=== PATIENT | male | born 1950 | race Caucasian/White ===

== ENCOUNTER 2016-10-24 09:03 | Observation (INO) | payer BC, OTHER ==
[2016-10-21 15:04] VITALS: BMI 24.0
[~2016-10-24] VITALS: Ht 172.7 cm; Wt 70.3 kg
[2016-10-24] VITALS (12 sets, daily range): BP systolic 128–177; BP diastolic 70–93; PULSE 63–108; TEMP 36.5–36.8; O2SAT 86–100; Ht 172.7 cm; Wt 70.3 kg
[~2016-10-24 09:03] MED LIST: ARFO15NE INH; BUDE1SUS INH; CETICHW4 PO; CRS/10 PO; FENTANYL CITRATE INJ 50 MCG/1 ML 2 ML VIAL ONE; FLUT0.15 INTNAS; IBUP1CAP9 PO; LACTATED RINGER'S 1000ML 1,000 ML IV SCH; MIDAZOLAM HCL 1 MG/ML 2ML VIAL ONE; TAMS0.4C38 PO; VITAMIN B12 PO
[2016-10-24] MEDS ORDERED: SUCCINYLCHOLINE CHLORIDE 20 MG/ML 10 ML VIAL IV ONE (10:46)
[2016-10-24] MEDS ORDERED: DEXAMETHASONE SOD INJ 4 MG/ML VIAL ONE (10:46)
[2016-10-24] MEDS ORDERED: PROPOFOL IV EMULSION 10 MG/ML 20 ML VIAL IV ONE (10:46)
[2016-10-24] MEDS ORDERED: MIDAZOLAM HCL 1 MG/ML 2ML VIAL ONE (10:46)
[2016-10-24] MEDS ORDERED: GLYCOPYRROLATE INJ 0.2 MG/ML VIAL ONE (10:46)
[2016-10-24] MEDS ORDERED: LIDOCAINE HCL 2% 2 ML VIAL (20MG/ML) ONE (10:46)
[2016-10-24] MEDS ORDERED: FENTANYL CITRATE INJ 50 MCG/1 ML 2 ML VIAL ONE (10:46)
[2016-10-24] MEDS ORDERED: ONDANSETRON INJ 2 MG/ML 2 ML VIAL ONE (10:46)
[2016-10-24] MEDS ORDERED: ROCURONIUM BROMIDE 10 MG/ML 5 ML VIAL ONE (10:46)
[2016-10-24] MEDS ORDERED: EpHEDrine SULFATE INJ 50 MG/ML AMP ONE (10:46)
[2016-10-24] MEDS ORDERED: PHENYLEPHRINE HCL INJ 10 MG/ML VIAL ONE (10:46)
[2016-10-24] MEDS ORDERED: NEOSTIGMINE METHYLSULFATE 5 MG/5 ML SYR ONE (10:46)
--- NOTE | 2016-10-24 10:58 | History & Physical Bridge Note ---
H&P Re-Evaluation Bridge Note: I have examined the patient, reviewed the History & Physical and in the interval since the performance of the History & Physical I have noted the following changes of clinical significance: No changes noted
[2016-10-24] MEDS ORDERED: ALBUTEROL 0.083% NEBU SOLN 3 ML VIAL INH STA ×2 (11:08→13:22)
--- NOTE | 2016-10-24 11:51 | Discharge Instructions ---
Discharge Instructions Date of Service Oct 24, 2016. Visit Reason for Visit: History Of Lung Cancer, Cough Discharge Discharge Diagnosis / Problem: History Of Lung Cancer, Cough Discharge Goals Goal(s): Learn about illness Activity Recommendations Activity Limitations: resume your previous activity (in 24 hours) Anesthesia . Post Anesthesia Instructions: If you have had General Anesthesia or IV Sedation: * Do not drive today. * Resume driving when surgeon permits. * Do not make important decisions or sign legal documents today. * Call surgeon for: 1. Temperature elevations greater than 101 degrees F. 2. Uncontrollable pain. 3. Excessive bleeding. 4. Persistent nausea and vomiting. 5. Medication intolerance (nausea, vomiting or rash). * For nausea and vomiting use only clear liquids such as: tea, soda, bouillon until nausea subsides, then gradually increase diet as tolerated. * If you have any concerns or questions, call your surgeon's office. If physician is unavailable and it is an emergency, call 911 or go to the nearest emergency room. . Instructions / Follow-Up Instructions / Follow-Up 1. You may cough up blood. Call physician if excessive amount noted. 2. Keep your scheduled appointment with Dr. Castillo on November 03 @ 11:00. Diet Recommendations Recommended Home Diet: resume previous diet Pending Studies Studies pending at discharge: no Medical Emergencies . Who to Call and When: Medical Emergencies: If at any time you feel your situation is an emergency, please call 911 immediately. . Non-Emergent Contact Non-Emergency issues call your: Surgeon Call Non-Emergent contact if: you have a fever, your pain is not controlled . . "Provider Documentation" section prepared by Flaco Abrams. .
[2016-10-24] MEDS ORDERED: EpHEDrine SULFATE INJ 50 MG/ML AMP IV PRN (12:45)
[2016-10-24] MEDS ORDERED: ATROPINE SULFATE 0.1 MG/ML 5ML SYR IV PRN (12:45)
[2016-10-24] MEDS ORDERED: ALBUTEROL HFA INHALER 8.5 GM INH ONE (13:23)
--- NOTE | 2016-10-24 14:05 | Anesthesiology Progress Note ---
Anesthesia Progress Note Date of Service Oct 24, 2016. Progress Notes Pt c/o SOB.Pt has sub Q emphysema/air of neck and cheeks.Dr Castillo being notified.
--- NOTE | 2016-10-24 14:27 | DIAGNOSTIC IMAGING REPORT ---
CHEST ONE VIEW PORTABLE CLINICAL HISTORY: s/p EBUS COMPARISON STUDY: Chest CT May 09, 2016. FINDINGS: Moderate pneumomediastinum and soft tissue gas within the lower neck is noted. Left hemithorax volume loss is unchanged and is postsurgical. There is no evidence of pulmonary edema. No pneumothorax or pleural effusion is identified. Cardiac size is normal. IMPRESSION: Moderate subcutaneous gas within the lower neck and pneumomediastinum. No pneumothorax identified. Short-term radiographic follow-up might be considered. Electronically signed by: Girma Gonzáles M.D. 10/24/2016 2:25 PM Dictated Date/Time: 10/24/2016 2:21 PM
[2016-10-24] MEDS ORDERED: ONDANSETRON INJ 2 MG/ML 2 ML VIAL IV PRN (14:30)
[2016-10-24] MEDS ORDERED: ACETAMINOPHEN 325 MG TAB PO PRN (14:30)
--- NOTE | 2016-10-24 14:55 | Anesthesiology Progress Note ---
Anesthesia Post Op Note Date & Time Oct 24, 2016 at 14:56 Vital Signs Pain Intensity: 0 Vital Signs Past 12 Hours Date Time Temp Pulse Resp B/P (MAP) Pulse Ox O2 Delivery O2 Flow Rate FiO2 10/24/16 14:30 77 20 134/76 97 Nasal Cannula 2 10/24/16 14:15 79 20 118/72 97 Nasal Cannula 2 10/24/16 14:05 36.2 95 20 133/78 95 Room Air 10/24/16 13:50 36.2 94 20 127/88 94 Room Air 10/24/16 13:40 91 20 121/77 95 Room Air 10/24/16 13:37 108 26 100 Diffusion Mask 13.0 10/24/16 13:30 105 20 148/80 100 Mask 10 10/24/16 13:20 101 20 139/61 99 Mask 10 10/24/16 13:11 36.4 104 20 129/79 99 Mask 10 10/24/16 09:34 36.6 83 22 177/92 (120) 95 Room Air Notes Mental Status: alert / awake / arousable, participated in evaluation Pt Amnestic to Procedure: Yes Nausea / Vomiting: adequately controlled Pain: adequately controlled Airway Patency, RR, SpO2: stable & adequate BP & HR: stable & adequate Hydration State: stable & adequate Anesthetic Complications: no major complications apparent
--- NOTE | 2016-10-24 15:09 | SURGERY PROGRESS NOTE ---
DATE: 10/24/2016 DATE: 10/24/2016. 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 The patient coughed very hard first 30 minutes or so after surgery and then he settles down; however he developed subcutaneous emphysema mostly in his face and in his neck down to his clavicle. Chest x-ray showed no evidence of pneumothorax or mediastinal emphysema. At this point, he is at 100% saturations on room air. I would not do anything different but he is complaining of throat pain. We are going to ask otolaryngology to evaluate him. We will admit him and see how he looks in the morning. We will cover him with antibiotics. MARY ANNE
[2016-10-24] MEDS ORDERED: PIPERACILL/TAZOBAC CONSULT ACTIVE PRN (15:45)
[2016-10-24] MEDS ORDERED: IV FLUIDS COMPLETED PRN (15:45)
[2016-10-24] MEDS ORDERED: NURSING VERBAL MED ORDER ONE ×2 (16:30→18:15)
[2016-10-24] MEDS ORDERED: MoRPHine SULFATE 2 MG/ML CARP ONE (16:38)
[2016-10-24] MEDS: MoRPHine SULFATE 2 MG/ML CARP IV PRN (16:43)
[2016-10-24] MEDS ORDERED: PIPERACILL/TAZOBAC IV 3.375 GM in DEXTROSE 5% 100ML 100 ML IV ONE (17:00)
[2016-10-24] MEDS: BUDESONIDE 0.5 MG/2 ML VIAL (PULMICORT) INH SCH (19:33)
--- NOTE | 2016-10-24 20:31 | OPERATIVE REPORT ---
DATE OF OPERATION: 10/24/2016 PREOPERATIVE DIAGNOSIS: Hypermetabolic left hilar mass. POSTOPERATIVE DIAGNOSIS: Recurrent large cell neuroendocrine tumor. PROCEDURES: 1. Endobronchial ultrasound with biopsy. 2. Destruction of tumor left main stem bronchus with a cryoprobe. SURGEON: Shan Castillo MD MECHANICAL DETAILER: CLARA Liu. ANESTHESIA: General anesthesia endotracheal intubation. INDICATION FOR PROCEDURE AND FINDINGS: This is a very nice 66-year-old male who underwent a right upper lobectomy at [facility] for a large cell neuroendocrine tumor. It has been interesting and that it was discovered when he coughed up some tissue which was evaluated. He received chemotherapy under the direction of Dr. Cota and apparently was sent to see me when a CT scan showed that he had stenosis in his staple line in the distal left mainstem bronchus. I had a long discussion about this and his wheezing and coughing was extremely irritating to him. I put a stent in and this did not really help. I removed this after a few months. His airway looked okay, but his cough persisted. Anyway, he came back to see me with a PET scan from [facility]. 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 This lit up his area in the distal mainstem bronchus hilar area. I felt that an endobronchial ultrasound biopsy would help us with this. Upon placing the scope in today on 10/24/2016, it could be seen that the patient's obvious recurrence is right at the mid to distal left main stem bronchus. In fact, it was almost occluding the airway. I did endobronchial ultrasound and I was disappointed to see that the right level 4 node was positive for carcinoma. I ended up debulking the tumor with a cryoprobe, so I opened it up. He tolerated it well. DESCRIPTION OF PROCEDURE: The patient was brought to the operating room and laid in supine position. General anesthesia induced and endotracheal intubation was performed. Appropriate timeout had been taken and antibiotics were given. The endobronchial ultrasound scope was placed. Upon going down into the airway, I assessed the right airway and saw no abnormalities. However, the left had almost bronchial tree evaluation showed almost a complete occlusion of the distal left mainstem bronchus. This was an obvious recurrent carcinoma. I did not do anything at this point, but pullback and using the endobronchial ultrasound, I biopsied some level 7 nodes and had some lymphocytes, but no tumor. I then biopsied the right level 4 lymph node. This came back as positive for metastatic carcinoma and in an N3 node. At this point, I thought we did not need any further biopsies with the endobronchial ultrasound. I switched this out for fiberoptic bronchoscope. There was obvious this mass is going to be soon be occluding the left mainstem bronchus. For this reason, I used a cryoprobe and debulked it to open up the airway. This also gave us a large amount of tissue was sent to the lab. There was minor bleeding with this but was well controlled with the cryoprobe. I also used cold saline and some epinephrine. His airways were cleared of all blood and secretions as I slowly removed the bronchoscope. He tolerated it well. I attest to the content of the Intraoperative Record and any orders documented therein. Any exception s are noted below.
[2016-10-24] MEDS ORDERED: ARFORMOTEROL TART 15MCG/2ML VIAL INH SCH (21:00)
[2016-10-24] MEDS ORDERED: CETIRIZINE HCL 10 MG TAB PO SCH (21:00)
[2016-10-24] MEDS: FLUTICASONE PROPIONATE NA SPR 16 GM BTL NAE SCH (21:38)
[2016-10-24] MEDS: OXYCODONE/ACETAMINOPHEN 5-325 TAB PO PRN (22:01)
[2016-10-24] MEDS: PIPERACILL/TAZOBAC IV 3.375 GM in DEXTROSE 5% 100ML 100 ML IV SCH (22:02)
[2016-10-25] MEDS: MoRPHine SULFATE 2 MG/ML CARP IV PRN (00:52)
[2016-10-25 03:24] VITALS: BP 144/74; PULSE 73; TEMP 36.6; O2SAT 95
--- NOTE | 2016-10-25 04:24 | ENT CONSULTATION ---
DATE OF CONSULTATION: 10/24/2016 ROOM NUMBER: [id number]. DATE OF REQUEST FOR CONSULTATION: 10/24/2016 PERSON REQUESTING CONSULTATION: Dr. Shan Castillo. INDICATION FOR THE CONSULTATION: Subcutaneous emphysema involving the face, neck and chest following endobronchial ultrasound with fiberoptic bronchoscopy and debulking of left mainstem bronchus tumor. HISTORY OF PRESENT ILLNESS: I spoke to the patient directly as well as obtained information from Leta, his nurse, and also spoke with Dr. Shan Castillo. 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 Two years ago, 2014, he underwent left upper lobe of the lung excision for a neuroendocrine tumor. He has had a cough most of the time since that surgery, and he underwent stenting by Dr. Castillo in the summer of 2015, and this was removed in April of 2016. Given the patient's persistent cough, Dr. Castillo took the patient to the operating room today to perform endobronchial ultrasound along with fiberoptic bronchoscopy and debulking of a tumor in his left mainstem bronchus. The procedure went well, but shortly after surgery, the patient had another bout of coughing and developed subcutaneous emphysema, primarily involving the face and neck. By the time I saw him in room 215 at about 5:45 p.m., this also involved the chest. The specific reason for the consultation was to provide upper airway endoscopy to assess any damage to the upper airway including the larynx. As far as past medical history, review of systems, please see the patient's history and physical. PHYSICAL EXAMINATION: VITAL SIGNS: The latest vitals on the chart were a pulse of 77, respiratory rate of 20, blood pressure was 130/76, he was saturating at 100% on 2 L of oxygen via nasal cannula. GENERAL: The patient was alert and cooperative. He had a strong voice. FACE: Exam of the face did show emphysema involving the cheeks and neck, and this also went down to the skin over the chest. There was palpable crepitus. I performed flexible fiberoptic laryngoscopy via the nostrils. There were no abnormalities of The nose, nasopharynx, oropharynx, hypopharynx or larynx. He had normal true vocal cord mobility. There was no submucosal emphysema in the upper airway. ASSESSMENT AND PLAN: The patient has obvious subcutaneous emphysema. The etiology is not exactly clear, but I suspect it is probably related to his biopsy. The patient is doing well, and these usually resolve on their own within a few days. I have already talked with Dr. Shan Castillo, and he is aware of my findings. MARY ANNE
[2016-10-25] MEDS: PIPERACILL/TAZOBAC IV 3.375 GM in DEXTROSE 5% 100ML 100 ML IV SCH (06:28)
[2016-10-25 07:08] VITALS: PULSE 64; O2SAT 98
[2016-10-25] MEDS: BUDESONIDE 0.5 MG/2 ML VIAL (PULMICORT) INH SCH (07:08)
[2016-10-25 07:30] LABS: BASO % 0.1 %; BASO ABS # 0.01 K/uL (0-0.2); COMPLETE YES; EOS % 0.8 %; HEMATOCRIT 36.9 % (42-52); IG% 0.2 %; LYMPH % 11.1 %; LYMPH ABS # 1.29 K/uL (1.2-3.4); MEAN CELL VOLUME 87.9 fL (80-100); MEAN CORPUSCULAR HGB CONC 33.1 g/dl (32-36); MEAN PLATELET VOLUME 9.9 fL (7.4-10.4); MONO % 7.5 %; NEUT % 80.3 %; PLATELET COUNT 196 K/uL (130-400); WHITE BLOOD COUNT 11.66 K/uL (4.8-10.8)
[2016-10-25 07:39] LABS: PROTHROMBIN TIME (PATIENT) 10.7 SECONDS (9.0-12.0)
--- NOTE | 2016-10-25 07:44 | DIAGNOSTIC IMAGING REPORT ---
CHEST ONE VIEW PORTABLE HISTORY: s/p FOB COMPARISON: Chest 10/24/2016. FINDINGS: Improvement in the pneumomediastinum. Subcutaneous emphysema the neck base persist. No pneumothorax. The heart is normal in size. No change in the borderline loss within the left hemithorax. IMPRESSION: Improvement in the pneumomediastinum. Subcutaneous emphysema at the neck base persists. Electronically signed by: Isaac Chandler M.D. 10/25/2016 7:43 AM Dictated Date/Time: 10/25/2016 7:41 AM
[2016-10-25] MEDS: OXYCODONE/ACETAMINOPHEN 5-325 TAB PO PRN ×2 (07:49→11:30)
[2016-10-25] MEDS: FLUTICASONE PROPIONATE NA SPR 16 GM BTL NAE SCH (07:50)
[2016-10-25 08:00] VITALS: BP 138/78; PULSE 86; TEMP 36.6; O2SAT 97
[2016-10-25] MEDS ORDERED: TAMSULOSIN HCL 0.4 MG CAP PO SCH (09:00)
[2016-10-25] MEDS ORDERED: ENOXAPARIN 40 MG/0.4 ML SYR SC SCH (09:00)
[2016-10-25] MEDS ORDERED: ROSUVASTATIN CALCIUM 10 MG TAB PO SCH (09:00)
--- NOTE | 2016-10-25 09:10 | Discharge Instructions ---
Discharge Instructions Date of Service Oct 25, 2016. Visit Reason for Visit: History Of Lung Cancer, Cough Discharge Discharge Diagnosis / Problem: Recurrent lung cancer Discharge Goals Goal(s): Decrease discomfort Activity Recommendations Activity Limitations: resume your previous activity Anesthesia . Post Anesthesia Instructions: If you have had General Anesthesia or IV Sedation: * Do not drive today. * Resume driving when surgeon permits. * Do not make important decisions or sign legal documents today. * Call surgeon for: 1. Temperature elevations greater than 101 degrees F. 2. Uncontrollable pain. 3. Excessive bleeding. 4. Persistent nausea and vomiting. 5. Medication intolerance (nausea, vomiting or rash). * For nausea and vomiting use only clear liquids such as: tea, soda, bouillon until nausea subsides, then gradually increase diet as tolerated. * If you have any concerns or questions, call your surgeon's office. If physician is unavailable and it is an emergency, call 911 or go to the nearest emergency room. . Instructions / Follow-Up Instructions / Follow-Up No flying until cleared by Dr Castillo. Diet Recommendations Recommended Home Diet: no limitations Procedures Procedures Performed: Endobronchial Ultrasound with Biopsies and Flexible Bronchoscopy Destruction of tumor on left mainstem bronchus. Pending Studies Studies pending at discharge: yes List of pending studies: Pathology Medical Emergencies . Who to Call and When: Medical Emergencies: If at any time you feel your situation is an emergency, please call 911 immediately. . Non-Emergent Contact Non-Emergency issues call your: Surgeon Contact Number: given Call Non-Emergent contact if: temperature is above 101.5, your pain is not controlled . . "Provider Documentation" section prepared by Shan Castillo. . [place] Drug Monitoring Program Search Results: no issues identified
[2016-10-25] MEDS ORDERED: AMOX875T PO (09:14)
[2016-10-25] MEDS ORDERED: OXYC-57 PO (09:14)
--- NOTE | 2016-10-25 09:28 | DISCHARGE SUMMARY ---
DATE OF DISCHARGE: 10/25/2016. Mr. Schroeder was seen this morning on 10/25/2016. I performed an endobronchial ultrasound and was dismayed to see that he had a tumor recurrence in his left mainstem bronchus, which was almost obstructing the airway. I biopsied this and debrided it using a cryoprobe and remove much of this. The patient had marked coughing yesterday for about half an hour after he was extubated and this actually settled down. However, he then developed subcutaneous emphysema in his face and neck. I had Dr. Walker Little from otolaryngology evaluate him and Dr. Bowman did not see any oropharyngeal evidence of trauma. This is probably due to where I was using the cryoprobe on his left mainstem bronchus in which case, I am not very concerned about this. The patient looks better today. His x-ray looks fine with no evidence of pneumothorax. He has no pleural effusions. I think his left lung sounds better. He complains of occasional wheezing, but he has no wheezing this morning. I had a long talk with the patient, his and his son who is a Ph.D. candidate at [employer] today. I got a call last night from Dr. Edwin Hamilton from pathology who reviewed his FNA from the endobronchial ultrasound of the right level 4 node. Intraoperatively, it was felt on the rapid on site evaluation that this represented metastatic disease. This would have been an N3 node. Dr. Hamilton has reviewed this and had interdepartmental consultations and it is felt that this does not represent metastatic disease. This is a very important point because if he does not have disease in his right paratracheal nodes then he is a candidate for completion pneumonectomy on the left. I do have some issues. First of all, the PET scan is almost 3 months old from [place]. We are going to repeat another PET scan. I am going to obtain pulmonary function studies. We are going to present him at our weekly cancer conference and discuss options. We do not have an actual diagnosis at this point, but I gave the pathologist a large amount of tissue based on the gross findings, this is definitely a recurrence. I expect this to be a large cell neuroendocrine tumor. I discussed this with Dr. Cota last night. The patient looks better with less subcutaneous emphysema. His pain in his throat is better. I am still going to give him some pain medicine as it did keep him up last night. All in all, I am pretty happy with him. He is an interesting case and I will have to get our final pathology back. We discussed some options today including a completion pneumonectomy, sterotactic body radiation and chemotherapy. We will have to get our final pathology back and stage him more fully. MARY ANNE
[2016-10-25 10:26] VITALS: BP 138/78; PULSE 86; TEMP 36.6; O2SAT 97
[2016-11-21] MEDS ORDERED: CLR10 PO (09:51)
[2016-11-21] MEDS ORDERED: AMOX1TAB42 PO (09:51)
[2016-11-21] MEDS ORDERED: ALBU18002 INH (09:51)
[2016-11-21] MEDS ORDERED: TRAM-10 PO (09:51)
[2016-12-08] MEDS ORDERED: ONDA8TAB6 PO (16:22)
[2016-12-08] MEDS ORDERED: PRED20TA PO (16:24)
[2016-12-08] MEDS ORDERED: DIAZ-165 PO (16:25)
[2016-12-12] MEDS ORDERED: BACL10TA PO (07:25)
[2016-12-12] MEDS ORDERED: BUDESONIDE INH (07:25)
[2016-12-15] MEDS ORDERED: OXYC-57 PO (11:03)
[2016-12-15] MEDS ORDERED: AMOX500T PO (11:17)
[2016-12-26] MEDS ORDERED: RXC5 PO (12:36)
[2016-12-29] MEDS ORDERED: BUDE1SUS6 INH (08:51)
[2016-12-29] MEDS ORDERED: MULT-506 PO (08:51)
[2016-12-29] MEDS ORDERED: PROC1TAB5 PO (08:51)
[2016-12-29] MEDS ORDERED: BACL10TA PO (08:51)
[2017-01-13] MEDS ORDERED: SUCR5SUS PO (08:48)
[2017-01-13] MEDS ORDERED: PRED20TA2 PO (15:39)
[2017-03-10] MEDS ORDERED: iron PO (14:05)
[2017-03-10] MEDS ORDERED: ESOM20CA PO (14:05)
[2017-03-10] MEDS ORDERED: MISCCAP80 PO (14:05)
[2017-03-10] MEDS ORDERED: CHOL2000 PO (14:05)
== END 2016-10-25 12:11 | disposition home or self-care (01) ==
LOC: C.ACU 09:03 → C.2T 14:20 → ENRESERV 14:32
PROVIDERS: ADMIT Surgery; ATTEND Surgery
DX: C7A.090 Malignant carcinoid tumor of the bronchus and lung (principal); J44.9 Chronic obstructive pulmonary disease, unspecified

== ENCOUNTER → 2016-11-10 | Outpatient (CLI) | payer BC ==
[~2016-11-10] MED LIST changes: +ALBU18002 INH; +AMOX1TAB42 PO; +AMOX500T PO; +AMOX875T PO; +BACL10TA PO; +BENZ100C7 PO; +BENZ1CAP90 PO; +BUDE1SUS6 INH; +BUDESONIDE INH; +CEFD300C2 PO; -CETICHW4 PO; +CHOL2000 PO; +CLR10 PO; +CPC PO; +DIAZ-165 PO; +ESOM20CA PO; -FENTANYL CITRATE INJ 50 MCG/1 ML 2 ML VIAL ONE; +FERROUS SULFATE PO; -IBUP1CAP9 PO; -LACTATED RINGER'S 1000ML 1,000 ML IV SCH; +LORA-741 PO; +LVQ750 PO; +MAGIC1 MT; +MELA3TAB7 PO; +MGCCMP100 PO; -MIDAZOLAM HCL 1 MG/ML 2ML VIAL ONE; +MIRT15TA2 PO; +MISCCAP80 PO; +MONT1TAB3 PO; +MULT-506 PO; +ONDA8TAB6 PO; +OXYC-57 PO; +PRD20 PO; +PRED20TA PO; +PRED20TA2 PO; +PROC1TAB5 PO; +RMR15 PO; +RXC5 PO; +SUCR5SUS PO; +TRAM-10 PO; +iron PO
--- NOTE | 2016-11-10 12:53 | DIAGNOSTIC IMAGING REPORT ---
PET/CT HISTORY: NON SMALL CELL LUNG CA TECHNIQUE: PET/CT was performed from the base of the skull through the pelvis following the intravenous administration of 14.6 mCi of F18-FDG. Non-contrast CT imaging was performed over the same range without breath-hold for attenuation correction of PET images and anatomic correlation, but not for primary interpretation as it is not of standard diagnostic quality. CT DOSE: COMPARISON: Chest CT 05/12/2016. PET CT 08/02/2014. FINDINGS: Motion artifact throughout the examination resulting in suboptimal evaluation. HEAD AND NECK: FDG uptake within the tongue is likely physiologic. Significant motion artifact. No definite enlarged or FDG avid cervical lymph nodes. Symmetric perfusion within the brain. CHEST: Progressive soft tissue thickening at the left hilum which measures 1.8 cm. This demonstrates intense FDG uptake with an SUV max of 7.5. There is also an 8 mm soft tissue nodule along the anterior aspect of the left mainstem bronchus on image 87 which demonstrates moderate FDG uptake with an SUV max of 4.9. These are highly suspicious for recurrent/metastatic disease. Postoperative changes consistent with prior left upper lobectomy. Nodular densities within the left lung base have resolved. A 7 mm groundglass nodule within the right upper lobe described on the prior studies is not well visualized due to the motion artifact. No pleural effusions. ABDOMEN/PELVIS: Below the diaphragm, tracer is distributed physiologically in the gastrointestinal and genitourinary tracts. There is no significant lymphadenopathy and no FDG-avid disease. MUSCULOSKELETAL: Mild FDG uptake within the left lateral third rib. There is an associated healing fracture. IMPRESSION: 1. Interval development of a 1.8 cm area of soft tissue thickening within the left hilum with intense FDG uptake. There is also a new 8 mm FDG avid soft tissue nodule along the anterior aspect of the left mainstem bronchus. These are consistent with recurrent/metastatic disease. Bronchoscopy can be used for further evaluation. 2. Mild FDG uptake associate with the left lateral third rib healing fracture. Electronically signed by: Isaac Chandler M.D. 11/10/2016 12:51 PM Dictated Date/Time: 11/10/2016 12:31 PM
== END | disposition home or self-care (01) ==
LOC: C.PET 08:59
PROVIDERS: ATTEND Surgery
DX: C7A.8 Other malignant neuroendocrine tumors (principal); C34.02 Malignant neoplasm of left main bronchus

== ENCOUNTER → 2016-11-12 | Day surgery (SDC) | payer BC ==
[2016-11-05 15:21] VITALS: Ht 172.7 cm; Wt 71.4 kg
[~2016-11-12] VITALS: Ht 172.7 cm; Wt 71.4 kg
[~2016-11-12] MED LIST changes: +CLINDAMYCIN PHOS 150 MG/ML 2 ML VIAL ONE; +DEXAMETHASONE SOD INJ 4 MG/ML VIAL ONE; +EpHEDrine SULFATE 50MG/5ML SYR ONE; +FENTANYL CITRATE INJ 50 MCG/1 ML 2 ML VIAL IV PRN; +FENTANYL CITRATE INJ 50 MCG/1 ML 2 ML VIAL ONE; +LACTATED RINGER'S 1000ML 1,000 ML IV PRN; +LACTATED RINGER'S 1000ML 1,000 ML IV SCH; +LIDOCAINE HCL 2% 2 ML VIAL (20MG/ML) ONE; +MIDAZOLAM HCL 1 MG/ML 2ML VIAL ONE; +ONDANSETRON INJ 2 MG/ML 2 ML VIAL IV PRN; +ONDANSETRON INJ 2 MG/ML 2 ML VIAL ONE; +PHENYLEPHRINE 100MCG/ML 5ML SYR ONE; +PHENYLEPHRINE HCL INJ 10 MG/ML VIAL ONE; +PROPOFOL IV EMULSION 10 MG/ML 20 ML VIAL IV ONE; +VASOPRESSIN 20 UNIT/ML VIAL ONE
[2016-11-12 05:51] VITALS: BP 156/88; PULSE 56; TEMP 36.7; O2SAT 98
--- NOTE | 2016-11-12 10:07 | OPERATIVE REPORT ---
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 POSTOPERATIVE DIAGNOSIS: Same. PROCEDURE: Staging endobronchial ultrasound with biopsy. SURGEON: Dr. Castillo. ANESTHESIA: General anesthesia with laryngeal mask airway. 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 He received postoperative chemotherapy because of the cell type being a large cell neuroendocrine tumor. His lymph nodes were negative and the tumor was not large. He presented back as a persistent cough since the surgery. I inserted a small bronchial stent last summer which he had in for a few months and then I removed it. His last bronchoscopy was in April. He had no evidence of carcinoma and PET scans had not show any evidence for recurrence nor did a CT. He presented back to my office a few weeks ago after returning from [facility] where he had a CT scan in July. This showed hypermetabolic activity in the left hilum. A couple of weeks, I scheduled him for endobronchial ultrasound and was dismayed to see that he had a nearly obstructing tumor in his left mainstem bronchus about 2 cm from the slim. I did an endobronchial biopsy. We were going to stage this; however, when I did the right level 4 the rapid on-site evaluation felt that this represented carcinoma. For this reason, I stopped as he had N3 disease but I did debulk this tumor with a cryoprobe which opened it up nicely. He really has no systemic symptoms other than a cough from this. I was then told that he actually did not have carcinoma of this right level 4 node which changed things because he now no longer had N3 disease by cytology and we had not completely staged him. I explained this to him in the office and I elected to proceed with a staging endobronchial ultrasound. On 11/12/2016 I brought the patient to the operating room and did a staging endobronchial ultrasound. The nodes were rather small. I did biopsy a level 2 node on the right, as well as the level 4 and level 10. They were difficult to get lymphocytes from these. I then biopsied level 7 and this was definitely positive. I biopsied a level 7 node multiple times from the right and the left side and these are positive for carcinoma. It should be noted that this is rather close to the tumor itself from the left side, but this was definitely a node. I did not biopsy the level 11 node as I was having difficulty getting down there due to the tumor and also the fact that we already had N2 disease. We still have multiple cell washes to go through, but the patient tolerated it well. I attest to the content of the Intraoperative Record and any orders documented therein. Any exception s are noted below.
--- NOTE | 2016-11-12 10:11 | DIAGNOSTIC IMAGING REPORT ---
CHEST ONE VIEW PORTABLE CLINICAL HISTORY: S/P embus postoperative evaluation COMPARISON STUDY: 10/25/2016 FINDINGS: Resolution of subcutaneous air. No current evidence for pneumomediastinum. Chronic pleural reactive changes left base unaltered. No new or interval findings. IMPRESSION: Improved exam. Subcutaneous emphysema as well as pneumomediastinum have resolved entirely. Chronic changes left lung base. Electronically signed by: Ariel Torrez M.D. 11/12/2016 10:09 AM Dictated Date/Time: 11/12/2016 10:08 AM
--- NOTE | 2016-11-12 10:38 | OPERATIVE REPORT ---
DATE OF OPERATION: 11/12/2016 PREOPERATIVE DIAGNOSIS: Recurrent nonsmall cell lung carcinoma, left mainstem bronchus. POSTOPERATIVE DIAGNOSIS: Same. PROCEDURE: Staging endobronchial ultrasound with biopsy. SURGEON: Dr. Castillo. ANESTHESIA: General anesthesia with I-gel laryngeal mask airway. 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 He had an early stage cancer but was treated with chemotherapy given the cell type. I saw him about a year ago when he presented with a persistent cough since surgery and appeared to have a kink in the left brochus just beyond the bronchial staple line. I elected to put a stent in this as he had tried all other options. This did not really help him. I removed this stent in April when he returned from [facility]. It should be noted that in both bronchoscopies there were no abnormalities noted in the bronchus. He presented back to my office a few weeks ago after returning from [facility] and had a PET scan in July in [facility] which showed hypermetabolic activity in his left hilum. I took him to the operating room and did an endobronchial ultrasound a couple weeks ago when I was surprised to see he had a recurrent large mass in his left mainstem bronchus almost obstructing it. I then proceeded to do a staging endobronchial ultrasound and my first biopsy was a right level 4 and the rapid onsite evaluation felt that this represented a carcinoma. I stopped there. I was biopsying the level 7 nodes but stopped, feeling that we had N3 disease. I then debulked the left mainstem bronchial tumor with a cryoprobe. We sent off plenty of tissue. 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 We saw very little in the way of neuroendocrine tumor markers. I presented this patient at the cancer conference yesterday and it was felt he probably is going to simply require definitive chemotherapy and radiation. I repeated his PET scan as it had been three months since his last and now he has not only a lesion lighting up in the left mainstem bronchus but also a left hilar lymph node out at about the left level 11 area. Unfortunately, the pathologist called me after the endobronchial ultrasound in the evening and stated that the level 4 node I had biopsied did not have cancer in it. For this reason, we did not completely stage him. I discussed this in detail with the patient and his in the office last week and felt that we needed to proceed with staging endobronchial ultrasound as well as pulmonary function studies and a quantitative lung scan. I have discussed this in detail at the cancer conference. The patient is going to seek a second opinion at [facility] and perhaps even [facility]. On the morning of 11/12/2016 I brought the patient to the operating room and we placed an I-gel laryngeal mask airway and I proceeded with the endobronchial ultrasound. I started off at the right level 2 area which was a very small lymph node. I biopsied this several times until we got adequate specimens. I then went down in the right level 4. This was very difficult. I biopsied this multiple times and we really got very little in the way of lymphoid tissue. I also biopsied the right level 10 and right level 11 nodes. They were small and it was difficult to get adequate lymph node tissue. I biopsied a level 7 node from the left side and the right side. I did this from both sides of the slim and performed multiple biopsies. These came back definitively positive for carcinoma. On the left side, there was definitely a lymph node in the subcarinal area that was positive. At this point I stopped, I did not feel we needed to biopsy the ipsilateral or hilar nodes at this point as we had several passes which were positive for carcinoma from the level 7. I evaluated the tumor and grossly it is about 2 cm from the bifurcation. This is very important because it is going to determine whether or not we could offer him a completion pneumonectomy or should he proceed with straight chemotherapy and radiation. Now the fact that he has N2 disease makes him at least a 3A carcinoma and I will be curious to see what the consultants say at [facility] and [facility]. PROCEDURE: The patient was brought to the operating room and laid in the supine position. General anesthesia was induced and a laryngeal mask airway was placed. Upon placing the endobronchial ultrasound scope I then injected lidocaine spray over his vocal cord down into his trachea. I then placed the scope down and attention was first turned towards inspecting the airways. The right but clear. The trachea was clear. The tumor was still obvious in the left mainstem bronchus, but much improved. I then started off in the right level 2 node. These nodes were small, but I biopsied them several times. I also went down and biopsied the level 4 nodes, multiple times. I went down to the right level 10 and right level 11. The nodes were small and it was difficult to get good lymphatic tissue, although I did multiple passes at each of these 4 stations. I then went to level 7 and biopsied this first on the right side and then from the left. This is definitely a carcinoma. Multiple passes were positive, especially from the left side. In addition, it is also import to note this was definitely a lymph node. It was not large, and it was close to the tumor, but it was definitely a level 7 node. I decided to stop here as we had evidence of N2 disease. Several pathologists reviewed this in the pathology lab. I irrigated out both airways with no significant bleeding. The patient awakened without difficulty and was returned to the postanesthesia care unit coughing, but in stable condition. I attest to the content of the Intraoperative Record and any orders documented therein. Any exceptions are noted below. MTDD
[2016-11-12 10:40] VITALS: BP 97/54; PULSE 87; O2SAT 95
--- NOTE | 2016-11-12 11:02 | Anesthesiology Progress Note ---
Anesthesia Post Op Note Date & Time Nov 12, 2016 at 10:59 Vital Signs Pain Intensity: 0 Vital Signs Past 12 Hours Date Time Temp Pulse Resp B/P (MAP) Pulse Ox O2 Delivery O2 Flow Rate FiO2 11/12/16 10:33 87 22 102/57 96 Nasal Cannula 2 11/12/16 10:29 36.3 11/12/16 10:27 91 20 93 11/12/16 10:27 91 20 11/12/16 10:25 91/49 11/12/16 10:24 96/54 11/12/16 10:22 100 22 72/49 91 11/12/16 10:22 100 11/12/16 10:21 87/55 11/12/16 10:20 87/54 11/12/16 10:17 108 11/12/16 10:17 107 22 91 11/12/16 10:16 95/51 11/12/16 10:12 111 22 11/12/16 10:12 112 22 90 11/12/16 10:11 98/43 11/12/16 10:10 Room Air 11/12/16 10:08 121/82 11/12/16 10:07 112 20 96 11/12/16 10:07 115 20 11/12/16 10:06 85/51 11/12/16 10:04 89/51 11/12/16 10:02 111 19 100 11/12/16 10:02 110 19 11/12/16 10:01 88/47 11/12/16 09:57 110 26 11/12/16 09:57 109 26 97 11/12/16 09:56 108 23 11/12/16 09:56 109 23 107/62 99 11/12/16 09:52 112/61 11/12/16 09:51 107 20 89/48 97 11/12/16 09:51 109 20 11/12/16 09:47 114/58 11/12/16 09:46 105 24 11/12/16 09:46 105 24 97 11/12/16 09:41 89 24 11/12/16 09:41 88 24 95 11/12/16 09:40 138/69 11/12/16 09:36 93 22 11/12/16 09:36 93 22 114/57 95 11/12/16 09:32 130/68 11/12/16 09:31 91 24 96 11/12/16 09:31 91 24 11/12/16 09:30 146/133 11/12/16 09:26 36. 89 14 130/68 95 Mask 10 11/12/16 05:51 36.7 56 20 156/88 (110) 98 Room Air Notes Mental Status: alert / awake / arousable, participated in evaluation Pt Amnestic to Procedure: Yes Nausea / Vomiting: adequately controlled Pain: adequately controlled Airway Patency, RR, SpO2: stable & adequate BP & HR: stable & adequate Hydration State: stable & adequate Anesthetic Complications: no major complications apparent Pt requiring 2L O2 to keep sats in 90s. Likely related to extensive irrigation used during case. Pt feels ok, still coughing. If pt cannot be weaned to room air, he will have to be admitted.
[2016-11-12 11:09] VITALS: BP 99/57; PULSE 99; TEMP 36.3; O2SAT 97
--- NOTE | 2016-11-12 11:31 | Discharge Instructions ---
Discharge Instructions Date of Service Nov 12, 2016. Visit Reason for Visit: Lung Cancer C34.02 Discharge Discharge Diagnosis / Problem: Lung cancer Discharge Goals Goal(s): Learn about illness (In process of staging the cancer - will discuss fully in office.) Activity Recommendations Activity Limitations: as noted below Exercise/Sports Limitations: rest today May Resume Sexual Activity: when tolerated Shower/Bathe: no limitations Anesthesia . Post Anesthesia Instructions: If you have had General Anesthesia or IV Sedation: * Do not drive today. * Resume driving when surgeon permits. * Do not make important decisions or sign legal documents today. * Call surgeon for: 1. Temperature elevations greater than 101 degrees F. 2. Uncontrollable pain. 3. Excessive bleeding. 4. Persistent nausea and vomiting. 5. Medication intolerance (nausea, vomiting or rash). * For nausea and vomiting use only clear liquids such as: tea, soda, bouillon until nausea subsides, then gradually increase diet as tolerated. * If you have any concerns or questions, call your surgeon's office. If physician is unavailable and it is an emergency, call 911 or go to the nearest emergency room. . Instructions / Follow-Up Instructions / Follow-Up Come by office [place] at noon to picker packer pathology report. Make sure you make copies of latest PET scan and take with you to your appointments with outside consultants.My office will call you to make appointment to see me in one week. Diet Recommendations Recommended Home Diet: no limitations Procedures Procedures Performed: Endobronchial ultrasound with biopsies Pending Studies Studies pending at discharge: yes List of pending studies: Pathology and cytology Medical Emergencies . Who to Call and When: Medical Emergencies: If at any time you feel your situation is an emergency, please call 911 immediately. . Non-Emergent Contact Non-Emergency issues call your: Primary Care Provider . . "Provider Documentation" section prepared by Shan Castillo. .
== END | disposition home or self-care (01) ==
LOC: C.ACU 05:30
PROVIDERS: ATTEND Surgery
DX: C34.02 Malignant neoplasm of left main bronchus (principal); C77.1 Secondary and unspecified malignant neoplasm of intrathoracic lymph nodes; C7A.8 Other malignant neuroendocrine tumors; J44.9 Chronic obstructive pulmonary disease, unspecified; J98.09 Other diseases of bronchus, not elsewhere classified; K21.9 Gastro-esophageal reflux disease without esophagitis; N40.1 Benign prostatic hyperplasia with lower urinary tract symptoms; N13.8 Other obstructive and reflux uropathy; Z87.891 Personal history of nicotine dependence; Z79.899 Other long term (current) drug therapy

== ENCOUNTER → 2016-11-21 | Outpatient (CLI) | payer BC ==
[~2016-11-21] MED LIST changes: -BUDE1SUS INH; -CHOL2000 PO; -CLINDAMYCIN PHOS 150 MG/ML 2 ML VIAL ONE; -DEXAMETHASONE SOD INJ 4 MG/ML VIAL ONE; -ESOM20CA PO; -EpHEDrine SULFATE 50MG/5ML SYR ONE; -FENTANYL CITRATE INJ 50 MCG/1 ML 2 ML VIAL IV PRN; -FENTANYL CITRATE INJ 50 MCG/1 ML 2 ML VIAL ONE; -FERROUS SULFATE PO; -FLUT0.15 INTNAS; +GADAVIST IV PRN; -LACTATED RINGER'S 1000ML 1,000 ML IV PRN; -LACTATED RINGER'S 1000ML 1,000 ML IV SCH; -LIDOCAINE HCL 2% 2 ML VIAL (20MG/ML) ONE; -LORA-741 PO; -LVQ750 PO; -MAGIC1 MT; -MELA3TAB7 PO; -MIDAZOLAM HCL 1 MG/ML 2ML VIAL ONE; -MIRT15TA2 PO; -MISCCAP80 PO; -MONT1TAB3 PO; -ONDANSETRON INJ 2 MG/ML 2 ML VIAL IV PRN; -ONDANSETRON INJ 2 MG/ML 2 ML VIAL ONE; -PHENYLEPHRINE 100MCG/ML 5ML SYR ONE; -PHENYLEPHRINE HCL INJ 10 MG/ML VIAL ONE; -PROPOFOL IV EMULSION 10 MG/ML 20 ML VIAL IV ONE; -VASOPRESSIN 20 UNIT/ML VIAL ONE; -iron PO
--- NOTE | 2016-11-21 08:10 | DIAGNOSTIC IMAGING REPORT ---
Brain MRI WITH AND WITHOUT CONTRAST HISTORY: Lung cancer. Assess for metastatic disease. TECHNIQUE: Multiplanar multisequence MRI of the brain was performed both before and after the intravenous administration of contrast. COMPARISON STUDY: None. FINDINGS: There are no areas of restricted diffusion to suggest acute infarction. The midline structures are intact. Mucosal thickening within the ethmoid air cells.. The mastoid air cells are clear. The ventricles and sulci are within normal limits for age. There is no mass, hematoma, midline shift. The major vascular flow-voids at the skull base are well maintained. Postcontrast sequences show no areas of abnormal enhancement. IMPRESSION: No acute intracranial abnormality. No evidence for metastatic disease within the brain. Electronically signed by: Isaac Chandler M.D. 11/21/2016 8:08 AM Dictated Date/Time: 11/21/2016 8:01 AM
== END | disposition home or self-care (01) ==
LOC: C.MRIBC 06:53
PROVIDERS: ATTEND Internal Medicine Hematology & Oncology
DX: C34.90 Malignant neoplasm of unspecified part of unspecified bronchus or lung (principal)

== ENCOUNTER → 2016-12-12 | Day surgery (SDC) | payer BC ==
[2016-12-11 10:07] VITALS: Ht 172.7 cm; Wt 71.4 kg
--- NOTE | 2016-12-11 14:36 | History and Physical ---
History & Physical Date Dec 11, 2016. Chief Complaint Bronchial Stenosis History of Present Illness The patient is a 66 year old male known to our service. He has a hx. of large cell neuroendocrine tumor diagnosed in 2014. At that time he was noted to have cough and sputum cytology was (+) for malignancy. He underwent a NAWAF at [facility] in July, and was noted to have stage [id number] but due to cell type he underwent chemotherapy directed by Dr. Cota. He was referred to Dr. Castillo in November of 2015 due to cough. He underwent bronchoscopy and was noted to have bronchial stenosis and underwent stent placement in November of 2015. This stent was subsequently removed in April of 2016. He was doing well until several months ago he noted continued/worsening cough. He underwent a PET scan while in [place] which revealed hypermetabolic activity in the mediastinum. He subsequently underwent EBUS in October 2016 (on the and ) with biopsy result noted to be (+) for malignancy. The pt. had second opinion at [facility] and the decision was made for him to undergo XRT, which he has begun locally under the guidance of Dr. Avalos. Due to concern for worsening bronchial stenosis, Dr. Castillo is asked to perform bronchoscopy with possible stent placement. Past Medical/Surgical History Medical Problems: (1) Bronchial stenosis, left (2) GERD (gastroesophageal reflux disease) (3) Local recurrence of left lung cancer Surgeries. 1. NAWAF--July [address] at [facility] 2. Brochoscopy with stent (12/07) 3. Bronchoscopy with stent removal (05/09) 4. EBUS (10/24/16, 11/12/16) Additional History Hepatic Disease: No Kidney Disease: No Hypertension: No Heart Disease: No Bleeding Tendencies: No Infectious Diseases: No Allergies Coded Allergies: Pork (Verified Allergy, Severe, ANAPHYLAXIS, 12/11/16) NO KNOWN DRUG ALLERGIES (Verified Allergy, Unknown, ., 12/11/16) Home Medications Scheduled Diazepam (Valium), 5 MG PO TID Prednisone (Prednisone), 60 MG PO DIRECTED Rosuvastatin Calcium (Crestor), 10 MG PO QAM Tamsulosin Hcl (Flomax), 0.4 MG PO QAM Scheduled PRN Albuterol Sulfate (Proair Respiclick), 1 INHA INH Q4H PRN for Shortness of Breath Ondansetron Hcl (Zofran), 8 MG PO DIRECTED PRN for Nausea Physical Examination Skin: warm/dry, no rash Eyes: normal inspection ENT: normal ENT inspection Head: normocephalic, atraumatic Neck: supple Respiratory/Chest: lungs clear, normal breath sounds, no respiratory distress Cardiovascular: regular rate, rhythm Abdomen / GI: normal bowel sounds Extremities: normal inspection Neurologic/Psych: oriented x 3 Diagnosis Large Cell Neuroendocrine Lung CA Bronchial Stenosis Plan of Treatment 66 year old male with Large Cell Neuroendocrine Lung CA -due to bronchial stenosis he will undergoing flexible and rigid bronchoscopy with possible bronchial stent placement -additional recommendations and plan of treatment will be based on findings at time of bronchoscopy and clinical response to this modality
[~2016-12-12] VITALS: Ht 172.7 cm; Wt 71.4 kg
[~2016-12-12] MED LIST changes: -AMOX1TAB42 PO; -ARFO15NE INH; +ATROPINE SULFATE 0.1 MG/ML 5ML SYR IV PRN; -CLR10 PO; +DEXAMETHASONE SOD INJ 4 MG/ML VIAL ONE; +ESMOLOL HCL 10 MG/ML 10 ML VIAL ONE; +ETOMIDATE 2 MG/ML 20 ML VIAL IV ONE; +FENTANYL CITRATE INJ 50 MCG/1 ML 2 ML VIAL IV PRN; +FENTANYL CITRATE INJ 50 MCG/1 ML 2 ML VIAL ONE; -GADAVIST IV PRN; +LACTATED RINGER'S 1000ML 1,000 ML IV SCH; +LIDOCAINE HCL 2% 2 ML VIAL (20MG/ML) ONE; +MIDAZOLAM HCL 1 MG/ML 2ML VIAL ONE; +ONDANSETRON INJ 2 MG/ML 2 ML VIAL IV PRN; +ONDANSETRON INJ 2 MG/ML 2 ML VIAL ONE; +PROPOFOL IV EMULSION 10 MG/ML 20 ML VIAL IV ONE; +SUCCINYLCHOLINE CHLORIDE 20 MG/ML 10 ML VIAL IV ONE; -TRAM-10 PO; -VITAMIN B12 PO
[2016-12-12 07:28] VITALS: BP 123/74; PULSE 72; TEMP 36.9; O2SAT 93
[2016-12-12 07:32] LABS: HEMATOCRIT 35.6 % (42-52); MEAN CELL VOLUME 88.1 fL (80-100); MEAN CORPUSCULAR HEMOGLOBIN 29.5 pg (25-34); MEAN PLATELET VOLUME 9.9 fL (7.4-10.4); PLATELET COUNT 141 K/uL (130-400); RED BLOOD COUNT 4.04 M/uL (4.7-6.1); WHITE BLOOD COUNT 19.13 K/uL (4.8-10.8)
[2016-12-12 07:50] LABS: MEAN CORPUSCULAR HGB CONC 33.4 g/dl (32-36)
--- NOTE | 2016-12-12 10:11 | Discharge Instructions ---
Discharge Instructions Date of Service Dec 12, 2016. Visit Reason for Visit: Lung Cancer, Bronchial Stenosis Discharge Discharge Diagnosis / Problem: jasbir Cancer, Bronchial Stenosis Discharge Goals Goal(s): Decrease discomfort, Improve function Activity Recommendations Activity Limitations: resume your previous activity (in 24 hours) Anesthesia . Post Anesthesia Instructions: If you have had General Anesthesia or IV Sedation: * Do not drive today. * Resume driving when surgeon permits. * Do not make important decisions or sign legal documents today. * Call surgeon for: 1. Temperature elevations greater than 101 degrees F. 2. Uncontrollable pain. 3. Excessive bleeding. 4. Persistent nausea and vomiting. 5. Medication intolerance (nausea, vomiting or rash). * For nausea and vomiting use only clear liquids such as: tea, soda, bouillon until nausea subsides, then gradually increase diet as tolerated. * If you have any concerns or questions, call your surgeon's office. If physician is unavailable and it is an emergency, call 911 or go to the nearest emergency room. . Instructions / Follow-Up Instructions / Follow-Up 1. You may cough up some blood. Call physician if excessive amount noted. 2. Appointment with Dr. Castillo in 1 week. Office will call you with date and time of appointment. Go to hospital 1 hour prior to appointment for a chest x-ray. Diet Recommendations Recommended Home Diet: resume previous diet Pending Studies Studies pending at discharge: no Medical Emergencies . Who to Call and When: Medical Emergencies: If at any time you feel your situation is an emergency, please call 911 immediately. . Non-Emergent Contact Non-Emergency issues call your: Surgeon Call Non-Emergent contact if: you have a fever, your pain is not controlled . . "Provider Documentation" section prepared by Flaco Abrams. .
--- NOTE | 2016-12-12 11:56 | DIAGNOSTIC IMAGING REPORT ---
CHEST 1 VIEW FRONTAL CLINICAL HISTORY: BRONCHOSCOPY WITH STENT PLACEMENT TECHNIQUE: Image intensifier COMPARISON STUDY: None FINDINGS: Image intensifier was used for stent placement IMPRESSION: Image intensifier utilization for stent placement The above report was generated using voice recognition software. It may contain grammatical, syntax or spelling errors. Electronically signed by: Ariel Torrez M.D. 12/12/2016 11:55 AM Dictated Date/Time: 12/12/2016 11:54 AM
--- NOTE | 2016-12-12 12:35 | DIAGNOSTIC IMAGING REPORT ---
CHEST ONE VIEW PORTABLE CLINICAL HISTORY: bronchial stent COMPARISON STUDY: 11/12/2016 FINDINGS: Placement of a left mainstem bronchial stent. Minimal atelectasis left base. Chronic pleural reactive changes left base. Right lung is clear. No evidence pneumothorax. IMPRESSION: No evidence pneumothorax status post left mainstem bronchial stent placement. The above report was generated using voice recognition software. It may contain grammatical, syntax or spelling errors. Electronically signed by: Ariel Torrez M.D. 12/12/2016 12:33 PM Dictated Date/Time: 12/12/2016 12:32 PM
--- NOTE | 2016-12-12 12:45 | Anesthesiology Progress Note ---
Anesthesia Post Op Note Date & Time Dec 12, 2016 at 12:45 Vital Signs Pain Intensity: 0 Vital Signs Past 12 Hours Date Time Temp Pulse Resp B/P (MAP) Pulse Ox O2 Delivery O2 Flow Rate FiO2 12/12/16 12:35 88 22 122/65 96 Oxymask 5 12/12/16 12:25 81 22 91/57 96 Oxymask 10 12/12/16 12:15 87 20 82/60 97 Oxymask 10 12/12/16 12:07 36.1 90 22 97/62 98 Oxymask 10 12/12/16 07:28 36.9 72 18 123/74 (90) 93 Room Air Notes Mental Status: alert / awake / arousable, participated in evaluation Pt Amnestic to Procedure: Yes Nausea / Vomiting: adequately controlled Pain: adequately controlled Airway Patency, RR, SpO2: stable & adequate BP & HR: stable & adequate Hydration State: stable & adequate Anesthetic Complications: no major complications apparent
[2016-12-12 13:11] VITALS: BP 117/62; PULSE 92; TEMP 36.7; O2SAT 95
[2016-12-12 13:41] VITALS: BP 146/71; PULSE 73; O2SAT 93
[2016-12-12 14:07] VITALS: BP 147/72; PULSE 72; O2SAT 95
[2016-12-12 14:40] VITALS: BP 131/65; PULSE 70; TEMP 36.3; O2SAT 93
--- NOTE | 2016-12-13 07:52 | OPERATIVE REPORT ---
DATE OF OPERATION: 12/12/2016 PREOPERATIVE DIAGNOSES: 1. Tumor obstruction left mainstem bronchus resulting in collapse of the remaining left lower lobe. 2. 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 POSTOPERATIVE DIAGNOSES: Same. PROCEDURE: 1. Flexible bronchoscopy with destruction of tumor left mainstem bronchus. 2. Insertion of a 14 x 30 mm stent under fluoroscopic guidance. SURGEON: Dr. Castillo. DIGITAL PRODUCTION ARTIST: CLARA Liu. ANESTHESIA: General anesthesia with endotracheal intubation using a #9 endotracheal tube. 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 Despite the fact that he had no lymph node involvement and early stage disease, Dr. Coat was aggressive and treated him with 3 cycles of chemotherapy. The patient had cough after surgery and this was really the reason I saw him for the first time I had seen him back well over a year ago. Itappeared he had some stenosis of the takeoff of the left lower lobe and I took him to the operating room and did a bronchoscopy and inserted a small AEROmini stent into this one area that looked as if there was mechanical kink. The stent really did not help and his cough persisted. This is a patient who played competitive tennis. At any rate, we removed this stent and I saw no evidence of any recurrence at his staple line in the left upper lobe back in April. The patient went to [facility] and came back in July with a PET scan that showed a hypermetabolic area in the left hilar area when I took him to the OR and did a an endobronchial ultrasound back on 10/24/2016. I was surprised to see that he had a large tumor in his left mainstem bronchus. I debulked this with a cryoprobe and he was better, but I also sent off a large amount of tissue and it turns out he had what appeared to be a basaloid squamous cell recurrence. The patient was presented at our multidisciplinary conference. Unfortunately, he did not get full staging of his mediastinum and I brought him back on 11/12/2016 and did an endobronchial ultrasound which showed that his subcarinal node was positive for carcinoma. As he now had N2 disease with at least a 3A recurrence, he was seen both at [place] and at [facility] and it was determined that he was not an operative candidate but that he would need definitive chemotherapy and radiation. The patient was seen in the office of [facility], they felt that this represented a small cell lung carcinoma. At any rate, given this recurrence, he was set up for radiation and chemotherapy. However, Dr. Dari Avalos called me a few days ago and stated that he was having trouble setting up the simulation jerry for radiation as there was such volume loss on the left side. It turned out the patient was markedly short of breath and had what appeared to be a clinical obstruction of his left mainstem bronchus and remaining left lower lobe. I thought the patient warranted another bronchoscopy even though we had done 1 just 6 weeks ago. At any rate, upon bringing him back to the operating room, I was surprised to see he had total obstruction of the left mainstem bronchus. Today on 12/12/2016 I debulked him using a cryoprobe. I then placed the stent. PROCEDURE: The patient was brought to the operating room and laid in supine position. General anesthesia was induced and endotracheal intubation was performed. I attempted a rigid bronchoscopy; however, we had difficulty getting the rigid scope in, and rather than struggle with this, we elected to proceed with just intubation. A #9 endotracheal tube was placed and I put the adapter on, and then after going through with the flexible bronchoscope, I could see that we had complete occlusion of the left mainstem bronchus. I then used a cryoprobe and debulked this and removed some large amounts of tissue and sent it off to the lab. We ended up opening this up quite nicely. We then did send some of this off to the lab. He had some bleeding which was controlled with iced saline and with epinephrine injections as well as the cryoprobe itself. I finally got to where I could see the bifurcation of the lower lobe airways. I had selected a 14 mm x 6 cm stent. I was able to get to this bifurcation and marked this fluoroscopically. I then marked the proximal extent fluoroscopically. I then placed a guidewire down to the lower lobe and then placed a 14 x 60 mm stent and deployed it. I thought it looked OK proximally as it was right at the slim; however, this was down just a bit too far, and upon pulling this out, it completely filled the trachea distally. I felt that this stent was too long even though I had measured this at more than [address] scan. For this reason, I removed this stent as I was afraid it would cause a problem with the right mainstem bronchus. I then selected a 14 x 30 mm stent and again went down and placed this without difficulty; however, it did not deploy properly. Upon pulling the string to deploy this, it pulled the stent back despite my best efforts. I had my language assistant hold the guide in place while I pulled the string and it still pulled the stent back as the end doubled back on itself. I could not move it forward, so I had to remove it. I then selected another 14 x 30 mm stent and again went over the guidewire and this time had no difficulty at all. This sat very nicely. Both radiographically and via bronchoscopy, it went down to the bifurcation of these airways as well as proximally was well into the left mainstem bronchus. We had no further bleeding. I suctioned out both airways quite nicely. It looked quite good radiographically and bronchoscopically. I then fully removed the bronchoscope. The patient was extubated without difficulty and transported back to the post-anesthesia care unit in stable condition. I attest to the content of the Intraoperative Record and any orders documented therein. Any exceptions are noted below. MARY ANNE
== END | disposition home or self-care (01) ==
LOC: C.ACU 06:46
PROVIDERS: ATTEND Surgery
DX: C34.90 Malignant neoplasm of unspecified part of unspecified bronchus or lung (principal); J98.09 Other diseases of bronchus, not elsewhere classified; Z85.118 Personal history of other malignant neoplasm of bronchus and lung; Z92.21 Personal history of antineoplastic chemotherapy; K21.9 Gastro-esophageal reflux disease without esophagitis; J45.909 Unspecified asthma, uncomplicated; K44.9 Diaphragmatic hernia without obstruction or gangrene

== ENCOUNTER → 2016-12-15 | Outpatient (CLI) | payer BC ==
[~2016-12-15] MED LIST changes: -ATROPINE SULFATE 0.1 MG/ML 5ML SYR IV PRN; -DEXAMETHASONE SOD INJ 4 MG/ML VIAL ONE; -ESMOLOL HCL 10 MG/ML 10 ML VIAL ONE; -ETOMIDATE 2 MG/ML 20 ML VIAL IV ONE; -FENTANYL CITRATE INJ 50 MCG/1 ML 2 ML VIAL IV PRN; -FENTANYL CITRATE INJ 50 MCG/1 ML 2 ML VIAL ONE; -LACTATED RINGER'S 1000ML 1,000 ML IV SCH; -LIDOCAINE HCL 2% 2 ML VIAL (20MG/ML) ONE; -MIDAZOLAM HCL 1 MG/ML 2ML VIAL ONE; -ONDANSETRON INJ 2 MG/ML 2 ML VIAL IV PRN; -ONDANSETRON INJ 2 MG/ML 2 ML VIAL ONE; -PROPOFOL IV EMULSION 10 MG/ML 20 ML VIAL IV ONE; -SUCCINYLCHOLINE CHLORIDE 20 MG/ML 10 ML VIAL IV ONE
--- NOTE | 2016-12-15 13:09 | DIAGNOSTIC IMAGING REPORT ---
CHEST 2 VIEWS ROUTINE CLINICAL HISTORY: 66 years-old Male presenting with HISTORY OF LUNG CANCER. TECHNIQUE: PA and lateral views of the chest were obtained. COMPARISON: 12/12/2016. FINDINGS: Left mainstem bronchus stent remains in place. Cardiomediastinal silhouette normal. Persistent elevation of the left hemidiaphragm. Lungs clear. Small left pleural effusion or pleural thickening. No pneumothorax. Osseous structures and upper abdomen normal. IMPRESSION: 1. Small left pleural effusion/pleural thickening. No pneumothorax. Electronically signed by: Genaro Montez M.D. 12/15/2016 1:08 PM Dictated Date/Time: 12/15/2016 1:06 PM
--- NOTE | 2016-12-15 13:32 | DIAGNOSTIC IMAGING REPORT ---
BILATERAL LOWER EXTREMITY VENOUS DOPPLER HISTORY: BILAT LEG PAIN, HX LUNG CA COMPARISON STUDY: None. FINDINGS: There is normal compressibility, flow, and augmentation within the bilateral lower extremity deep venous systems. IMPRESSION: No evidence of deep venous thrombosis within the right or left lower extremity. Electronically signed by: Damir Solis M.D. 12/15/2016 1:30 PM Dictated Date/Time: 12/15/2016 1:29 PM
== END | disposition home or self-care (01) ==
LOC: C.ULTR 12:40
PROVIDERS: ATTEND Radiology Radiation Oncology
DX: M79.604 Pain in right leg (principal); M79.605 Pain in left leg; Z85.118 Personal history of other malignant neoplasm of bronchus and lung

== ENCOUNTER 2016-12-16 15:28 | Inpatient (IN) | payer BC, OTHER ==
[~2016-12-16] VITALS: Ht 172.7 cm; Wt 71.1 kg
[2016-12-16] VITALS (9 sets, daily range): BP systolic 108–144; BP diastolic 72–88; PULSE 96–112; TEMP 37.8–39.4; O2SAT 94–97; BMI 23.3
[~2016-12-16 15:28] MED LIST changes: -AMOX875T PO; -BENZ100C7 PO; -BENZ1CAP90 PO; -BUDE1SUS6 INH; -CEFD300C2 PO; -CPC PO; +FENTANYL CITRATE 100 MCG 2 ML CARP IV ONE; +LIDOCAINE HCL 2% LOCAL 50ML VIAL INFIL ONE; -MGCCMP100 PO; +MIDAZOLAM HCL 5 MG/ML 1 ML VIAL IV ONE; -MULT-506 PO; -PRD20 PO; -PRED20TA2 PO; -PROC1TAB5 PO; -RMR15 PO; -RXC5 PO; -SUCR5SUS PO
[2016-12-16] MEDS ORDERED: ONDANSETRON INJ 2 MG/ML 2 ML VIAL IV PRN (17:00)
[2016-12-16] MEDS ORDERED: MAGNESIUM HYDROXIDE SUSP 30 ML UDC PO PRN (17:00)
[2016-12-16] MEDS ORDERED: POLYETHYLENE (MIRALAX) 17 GM PACK PO PRN (17:15)
--- NOTE | 2016-12-16 17:43 | History and Physical ---
History & Physical Date & Time of Service: Dec 16, 2016 at 16:10 Chief Complaint: Lung Cancer/Ams Primary Care Physician: Sagar Mccray M.D. 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 Castillo's office due to confusion. He was diagnosed w/ large cell neuroendocrine tumor in 2014. He underwent chemotherapy by Dr. Cota. In November 2015, patient underwent stent placement for bronchial stenosis by Dr. Castillo; stent was removed in Apr 2016. Recently, he underwent a PET scan which noted hypermetabolic activity in the mediastinum; biopsy was noted to be malignant. He started XRT/chemo treatment with Dr. Avalos and Dr. Cota last week. He received radiation therapy today. Patient was most recently admitted to [facility] on 12/11 by vascular surgery for bronchoscopy with stent placement on 12/[address] Castillo for worsening bronchial stenosis. According to the son, patient has become progressively delirious over the last 5 days. At times, the patient is found talking to his parents who are . Patient is currently alert/oriented. He admits to a chronic cough, but has been worsening over the last ~3 days. He was placed on Augmentin TID by Dr. Castillo 2 days ago per son, but unsure why. Patient admits to bilateral lower extremity pain that started last week. Patient had bilateral venous US on 12/15 with no evidence of DVT. The patient is on Valium 5 mg TID but patient/son is unsure why/when started- son thought medication could be contributing to symptoms. Patient did not take any Valium today. +feverish. +productive cough. +wheezing. Patient denies any chills, sweats, lightheadedness, dizziness, vision changes, CP, palpitations, edema, SOB , abdominal pain, nausea, vomiting, diarrhea, urinary symptoms, melena, numbness /tingling, weakness, anxiety/depression, active bleeding, or new skin discoloration/changes. Past Medical/Surgical History Medical Problems: Large cell neuroendocrine tumor to left upper lobe s/p lobectomy Recurrent cancer w/ basaloid squamous cell BPH w/ urinary obstruction chronic obstructive asthma dyslipidemia GERD PUD Surgical history: Lung lobectomy Family History Mother- malignant neoplasm of esophagus Father- prostate cancer Social History Smoking Status: Former Smoker Alcohol Use: none Marital Status: Occupational Status: employed Immunizations History of Influenza Vaccine: Unknown History of Tetanus Vaccine?: UTD History of Pneumococcal: No History of Hepatitis B Vaccine: No Multi-Drug Resistant Organisms History of MDRO: No Allergies Coded Allergies: Pork (Verified Allergy, Severe, ANAPHYLAXIS, 12/11/16) NO KNOWN DRUG ALLERGIES (Verified Allergy, Unknown, ., 12/11/16) Uncoded Allergies: VENISON (Allergy, Unknown, RASH, 12/12/16) Home Medications Scheduled Amoxicillin & Pot Clavulanate (Augmentin 500MG), 1 TAB PO TID Baclofen (Lioresal), 10 MG PO BID Diazepam (Valium), 5 MG PO TID Prednisone (Prednisone), 60 MG PO DIRECTED Rosuvastatin Calcium (Crestor), 10 MG PO QAM Tamsulosin Hcl (Flomax), 0.4 MG PO QAM [Budesonide], 1 MG INH DAILY Scheduled PRN Albuterol Sulfate (Proair Respiclick), 1 INHA INH Q4H PRN for Shortness of Breath Ondansetron Hcl (Zofran), 8 MG PO DIRECTED PRN for Nausea Oxycodone/Acetaminophen 5MG/325MG (Percocet 5MG/325MG), 1 TABLETS PO Q4H PRN for Pain Physical Exam Vital Signs Date Time Temp Pulse Resp B/P (MAP) Pulse Ox O2 Delivery O2 Flow Rate FiO2 12/16/16 16:06 37.8 112 20 140/83 (102) 97 Room Air General Appearance: no apparent distress, + pertinent finding (hard to converse w/ patient due to coughing fits ) Head: normocephalic, atraumatic Eyes: PERRL ENT: hearing grossly normal Neck: supple Respiratory/Chest: no respiratory distress, no accessory muscle use, + rhonchi , + wheezing (throughout all lung jerry ) Cardiovascular: + tachycardia (rhythm regular ) Abdomen/GI: normal bowel sounds, non tender, soft Back: normal inspection Extremities/Musculoskelatal: no calf tenderness, no pedal edema Neurologic/Psych: alert, normal mood/affect, oriented x 3 Skin: normal color, warm/dry, no rash Impression Assessment and Plan Patient is a pleasant 66 y/o male, with PMHx of 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 Castillo's office due to confusion. Delirium, fever, and tachycardia: - Admit to med/surg - O2 protocol - DuoNebs PRN - Obtain CXR - Check UA - Decrease Valium from 5 mg TID to 2.5 mg BID - ?Patient placed on Augmentin 2 days ago; will hold at this time and start IV Rocephin - Start probiotic to prevent c.diff - Check CBC and PRP Left upper lobe s/p lobectomy, recurrent cancer w/ basaloid squamous cell currently receiving XRT and chemo- follows w/ Dr. Castillo, Dr. Cota and Dr. Avalos Bilateral lower extremity pain: - Venous Doppler on 12/15- no evidence of DVT - PT/OT - Continue Baclofen 10 mg BID and Percocet PRN- limit use unless severe pain due to delirium Dyslipidemia: Continue Crestor 10 mg daily BPH: Continue Flomax 0.4 mg QAM GI prophylaxis: Protonix 40 mg daily DVT Prophylaxis: TEDs/SCDs; chemical therapy can be started tomorrow pending labs Code Status: LEVEL I, FULL Dispo: From home- social scientist consulted - PT/OT evaluations Addendum: - Patient was found to be neutropenic- placed on neutropenic precautions - LFTs, lactic acid ordered, BCx ordered, IVF, check PT/INR/PTT - Will broaden antibiotics from Rocephin to IV Zosyn and Vancomycin MRSA swab ordered I personally interviewed and examined the patient I discussed the above plan with Miss Aracely Aldana I agree with her Hx and PE 66 y/o/m w lung large cell neuroendocrine tumor, S/P lobectomy/chemo/radiation. unfortunately had recurrence, S/P recent bronchial stent placed by Dr. Castillo' s. sent from Dr. Castillo's office due to fever and change in mental status. found to have neutropenia. . ROS/PMHx: as HPI FHx/SHx/labs/meds reviewed as needed PE: average built, not in acute distress LUNGs: normal exam, no wheezing/R Heart: s1/s2 normal, no G/R/M ABD: soft, ND, N tender Ext: B/L LE no edema or swelling Neuro: pleasant,AAOX3, EOMI, moves all ext, CN 2-12 intact appears to be non toxic, confusion improved, started on Augmentin as an out patient Assessment: Neutropenic fever metabolic encephalopathy recurrent lung cancer Plan: admit to telemetry zosyn/vanco consult ID CXR reviewed, no infiltrate but consider CT scan after hydration consult Onc blood and urine cx Level of Care Med/Surg Resuscitation Status FULL RESUSCITATION VTE Prophylaxis Risk Level: Moderate Given or contraindicated: T.E.D. Stockings, SCD's
[2016-12-16] MEDS: ACETAMINOPHEN 325 MG TAB PO PRN ×2 (17:52→21:51)
[2016-12-16] MEDS ORDERED: CEFTRIAXONE SOD INJ 1 GM in DEXTROSE 5% ADD-VANTAGE 50ML 50 ML IV SCH (18:00)
[2016-12-16 18:49] LABS: BUN/CREATININE RATIO 20.2 (10-20); CALCIUM 8.4 mg/dl (8.5-10.1); CREATININE 1.2 mg/dl (0.60-1.40); POTASSIUM 4.5 mmol/L (3.5-5.1)
[2016-12-16 18:53] LABS: URINE APPEARANCE CLEAR (CLEAR); URINE BILIRUBIN NEG (NEG); URINE COLOR DK YELLOW; URINE EPITHELIAL CELL AUTO 20-30 /lpf (0-5); URINE NITRITE NEG (NEG); URINE PH 6.5 (4.5-7.5); URINE SPECIFIC GRAVITY 1.028 (1.000-1.030); UROBILINOGEN NEG (NEG); ZZUR CULT IF INDIC CLEAN CATCH NO
[2016-12-16 18:54] LABS: MANUAL MICROSCOPIC REQUIRED? NO; REVIEW REQ? NO
[2016-12-16 19:28] LABS: DOHLE BODIES 1+; LARGE PLATELETS 1+; OVALOCYTES 1+; PLT ESTIMATE DECREASED; TOXIC GRANULATION 1+
[2016-12-16 19:31] LABS: BASO ABS # 0.02 K/uL (0-0.2); BASOPHIL % 3.5 % (0-2); COMPLETE YES; EOSINOPHIL % 5.6 %; HEMATOCRIT 31.2 % (42-52); LYMPH ABS # 0.25 K/uL (1.2-3.4); LYMPHOCYTE % 37.7 %; MEAN CELL VOLUME 88.6 fL (80-100); MEAN CORPUSCULAR HEMOGLOBIN 30.4 pg (25-34); MEAN CORPUSCULAR HGB CONC 34.3 g/dl (32-36); MEAN PLATELET VOLUME 10.6 fL (7.4-10.4); NEUTROPHILS % 25.9 %; PLATELET COUNT 65 K/uL (130-400); RED BLOOD COUNT 3.52 M/uL (4.7-6.1); VARIANT LYM ABS # 0.08 K/uL; VARIANT LYMPHOCYTE % 11.9 %; WHITE BLOOD COUNT 0.66 K/uL (4.8-10.8)
[2016-12-16] MEDS: ALBUT/IPRATROP 3MG/0.5MG NEB 3 ML VIAL INH SCH ×2 (19:33→23:01)
[2016-12-16] MEDS ORDERED: SODIUM CHLORIDE 0.9% 1000ML 1,000 ML IV STA (19:45)
[2016-12-16] MEDS: BACLOFEN 10 MG TAB PO SCH (19:55)
[2016-12-16] MEDS ORDERED: AMOXICILLIN/CLAVULANATE TAB 500 MG TAB PO SCH (20:00)
[2016-12-16] MEDS ORDERED: DIAZEPAM 5MG TAB PO SCH (20:00)
[2016-12-16] MEDS: DIAZEPAM 5MG TAB PO SCH (20:29)
[2016-12-16] MEDS ORDERED: PIPERACILL/TAZOBAC CONSULT ACTIVE PRN (20:30)
[2016-12-16] MEDS ORDERED: VANCOMYCIN CONSULT ACTIVE PRN (20:30)
--- NOTE | 2016-12-16 20:37 | DIAGNOSTIC IMAGING REPORT ---
CHEST ONE VIEW PORTABLE CLINICAL HISTORY: 66 years-old Male presenting with neutropenic sepsis. TECHNIQUE: Portable upright AP view of the chest was obtained. COMPARISON: 12/15/2016. FINDINGS: Left mainstem bronchus stent in place. Cardiomediastinal silhouette normal. Persistent elevation of the left hemidiaphragm likely from lobectomy with associated blunting of the left costophrenic angle. No focal infiltrate. No pneumothorax. Osseous structures and upper abdomen otherwise normal. IMPRESSION: 1. Postsurgical changes with persistent left hemidiaphragm elevation and left pleural thickening. No significant change. Electronically signed by: Genaro Montez M.D. 12/16/2016 8:36 PM Dictated Date/Time: 12/16/2016 8:33 PM
[2016-12-16 20:41] LABS: INR 1.1 (0.9-1.1); PARTIAL THROMBOPLASTIN RATIO 1.2; PROTHROMBIN TIME (PATIENT) 11.4 SECONDS (9.0-12.0)
[2016-12-16] MEDS ORDERED: PIPERACILL/TAZOBAC IV 3.375 GM in DEXTROSE 5% 100ML 100 ML IV SCH (21:00)
[2016-12-16] MEDS ORDERED: VANCOMYCIN INJ 1,700 MG in SODIUM CHLORIDE 0.9% 500ML 500 ML IV SCH (21:00)
--- NOTE | 2016-12-16 21:06 | Pharmacy Progress Note ---
Pharmacy Abx Initial Consult Date of Service Dec 16, 2016. Pharmacy Dosing Scope Date of Consult: 12/16/16 Consultation requested by: Aracely Aldana Pharmacy is consulted to initiate vancomycin and Zosyn IV dosing therapy, order appropriate labs and adjust drug dose/frequency. Subjective The patient is a 66 year old male admitted on Dec 16, 2016 at 15:28. Objective Height (Feet): 5 Height (Inches): 8.00 Weight (Kilograms): 69.540 Vital Signs (Past 12Hrs) Vital Signs Past 12 Hours Date Time Temp Pulse Resp B/P (MAP) Pulse Ox O2 Delivery O2 Flow Rate FiO2 12/16/16 20:16 37.8 96 19 108/72 (84) 94 Room Air 12/16/16 19:57 38.6 12/16/16 19:33 110 16 95 Room Air 12/16/16 17:17 39.4 12/16/16 16:22 37.8 112 20 140/83 Room Air 12/16/16 16:06 37.8 112 20 140/83 (102) 97 Room Air Lab Results (24Hrs) Laboratory Tests (24 Hours) Test 12/16/16 18:10 12/16/16 20:39 White Blood Count 0.66 K/uL (4.8-10.8) *L Red Blood Count 3.52 M/uL (4.7-6.1) L Hemoglobin 10.7 g/dL (14.0-18.0) L Hematocrit 31.2 % (42-52) L Mean Corpuscular Volume 88.6 fL (80-100) Mean Corpuscular Hemoglobin 30.4 pg (25-34) Mean Corpuscular Hemoglobin Concent 34.3 g/dl (32-36) Platelet Count 65 K/uL (130-400) L Mean Platelet Volume 10.6 fL (7.4-10.4) H Micro Results Date/Time Source Procedure Growth Status 12/16/16 20:13 Blood Blood Culture Pending Received 12/16/16 20:07 Blood Blood Culture Pending Received 12/16/16 20:09 Nasal MRSA DNA Surveillance Screen Pending Ordered Risk Factors for Resistance * Hospitalization for 48 hours or more within the past 90 days * Immunocompromised ( chemotherapy, radiation) * Antimicrobial use within the last 90 days Augmentin tid x 2 days. 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 Castillo's office due to confusion. Vancomycin and Zosyn are ordered empirically for elevated temp, cough, confusion. Plan Vancomycin and Zosyn are ordered empirically for elevated temp, cough, confusion. Vancomycin IV * Loading dose: 1700 mg (25 mg/kg) * Maintenance dose: 1000 mg IV (14,4 mg/kg) every 14 hours * Goal trough level : 15 to 20 mcg/mL * Trough level is not ordered yet as therapy is empiric. We will schedule if vanc is continued. Piperacillin/tazobactam * 3.375 g bolus administered over 30 minutes, then 3.375 g IV extended infusion every 8 hours for CrCl greater than 20 mL/min. Pharmacy will continue to follow and will adjust dose/frequency as necessary. Thank you.
[2016-12-16] MEDS ORDERED: NURSING DECISION MEDICATION ORDER SCH (21:45)
[2016-12-16] MEDS ORDERED: COUGH DROP (SUGAR FREE) LOZ 24 LOZ/1 BOX PO PRN (22:00)
[2016-12-17] VITALS (11 sets, daily range): BP systolic 125–184; BP diastolic 75–89; PULSE 76–112; TEMP 36.8–39.1; O2SAT 94–100; Ht 172.7 cm; Wt 71.1 kg
[2016-12-17] MEDS: OXYCODONE/ACETAMINOPHEN 5-325 TAB PO PRN ×2 (00:32→10:56)
[2016-12-17] MEDS: PIPERACILL/TAZOBAC IV 3.375 GM in DEXTROSE 5% 100ML 100 ML IV SCH ×3 (02:36→17:31)
[2016-12-17] MEDS: ALBUT/IPRATROP 3MG/0.5MG NEB 3 ML VIAL INH SCH ×6 (03:04→23:36)
[2016-12-17] MEDS: ACETAMINOPHEN 325 MG TAB PO PRN ×2 (04:40→17:29)
[2016-12-17 07:02] LABS: HEMATOCRIT 27.5 % (42-52); MEAN CELL VOLUME 87.9 fL (80-100); MEAN CORPUSCULAR HEMOGLOBIN 30.4 pg (25-34); MEAN CORPUSCULAR HGB CONC 34.5 g/dl (32-36); MEAN PLATELET VOLUME 9.8 fL (7.4-10.4); PLATELET COUNT 48 K/uL (130-400); RED BLOOD COUNT 3.13 M/uL (4.7-6.1); WHITE BLOOD COUNT 0.47 K/uL (4.8-10.8)
[2016-12-17 07:30] LABS: BASO % 2.1 %; BASO ABS # 0.01 K/uL (0-0.2); COMPLETE YES; DOHLE BODIES 2+; EOS % 2.1 %; GIANT PLATELETS 2+; IG% 8.5 %; LYMPH % 42.6 %; MONO % 29.8 %; NEUT % 14.9 %; OVALOCYTES 1+; TOXIC GRANULATION 3+
[2016-12-17 07:33] LABS: ALB/GLOB RATIO 0.8 (0.9-2); BUN/CREATININE RATIO 16.1 (10-20); CALCIUM 7.9 mg/dl (8.5-10.1); MAGNESIUM 1.9 mg/dl (1.8-2.4); POTASSIUM 3.8 mmol/L (3.5-5.1)
[2016-12-17] MEDS ORDERED: BUDESONIDE 1 MG INH SCH (08:00)
[2016-12-17] MEDS: PANTOprazole SOD 40 MG TAB PO SCH (08:13)
[2016-12-17] MEDS: BACLOFEN 10 MG TAB PO SCH ×2 (08:13→21:03)
[2016-12-17] MEDS: TAMSULOSIN HCL 0.4 MG CAP PO SCH (08:13)
[2016-12-17] MEDS: ROSUVASTATIN CALCIUM 10 MG TAB PO SCH (08:14)
[2016-12-17] MEDS: LACTOBACILLUS ACIDOPHILUS (FLORANEX) TAB PO SCH ×3 (08:15→16:08)
[2016-12-17] MEDS: DIAZEPAM 5MG TAB PO SCH (08:15)
[2016-12-17] MEDS: VANCOMYCIN INJ 1,000 MG in SODIUM CHLORIDE 0.9% 250ML 250 ML IV SCH (10:23)
[2016-12-17] MEDS: ALUMINUM/MAGNESIUM/SIMETH (MAALOX MAX) 30 ML UDC PO PRN ×2 (12:44→21:03)
--- NOTE | 2016-12-17 12:50 | ENT CONSULTATION ---
DATE OF CONSULTATION: 12/17/2016 OTOLARYNGOLOGY HEAD AND NECK SURGERY INPATIENT CONSULTATION REASON FOR CONSULTATION: I have been asked by Dr. Shan Castillo to evaluate this patient with sore throat and neutropenia. HISTORY OF PRESENT ILLNESS: The patient is a pleasant 66-year-old male who I have seen in my office on 10/22/2016 upon the request of Dr. Castillo for evaluation of cough. Please refer to that consultation for further history. The patient has subsequently been diagnosed with basaloid squamous cell carcinoma of the lung and is undergoing chemotherapy and radiation therapy with Dr. Avalos and Dr. Cota. He had bronchoscopy with stent placement on 12/12/2016 for worsening bronchial stenosis. This involved the left main stem bronchus. The patient is complaining of throat pain ever since that procedure and points to his upper chest region as the area of pain. The patient was admitted for confusion yesterday and was noted to have neutropenia. Because of the neutropenia and the sore throat, Dr. Castillo asked me to evaluate the patient to make sure that he did not have any oropharyngeal or hypopharyngeal infection. The patient states that his pain is located in the upper chest region. It is worse by coughing. There are no other exacerbating or alleviating factors. ALLERGIES: No known drug allergies. CURRENT MEDICATIONS: Zosyn, vancomycin, Tylenol p.r.n., DuoNebs, albuterol, Maalox, baclofen, Tessalon Perles, lactobacillus, magnesium hydroxide, menthol lozenges, Zofran p.r.n., Percocet p.r.n., Protonix, MiraLax p.r.n., Crestor, and Flomax. PAST MEDICAL HISTORY: 1. History of large cell neuroendocrine carcinoma of the lung and now new basaloid carcinoma of the lung, currently undergoing chemotherapy and radiation. 2. Allergic rhinitis. 3. Chronic cough. 4. BPH. 5. History of hiccups. 6. Laryngopharyngeal reflux. 7. Pneumonia. PAST SURGICAL HISTORY: 1. Status post lung surgery for carcinoma as well as recent bronchoscopic destruction of an obstructive recurrent cancer in his left main stem bronchus with stent insertion on 12/12/2016. 2. Status post multiple bronchoscopies. FAMILY HISTORY: Noncontributory. 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 He has a [id number] smoking history but does not smoke currently. There is no significant alcohol or illicit drug use history. REVIEW OF SYSTEMS: The patient has a sore throat that is worsens by cough. He admits to having some confusion which he attributes to his chemotherapy. He denies any referred otalgia, dysphagia, dizziness, or chest pain. PHYSICAL EXAMINATION: GENERAL: This is an elderly [place] male in no acute distress with a normal voice. He did not cough during the encounter. Nasal examination reveals a midline septum with no mucosal lesions or masses. Oral cavity and oropharyngeal examination reveals no mucosal lesions or masses. There is no evidence of thrush. After administration of topical lidocaine and Afrin to the left nasal cavity, flexible laryngoscopy was performed revealing no mucosal lesions or masses involving the nasopharynx, oropharynx, hypopharynx, or larynx. He had normal bilateral true vocal fold mobility to the midline. There is no evidence of thrush. IMPRESSION AND RECOMMENDATIONS: A 66-year-old male with basaloid carcinoma of the lung with recent left mainstem bronchus stenting. The patient has sore throat which is really described as pain with coughing in the upper chest region which is most likely due to his recent surgery and stenting. I do not see any abnormalities within his hypopharynx, oropharynx, or larynx. I shared my findings with the patient as well as Dr. Castillo. Since there is no otolaryngology issue, I will sign off on this consultation, but if you need any further assistance regarding this patient's care, please do not hesitate to contact me.
[2016-12-17] MEDS: BENZONATATE 100MG CAP PO SCH ×2 (14:20→21:04)
--- NOTE | 2016-12-17 14:42 | Family Medicine Progress Note ---
Progress Note Date of Service Dec 17, 2016. Subjective Pt evaluation today including: conversation w/ patient, physical exam, chart review, lab review, review of inpatient medication list Pain: Patient complains of a severe sore throat PO Intake: Unable to tolerate regular diet - having liquids and Boost Voiding: no voiding problems Mr. Schroeder is a 66 year old man who states that he feels terrible today. He says his throat is very sore, and that every time he coughs, it aggravates the pain. When asked to point out where the pain is, he points to the area where his neck meets his chest. He reports that he is constantly coughing, and that he feels very unwell. When asked today's date or location, he is unable to answer. According to his , he has been confused and disoriented recently, which is never present at his baseline. She reports that his disorientation has been improving, but that there is still some element of delirium remaining. His leg pain has improved since yesterday, and they are no longer painful. He denies any chest pain or SOB. Constitutional: + chills, + weakness, No fever, No sweats, No weight loss Respiratory: + cough, + wheezing, No sputum, No shortness of breath, No hemoptysis Cardiovascular: No chest pain, No orthopnea, No PND, No edema All Other Systems: Reviewed and Negative Medications Current Inpatient Medications Medications (Trade) Dose Ordered Sig/Aron Route Start Time Stop Time Status Last Admin Dose Admin Acetaminophen (Tylenol Tab) 650 mg Q4H PRN PO 12/16/16 17:00 01/15/17 16:59 12/17/16 04:40 650 MG Al Hydrox/Mg Hydrox/Simethicone (Maalox Max Susp) 15 ml Q4H PRN PO 12/16/16 17:00 01/15/17 16:59 12/17/16 12:44 15 ML Magnesium Hydroxide (Milk Of Magnesia Susp) 30 ml Q6H PRN PO 12/16/16 17:00 01/15/17 16:59 Polyethylene (Miralax Powder Packet) 17 gm DAILY PRN PO 12/16/16 17:15 01/15/17 17:14 Ondansetron HCl (Zofran Inj) 4 mg Q6H PRN IV 12/16/16 17:00 01/15/17 16:59 Baclofen (Lioresal Tab) 10 mg BID PO 12/16/16 20:00 01/15/17 19:59 12/17/16 08:13 10 MG Oxycodone/ Acetaminophen (Percocet 5-325mg Tab) 1 tab Q4H PRN PO 12/16/16 17:00 12/30/16 16:59 12/17/16 10:56 1 TAB Rosuvastatin Calcium (Crestor Tab) 10 mg QAM PO 12/17/16 08:00 01/16/17 07:59 12/17/16 08:14 10 MG Tamsulosin HCl (Flomax Cap) 0.4 mg QAM PO 12/17/16 08:00 01/16/17 07:59 12/17/16 08:13 0.4 MG Albuterol (Ventolin Hfa Inhaler) 1 puffs Q4H PRN INH 12/16/16 17:00 01/15/17 16:59 Albuterol/ Ipratropium (Duoneb) 3 ml Q4R INH 12/16/16 20:00 01/15/17 19:59 12/17/16 07:10 3 ML Pantoprazole Sodium (Protonix Tab) 40 mg QAM PO 12/17/16 08:00 01/16/17 07:59 12/17/16 08:13 40 MG Lactobacillus Acidophilus (Floranex Tab) 4 tab TIDM PO 12/17/16 07:30 01/16/17 07:59 12/17/16 08:15 4 TAB Piperacillin Sod/ Tazobactam Sod 3.375 gm/Dextrose 115 ml @ 28.75 mls/ hr Q8H IV 12/17/16 02:00 12/18/16 20:59 12/17/16 10:22 28.75 MLS/HR Vancomycin HCl 1000 mg/Sodium Chloride 270 ml @ 125 mls/hr Q14H IV 12/17/16 10:00 12/18/16 20:59 12/17/16 10:23 125 MLS/HR Vancomycin HCl (Consult) 1 ea UD PRN N/A 12/16/16 20:30 01/15/17 20:29 Piperacillin Sod/ Tazobactam Sod (Consult) 1 ea UD PRN N/A 12/16/16 20:30 01/15/17 20:29 Menthol (Nice Alix) 1 alix PRN PRN PO 12/16/16 22:00 01/15/17 21:59 Benzonatate (Tessalon Perles Cap) 100 mg TID PO 12/17/16 14:00 01/16/17 13:59 Enteral Nutritional Formula (Boost) 1 can TIDM PO 12/17/16 16:45 01/16/17 16:44 Objective Vital Signs Date Time Temp Pulse Resp B/P (MAP) Pulse Ox O2 Delivery O2 Flow Rate FiO2 12/17/16 12:00 Room Air 12/17/16 12:00 36.8 98 18 184/86 (118) 98 Room Air 12/17/16 11:24 37.8 112 20 140/83 97 Room Air 12/17/16 08:03 37.3 85 22 154/80 (104) 97 Room Air 12/17/16 08:00 Room Air 12/17/16 07:14 82 16 97 Room Air 12/17/16 04:00 Room Air 12/17/16 04:00 38.0 95 21 183/89 (120) 95 Room Air 12/17/16 00:25 38.7 98 20 153/78 (103) 94 Room Air 12/17/16 00:00 Room Air 12/16/16 23:01 100 18 95 Room Air 12/16/16 22:54 39.2 101 32 144/88 (106) 94 Room Air 12/16/16 21:45 39.0 12/16/16 20:16 37.8 96 19 108/72 (84) 94 Room Air 12/16/16 19:57 38.6 12/16/16 19:33 110 16 95 Room Air 12/16/16 17:17 39.4 12/16/16 16:22 37.8 112 20 140/83 Room Air 12/16/16 16:06 37.8 112 20 140/83 (102) 97 Room Air Physical Exam General Appearance: WD/WN, + mild distress ENT: + pharyngeal erythema Neck: supple, no adenopathy Respiratory/Chest: chest non-tender, no respiratory distress, no accessory muscle use, + wheezing Cardiovascular: regular rate, rhythm, no edema, no gallop, no JVD, no murmur Abdomen: normal bowel sounds, non tender, soft, no organomegaly, no pulsatile mass Neurologic/Psychiatric: alert, + disoriented Laboratory Results 12/17/16 06:00 Red Blood Count 3.13, Mean Corpuscular Volume 87.9, Mean Corpuscular Hemoglobin 30.4, Mean Corpuscular Hemoglobin Concent 34.5, Mean Platelet Volume 9.8, Neutrophils (%) (Auto) 14.9, Lymphocytes (%) (Auto) 42.6, Monocytes (%) (Auto) 29.8, Eosinophils (%) (Auto) 2.1, Basophils (%) (Auto) 2.1, Neutrophils # (Auto ) 0.07, Lymphocytes # (Auto) 0.20, Monocytes # (Auto) 0.14, Eosinophils # (Auto ) 0.01, Basophils # (Auto) 0.01 12/17/16 06:00 Test 12/16/16 18:10 12/16/16 20:13 12/16/16 21:13 12/17/16 06:00 Neutrophils % (Manual) 25.9 % Lymphocytes % (Manual) 37.7 % Variant Lymphocytes % (manual) 11.9 % Monocytes % (Manual) 15.4 % Eosinophils % (Manual) 5.6 % Basophils % (Manual) 3.5 % (0-2) Neutrophils # (Manual) 0.17 K/uL (1.4-6.5) Total Absolute Neutrophils 0.17 K/uL (1.4-6.5) Lymphocytes # (Manual) 0.25 K/uL (1.2-3.4) Absolute Variant Lymphocytes 0.08 K/uL Total Absolute Lymphocytes 0.33 K/uL (1.2-3.4) Monocytes # (Manual) 0.10 K/uL (0.11-0.59) Eosinophils # (Manual) 0.04 K/uL (0-0.5) Basophils # (Manual) 0.02 K/uL (0-0.2) Platelet Estimate DECREASED Large Platelets 1+ Prothrombin Time 11.4 SECONDS (9.0-12.0) Prothromb Time International Ratio 1.1 (0.9-1.1) Activated Partial Thromboplast Time 31.7 SECONDS (21.0-31.0) Partial Thromboplastin Ratio 1.2 Direct Bilirubin 0.3 mg/dl (0-0.2) Lactic Acid Level 1.1 mmol/L (0.4-2.0) White Blood Count 0.47 K/uL (4.8-10.8) Red Blood Count 3.13 M/uL (4.7-6.1) Hemoglobin 9.5 g/dL (14.0-18.0) Hematocrit 27.5 % (42-52) Mean Corpuscular Volume 87.9 fL (80-100) Mean Corpuscular Hemoglobin 30.4 pg (25-34) Mean Corpuscular Hemoglobin Concent 34.5 g/dl (32-36) Platelet Count 48 K/uL (130-400) Mean Platelet Volume 9.8 fL (7.4-10.4) Neutrophils (%) (Auto) 14.9 % Lymphocytes (%) (Auto) 42.6 % Monocytes (%) (Auto) 29.8 % Eosinophils (%) (Auto) 2.1 % Basophils (%) (Auto) 2.1 % Neutrophils # (Auto) 0.07 K/uL (1.4-6.5) Lymphocytes # (Auto) 0.20 K/uL (1.2-3.4) Monocytes # (Auto) 0.14 K/uL (0.11-0.59) Eosinophils # (Auto) 0.01 K/uL (0-0.5) Basophils # (Auto) 0.01 K/uL (0-0.2) RDW Standard Deviation 40.6 fL (36.4-46.3) RDW Coefficient of Variation 12.6 % (11.5-14.5) Immature Granulocyte % (Auto) 8.5 % Immature Granulocyte # (Auto) 0.04 K/uL (0.00-0.02) Toxic Granulation 3+ Dohle Bodies 2+ Giant Platelets 2+ Ovalocytes 1+ Anion Gap 7.0 mmol/L (3-11) Est Creatinine Clear Calc Drug Dose 70.3 ml/min Estimated GFR () 90.5 Estimated GFR (Non- 78.1 BUN/Creatinine Ratio 16.1 (10-20) Calcium Level 7.9 mg/dl (8.5-10.1) Phosphorus Level 2.0 mg/dl (2.5-4.9) Magnesium Level 1.9 mg/dl (1.8-2.4) Total Bilirubin 1.4 mg/dl (0.2-1) Aspartate Amino Transf (AST/SGOT) 25 U/L (15-37) Alanine Aminotransferase (ALT/SGPT) 86 U/L (12-78) Alkaline Phosphatase 118 U/L (45-117) Total Protein 5.9 gm/dl (6.4-8.2) Albumin 2.7 gm/dl (3.4-5.0) Globulin 3.2 gm/dl (2.5-4.0) Albumin/Globulin Ratio 0.8 (0.9-2) Hepatitis C Antibody Screen NEG (NEG) Test 12/17/16 09:31 Procalcitonin 2.52 ng/ml (0-0.5) Assessment and Plan 66 year old man with a hx of neuroendocrine tumor s/p lobectomy, recurrent basaloid squamous cell ca, BPH with urinary obstruction, dyslipidemia, asthma, PUD, GERD presented as a direct admission from Dr. Castillo due to confusion Neutropenic Sepsis: - continue Zosyn and Vanc - WCC 0.47, decreased from 0.66 - Pt has a dry cough - could be sepsis due to a pneumonia, given hx of lung ca. May consider further imaging - Tessalon prescribed to aid with cough - Blood cultures pending, MRSA negative - d/c Valium as could be contributing to delirium Pancytopenia - Hgb 9.5 and platelets 48 - likely pancytopenia due to recent chemotherapy - will trend Elevated LFTs - AST 36, ALT 102, Alk Phos 126 - likely due to recent chemotherapy - will trend - Hep C test negative Sore throat - appears erythematous, no pus/plaques/abscesses noted - ENT consulted - thank you for input. They did not see any pathological findings - due to his recent surgery and stenting. - pt unable to tolerate regular diet due to sore throat - given mechanical soft diet & Boost to drink Bilateral lower extremity pain - Venous Doppler on 12/15- no evidence of DVT - resolved today Dyslipidemia - Continue Crestor 10 mg daily BPH - Continue Flomax 0.4 mg QAM GI prophylaxis - Protonix 40 mg daily DVT Prophylaxis: TEDs/SCDs Code Status: LEVEL I, FULL Disposition: Remains in ICU Resident Physician Supervision Note: I interviewed and examined the patient. Discussed with Dr. Estrada and agree with findings and plan as documented in the note. Any exceptions or clarifications are listed here: None Documented By: Edson Mendesenour sore throat and coughing, but doesn't really feel SOB. extensively disccussed w and sister in law and answered all questions to the best of my ability. vitals noted fatigued and appears uncomfortable w coughing fits. lungs diminished R moreso than L but difficult exam and quiet b/l. mild pharyngeal erythema but no exudate otherwise as above neutropenic fever - w pulmonary source vs viral source being most likely - continue broad abx and supportive care, follow serial exams and follow cultures otherwise as above Resident Tracking Resident Involvement: Resident Care Provided Care Provided: Adult Hospital Medicine
[2016-12-17] MEDS: BOOST VANILLA PO SCH ×2 (16:09)
--- NOTE | 2016-12-17 16:14 | Medical Consult ---
Consultation Date of Consultation: Dec 17, 2016. Attending Physician: Edson Oconnell D.O. Reason for Consultation: Neutropenic fever History of Present Illness 66-year-old male with known neuroendocrine lung cancer, 1st diagnosed 2016 status post lobectomy, but with recent recurrence found patient now undergoing chemotherapy and radiation therapy. he last received chemotherapy approximately 1 week ago, and is currently undergoing radiation therapy. He is now admitted with 1-2 day history of fever associated with severe pain located at the base of his neck, with difficulty swallowing and eating, and some cough. he has also has associated mental status changes with delirium.Chest x-ray shows progressive changes, not clear whether this represents pneumonia or progressive cancer. He has been started on broad-spectrum IV antibiotics with imipenem, levofloxacin, and vancomycin. Cultures thus far pending. Patient profoundly neutropenic. Past Medical/Surgical History Medical Problems: (1) Bronchial stenosis, left (2) Delirium (3) GERD (gastroesophageal reflux disease) (4) Local recurrence of left lung cancer Family History Cancer Hypertension Social History Smoking Status: Former Smoker Alcohol Use: none Marital Status: Housing Status: lives with family Occupation Status: employed Allergies Coded Allergies: Pork (Verified Allergy, Severe, ANAPHYLAXIS, 12/11/16) NO KNOWN DRUG ALLERGIES (Verified Allergy, Unknown, ., 12/11/16) Uncoded Allergies: VENISON (Allergy, Unknown, RASH, 12/12/16) Current Inpatient Medications Current Inpatient Medications Medications (Trade) Dose Ordered Sig/Aron Route Start Time Stop Time Status Last Admin Dose Admin Acetaminophen (Tylenol Tab) 650 mg Q4H PRN PO 12/16/16 17:00 01/15/17 16:59 12/17/16 04:40 650 MG Al Hydrox/Mg Hydrox/Simethicone (Maalox Max Susp) 15 ml Q4H PRN PO 12/16/16 17:00 01/15/17 16:59 12/17/16 12:44 15 ML Magnesium Hydroxide (Milk Of Magnesia Susp) 30 ml Q6H PRN PO 12/16/16 17:00 01/15/17 16:59 Polyethylene (Miralax Powder Packet) 17 gm DAILY PRN PO 12/16/16 17:15 01/15/17 17:14 Ondansetron HCl (Zofran Inj) 4 mg Q6H PRN IV 12/16/16 17:00 01/15/17 16:59 Baclofen (Lioresal Tab) 10 mg BID PO 12/16/16 20:00 01/15/17 19:59 12/17/16 08:13 10 MG Oxycodone/ Acetaminophen (Percocet 5-325mg Tab) 1 tab Q4H PRN PO 12/16/16 17:00 12/30/16 16:59 12/17/16 10:56 1 TAB Rosuvastatin Calcium (Crestor Tab) 10 mg QAM PO 12/17/16 08:00 01/16/17 07:59 12/17/16 08:14 10 MG Tamsulosin HCl (Flomax Cap) 0.4 mg QAM PO 12/17/16 08:00 01/16/17 07:59 12/17/16 08:13 0.4 MG Albuterol (Ventolin Hfa Inhaler) 1 puffs Q4H PRN INH 12/16/16 17:00 01/15/17 16:59 Albuterol/ Ipratropium (Duoneb) 3 ml Q4R INH 12/16/16 20:00 01/15/17 19:59 12/17/16 07:10 3 ML Pantoprazole Sodium (Protonix Tab) 40 mg QAM PO 12/17/16 08:00 01/16/17 07:59 12/17/16 08:13 40 MG Lactobacillus Acidophilus (Floranex Tab) 4 tab TIDM PO 12/17/16 07:30 01/16/17 07:59 12/17/16 08:15 4 TAB Piperacillin Sod/ Tazobactam Sod 3.375 gm/Dextrose 115 ml @ 28.75 mls/ hr Q8H IV 12/17/16 02:00 12/18/16 20:59 12/17/16 10:22 28.75 MLS/HR Vancomycin HCl 1000 mg/Sodium Chloride 270 ml @ 125 mls/hr Q14H IV 12/17/16 10:00 12/18/16 20:59 12/17/16 10:23 125 MLS/HR Vancomycin HCl (Consult) 1 ea UD PRN N/A 12/16/16 20:30 01/15/17 20:29 Piperacillin Sod/ Tazobactam Sod (Consult) 1 ea UD PRN N/A 12/16/16 20:30 01/15/17 20:29 Menthol (Nice Alix) 1 alix PRN PRN PO 12/16/16 22:00 01/15/17 21:59 Benzonatate (Tessalon Perles Cap) 100 mg TID PO 12/17/16 14:00 01/16/17 13:59 12/17/16 14:20 100 MG Enteral Nutritional Formula (Boost) 1 can TIDM PO 12/17/16 16:45 01/16/17 16:44 Review of Systems all systems were reviewed and are negative except as per HPI Physical Exam Date Time Temp Pulse Resp B/P (MAP) Pulse Ox O2 Delivery O2 Flow Rate FiO2 12/17/16 12:00 Room Air 12/17/16 12:00 36.8 98 18 184/86 (118) 98 Room Air 12/17/16 11:24 37.8 112 20 140/83 97 Room Air 12/17/16 08:03 37.3 85 22 154/80 (104) 97 Room Air 12/17/16 08:00 Room Air 12/17/16 07:14 82 16 97 Room Air 12/17/16 04:00 Room Air 12/17/16 04:00 38.0 95 21 183/89 (120) 95 Room Air 12/17/16 00:25 38.7 98 20 153/78 (103) 94 Room Air 12/17/16 00:00 Room Air 12/16/16 23:01 100 18 95 Room Air 12/16/16 22:54 39.2 101 32 144/88 (106) 94 Room Air 12/16/16 21:45 39.0 12/16/16 20:16 37.8 96 19 108/72 (84) 94 Room Air 12/16/16 19:57 38.6 12/16/16 19:33 110 16 95 Room Air 12/16/16 17:17 39.4 12/16/16 16:22 37.8 112 20 140/83 Room Air General Appearance: WD/WN, no apparent distress Head: normocephalic, atraumatic Eyes: normal inspection, EOMI, sclerae normal ENT: normal ENT inspection, hearing grossly normal, pharynx normal Neck: supple, no adenopathy, thyroid normal, trachea midline Respiratory/Chest: chest non-tender, no respiratory distress, + rales, + wheezing Cardiovascular: regular rate, rhythm, no gallop, no murmur Abdomen/GI: normal bowel sounds, non tender, soft, no organomegaly Back: normal inspection, no CVA tenderness Neurologic/Psych: alert, oriented x 3 Skin: normal color, warm/dry, no rash Lymphatic: no adenopathy Laboratory Results Date/Time Source Procedure Growth Status 12/16/16 20:13 Blood Blood Culture Pending Received 12/16/16 20:07 Blood Blood Culture Pending Received Last 24 Hours Test 12/16/16 18:10 12/16/16 20:13 12/16/16 21:13 12/17/16 06:00 White Blood Count 0.66 K/uL 0.47 K/uL Red Blood Count 3.52 M/uL 3.13 M/uL Hemoglobin 10.7 g/dL 9.5 g/dL Hematocrit 31.2 % 27.5 % Mean Corpuscular Volume 88.6 fL 87.9 fL Mean Corpuscular Hemoglobin 30.4 pg 30.4 pg Mean Corpuscular Hemoglobin Concent 34.3 g/dl 34.5 g/dl Platelet Count 65 K/uL 48 K/uL Mean Platelet Volume 10.6 fL 9.8 fL RDW Standard Deviation 41.1 fL 40.6 fL RDW Coefficient of Variation 12.8 % 12.6 % Neutrophils % (Manual) 25.9 % Lymphocytes % (Manual) 37.7 % Variant Lymphocytes % (manual) 11.9 % Monocytes % (Manual) 15.4 % Eosinophils % (Manual) 5.6 % Basophils % (Manual) 3.5 % Neutrophils # (Manual) 0.17 K/uL Total Absolute Neutrophils 0.17 K/uL Lymphocytes # (Manual) 0.25 K/uL Absolute Variant Lymphocytes 0.08 K/uL Total Absolute Lymphocytes 0.33 K/uL Monocytes # (Manual) 0.10 K/uL Eosinophils # (Manual) 0.04 K/uL Basophils # (Manual) 0.02 K/uL Toxic Granulation 1+ 3+ Dohle Bodies 1+ 2+ Platelet Estimate DECREASED Large Platelets 1+ Ovalocytes 1+ 1+ Sodium Level 138 mmol/L 137 mmol/L Potassium Level 4.5 mmol/L 3.8 mmol/L Chloride Level 105 mmol/L 105 mmol/L Carbon Dioxide Level 25 mmol/L 25 mmol/L Anion Gap 8.0 mmol/L 7.0 mmol/L Blood Urea Nitrogen 24 mg/dl 16 mg/dl Creatinine 1.20 mg/dl 1.00 mg/dl Est Creatinine Clear Calc Drug Dose 58.6 ml/min 70.3 ml/min Estimated GFR () 72.6 90.5 Estimated GFR (Non- 62.6 78.1 BUN/Creatinine Ratio 20.2 16.1 Random Glucose 140 mg/dl 119 mg/dl Calcium Level 8.4 mg/dl 7.9 mg/dl Prothrombin Time 11.4 SECONDS Prothromb Time International Ratio 1.1 Activated Partial Thromboplast Time 31.7 SECONDS Partial Thromboplastin Ratio 1.2 Total Bilirubin 0.6 mg/dl 1.4 mg/dl Direct Bilirubin 0.3 mg/dl Aspartate Amino Transf (AST/SGOT) 36 U/L 25 U/L Alanine Aminotransferase (ALT/SGPT) 102 U/L 86 U/L Alkaline Phosphatase 126 U/L 118 U/L Total Protein 6.0 gm/dl 5.9 gm/dl Albumin 2.9 gm/dl 2.7 gm/dl Lactic Acid Level 1.1 mmol/L Neutrophils (%) (Auto) 14.9 % Lymphocytes (%) (Auto) 42.6 % Monocytes (%) (Auto) 29.8 % Eosinophils (%) (Auto) 2.1 % Basophils (%) (Auto) 2.1 % Neutrophils # (Auto) 0.07 K/uL Lymphocytes # (Auto) 0.20 K/uL Monocytes # (Auto) 0.14 K/uL Eosinophils # (Auto) 0.01 K/uL Basophils # (Auto) 0.01 K/uL Immature Granulocyte % (Auto) 8.5 % Immature Granulocyte # (Auto) 0.04 K/uL Giant Platelets 2+ Phosphorus Level 2.0 mg/dl Magnesium Level 1.9 mg/dl Globulin 3.2 gm/dl Albumin/Globulin Ratio 0.8 Hepatitis C Antibody Screen NEG Test 12/17/16 09:31 Procalcitonin 2.52 ng/ml Patient Name: NOLBERTO TARANGO Unit Number: [id number] Dictated: 12/16/162032 Transcribed: 12/16/162032 PBS Printed Date/Time: [~ rep prt dt]/[~ rep prt tm] [~ rep ct labl] - [~ rep ct ivnm] [facility] Radiology Department [place], [place] [id number] Dictated: 12/16/162032 Transcribed: 12/16/162032 PBS Printed Date/Time: [~ rep prt dt]/[~ rep prt tm] [~ rep ct labl] - [~ rep ct ivnm] CHEST ONE VIEW PORTABLE CLINICAL HISTORY: 66 years-old Male presenting with neutropenic sepsis. TECHNIQUE: Portable upright AP view of the chest was obtained. COMPARISON: 12/15/2016. FINDINGS: Left mainstem bronchus stent in place. Cardiomediastinal silhouette normal. Persistent elevation of the left hemidiaphragm likely from lobectomy with associated blunting of the left costophrenic angle. No focal infiltrate. No pneumothorax. Osseous structures and upper abdomen otherwise normal. IMPRESSION: 1. Postsurgical changes with persistent left hemidiaphragm elevation and left pleural thickening. No significant change. Electronically signed by: Genaro Montez M.D. 12/16/2016 8:36 PM Dictated Date/Time: 12/16/2016 8:33 PM The status of this report is Signed. Draft = Not yet reviewed or approved by Radiologist. Signed = Reviewed and approved by Radiologist. <AttendingPhy>Tatum Stark MD</AttendingPhy> <FamilyPhy>Sagar Mccray M.D.</FamilyPhy> <PrimaryPhy>Sagar Mccray M.D.</PrimaryPhy> < UnitNumber>[id number]</UnitNumber> <VisitNumber>[id number]</VisitNumber> < PatientName>NOLBERTO TARANGO</PatientName> <DateOfBirth>1950</DateOfBirth> < Location>[facility]</Location> <ServiceDate></ServiceDate> <MNE>ESINDI</MNE> < OrderingPhy>Miguel Curry MD</OrderingPhy> <OrderingPhyMNE>f rep ord dr wheat</ OrderingPhyMNE> <DictatingPhyMNE>f rep dict dr wheat</DictatingPhyMNE> <CCListMNE> f rep ct mne</CCListMNE> <AdmittingPhyMNE>f pt admit dr wheat</AdmittingPhyMNE> < AttendingPhyMNE>f pt attend dr wheat</AttendingPhyMNE> <ConsultingPhyMNE>f pt consult dr wheat</ConsultingPhyMNE> <FamilyPhyMNE>f pt fam dr wheat</FamilyPhyMNE> <OtherPhyMNE>f pt other dr wheat</OtherPhyMNE> < PrimaryPhyMNE>f pt prim care dr wheat</PrimaryPhyMNE> <ReferringPhyMNE>f pt referring dr wheat</ReferringPhyMNE> Assessment & Plan 66-year-old male with recurrent neuroendocrine tumor of the lung on chemotherapy and radiation therapy, now presents with fever with neutropenia and encephalopathy. Certainly lungs are potential source of infection, but otherwise shows no obvious source. Agree with use of broad-spectrum antibiotics pending further culture results and recovery of white cell. Unclear why patient complaining of so much throat pain, will discuss further with all involved further management. Will follow.
[2016-12-18] VITALS (12 sets, daily range): BP systolic 105–146; BP diastolic 55–81; PULSE 81–95; TEMP 36.8–37.3; O2SAT 92–97
[2016-12-18] MEDS: VANCOMYCIN INJ 1,000 MG in SODIUM CHLORIDE 0.9% 250ML 250 ML IV SCH ×3 (00:10→23:12)
[2016-12-18] MEDS: OXYCODONE/ACETAMINOPHEN 5-325 TAB PO PRN ×5 (01:12→21:42)
[2016-12-18] MEDS: PIPERACILL/TAZOBAC IV 3.375 GM in DEXTROSE 5% 100ML 100 ML IV SCH ×3 (01:58→18:04)
[2016-12-18] MEDS: ALBUT/IPRATROP 3MG/0.5MG NEB 3 ML VIAL INH SCH ×5 (03:45→19:20)
[2016-12-18] MEDS: ALUMINUM/MAGNESIUM/SIMETH (MAALOX MAX) 30 ML UDC PO PRN (06:01)
[2016-12-18 07:16] LABS: HEMATOCRIT 26.1 % (42-52); MEAN CORPUSCULAR HGB CONC 35.6 g/dl (32-36); WHITE BLOOD COUNT 1.18 K/uL (4.8-10.8)
[2016-12-18 07:32] LABS: MEAN PLATELET VOLUME 9.6 fL (7.4-10.4); PLATELET COUNT 38 K/uL (130-400)
[2016-12-18] MEDS: PANTOprazole SOD 40 MG TAB PO SCH (07:33)
[2016-12-18] MEDS: LACTOBACILLUS ACIDOPHILUS (FLORANEX) TAB PO SCH ×3 (07:33→18:06)
[2016-12-18] MEDS: TAMSULOSIN HCL 0.4 MG CAP PO SCH (07:33)
[2016-12-18] MEDS: ROSUVASTATIN CALCIUM 10 MG TAB PO SCH (07:34)
[2016-12-18] MEDS: BENZONATATE 100MG CAP PO SCH ×3 (07:34→21:39)
[2016-12-18] MEDS: BACLOFEN 10 MG TAB PO SCH ×2 (07:34→19:41)
[2016-12-18 07:47] LABS: BUN/CREATININE RATIO 13.9 (10-20); CALCIUM 8.3 mg/dl (8.5-10.1); POTASSIUM 3.5 mmol/L (3.5-5.1)
[2016-12-18] MEDS: BOOST VANILLA PO SCH ×6 (09:41→16:20)
--- NOTE | 2016-12-18 10:04 | SURGERY PROGRESS NOTE ---
DATE: 12/18/2016 Dr. Schroeder was seen this morning. He is still complaining of pain in his upper chest and lower neck; however, Dr. Sagar Litlte saw him and did a laryngoscopy yesterday and saw no evidence of any cord trauma or evidence of any infection. The patient continues to have cough, continues to complain of pain. He is really not bringing much up. The stent has now been in for 6 days. His mental status changes are a bit better, but he still is a bit confused. I discussed this with Dr. Armando Casas from infectious disease. We have not grown anything out yet. His white count is up to 1180. Hemoglobin down to 9.3. Platelet count is down to 38,000. His BUN and creatinine are 14 and 1.0 respectively. His procalcitonin level was up to 2.52. My suspicion is that we are dealing with an infectious etiology brought on by his neutropenic state. We will keep a close eye on him. MARY ANNE
[2016-12-18] MEDS ORDERED: NURSING VERBAL MED ORDER ONE ×2 (12:30→23:45)
[2016-12-18] MEDS ORDERED: VANCOMYCIN TROUGH SCH (13:30)
[2016-12-18] MEDS: NYSTATIN SUSP 500,000 U/5 ML UDC PO SCH ×3 (14:34→23:12)
--- NOTE | 2016-12-18 14:46 | Oncology Consultation ---
Oncology/Heme Consultation Date of Consultation: Dec 18, 2016. Attending Physician: Edson Oconnell D.O. Reason for Consultation: Lung cancer Bronchial obstruction, s/p endobronchial stent Febrile neutropenia History of Present Illness Mr. Schroeder is a 66 year old man with a lung cancer (his pathology is somewhat ambiguous and controversial, but he is being treated presumptively as a small cell lung cancer). He received his first cycle of carboplatin/etoposide ~7-8 days ago. He presented earlier this week with confusion and was found to be febrile (Tmax 39.2) and neutropenic. He was put on broad spectrum antibiotics, though all cultures have thus far been negative. He has a chronic cough, related to his cancer, which is unchanged. He also is hoarse and mildly short of breath. However, he is improved from before his bronchial stent. He was febrile again yesterday evening (39.2 at 2009) but has not yet spiked today. He feels a bit stronger today overall. Past Medical/Surgical History Lung cancer, presumptive SCLC Bronchial obstruction, s/p stent Febrile neutropenia Thrombocytopenia Family History Cancer Hypertension Social History Smoking Status: Former Smoker Alcohol Use: none Marital Status: Housing Status: lives with family Occupation Status: employed Allergies Coded Allergies: Pork (Verified Allergy, Severe, ANAPHYLAXIS, 12/11/16) NO KNOWN DRUG ALLERGIES (Verified Allergy, Unknown, ., 12/11/16) Uncoded Allergies: VENISON (Allergy, Unknown, RASH, 12/12/16) Home Medications Scheduled Amoxicillin & Pot Clavulanate (Augmentin 500MG), 1 TAB PO TID Baclofen (Lioresal), 10 MG PO BID Diazepam (Valium), 5 MG PO TID Prednisone (Prednisone), 60 MG PO DIRECTED Rosuvastatin Calcium (Crestor), 10 MG PO QAM Tamsulosin Hcl (Flomax), 0.4 MG PO QAM [Budesonide], 1 MG INH DAILY Scheduled PRN Albuterol Sulfate (Proair Respiclick), 1 INHA INH Q4H PRN for Shortness of Breath Ondansetron Hcl (Zofran), 8 MG PO DIRECTED PRN for Nausea Oxycodone/Acetaminophen 5MG/325MG (Percocet 5MG/325MG), 1 TABLETS PO Q4H PRN for Pain Current Inpatient Medications Current Inpatient Medications Medications (Trade) Dose Ordered Sig/Aron Route Start Time Stop Time Status Last Admin Dose Admin Acetaminophen (Tylenol Tab) 650 mg Q4H PRN PO 12/16/16 17:00 01/15/17 16:59 12/17/16 17:29 650 MG Al Hydrox/Mg Hydrox/Simethicone (Maalox Max Susp) 15 ml Q4H PRN PO 12/16/16 17:00 01/15/17 16:59 12/18/16 06:01 15 ML Magnesium Hydroxide (Milk Of Magnesia Susp) 30 ml Q6H PRN PO 12/16/16 17:00 01/15/17 16:59 Polyethylene (Miralax Powder Packet) 17 gm DAILY PRN PO 12/16/16 17:15 01/15/17 17:14 Ondansetron HCl (Zofran Inj) 4 mg Q6H PRN IV 12/16/16 17:00 01/15/17 16:59 Baclofen (Lioresal Tab) 10 mg BID PO 12/16/16 20:00 01/15/17 19:59 12/18/16 07:34 10 MG Oxycodone/ Acetaminophen (Percocet 5-325mg Tab) 1 tab Q4H PRN PO 12/16/16 17:00 12/30/16 16:59 12/18/16 06:02 1 TAB Rosuvastatin Calcium (Crestor Tab) 10 mg QAM PO 12/17/16 08:00 01/16/17 07:59 12/18/16 07:34 10 MG Tamsulosin HCl (Flomax Cap) 0.4 mg QAM PO 12/17/16 08:00 01/16/17 07:59 12/18/16 07:33 0.4 MG Albuterol (Ventolin Hfa Inhaler) 1 puffs Q4H PRN INH 12/16/16 17:00 01/15/17 16:59 Albuterol/ Ipratropium (Duoneb) 3 ml Q4R INH 12/16/16 20:00 01/15/17 19:59 12/18/16 07:12 3 ML Pantoprazole Sodium (Protonix Tab) 40 mg QAM PO 12/17/16 08:00 01/16/17 07:59 12/18/16 07:33 40 MG Lactobacillus Acidophilus (Floranex Tab) 4 tab TIDM PO 12/17/16 07:30 01/16/17 07:59 12/18/16 07:33 4 TAB Piperacillin Sod/ Tazobactam Sod 3.375 gm/Dextrose 115 ml @ 28.75 mls/ hr Q8H IV 12/17/16 02:00 12/28/16 01:59 12/18/16 09:51 28.75 MLS/HR Vancomycin HCl 1000 mg/Sodium Chloride 270 ml @ 125 mls/hr Q14H IV 12/17/16 10:00 12/28/16 09:59 12/18/16 00:10 125 MLS/HR Vancomycin HCl (Consult) 1 ea UD PRN N/A 12/16/16 20:30 01/15/17 20:29 Piperacillin Sod/ Tazobactam Sod (Consult) 1 ea UD PRN N/A 12/16/16 20:30 01/15/17 20:29 Menthol (Nice Alix) 1 alix PRN PRN PO 12/16/16 22:00 01/15/17 21:59 Benzonatate (Tessalon Perles Cap) 100 mg TID PO 12/17/16 14:00 01/16/17 13:59 12/18/16 07:34 100 MG Enteral Nutritional Formula (Boost) 1 can TIDM PO 12/17/16 16:45 01/16/17 16:44 12/18/16 09:41 1 CAN Review of Systems Constitutional: + fever, + fatigue, No chills ENT: No unusual epistaxis Respiratory: + cough, + shortness of breath (improving), No hemoptysis Cardiovascular: No chest pain Abdomen: No pain, No nausea, No vomiting Genitourinary - Male: No dysuria Hematologic / Lymphatic: No abnormal bleeding/bruising Integumentary: No rash Physical Exam Date Time Temp Pulse Resp B/P (MAP) Pulse Ox O2 Delivery O2 Flow Rate FiO2 12/18/16 08:18 37.2 82 18 126/67 (86) 94 Room Air 12/18/16 07:12 81 16 95 Room Air 12/18/16 04:00 36.8 82 20 146/81 (102) 96 Room Air 12/18/16 04:00 Room Air 12/18/16 03:45 81 16 96 Room Air 12/18/16 00:00 Room Air 12/18/16 00:00 36.8 83 18 105/56 (72) 96 Room Air 12/17/16 23:36 76 16 96 Room Air 12/17/16 20:10 39.1 101 22 125/75 (92) 95 Room Air 12/17/16 20:00 Room Air 12/17/16 19:06 95 20 95 Room Air 12/17/16 17:19 38.2 86 24 140/77 (98) 100 Room Air 12/17/16 16:00 Room Air 12/17/16 15:50 86 16 95 Room Air 12/17/16 12:00 Room Air 12/17/16 12:00 36.8 98 18 184/86 (118) 98 Room Air 12/17/16 11:24 37.8 112 20 140/83 97 Room Air General Appearance: no apparent distress, + pertinent finding (ill-appearing) Eyes: EOMI ENT: + muffled/hoarse voice Respiratory/Chest: + respiratory distress (increased respiratory effort, mild) Cardiovascular: regular rate, rhythm Abdomen/GI: non tender, soft Extremities/Musculoskelatal: no pedal edema Neurologic/Psych: alert, oriented x 3 Laboratory Results Last 24 Hours Test 12/18/16 06:53 12/18/16 09:40 White Blood Count 1.18 K/uL Red Blood Count 3.00 M/uL Hemoglobin 9.3 g/dL Hematocrit 26.1 % Mean Corpuscular Volume 87.0 fL Mean Corpuscular Hemoglobin 31.0 pg Mean Corpuscular Hemoglobin Concent 35.6 g/dl RDW Standard Deviation 40.7 fL RDW Coefficient of Variation 12.6 % Platelet Count 38 K/uL Mean Platelet Volume 9.6 fL Sodium Level 137 mmol/L Potassium Level 3.5 mmol/L Chloride Level 105 mmol/L Carbon Dioxide Level 27 mmol/L Anion Gap 5.0 mmol/L Blood Urea Nitrogen 14 mg/dl Creatinine 1.00 mg/dl Est Creatinine Clear Calc Drug Dose 70.3 ml/min Estimated GFR () 90.5 Estimated GFR (Non- 78.1 BUN/Creatinine Ratio 13.9 Random Glucose 104 mg/dl Calcium Level 8.3 mg/dl Assessment & Plan Mr. Schroeder is recovering from his cytopenias. His total WBC count is up, though we don't have a differential so it's not clear if he is no longer neutropenic. I suspect his ANC likely still is below 1000, but it should hopefully be recovered tomorrow. His platelets fell this morning, but should start rising soon as well (they generally lag the WBC recovery by a day or two). Dr. Castillo is concerned about hemorrhage at the site of his stent. We generally do not transfuse patients unless they are bleeding or their platelet count falls below 20K, as spontaneous bleeding is uncommon with platelet counts above 20K. However, given his recent procedure and the potentially catastrophic complications of a bronchial hemorrhage, a platelet transfusion would be justifiable. Otherwise, I would continue broad spectrum antibiotics until he is no longer neutropenic and is afebrile >24 hrs. If an infectious source is identified, he should continue an appropriate antibiotic course for that pathogen.
--- NOTE | 2016-12-18 15:20 | Pharmacy Progress Note ---
Pharmacy Abx Dose Progress Nt Date of Service Dec 18, 2016. Pharmacy Dosing Scope The patient is currently receiving the following antimicrobial agents per Pharmacy consult: vancomycin 1000 mg IV/PO every 14 hours Zosyn 3.375 GM IV [id number] Objective Height (Feet): 5 Height (Inches): 8.00 Weight (Kilograms): 69.100 Vital Signs (Past 12Hrs) Vital Signs Past 12 Hours Date Time Temp Pulse Resp B/P (MAP) Pulse Ox O2 Delivery O2 Flow Rate FiO2 12/18/16 11:48 36.8 84 18 111/55 (73) 95 Room Air 12/18/16 11:32 88 16 94 Room Air 12/18/16 08:18 37.2 82 18 126/67 (86) 94 Room Air 12/18/16 08:00 Room Air 12/18/16 07:12 81 16 95 Room Air 12/18/16 04:00 36.8 82 20 146/81 (102) 96 Room Air 12/18/16 04:00 Room Air 12/18/16 03:45 81 16 96 Room Air Lab Results (24Hrs) Laboratory Tests (24 Hours) Test 12/18/16 06:53 White Blood Count 1.18 K/uL (4.8-10.8) L Micro Results Date/Time Source Procedure Growth Status 12/16/16 20:13 Blood Blood Culture - Preliminary NO GROWTH TO DATE. Resulted 12/16/16 20:07 Blood Blood Culture - Preliminary NO GROWTH TO DATE. Resulted 12/16/16 00:00 Nasal MRSA DNA Surveillance Screen - Final Specimen Negative for MRSA by DNA Probe Complete Risk Factors for Resistance * Recent hospital stay * Immunocompromised (chemotherapy) * Antimicrobial use within the last 90 days Augmentin for 2 days prior Assessment & Plan Assessment 66 year old male receiving vancomycin and Zosyn for empiric treatment of confusion and febrile. He was admitted yesterday with fever and confusion. He has PMH of neuroendocrine tumor s/p lobectomy in 2016; recent recurrence treated with chemotherapy (last dose last week). He was a direct admission. Day # 3/10 of antimicrobial therapy Plan Vancomycin IV * Trough level of 8 mcg/mL is subtherapeutic. * Change to 1000 mg IV every 10 hours (represents at least 40% increase in dose) * Goal trough level for unknown indication : 15 to 20 mcg/mL * Trough ordered for: 12/20/16 Piperacillin/tazobactam * Continue 3.375 g IV extended infusion every 8 hours for CrCl greater than 20 mL/min . Pharmacy will continue to follow and will adjust dose/frequency as necessary. Thank you.
--- NOTE | 2016-12-18 17:07 | Infectious Disease Progress Nt ---
Progress Note Date of Service Dec 18, 2016. 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 w/ [facility] consultant, review of inpatient medication list Patient feeling better today. Remains afebrile. All cultures remain negative. Has slight cough, no hemoptysis. All Other Systems: Reviewed and Negative Medications Current Inpatient Medications Medications (Trade) Dose Ordered Sig/Aron Route Start Time Stop Time Status Last Admin Dose Admin Acetaminophen (Tylenol Tab) 650 mg Q4H PRN PO 12/16/16 17:00 01/15/17 16:59 12/17/16 17:29 650 MG Al Hydrox/Mg Hydrox/Simethicone (Maalox Max Susp) 15 ml Q4H PRN PO 12/16/16 17:00 01/15/17 16:59 12/18/16 06:01 15 ML Magnesium Hydroxide (Milk Of Magnesia Susp) 30 ml Q6H PRN PO 12/16/16 17:00 01/15/17 16:59 Polyethylene (Miralax Powder Packet) 17 gm DAILY PRN PO 12/16/16 17:15 01/15/17 17:14 Ondansetron HCl (Zofran Inj) 4 mg Q6H PRN IV 12/16/16 17:00 01/15/17 16:59 Baclofen (Lioresal Tab) 10 mg BID PO 12/16/16 20:00 01/15/17 19:59 12/18/16 07:34 10 MG Oxycodone/ Acetaminophen (Percocet 5-325mg Tab) 1 tab Q4H PRN PO 12/16/16 17:00 12/30/16 16:59 12/18/16 16:20 1 TAB Rosuvastatin Calcium (Crestor Tab) 10 mg QAM PO 12/17/16 08:00 01/16/17 07:59 12/18/16 07:34 10 MG Tamsulosin HCl (Flomax Cap) 0.4 mg QAM PO 12/17/16 08:00 01/16/17 07:59 12/18/16 07:33 0.4 MG Albuterol (Ventolin Hfa Inhaler) 1 puffs Q4H PRN INH 12/16/16 17:00 01/15/17 16:59 Albuterol/ Ipratropium (Duoneb) 3 ml Q4R INH 12/16/16 20:00 01/15/17 19:59 12/18/16 15:42 3 ML Pantoprazole Sodium (Protonix Tab) 40 mg QAM PO 12/17/16 08:00 01/16/17 07:59 12/18/16 07:33 40 MG Lactobacillus Acidophilus (Floranex Tab) 4 tab TIDM PO 12/17/16 07:30 01/16/17 07:59 12/18/16 11:52 4 TAB Piperacillin Sod/ Tazobactam Sod 3.375 gm/Dextrose 115 ml @ 28.75 mls/ hr Q8H IV 12/17/16 02:00 12/28/16 01:59 12/18/16 09:51 28.75 MLS/HR Vancomycin HCl (Consult) 1 ea UD PRN N/A 12/16/16 20:30 01/15/17 20:29 Piperacillin Sod/ Tazobactam Sod (Consult) 1 ea UD PRN N/A 12/16/16 20:30 01/15/17 20:29 Menthol (Nice Alix) 1 alix PRN PRN PO 12/16/16 22:00 01/15/17 21:59 Benzonatate (Tessalon Perles Cap) 100 mg TID PO 12/17/16 14:00 01/16/17 13:59 12/18/16 14:35 100 MG Enteral Nutritional Formula (Boost) 1 can TIDM PO 12/17/16 16:45 01/16/17 16:44 12/18/16 16:20 1 CAN Nystatin (Mycostatin Susp) 5 ml QID PO 12/18/16 13:45 12/28/16 13:44 12/18/16 14:34 5 ML Vancomycin HCl 1000 mg/Sodium Chloride 270 ml @ 125 mls/hr Q10H IV 12/18/16 22:00 12/28/16 21:59 Miscellaneous Information (Nursing Verbal Med Order) 1 ea ONE ONCE N/A 12/18/16 17:00 12/18/16 17:01 UNV Objective Vital Signs Date Time Temp Pulse Resp B/P (MAP) Pulse Ox O2 Delivery O2 Flow Rate FiO2 12/18/16 16:34 37.3 95 20 125/68 (87) 92 Room Air 12/18/16 15:43 84 16 94 Room Air 12/18/16 12:00 Room Air 12/18/16 11:48 36.8 84 18 111/55 (73) 95 Room Air 12/18/16 11:32 88 16 94 Room Air 12/18/16 08:18 37.2 82 18 126/67 (86) 94 Room Air 12/18/16 08:00 Room Air 12/18/16 07:12 81 16 95 Room Air 12/18/16 04:00 36.8 82 20 146/81 (102) 96 Room Air 12/18/16 04:00 Room Air 12/18/16 03:45 81 16 96 Room Air 12/18/16 00:00 Room Air 12/18/16 00:00 36.8 83 18 105/56 (72) 96 Room Air 12/17/16 23:36 76 16 96 Room Air 12/17/16 20:10 39.1 101 22 125/75 (92) 95 Room Air 12/17/16 20:00 Room Air 12/17/16 19:06 95 20 95 Room Air 12/17/16 17:19 38.2 86 24 140/77 (98) 100 Room Air Physical Exam General Appearance: WD/WN, no apparent distress Eyes: normal inspection, EOMI, sclerae normal ENT: normal ENT inspection, pharynx normal Neck: supple, no adenopathy, trachea midline Respiratory/Chest: chest non-tender, no respiratory distress, no accessory muscle use, + rales Cardiovascular: regular rate, rhythm, no gallop, no murmur Abdomen: normal bowel sounds, non tender, soft, no organomegaly Extremities: non-tender, normal capillary refill Neurologic/Psychiatric: alert, oriented x 3 Skin: normal color, warm/dry, no rash Lymphatic: no adenopathy Laboratory Results RUN DATE: 12/18/16 [facility] LAB PAGE 1 RUN TIME: 709 Specimen Inquiry PATIENT: NOLBERTO TARANGO LOC: [facility] U # : [id number] AGE/SX: 66/M ROOM: 08 REG : 12/16/[address]: Edson Oconnell D.O. : 1950 BED: 1 DIS : STATUS: ADM IN TLOC: SPEC #: [id number] KENNETH: 12/16/16 STATUS: RES REQ #: [id number] RECD: 12/16/[address]: Miguel Curry MD SOURCE: BLOOD ENTR: 12/16/16 [facility] DR: Sagar Mccray M.D. SPDC: Tatum Stark MD ORDERED: BLOOD CULTURE Procedure Result Verified Site BLD CULT Preliminary 12/18/16-709 NO GROWTH TO DATE. Last 24 Hours Test 12/18/16 06:53 12/18/16 09:40 12/18/16 14:00 White Blood Count 1.18 K/uL Red Blood Count 3.00 M/uL Hemoglobin 9.3 g/dL Hematocrit 26.1 % Mean Corpuscular Volume 87.0 fL Mean Corpuscular Hemoglobin 31.0 pg Mean Corpuscular Hemoglobin Concent 35.6 g/dl RDW Standard Deviation 40.7 fL RDW Coefficient of Variation 12.6 % Platelet Count 38 K/uL Mean Platelet Volume 9.6 fL Sodium Level 137 mmol/L Potassium Level 3.5 mmol/L Chloride Level 105 mmol/L Carbon Dioxide Level 27 mmol/L Anion Gap 5.0 mmol/L Blood Urea Nitrogen 14 mg/dl Creatinine 1.00 mg/dl Est Creatinine Clear Calc Drug Dose 70.3 ml/min Estimated GFR () 90.5 Estimated GFR (Non- 78.1 BUN/Creatinine Ratio 13.9 Random Glucose 104 mg/dl Calcium Level 8.3 mg/dl Total Bilirubin 0.6 mg/dl Direct Bilirubin 0.2 mg/dl Aspartate Amino Transf (AST/SGOT) 16 U/L Alanine Aminotransferase (ALT/SGPT) 67 U/L Alkaline Phosphatase 121 U/L Total Protein 6.0 gm/dl Albumin 2.7 gm/dl Vancomycin Level Trough 8.1 mcg/ml Assessment and Plan 66-year-old male with recurrent neuroendocrine tumor of the lung on chemotherapy and radiation therapy, now presents with fever with neutropenia and encephalopathy. Patient appears to be improving on current regimen, would continue current antibiotics and as long as cultures remain negative, and hopefully discontinue antibiotics in the near future. Will discuss with all involved.
[2016-12-18 18:07] LABS: BASO % 0.8 %; BASO ABS # 0.01 K/uL (0-0.2); COMPLETE YES; DOHLE BODIES 2+; EOS % 1.7 %; IG% 0.8 %; LYMPH % 33.1 %; LYMPH ABS # 0.39 K/uL (1.2-3.4); NEUT % 41.6 %; OVALOCYTES 1+; TOXIC GRANULATION 3+
[2016-12-18] MEDS: LIDOCAINE HCL 2% VISC SOLN 20 ML UDC PO PRN ×2 (18:07→21:43)
--- NOTE | 2016-12-18 21:17 | Family Medicine Progress Note ---
Progress Note Date of Service Dec 18, 2016. Subjective Pt evaluation today including: conversation w/ patient, conversation w/ family , physical exam, chart review, lab review, review of inpatient medication list Pain: Throat pain reported PO Intake: Tolerating PO intake Voiding: no voiding problems Mr. Schroeder reports that he still feels unwell, is still coughing and suffering from a sore throat that is worse when he coughs. He has been drinking Boosts three times a day, but does not have much of an appetite otherwise. He reports that his legs are no longer sore, and have not bothered him in two days. Constitutional: No fever, No chills, No sweats, No weight loss ENT: + sore throat (base of throat sore) Respiratory: No cough, No sputum, No wheezing, No shortness of breath Cardiovascular: No chest pain, No orthopnea, No PND, No edema, No claudication Abdomen: No pain, No nausea, No vomiting, No diarrhea, No constipation All Other Systems: Reviewed and Negative Medications Current Inpatient Medications Medications (Trade) Dose Ordered Sig/Aron Route Start Time Stop Time Status Last Admin Dose Admin Acetaminophen (Tylenol Tab) 650 mg Q4H PRN PO 12/16/16 17:00 01/15/17 16:59 12/17/16 17:29 650 MG Al Hydrox/Mg Hydrox/Simethicone (Maalox Max Susp) 15 ml Q4H PRN PO 12/16/16 17:00 01/15/17 16:59 12/18/16 06:01 15 ML Magnesium Hydroxide (Milk Of Magnesia Susp) 30 ml Q6H PRN PO 12/16/16 17:00 01/15/17 16:59 Polyethylene (Miralax Powder Packet) 17 gm DAILY PRN PO 12/16/16 17:15 01/15/17 17:14 Ondansetron HCl (Zofran Inj) 4 mg Q6H PRN IV 12/16/16 17:00 01/15/17 16:59 Baclofen (Lioresal Tab) 10 mg BID PO 12/16/16 20:00 01/15/17 19:59 12/18/16 19:41 10 MG Oxycodone/ Acetaminophen (Percocet 5-325mg Tab) 1 tab Q4H PRN PO 12/16/16 17:00 12/30/16 16:59 12/18/16 16:20 1 TAB Rosuvastatin Calcium (Crestor Tab) 10 mg QAM PO 12/17/16 08:00 01/16/17 07:59 12/18/16 07:34 10 MG Tamsulosin HCl (Flomax Cap) 0.4 mg QAM PO 12/17/16 08:00 01/16/17 07:59 12/18/16 07:33 0.4 MG Albuterol (Ventolin Hfa Inhaler) 1 puffs Q4H PRN INH 12/16/16 17:00 01/15/17 16:59 Albuterol/ Ipratropium (Duoneb) 3 ml Q4R INH 12/16/16 20:00 01/15/17 19:59 12/18/16 19:20 3 ML Pantoprazole Sodium (Protonix Tab) 40 mg QAM PO 12/17/16 08:00 01/16/17 07:59 12/18/16 07:33 40 MG Lactobacillus Acidophilus (Floranex Tab) 4 tab TIDM PO 12/17/16 07:30 01/16/17 07:59 12/18/16 18:06 4 TAB Piperacillin Sod/ Tazobactam Sod 3.375 gm/Dextrose 115 ml @ 28.75 mls/ hr Q8H IV 12/17/16 02:00 12/28/16 01:59 12/18/16 18:04 28.75 MLS/HR Vancomycin HCl (Consult) 1 ea UD PRN N/A 12/16/16 20:30 01/15/17 20:29 Piperacillin Sod/ Tazobactam Sod (Consult) 1 ea UD PRN N/A 12/16/16 20:30 01/15/17 20:29 Menthol (Nice Alix) 1 alix PRN PRN PO 12/16/16 22:00 01/15/17 21:59 Benzonatate (Tessalon Perles Cap) 100 mg TID PO 12/17/16 14:00 01/16/17 13:59 12/18/16 14:35 100 MG Nystatin (Mycostatin Susp) 5 ml QID PO 12/18/16 13:45 12/28/16 13:44 12/18/16 14:34 5 ML Vancomycin HCl 1000 mg/Sodium Chloride 270 ml @ 125 mls/hr Q10H IV 12/18/16 22:00 12/28/16 21:59 Lidocaine HCl (Viscous Lidocaine 2% Soln) 1 ml QID PRN PO 12/18/16 18:00 01/17/17 17:59 12/18/16 18:07 20 ML Enteral Nutritional Formula (Boost Plus Vanilla) 1 can QID PO 12/18/16 21:00 01/17/17 20:59 Objective Vital Signs Date Time Temp Pulse Resp B/P (MAP) Pulse Ox O2 Delivery O2 Flow Rate FiO2 12/18/16 20:00 36.8 93 22 137/80 (99) 97 Room Air 12/18/16 19:20 86 16 96 Room Air 12/18/16 16:34 37.3 95 20 125/68 (87) 92 Room Air 12/18/16 16:00 Room Air 12/18/16 15:43 84 16 94 Room Air 12/18/16 12:00 Room Air 12/18/16 11:48 36.8 84 18 111/55 (73) 95 Room Air 12/18/16 11:32 88 16 94 Room Air 12/18/16 08:18 37.2 82 18 126/67 (86) 94 Room Air 12/18/16 08:00 Room Air 12/18/16 07:12 81 16 95 Room Air 12/18/16 04:00 36.8 82 20 146/81 (102) 96 Room Air 12/18/16 04:00 Room Air 12/18/16 03:45 81 16 96 Room Air 12/18/16 00:00 Room Air 12/18/16 00:00 36.8 83 18 105/56 (72) 96 Room Air 12/17/16 23:36 76 16 96 Room Air Physical Exam General Appearance: WD/WN, no apparent distress Respiratory/Chest: chest non-tender, no respiratory distress, no accessory muscle use, + decreased breath sounds (decreased breath sounds over L lung), + rales Cardiovascular: regular rate, rhythm, no edema, no gallop, no JVD, no murmur Abdomen: normal bowel sounds, non tender, soft, no organomegaly, no pulsatile mass Laboratory Results 12/18/16 06:53 Red Blood Count 3.00, Mean Corpuscular Volume 87.0, Mean Corpuscular Hemoglobin 31.0, Mean Corpuscular Hemoglobin Concent 35.6, Mean Platelet Volume 9.6, Neutrophils (%) (Auto) 41.6, Lymphocytes (%) (Auto) 33.1, Monocytes (%) (Auto) 22.0, Eosinophils (%) (Auto) 1.7, Basophils (%) (Auto) 0.8, Neutrophils # (Auto ) 0.49, Lymphocytes # (Auto) 0.39, Monocytes # (Auto) 0.26, Eosinophils # (Auto ) 0.02, Basophils # (Auto) 0.01 12/18/16 06:53 Test 12/18/16 06:53 12/18/16 09:40 12/18/16 14:00 White Blood Count 1.18 K/uL (4.8-10.8) Red Blood Count 3.00 M/uL (4.7-6.1) Hemoglobin 9.3 g/dL (14.0-18.0) Hematocrit 26.1 % (42-52) Mean Corpuscular Volume 87.0 fL (80-100) Mean Corpuscular Hemoglobin 31.0 pg (25-34) Mean Corpuscular Hemoglobin Concent 35.6 g/dl (32-36) Platelet Count 38 K/uL (130-400) Mean Platelet Volume 9.6 fL (7.4-10.4) Neutrophils (%) (Auto) 41.6 % Lymphocytes (%) (Auto) 33.1 % Monocytes (%) (Auto) 22.0 % Eosinophils (%) (Auto) 1.7 % Basophils (%) (Auto) 0.8 % Neutrophils # (Auto) 0.49 K/uL (1.4-6.5) Lymphocytes # (Auto) 0.39 K/uL (1.2-3.4) Monocytes # (Auto) 0.26 K/uL (0.11-0.59) Eosinophils # (Auto) 0.02 K/uL (0-0.5) Basophils # (Auto) 0.01 K/uL (0-0.2) RDW Standard Deviation 40.7 fL (36.4-46.3) RDW Coefficient of Variation 12.6 % (11.5-14.5) Immature Granulocyte % (Auto) 0.8 % Immature Granulocyte # (Auto) 0.01 K/uL (0.00-0.02) Toxic Granulation 3+ Dohle Bodies 2+ Ovalocytes 1+ Anion Gap 5.0 mmol/L (3-11) Est Creatinine Clear Calc Drug Dose 70.3 ml/min Estimated GFR () 90.5 Estimated GFR (Non- 78.1 BUN/Creatinine Ratio 13.9 (10-20) Calcium Level 8.3 mg/dl (8.5-10.1) Total Bilirubin 0.6 mg/dl (0.2-1) Direct Bilirubin 0.2 mg/dl (0-0.2) Aspartate Amino Transf (AST/SGOT) 16 U/L (15-37) Alanine Aminotransferase (ALT/SGPT) 67 U/L (12-78) Alkaline Phosphatase 121 U/L (45-117) Total Protein 6.0 gm/dl (6.4-8.2) Albumin 2.7 gm/dl (3.4-5.0) Vancomycin Level Trough 8.1 mcg/ml (SEE COMMENT) Assessment and Plan 66 year old man with a hx of neuroendocrine tumor s/p lobectomy, recurrent basaloid squamous cell ca, BPH with urinary obstruction, dyslipidemia, asthma, PUD, GERD presented as a direct admission from Dr. Castillo due to confusion Neutropenic Sepsis: - continue Zosyn and Vanc - WCC increased to 1.18 from 0.47 - Pt reports cough is becoming more productive, with streaks of blood - could be due to a pneumonia, given hx of lung ca. May consider further imaging - Blood cultures negative Pancytopenia - Hgb 9.3 and platelets 38 - likely pancytopenia due to recent chemotherapy - expect an increase over the next few days - Heme consulted - thank you for the input - Dr. Lazo states that a platelet transfusion is not needed unless the counts drop below 20 or the patient is actively bleeding - will continue to monitor for now Elevated LFTs - improving - AST down to 16 from 36, ALT down to 67 from 102, Alk Phos down to 121 from 126 - likely due to recent chemotherapy - will trend - Hep C test negative Sore throat - patient given viscous lidocaine at family's request - might help with pain - likely due to recent surgery & coughing Dyslipidemia - Continue Crestor 10 mg daily BPH - Continue Flomax 0.4 mg QAM GI prophylaxis - Protonix 40 mg daily DVT Prophylaxis: TEDs/SCDs Code Status: LEVEL I, FULL Disposition: Remains in ICU Resident Physician Supervision Note: I interviewed and examined the patient. Discussed with Dr. Estrada and agree with findings and plan as documented in the note. Any exceptions or clarifications are listed here: None Documented By: Edson Oconnell pt seen, examined, discussed extensively w pt and son. sister in law asked for return visit. returned and discussed case. concerned about cough and laryngeal pain. discussed this is expected given his overall situation and discussed limitations in being able to manage laryngeal pain. she asked for pulmonary consult. d/w dr sherman. pt notes the cough and laryngeal pain but otherwise no new complaints. still poor appetite. not eating much despite encouragement. vitals noted nad breathing unlabored faint base L rales no pallor or icterus neutropenic fever appearing to be pneumonia -cough and laryngeal pain from this, recent scope, stent -managing as above -pulmonary input as well Resident Tracking Resident Involvement: Resident Care Provided Care Provided: Adult Hospital Medicine
[2016-12-18] MEDS: BOOST PLUS VANILLA PO SCH ×2 (22:00)
--- NOTE | 2016-12-18 22:02 | DIAGNOSTIC IMAGING REPORT ---
CHEST ONE VIEW PORTABLE HISTORY: 66 years-old Male increased shortness of breath and coarse crackles COMPARISON: 12/16/2016 TECHNIQUE: Portable upright AP view of the chest FINDINGS: Cardiac silhouette is again mildly enlarged. Left mainstem bronchus stent is redemonstrated. There is chronic volume loss of the left lung with persistent left hemidiaphragm elevation and blunting of the left costophrenic angle. There is also likely pleural thickening along left lateral hemithorax. There is minimally progressive hazy left perihilar opacity noted. Right lung is clear. Bones are intact. IMPRESSION: 1. Development of hazy left perihilar opacity suggesting atelectasis or pneumonia. 2. The remainder of the study appears unchanged with postsurgical changes and persistent left diaphragmatic elevation. The above report was generated using voice recognition software. It may contain grammatical, syntax or spelling errors. Electronically signed by: Damir Solis M.D. 12/18/2016 10:01 PM Dictated Date/Time: 12/18/2016 9:59 PM
[2016-12-18] MEDS ORDERED: POTASSIUM CHLORIDE 20 MEQ TABCR PO ONE (23:30)
[2016-12-18] MEDS ORDERED: SODIUM CHLORIDE 0.9% 500ML 500 ML IV ONE (23:45)
[2016-12-19] VITALS (13 sets, daily range): BP systolic 100–144; BP diastolic 62–84; PULSE 73–105; TEMP 36.6–37.8; O2SAT 93–98
[2016-12-19] MEDS: ALBUT/IPRATROP 3MG/0.5MG NEB 3 ML VIAL INH SCH ×7 (00:12→23:14)
[2016-12-19] MEDS: PIPERACILL/TAZOBAC IV 3.375 GM in DEXTROSE 5% 100ML 100 ML IV SCH ×3 (02:33→19:16)
[2016-12-19 05:17] LABS: HEMATOCRIT 24.8 % (42-52); MEAN CELL VOLUME 87.6 fL (80-100); MEAN CORPUSCULAR HEMOGLOBIN 30.7 pg (25-34); MEAN CORPUSCULAR HGB CONC 35.1 g/dl (32-36); RED BLOOD COUNT 2.83 M/uL (4.7-6.1); WHITE BLOOD COUNT 3.25 K/uL (4.8-10.8)
[2016-12-19 05:32] LABS: MEAN PLATELET VOLUME 10.9 fL (7.4-10.4); PLATELET COUNT 46 K/uL (130-400)
[2016-12-19 05:58] LABS: CALCIUM 7.9 mg/dl (8.5-10.1); POTASSIUM 3.6 mmol/L (3.5-5.1)
[2016-12-19 05:59] LABS: C-REACTIVE PROTEIN 15.4 mg/dl (0-0.29)
[2016-12-19] MEDS: ACETAMINOPHEN 325 MG TAB PO PRN ×2 (06:26→16:46)
[2016-12-19] MEDS: BOOST PLUS VANILLA PO SCH ×8 (07:55→21:38)
[2016-12-19] MEDS: ROSUVASTATIN CALCIUM 10 MG TAB PO SCH (07:55)
[2016-12-19] MEDS: BENZONATATE 100MG CAP PO SCH ×3 (07:55→21:38)
[2016-12-19] MEDS: TAMSULOSIN HCL 0.4 MG CAP PO SCH (07:55)
[2016-12-19] MEDS: LACTOBACILLUS ACIDOPHILUS (FLORANEX) TAB PO SCH ×3 (07:55→16:47)
[2016-12-19] MEDS: NYSTATIN SUSP 500,000 U/5 ML UDC PO SCH ×4 (07:55→21:38)
[2016-12-19] MEDS: PANTOprazole SOD 40 MG TAB PO SCH (07:56)
[2016-12-19] MEDS: BACLOFEN 10 MG TAB PO SCH ×2 (07:58→22:06)
[2016-12-19] MEDS: VANCOMYCIN INJ 1,000 MG in SODIUM CHLORIDE 0.9% 250ML 250 ML IV SCH ×2 (08:15→16:45)
--- NOTE | 2016-12-19 09:01 | Surgery Progress Note ---
Subjective Date of Service: Dec 19, 2016. Pt. denies further fevers, shakes, chills. He continues to cough--it is non- productive and he specifically denies hemoptysis. Discussed with RN--no issues at this time. Objective Vitals Date Time Temp Pulse Resp B/P (MAP) Pulse Ox O2 Delivery O2 Flow Rate FiO2 12/19/16 08:10 36.6 97 22 102/62 (75) 94 Room Air 12/19/16 07:04 105 20 96 Room Air 12/19/16 04:00 Room Air 12/19/16 04:00 37.2 96 19 132/74 (93) 95 Room Air 12/19/16 00:01 Room Air 12/19/16 00:01 37.5 104 24 143/73 (96) 94 Room Air 12/18/16 22:30 94 16 95 Room Air 12/18/16 20:00 36.8 93 22 137/80 (99) 97 Room Air 12/18/16 20:00 Room Air 12/18/16 19:20 86 16 96 Room Air 12/18/16 16:34 37.3 95 20 125/68 (87) 92 Room Air 12/18/16 16:00 Room Air 12/18/16 15:43 84 16 94 Room Air 12/18/16 12:00 Room Air 12/18/16 11:48 36.8 84 18 111/55 (73) 95 Room Air 12/18/16 11:32 88 16 94 Room Air Physical Exam General: No distress CV: + RRR Pulmonary: No accessory muscle use, No respiratory distress Neurologic: + alert & oriented x 3 Assessment & Plan 66 year old male with lung ca -he is s/p bronchial stent and admitted with AMS -he was noted to be pancytopenic: -broad spectrum abx. initiated -thus far all culture are (-) -counts are recovering/stable -no evidence of bleeding
--- NOTE | 2016-12-19 09:29 | Hematology/Oncology Prog Note ---
Hematology/Onc Progress Note Date of Service Dec 19, 2016. Diagnoses Small cell lung cancer Bronchial obstruction Febrile neutropenia with possible PNA Medications Medications Administered Medications (Trade) Dose Ordered Sig/Aron Route Start Time Stop Time Status Last Admin Dose Admin Acetaminophen (Tylenol Tab) 650 mg Q4H PRN PO 12/16/16 17:00 01/15/17 16:59 12/19/16 06:26 650 MG Al Hydrox/Mg Hydrox/Simethicone (Maalox Max Susp) 15 ml Q4H PRN PO 12/16/16 17:00 01/15/17 16:59 12/18/16 06:01 15 ML Baclofen (Lioresal Tab) 10 mg BID PO 12/16/16 20:00 01/15/17 19:59 12/19/16 07:58 10 MG Oxycodone/ Acetaminophen (Percocet 5-325mg Tab) 1 tab Q4H PRN PO 12/16/16 17:00 12/30/16 16:59 12/18/16 21:42 1 TAB Rosuvastatin Calcium (Crestor Tab) 10 mg QAM PO 12/17/16 08:00 01/16/17 07:59 12/19/16 07:55 10 MG Tamsulosin HCl (Flomax Cap) 0.4 mg QAM PO 12/17/16 08:00 01/16/17 07:59 12/19/16 07:55 0.4 MG Albuterol/ Ipratropium (Duoneb) 3 ml Q4R INH 12/16/16 20:00 01/15/17 19:59 12/19/16 07:04 3 ML Pantoprazole Sodium (Protonix Tab) 40 mg QAM PO 12/17/16 08:00 01/16/17 07:59 12/19/16 07:56 40 MG Diazepam (Valium Tab) 2.5 mg BID PO 12/16/16 20:00 12/17/16 12:08 DC 12/17/16 08:15 2.5 MG Lactobacillus Acidophilus (Floranex Tab) 4 tab TIDM PO 12/17/16 07:30 01/16/17 07:59 12/19/16 07:55 4 TAB Ceftriaxone Sodium 1 gm/ Dextrose 50 ml @ 100 mls/hr Q24H IV 12/16/16 18:00 12/16/16 20:12 DC 12/16/16 18:54 100 MLS/HR Sodium Chloride 1,000 ml @ 999 mls/hr Q1H1M STAT IV 12/16/16 19:45 12/16/16 20:45 DC 12/16/16 19:52 999 MLS/HR Piperacillin Sod/ Tazobactam Sod 3.375 gm/Dextrose 115 ml @ 28.75 mls/ hr Q8H IV 12/17/16 02:00 12/28/16 01:59 12/19/16 02:33 28.75 MLS/HR Vancomycin HCl 1000 mg/Sodium Chloride 270 ml @ 125 mls/hr Q14H IV 12/17/16 10:00 12/18/16 15:13 DC 12/18/16 14:34 125 MLS/HR Vancomycin HCl 1700 mg/Sodium Chloride 534 ml @ 200 mls/hr TODAY@2100 IV 12/16/16 21:00 12/16/16 23:41 DC 12/16/16 21:05 200 MLS/HR Piperacillin Sod/ Tazobactam Sod 3.375 gm/Dextrose 115 ml @ 230 mls/hr TODAY@2100 IV 12/16/16 21:00 12/16/16 21:29 DC 12/16/16 21:10 230 MLS/HR Benzonatate (Tessalon Perles Cap) 100 mg TID PO 12/17/16 14:00 01/16/17 13:59 12/19/16 07:55 100 MG Enteral Nutritional Formula (Boost) 1 can TIDM PO 12/17/16 16:45 12/18/16 18:55 DC 12/18/16 16:20 1 CAN Nystatin (Mycostatin Susp) 5 ml QID PO 12/18/16 13:45 12/28/16 13:44 12/19/16 07:55 5 ML Vancomycin HCl 1000 mg/Sodium Chloride 270 ml @ 125 mls/hr Q10H IV 12/18/16 22:00 12/28/16 21:59 12/19/16 08:15 125 MLS/HR Lidocaine HCl (Viscous Lidocaine 2% Soln) 1 ml QID PRN PO 12/18/16 18:00 01/17/17 17:59 12/18/16 21:43 1 ML Enteral Nutritional Formula (Boost Plus Vanilla) 1 can QID PO 12/18/16 21:00 01/17/17 20:59 12/19/16 07:55 1 CAN Potassium Chloride (Klor-Con Tab) 20 meq ONE ONCE PO 12/18/16 23:30 12/18/16 23:53 DC 12/19/16 00:22 20 MEQ Sodium Chloride 500 ml @ 999 mls/hr NOW ONCE IV 12/18/16 23:45 12/19/16 00:15 DC 12/19/16 00:22 999 MLS/HR Subjective Mr. Schroeder looks a bit better today. His counts are up and he has been afebrile for >24 hours as well. His CXR yesterday suggests an evolving infiltrate possibly consistent with a pneumonia. Review of Systems: Constitutional: No fever, No chills ENT: + problem reported (hoarseness) Respiratory: No cough, No shortness of breath Cardiovascular: No chest pain Abdomen: No pain, No nausea Male : No dysuria Heme: No abnormal bleeding/bruising, No night sweats Skin: No rash Vital Signs Vital Signs Past 12 Hours Date Time Temp Pulse Resp B/P (MAP) Pulse Ox O2 Delivery O2 Flow Rate FiO2 12/19/16 08:10 36.6 97 22 102/62 (75) 94 Room Air 12/19/16 07:04 105 20 96 Room Air 12/19/16 04:00 Room Air 12/19/16 04:00 37.2 96 19 132/74 (93) 95 Room Air 12/19/16 00:01 Room Air 12/19/16 00:01 37.5 104 24 143/73 (96) 94 Room Air 12/18/16 22:30 94 16 95 Room Air Physical Exam Constitutional: Level of Distress: NAD, chronically ill Psychiatric: Mental Status: active & alert Orientation: oriented except where noted Neck: supple Lungs: Respiratory Effort: no dyspnea Cardiovascular: Heart Auscultation: RRR Abdomen: Inspection & Palpation: soft, no tenderness, guarding & rebound Laboratory Last 24 Hours Test 12/18/16 09:40 12/18/16 14:00 12/19/16 05:06 Total Bilirubin 0.6 mg/dl Direct Bilirubin 0.2 mg/dl Aspartate Amino Transf (AST/SGOT) 16 U/L Alanine Aminotransferase (ALT/SGPT) 67 U/L Alkaline Phosphatase 121 U/L Total Protein 6.0 gm/dl Albumin 2.7 gm/dl Vancomycin Level Trough 8.1 mcg/ml White Blood Count 3.25 K/uL Red Blood Count 2.83 M/uL Hemoglobin 8.7 g/dL Hematocrit 24.8 % Mean Corpuscular Volume 87.6 fL Mean Corpuscular Hemoglobin 30.7 pg Mean Corpuscular Hemoglobin Concent 35.1 g/dl RDW Standard Deviation 41.5 fL RDW Coefficient of Variation 12.7 % Platelet Count 46 K/uL Mean Platelet Volume 10.9 fL Sodium Level 136 mmol/L Potassium Level 3.6 mmol/L Chloride Level 106 mmol/L Carbon Dioxide Level 26 mmol/L Anion Gap 4.0 mmol/L Blood Urea Nitrogen 13 mg/dl Creatinine 1.00 mg/dl Est Creatinine Clear Calc Drug Dose 70.3 ml/min Estimated GFR () 90.5 Estimated GFR (Non- 78.1 BUN/Creatinine Ratio 13.0 Random Glucose 104 mg/dl Calcium Level 7.9 mg/dl C-Reactive Protein 15.40 mg/dl Assessment & Plan Mr. Schroeder's counts are up today. They should continue to rise. Given his XR changes, I think it's reasonable to treat him for a pneumonia. He is due to resume treatment on 12/29. I will make arrangements for him to be seen prior to treatment, as he will need his chemo dose adjusted down. We will sign off for now but will be happy to return at any time if additional questions or issues arise. My office will be in touch with the patient to inform him of his appointment date and time.
[2016-12-19 09:52] LABS: COMPLETE YES
--- NOTE | 2016-12-19 11:10 | Family Medicine Progress Note ---
Progress Note Date of Service Dec 19, 2016. Subjective Pt evaluation today including: conversation w/ patient, physical exam, chart review, lab review, review of inpatient medication list Pain: Continues to report throat pain on coughing PO Intake: Tolerating PO intake Voiding: no voiding problems Mr. Schroeder reports that his cough is still present, but denies coughing up any mucous or blood. He still complains of pain at the base of his throat on coughing. He feels fatigued and does not have much of an appetite, but is still forcing himself to eat. He reports that his hiccups are improving. Constitutional: + weakness, + fatigue, No fever, No chills ENT: + sore throat (bottom of throat) Respiratory: + cough, No sputum, No wheezing, No shortness of breath, No hemoptysis Cardiovascular: No chest pain, No orthopnea, No PND All Other Systems: Reviewed and Negative Medications Current Inpatient Medications Medications (Trade) Dose Ordered Sig/Aron Route Start Time Stop Time Status Last Admin Dose Admin Acetaminophen (Tylenol Tab) 650 mg Q4H PRN PO 12/16/16 17:00 01/15/17 16:59 12/19/16 06:26 650 MG Al Hydrox/Mg Hydrox/Simethicone (Maalox Max Susp) 15 ml Q4H PRN PO 12/16/16 17:00 01/15/17 16:59 12/18/16 06:01 15 ML Magnesium Hydroxide (Milk Of Magnesia Susp) 30 ml Q6H PRN PO 12/16/16 17:00 01/15/17 16:59 Polyethylene (Miralax Powder Packet) 17 gm DAILY PRN PO 12/16/16 17:15 01/15/17 17:14 Ondansetron HCl (Zofran Inj) 4 mg Q6H PRN IV 12/16/16 17:00 01/15/17 16:59 Baclofen (Lioresal Tab) 10 mg BID PO 12/16/16 20:00 01/15/17 19:59 12/19/16 07:58 10 MG Oxycodone/ Acetaminophen (Percocet 5-325mg Tab) 1 tab Q4H PRN PO 12/16/16 17:00 12/30/16 16:59 12/18/16 21:42 1 TAB Rosuvastatin Calcium (Crestor Tab) 10 mg QAM PO 12/17/16 08:00 01/16/17 07:59 12/19/16 07:55 10 MG Tamsulosin HCl (Flomax Cap) 0.4 mg QAM PO 12/17/16 08:00 01/16/17 07:59 12/19/16 07:55 0.4 MG Albuterol (Ventolin Hfa Inhaler) 1 puffs Q4H PRN INH 12/16/16 17:00 01/15/17 16:59 Albuterol/ Ipratropium (Duoneb) 3 ml Q4R INH 12/16/16 20:00 01/15/17 19:59 12/19/16 07:04 3 ML Pantoprazole Sodium (Protonix Tab) 40 mg QAM PO 12/17/16 08:00 01/16/17 07:59 12/19/16 07:56 40 MG Lactobacillus Acidophilus (Floranex Tab) 4 tab TIDM PO 12/17/16 07:30 01/16/17 07:59 12/19/16 07:55 4 TAB Piperacillin Sod/ Tazobactam Sod 3.375 gm/Dextrose 115 ml @ 28.75 mls/ hr Q8H IV 12/17/16 02:00 12/28/16 01:59 12/19/16 10:27 28.75 MLS/HR Vancomycin HCl (Consult) 1 ea UD PRN N/A 12/16/16 20:30 01/15/17 20:29 Piperacillin Sod/ Tazobactam Sod (Consult) 1 ea UD PRN N/A 12/16/16 20:30 01/15/17 20:29 Menthol (Nice Alix) 1 alix PRN PRN PO 12/16/16 22:00 01/15/17 21:59 Benzonatate (Tessalon Perles Cap) 100 mg TID PO 12/17/16 14:00 01/16/17 13:59 12/19/16 07:55 100 MG Nystatin (Mycostatin Susp) 5 ml QID PO 12/18/16 13:45 12/28/16 13:44 12/19/16 07:55 5 ML Vancomycin HCl 1000 mg/Sodium Chloride 270 ml @ 125 mls/hr Q10H IV 12/18/16 22:00 12/28/16 21:59 12/19/16 08:15 125 MLS/HR Lidocaine HCl (Viscous Lidocaine 2% Soln) 1 ml QID PRN PO 12/18/16 18:00 01/17/17 17:59 12/18/16 21:43 1 ML Enteral Nutritional Formula (Boost Plus Vanilla) 1 can QID PO 12/18/16 21:00 01/17/17 20:59 12/19/16 07:55 1 CAN Objective Vital Signs Date Time Temp Pulse Resp B/P (MAP) Pulse Ox O2 Delivery O2 Flow Rate FiO2 12/19/16 10:33 100/62 (75) 12/19/16 08:10 36.6 97 22 102/62 (75) 94 Room Air 12/19/16 07:04 105 20 96 Room Air 12/19/16 04:00 Room Air 12/19/16 04:00 37.2 96 19 132/74 (93) 95 Room Air 12/19/16 00:01 Room Air 12/19/16 00:01 37.5 104 24 143/73 (96) 94 Room Air 12/18/16 22:30 94 16 95 Room Air 12/18/16 20:00 36.8 93 22 137/80 (99) 97 Room Air 12/18/16 20:00 Room Air 12/18/16 19:20 86 16 96 Room Air 12/18/16 16:34 37.3 95 20 125/68 (87) 92 Room Air 12/18/16 16:00 Room Air 12/18/16 15:43 84 16 94 Room Air 12/18/16 12:00 Room Air 12/18/16 11:48 36.8 84 18 111/55 (73) 95 Room Air 12/18/16 11:32 88 16 94 Room Air Physical Exam General Appearance: WD/WN, no apparent distress Respiratory/Chest: chest non-tender, lungs clear, normal breath sounds, no respiratory distress, no accessory muscle use, + decreased breath sounds (over left lung) Cardiovascular: regular rate, rhythm, no edema, no gallop, no JVD, no murmur Abdomen: normal bowel sounds, non tender, soft, no organomegaly, no pulsatile mass Laboratory Results 12/19/16 05:06 12/19/16 05:06 Test 12/18/16 14:00 12/19/16 05:06 Vancomycin Level Trough 8.1 mcg/ml (SEE COMMENT) Red Blood Count 2.83 M/uL (4.7-6.1) Mean Corpuscular Volume 87.6 fL (80-100) Mean Corpuscular Hemoglobin 30.7 pg (25-34) Mean Corpuscular Hemoglobin Concent 35.1 g/dl (32-36) RDW Standard Deviation 41.5 fL (36.4-46.3) RDW Coefficient of Variation 12.7 % (11.5-14.5) Mean Platelet Volume 10.9 fL (7.4-10.4) Nucleated RBC Absolute Count (auto) 0.00 K/uL (0-0) Nucleated Red Blood Cells % 0.0 % Anion Gap 4.0 mmol/L (3-11) Est Creatinine Clear Calc Drug Dose 70.3 ml/min Estimated GFR () 90.5 Estimated GFR (Non- 78.1 BUN/Creatinine Ratio 13.0 (10-20) Calcium Level 7.9 mg/dl (8.5-10.1) C-Reactive Protein 15.40 mg/dl (0-0.29) Assessment and Plan 66 year old man with a hx of neuroendocrine tumor s/p lobectomy, recurrent basaloid squamous cell ca, BPH with urinary obstruction, dyslipidemia, asthma, PUD, GERD presented as a direct admission from Dr. Castillo due to confusion Neutropenic Sepsis: - continue Zosyn and Vanc - WCC increased to 3.25 from 1.18 - Pt reports cough is less productive than yesterday, and denies hemoptysis. Chest sounds more clear today, no more rales - repeat chest xray shows hazy left perihilar opacity suggestive of a pneumonia - will continue treating Pancytopenia - Hgb 8.7 and platelets increased to 46 from 38 - likely pancytopenia due to recent chemotherapy - expect it will continue to increase - Outpatient f/u with Dr. Lazo - will decrease next dose of chemotherapy Sore throat - likely due to recent surgery & coughing - given dextromethorphan prn as needed to reduce coughing Dyslipidemia - Continue Crestor 10 mg daily BPH - Continue Flomax 0.4 mg QAM GI prophylaxis - Protonix 40 mg daily DVT Prophylaxis: TEDs/SCDs Code Status: LEVEL I, FULL Disposition: transferred to med/surg Resident Physician Supervision Note: I interviewed and examined the patient. Discussed with Dr. Estrada and agree with findings and plan as documented in the note. Any exceptions or clarifications are listed here: None Documented By: Edson Oconnell pt seen, examined, discussed extensively w pt and son. sister in law asked for return visit. returned and discussed case. concerned about cough and laryngeal pain. discussed this is expected given his overall situation and discussed limitations in being able to manage laryngeal pain. she asked for pulmonary consult. d/w dr sherman. pt notes the cough and laryngeal pain but otherwise no new complaints. still poor appetite. not eating much despite encouragement. vitals noted nad breathing unlabored faint base L rales no pallor or icterus neutropenic fever appearing to be pneumonia -cough and laryngeal pain from this, recent scope, stent -managing as above -pulmonary input as well Resident Tracking Resident Involvement: Resident Care Provided Care Provided: Adult Hospital Medicine
[2016-12-19 12:18] LABS: BASO % 0.3 %; BASO ABS # 0.01 K/uL (0-0.2); EOS % 1.8 %; IG% 1.5 %; LYMPH % 17.3 %; LYMPH ABS # 0.59 K/uL (1.2-3.4); MONO % 15.5 %; NEUT % 63.6 %; TOXIC GRANULATION 1+; VACUOLIZATION 1+
[2016-12-19] MEDS: ALBUTEROL HFA 8 GM INHALER INH PRN ×2 (12:30→16:46)
[2016-12-19] MEDS: ALUMINUM/MAGNESIUM/SIMETH (MAALOX MAX) 30 ML UDC PO PRN (14:22)
[2016-12-19] MEDS: OXYCODONE/ACETAMINOPHEN 5-325 TAB PO PRN (16:52)
--- NOTE | 2016-12-19 17:30 | Infectious Disease Progress Nt ---
Progress Note Date of Service Dec 19, 2016. 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 w/ residential solar consultant, review of inpatient medication list Still slight cough, no other new complaints. Remains afebrile, all cultures remain negative. All Other Systems: Reviewed and Negative Medications Current Inpatient Medications Medications (Trade) Dose Ordered Sig/Aron Route Start Time Stop Time Status Last Admin Dose Admin Acetaminophen (Tylenol Tab) 650 mg Q4H PRN PO 12/16/16 17:00 01/15/17 16:59 12/19/16 16:46 650 MG Al Hydrox/Mg Hydrox/Simethicone (Maalox Max Susp) 15 ml Q4H PRN PO 12/16/16 17:00 01/15/17 16:59 12/19/16 14:22 15 ML Magnesium Hydroxide (Milk Of Magnesia Susp) 30 ml Q6H PRN PO 12/16/16 17:00 01/15/17 16:59 Polyethylene (Miralax Powder Packet) 17 gm DAILY PRN PO 12/16/16 17:15 01/15/17 17:14 Ondansetron HCl (Zofran Inj) 4 mg Q6H PRN IV 12/16/16 17:00 01/15/17 16:59 Baclofen (Lioresal Tab) 10 mg BID PO 12/16/16 20:00 01/15/17 19:59 12/19/16 07:58 10 MG Oxycodone/ Acetaminophen (Percocet 5-325mg Tab) 1 tab Q4H PRN PO 12/16/16 17:00 12/30/16 16:59 12/19/16 16:52 1 TAB Rosuvastatin Calcium (Crestor Tab) 10 mg QAM PO 12/17/16 08:00 01/16/17 07:59 12/19/16 07:55 10 MG Tamsulosin HCl (Flomax Cap) 0.4 mg QAM PO 12/17/16 08:00 01/16/17 07:59 12/19/16 07:55 0.4 MG Albuterol (Ventolin Hfa Inhaler) 1 puffs Q4H PRN INH 12/16/16 17:00 01/15/17 16:59 7/28/17 16:46 1 PUFFS Albuterol/ Ipratropium (Duoneb) 3 ml Q4R INH 12/16/16 20:00 01/15/17 19:59 12/19/16 15:09 3 ML Pantoprazole Sodium (Protonix Tab) 40 mg QAM PO 12/17/16 08:00 01/16/17 07:59 12/19/16 07:56 40 MG Lactobacillus Acidophilus (Floranex Tab) 4 tab TIDM PO 12/17/16 07:30 01/16/17 07:59 12/19/16 16:47 4 TAB Piperacillin Sod/ Tazobactam Sod 3.375 gm/Dextrose 115 ml @ 28.75 mls/ hr Q8H IV 12/17/16 02:00 12/28/16 01:59 12/19/16 10:27 28.75 MLS/HR Vancomycin HCl (Consult) 1 ea UD PRN N/A 12/16/16 20:30 01/15/17 20:29 Piperacillin Sod/ Tazobactam Sod (Consult) 1 ea UD PRN N/A 12/16/16 20:30 01/15/17 20:29 Menthol (Nice Alix) 1 alix PRN PRN PO 12/16/16 22:00 01/15/17 21:59 Benzonatate (Tessalon Perles Cap) 100 mg TID PO 12/17/16 14:00 01/16/17 13:59 12/19/16 14:17 100 MG Nystatin (Mycostatin Susp) 5 ml QID PO 12/18/16 13:45 12/28/16 13:44 12/19/16 16:47 5 ML Vancomycin HCl 1000 mg/Sodium Chloride 270 ml @ 125 mls/hr Q10H IV 12/18/16 22:00 12/28/16 21:59 12/19/16 16:45 125 MLS/HR Lidocaine HCl (Viscous Lidocaine 2% Soln) 1 ml QID PRN PO 12/18/16 18:00 01/17/17 17:59 12/18/16 21:43 1 ML Enteral Nutritional Formula (Boost Plus Vanilla) 1 can QID PO 12/18/16 21:00 01/17/17 20:59 12/19/16 16:46 1 CAN Objective Vital Signs Date Time Temp Pulse Resp B/P (MAP) Pulse Ox O2 Delivery O2 Flow Rate FiO2 12/19/16 16:20 37.8 100 20 144/81 (102) 95 Room Air 12/19/16 15:10 102 20 96 Room Air 12/19/16 12:36 36.8 89 22 122/65 (84) 98 Room Air 12/19/16 12:00 Room Air 12/19/16 11:32 73 20 97 Room Air 12/19/16 10:33 100/62 (75) 12/19/16 08:10 36.6 97 22 102/62 (75) 94 Room Air 12/19/16 08:00 Room Air 12/19/16 07:04 105 20 96 Room Air 12/19/16 04:00 Room Air 12/19/16 04:00 37.2 96 19 132/74 (93) 95 Room Air 12/19/16 00:01 Room Air 12/19/16 00:01 37.5 104 24 143/73 (96) 94 Room Air 12/18/16 22:30 94 16 95 Room Air 12/18/16 20:00 36.8 93 22 137/80 (99) 97 Room Air 12/18/16 20:00 Room Air 12/18/16 19:20 86 16 96 Room Air Physical Exam General Appearance: WD/WN, no apparent distress Eyes: normal inspection, EOMI, sclerae normal ENT: normal ENT inspection, pharynx normal Neck: supple, no adenopathy, trachea midline Respiratory/Chest: chest non-tender, no respiratory distress, no accessory muscle use, + rhonchi Cardiovascular: regular rate, rhythm, no gallop, no murmur Abdomen: normal bowel sounds, non tender, soft, no organomegaly Extremities: non-tender, no calf tenderness Neurologic/Psychiatric: alert, oriented x 3 Skin: normal color, warm/dry, no rash Lymphatic: no adenopathy Laboratory Results RUN DATE: 12/18/16 [facility] LAB PAGE 1 RUN TIME: 709 Specimen Inquiry PATIENT: NOLBERTO TARANGO LOC: [facility] U # : [id number] AGE/SX: 66/M ROOM: 08 REG : 12/16/[address]: Edson Oconnell D.O. : 1950 BED: 1 DIS : STATUS: ADM IN TLOC: SPEC #: [id number] KENNETH: 12/16/16 STATUS: RES REQ #: [id number] RECD: 12/16/[address]: Miguel Curry MD SOURCE: BLOOD ENTR: 12/16/16 [facility] DR: Sagar Mccray M.D. [facility]: Tatum Stark MD ORDERED: BLOOD CULTURE Procedure Result Verified Site BLD CULT Preliminary 12/18/16-709 NO GROWTH TO DATE. Last 24 Hours Test 12/19/16 05:06 12/19/16 13:08 White Blood Count 3.25 K/uL Red Blood Count 2.83 M/uL Hemoglobin 8.7 g/dL Hematocrit 24.8 % Mean Corpuscular Volume 87.6 fL Mean Corpuscular Hemoglobin 30.7 pg Mean Corpuscular Hemoglobin Concent 35.1 g/dl Platelet Count 46 K/uL Mean Platelet Volume 10.9 fL Neutrophils (%) (Auto) 63.6 % Lymphocytes (%) (Auto) 17.3 % Monocytes (%) (Auto) 15.5 % Eosinophils (%) (Auto) 1.8 % Basophils (%) (Auto) 0.3 % Neutrophils # (Auto) 2.17 K/uL Lymphocytes # (Auto) 0.59 K/uL Monocytes # (Auto) 0.53 K/uL Eosinophils # (Auto) 0.06 K/uL Basophils # (Auto) 0.01 K/uL RDW Standard Deviation 41.5 fL RDW Coefficient of Variation 12.7 % Immature Granulocyte % (Auto) 1.5 % Immature Granulocyte # (Auto) 0.05 K/uL Nucleated RBC Absolute Count (auto) 0.00 K/uL Nucleated Red Blood Cells % 0.0 % Toxic Granulation 1+ Toxic Vacuolation 1+ Sodium Level 136 mmol/L Potassium Level 3.6 mmol/L Chloride Level 106 mmol/L Carbon Dioxide Level 26 mmol/L Anion Gap 4.0 mmol/L Blood Urea Nitrogen 13 mg/dl Creatinine 1.00 mg/dl Est Creatinine Clear Calc Drug Dose 70.3 ml/min Estimated GFR () 90.5 Estimated GFR (Non- 78.1 BUN/Creatinine Ratio 13.0 Random Glucose 104 mg/dl Calcium Level 7.9 mg/dl C-Reactive Protein 15.40 mg/dl Procalcitonin 2.26 ng/ml HISTORY: 66 years-old Male increased shortness of breath and coarse crackles COMPARISON: 12/16/2016 TECHNIQUE: Portable upright AP view of the chest FINDINGS: Cardiac silhouette is again mildly enlarged. Left mainstem bronchus stent is redemonstrated. There is chronic volume loss of the left lung with persistent left hemidiaphragm elevation and blunting of the left costophrenic angle. There is also likely pleural thickening along left lateral hemithorax. There is minimally progressive hazy left perihilar opacity noted. Right lung is clear. Bones are intact. IMPRESSION: 1. Development of hazy left perihilar opacity suggesting atelectasis or pneumonia. 2. The remainder of the study appears unchanged with postsurgical changes and persistent left diaphragmatic elevation. The above report was generated using voice recognition software. It may contain grammatical, syntax or spelling errors Assessment and Plan 66-year-old male with recurrent neuroendocrine tumor of the lung on chemotherapy and radiation therapy, presented with fever with neutropenia and encephalopathy. Patient appears to be improving and WBC recovered. Consider transition to levofloxacin po to complete Rx for potential pneumonia. Will discuss.
[2016-12-19] MEDS: DEXTROMETHORPHAN POLYMR COMPLX 30 MG/5 ML UDP PO PRN (21:38)
[2016-12-20] VITALS (11 sets, daily range): BP systolic 111–143; BP diastolic 57–77; PULSE 74–105; TEMP 36.3–37.5; O2SAT 91–96
[2016-12-20] MEDS: ALBUT/IPRATROP 3MG/0.5MG NEB 3 ML VIAL INH SCH ×6 (01:35→23:46)
[2016-12-20] MEDS: PIPERACILL/TAZOBAC IV 3.375 GM in DEXTROSE 5% 100ML 100 ML IV SCH ×2 (02:29→10:10)
[2016-12-20] MEDS ORDERED: VANCOMYCIN TROUGH SCH (03:30)
[2016-12-20] MEDS: OXYCODONE/ACETAMINOPHEN 5-325 TAB PO PRN ×3 (03:36→15:09)
[2016-12-20] MEDS: VANCOMYCIN INJ 1,000 MG in SODIUM CHLORIDE 0.9% 250ML 250 ML IV SCH (03:36)
[2016-12-20 03:43] LABS: HEMATOCRIT 23.8 % (42-52); MEAN CELL VOLUME 86.5 fL (80-100); MEAN CORPUSCULAR HEMOGLOBIN 30.9 pg (25-34); MEAN CORPUSCULAR HGB CONC 35.7 g/dl (32-36); PLATELET COUNT 75 K/uL (130-400); RED BLOOD COUNT 2.75 M/uL (4.7-6.1)
[2016-12-20] MEDS: LACTOBACILLUS ACIDOPHILUS (FLORANEX) TAB PO SCH ×3 (07:54→16:49)
[2016-12-20] MEDS: LIDOCAINE HCL 2% VISC SOLN 20 ML UDC PO PRN ×2 (08:14→20:03)
[2016-12-20] MEDS: NYSTATIN SUSP 500,000 U/5 ML UDC PO SCH ×4 (08:15→20:07)
[2016-12-20] MEDS: PANTOprazole SOD 40 MG TAB PO SCH (08:16)
[2016-12-20] MEDS: BOOST PLUS VANILLA PO SCH ×8 (08:16→20:06)
[2016-12-20] MEDS: BENZONATATE 100MG CAP PO SCH ×3 (08:16→20:08)
[2016-12-20] MEDS: BACLOFEN 10 MG TAB PO SCH ×2 (08:17→20:08)
[2016-12-20] MEDS: TAMSULOSIN HCL 0.4 MG CAP PO SCH (08:17)
[2016-12-20] MEDS: ROSUVASTATIN CALCIUM 10 MG TAB PO SCH (08:18)
[2016-12-20] MEDS ORDERED: DICLOFENAC SOD 1% GEL 100 GM TUBE EXT ONE (10:15)
--- NOTE | 2016-12-20 10:32 | Pulmonary Consultation ---
History General Date of Service: Dec 20, 2016. Stated Complaint: Debilitating cough HPI The patient is a 66 year old male who presents to [facility] with complaints of Lung Cancer/Ams. The patient's primary care provider is Sagar Mccray M.D.. Chief complaint debilitating cough Patients cough started in April 2014 with associated dyspnea. His cough progressed and he started to experiences hemoptysis hemoptysis for which he was seen in the emergency room on 07/21/2014. He underwent a CT scan of the chest showed no evidence of pulmonary embolism, but did show an area of narrowing in the anterior segment of the left upper lobe. No significant adenopathy was noted. During that visit he coughed up a small amount of tissue from the lung which was sent for analysis and showed a poorly differentiated squamous cell carcinoma. The patient underwent flexible/EBUS bronchoscopy 07/28/2014 demonstrating a friable endo-bronchial mass on the anterior wall of the left upper lobe bronchus at the takeoff of the anterior segment with the biopsies consistent with tissue samples were read as consistent with squamous cell carcinoma. He was then referred to [facility] and underwent a left upper lobectomy on 08/21/2014. 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 The patient did well but had continued cough which required bronchoscopy and stent placement at the take- off to the left basil pyramids secondary to stenosis which ultimately required removal. In July of 2016 a repeat PET/CT demonstrated development of an soft tissue thickening in at the left hilum and a an 8mm nodule in the left mainstem both PET avid. 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 Do to recurrent disease the patient was started on carboplatin/etoposide. As the patient was being evaluated for XRT he experienced progression SOB and LLL collapse requiring Flex/Rigid bronchoscopy for left mainstem complete obstruction. During the procedure the patient underwent cryo-debulking and placement of a 20a50ml airway stent with left mainstem patency noted. He was admitted 12/16/16 for neutropenic fever and metabolic encephalopathy. ENT has evaluated the patient with flexible laryngoscopy (12/17/16) and noted no abnormalities in the upper airway: hypopharynx, oropharynx and larynx. The patient still notes debilitating cough often associated with laryngeal pharyngeal pain. He has noted some spasmodic coughing episodes after eating and sedated this morning he coughed up food particles. He denies odynophagia, pleurisy, classic cardiac chest pain, fever, rhinitis, headaches, hemoptysis, nausea or vomiting. He continues to have progressive shortness of breath with ambulation which is been notable for the last 2-3 months. Work-Up: EKG: WBC: 7.20K PLT: 75K Procalcitonin: 2.60H CXR (12/18/16) hilar opacification, left elevated murray-diaphragm, decreased costo-phrenic blunting left CXR (12/16/16) hilar opacification, left elevated murray-diaphragm, costo- phrenic blunting left DVT (12/05/16) no signs of DVT bilaterally CT Thorax (12/18/16) patent left mainstem with airway stent in place, Tree-n-Cyclone CT Thorax (11/27/16) obstruction of the left mainstem Medications: 1) Vancomycin 2) Delsyn Susp 3) Nystatin Susp 4) Viscous Lidocaine 5) Tessalon Pearls 6) Protonix 7) Zosyn 8) Duo-Nebs 9) Oxycodone PFT (11/06/16) Spirometry: sever OVD with FEV1: 43% Volumes: elevated RV/TLC suggest hyperinflation Diffusion: mildly reduced Historian: patient, family, EMS Review of Systems Constitutional: reports: malaise, weakness Eyes: reports: no symptoms ENT: reports: sore throat Cardiovascular: reports: no symptoms Respiratory: reports: as stated in HPI Gastrointestinal: reports: no symptoms Genitourinary - Male: reports: no symptoms Musculoskeletal: reports: myalgias Integumentary: reports: no symptoms Neurologic: reports: no symptoms Psychiatric: reports: no symptoms Endocrine: no symptoms Hematologic / Lymphatic: no symptoms Allergic / Immunologic: no symptoms Past Medical History Past Medical History: 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 Multiple Flexible and Rigid-Bronchoscopies with LLL Stent placement 2. NAWAF Lobectomy ([facility]) Family History Cancer Hypertension malignant neoplasm of esophagus prostate cancer Social History Currently working Former smoker (23 years and stopped smoking in 1991 No alcohol use Hx Tobacco Use In Past Year?: No (SMOKED 1 PPD X 20 YRS-QUIT 1991) Smoking Status: Former Smoker Marital status: Occupational Status: employed Immunizations History of Influenza Vaccine: Unknown History of Tetanus Vaccine?: UTD History of Pneumococcal: No History of Hepatitis B Vaccine: No History of MDRO History of MDRO: No Allergies Coded Allergies: Pork (Verified Allergy, Severe, ANAPHYLAXIS, 12/11/16) NO KNOWN DRUG ALLERGIES (Verified Allergy, Unknown, ., 12/11/16) Uncoded Allergies: VENISON (Allergy, Unknown, RASH, 12/12/16) Current Medications Reported Home Medications Medications Dose Route/Sig Max Daily Dose Days Date Category Dose Instructions Augmentin 500MG (Amoxicillin & Pot Clavulanate) 1 Tab Tab 1 Tab PO TID 7 12/15/16 Reported Percocet 5MG/325MG (Oxycodone/Acetaminophen) Tab 1 Tablets PO Q4H PRN 12/15/16 Reported PAIN Lioresal (Baclofen) 10 Mg Tab 10 Mg PO BID 12/12/16 Reported [Budesonide] 1 Mg INH DAILY 12/12/16 Reported Valium (Diazepam) 5 Mg Tab 5 Mg PO TID 12/08/16 Reported Prednisone 20 Mg Tab 60 Mg PO DIRECTED 12/08/16 Reported to takes as instructed for chemo Zofran (Ondansetron HCl) 8 Mg Tab 8 Mg PO DIRECTED PRN 12/08/16 Reported as instructed for chemo Proair Respiclick (Albuterol Sulfate) 108 Mcg/Act Aer 1 Inha INH Q4H PRN 11/21/16 Reported Crestor (Rosuvastatin Calcium) 10 Mg Tab 10 Mg PO QAM 10/21/16 Reported Flomax (Tamsulosin Hcl) 0.4 Mg Cap 0.4 Mg PO QAM 12/06/14 Reported Physical Physical Exam Vital Signs: Date Time Temp Pulse Resp B/P (MAP) Pulse Ox O2 Delivery O2 Flow Rate FiO2 12/20/16 08:04 36.5 105 20 125/69 (87) 95 Room Air 12/20/16 08:00 Room Air 12/20/16 07:04 86 20 96 Room Air 12/20/16 04:10 Room Air 12/20/16 03:28 37.5 95 16 143/77 (99) 94 Room Air 12/20/16 00:24 Room Air 12/19/16 23:31 36.8 95 20 138/84 (102) 98 Room Air 12/19/16 23:14 88 20 96 Room Air 12/19/16 20:55 Room Air 12/19/16 20:12 36.9 86 18 130/69 (89) 93 Room Air 12/19/16 19:06 84 20 96 Room Air 12/19/16 16:20 37.8 100 20 144/81 (102) 95 Room Air 12/19/16 16:00 Room Air 12/19/16 15:10 102 20 96 Room Air 12/19/16 12:36 36.8 89 22 122/65 (84) 98 Room Air 12/19/16 12:00 Room Air 12/19/16 11:32 73 20 97 Room Air 12/19/16 10:33 100/62 (75) General Appearance: moderate distress Head: NORMOCEPHALIC, ATRAUMATIC Eyes: PERRLA, NO DISCHARGE, EOMI, SCLERAE NORMAL ENT: NORMAL EAR EXAM, NORMAL NASAL EXAM, NORMAL MOUTH EXAM, NORMAL THROAT EXAM , NORMAL DENTAL EXAM Neck: NORMAL RANGE OF MOTION, NO TENDERNESS, TRACHEA MIDLINE, NO STRIDOR Respiratory: other (notable expiratory wheezes with associated rhonchi bilaterally) Cardiovasular: REGULAR RATE/RHYTHM, NORMAL S1S2, NO M/G/R, NO MURMUR, NO GALLOP Abdomen: NON TENDER, NORMAL BOWEL SOUNDS, NO REBOUND, NO MASSES, NO GUARDING, NO ORGANOMEGALY Genitourinary - Male: EXTERNAL GENITALIA NORMAL Back: NORMAL INSPECTION, NO MIDLINE TENDERNESS, NO CVA TENDERNESS, NO PARAVERTEBRAL TTP Upper Extremities: NO EDEMA, NO DEFORMITY, NORMAL ROM Lower Extremities: NO EDEMA, NO DEFORMITY, NORMAL ROM Pulses: carotid (R) (2+), carotid (L) (2+), popliteal (R) (2+), popliteal (L) ( 2+), posterior tibial (R) (2+), posterior tibial (L) (2+) Neuro: ALERT, ORIENTED x 3, NORMAL MOTOR EXAM, NORMAL SENSATION Reflexes: biceps (R) (2+), bicpes (L) (2+), achilles (R) (2+), achilles (L) (2+ ) Babinski Testing: right (downgoing), left Psychiatric: NORMAL AFFECT, NO SUICIDAL IDEATION Diagnostics Labs Results Past 24 Hours Test 12/19/16 13:08 12/20/16 03:14 Range/Units Procalcitonin 2.26 0-0.5 ng/ml White Blood Count 7.20 4.8-10.8 K/uL Red Blood Count 2.75 4.7-6.1 M/uL Hemoglobin 8.5 14.0-18.0 g/dL Hematocrit 23.8 42-52 % Mean Corpuscular Volume 86.5 80-100 fL Mean Corpuscular Hemoglobin 30.9 25-34 pg Mean Corpuscular Hemoglobin Concent 35.7 32-36 g/dl RDW Standard Deviation 40.5 36.4-46.3 fL RDW Coefficient of Variation 12.6 11.5-14.5 % Platelet Count 75 130-400 K/uL Mean Platelet Volume 11.0 7.4-10.4 fL Nucleated RBC Absolute Count (auto) 0.02 0-0 K/uL Nucleated Red Blood Cells % 0.2 % Vancomycin Level Trough 13.6 SEE COMMENT mcg/ml Diagnostic Radiology CXR (12/18/16) hilar opacification, left elevated murray-diaphragm, decreased costo-phrenic blunting left CXR (12/16/16) hilar opacification, left elevated murray-diaphragm, costo-phrenic blunting left DVT (12/05/16) no signs of DVT bilaterally CT Thorax (12/18/16) patent left mainstem with airway stent in place, Tree-n-Cyclone CT Thorax (11/27/16) obstruction of the left mainstem Impression Assessment and Plan 66-year-old gentleman admitted with neutropenic fever (status post chemoradiation), recurrent neuroendocrine tumor and now debilitating cough: #1 Cough: The patient's cough appears to have become much more progressive/ debilitating over the last week. Within this timeframe the patient is undergone rigid bronchoscopy with stent placement as well as radiation treatment, per the patient's family. At this time the most appropriate first dose will be to repeat CT of the chest to evaluate stent placement as well as possible tumor necrosis creating airway debris. I was able to speak to ENT physician Dr. Sagar Little who noted no subglottic migration of the stent but was unable to see any further into the airway. At this time I suggest we continue current medical regimen and does appear that the Viscous Lidocaine has helped with the patient's cough to a mild extent. #2 Neutropenic Fever: Patient's CAT scan from 12/18/2016 did show signs of tree and bud changes in the left lower lobe. I will add on atypical coverage with azithromycin at this time.
[2016-12-20] MEDS ORDERED: AZITHROMYCIN 250 MG TAB PO SCH (11:30)
--- NOTE | 2016-12-20 12:51 | DIAGNOSTIC IMAGING REPORT ---
CT OF THE CHEST WITHOUT IV CONTRAST CLINICAL HISTORY: Chronic cough. Possible bronchial stent migration. Lung cancer. COMPARISON STUDY: PET/CT November 10, 2016 and chest radiograph December 18, 2016. CT DOSE: 255.01 mGy.cm TECHNIQUE: Axial images of the chest were obtained without IV contrast. Images were reviewed in the axial, sagittal, and coronal planes. IV contrast was not administered for this examination. A dose lowering technique was utilized adhering to the principles of ALARA. FINDINGS: No pathologically enlarged thoracic lymph nodes are present. There are several prominent aortopulmonary window lymph nodes that measure up to 9 mm in short axis diameter. The size of the heart is normal. No pericardial effusion. A stent within the left mainstem bronchus is noted. The bronchial stent is patent. There is minimal material/debris within the posterior aspect of the stent. Note is made of a 9 mm soft tissue density along the anterior wall of the left mainstem bronchus just distal to the stent. The patient is status post left upper lobectomy. There is multifocal narrowing and irregularity of segmental bronchi to the left lung which is suboptimally assessed due to respiratory motion. Left perihilar opacity has developed since PET/CT of November 10, 2016. There are tree-in-bud nodules within the inferior aspect of the left hepatic lobe as well. Left hemithorax volume loss is expected. There is no pneumothorax. A healing bilateral rib fractures. A right renal cyst is partially imaged on this exam. Upper abdomen is otherwise unremarkable. There is a small hiatal hernia. IMPRESSION: 1. Patent, appropriately positioned within the left mainstem bronchus. Minimal material/debris within the posterior aspect of the stent. 9 mm soft tissue density along the anterior wall of the distal mainstem bronchus, just distal to the stent may reflect tumor with mild airway narrowing. 2. Multifocal narrowing/occlusion of segmental bronchi within the left lung which is difficult to assess due to respiratory motion. 3. Interval development of left perihilar opacity which may reflect postradiation pneumonitis or an infectious process. 4. Tree-in-bud nodules within the left lower lung which favor an infectious process such as bronchiolitis/bronchopneumonia. Electronically signed by: Girma Gonzáles M.D. 12/20/2016 12:50 PM Dictated Date/Time: 12/20/2016 12:32 PM
[2016-12-20] MEDS: DICLOFENAC SOD 1% GEL 100 GM TUBE EXT SCH ×3 (12:59→20:09)
[2016-12-20] MEDS: LEVOFLOXACIN 750 MG TAB PO SCH (15:09)
--- NOTE | 2016-12-20 16:15 | Family Medicine Progress Note ---
Progress Note Date of Service Dec 20, 2016. Subjective Pt evaluation today including: conversation w/ patient, conversation w/ family , physical exam, chart review, lab review, review of inpatient medication list Pain: Pain reported at base of throat PO Intake: Tolerating PO intake Voiding: no voiding problems Mr. Schroeder reports no relief of his constant coughing, and that this exacerbates the pain in this throat. He reports that the is still feeling weak, but denies fevers, chills, chest pain or SOB. Constitutional: + weakness, No fever, No chills, No sweats ENT: + sore throat Respiratory: + cough, + sputum, No shortness of breath Cardiovascular: No chest pain, No orthopnea, No PND, No edema, No claudication Abdomen: No pain, No nausea All Other Systems: Reviewed and Negative Medications Current Inpatient Medications Medications (Trade) Dose Ordered Sig/Aron Route Start Time Stop Time Status Last Admin Dose Admin Acetaminophen (Tylenol Tab) 650 mg Q4H PRN PO 12/16/16 17:00 01/15/17 16:59 12/19/16 16:46 650 MG Al Hydrox/Mg Hydrox/Simethicone (Maalox Max Susp) 15 ml Q4H PRN PO 12/16/16 17:00 01/15/17 16:59 12/19/16 14:22 15 ML Magnesium Hydroxide (Milk Of Magnesia Susp) 30 ml Q6H PRN PO 12/16/16 17:00 01/15/17 16:59 Polyethylene (Miralax Powder Packet) 17 gm DAILY PRN PO 12/16/16 17:15 01/15/17 17:14 Ondansetron HCl (Zofran Inj) 4 mg Q6H PRN IV 12/16/16 17:00 01/15/17 16:59 Baclofen (Lioresal Tab) 10 mg BID PO 12/16/16 20:00 01/15/17 19:59 12/20/16 08:17 10 MG Oxycodone/ Acetaminophen (Percocet 5-325mg Tab) 1 tab Q4H PRN PO 12/16/16 17:00 12/30/16 16:59 12/20/16 10:42 1 TAB Rosuvastatin Calcium (Crestor Tab) 10 mg QAM PO 12/17/16 08:00 01/16/17 07:59 12/19/16 07:55 10 MG Tamsulosin HCl (Flomax Cap) 0.4 mg QAM PO 12/17/16 08:00 01/16/17 07:59 12/20/16 08:17 0.4 MG Albuterol (Ventolin Hfa Inhaler) 1 puffs Q4H PRN INH 12/16/16 17:00 01/15/17 16:59 12/19/16 16:46 1 PUFFS Albuterol/ Ipratropium (Duoneb) 3 ml Q4R INH 12/16/16 20:00 01/15/17 19:59 12/20/16 10:50 3 ML Pantoprazole Sodium (Protonix Tab) 40 mg QAM PO 12/17/16 08:00 01/16/17 07:59 12/20/16 08:16 40 MG Lactobacillus Acidophilus (Floranex Tab) 4 tab TIDM PO 12/17/16 07:30 01/16/17 07:59 12/20/16 07:54 4 TAB Piperacillin Sod/ Tazobactam Sod 3.375 gm/Dextrose 115 ml @ 28.75 mls/ hr Q8H IV 12/17/16 02:00 12/28/16 01:59 12/20/16 10:10 28.75 MLS/HR Piperacillin Sod/ Tazobactam Sod (Consult) 1 ea UD PRN N/A 12/16/16 20:30 01/15/17 20:29 Menthol (Nice Alix) 1 alix PRN PRN PO 12/16/16 22:00 01/15/17 21:59 Benzonatate (Tessalon Perles Cap) 100 mg TID PO 12/17/16 14:00 01/16/17 13:59 12/20/16 08:16 100 MG Nystatin (Mycostatin Susp) 5 ml QID PO 12/18/16 13:45 12/28/16 13:44 12/20/16 08:15 5 ML Lidocaine HCl (Viscous Lidocaine 2% Soln) 1 ml QID PRN PO 12/18/16 18:00 01/17/17 17:59 12/20/16 08:14 1 ML Enteral Nutritional Formula (Boost Plus Vanilla) 1 can QID PO 12/18/16 21:00 01/17/17 20:59 12/20/16 08:16 1 CAN Dextromethorphan Polymer Complex (Delsym Susp) 30 mg Q8H PRN PO 12/19/16 18:00 01/18/17 17:59 12/19/16 21:38 30 MG Diclofenac Sodium (Voltaren 1% Top Gel) 1 appln QID EXT 12/20/16 13:00 01/19/17 12:59 Azithromycin (Zithromax Tab) 500 mg QAM PO 12/20/16 11:30 12/27/16 11:29 Objective Vital Signs Date Time Temp Pulse Resp B/P (MAP) Pulse Ox O2 Delivery O2 Flow Rate FiO2 12/20/16 12:00 Room Air 12/20/16 11:45 36.3 95 19 132/67 (88) 91 Room Air 12/20/16 10:50 94 20 92 Room Air 12/20/16 08:04 36.5 105 20 125/69 (87) 95 Room Air 12/20/16 08:00 Room Air 12/20/16 07:04 86 20 96 Room Air 12/20/16 04:10 Room Air 12/20/16 03:28 37.5 95 16 143/77 (99) 94 Room Air 12/20/16 00:24 Room Air 12/19/16 23:31 36.8 95 20 138/84 (102) 98 Room Air 12/19/16 23:14 88 20 96 Room Air 12/19/16 20:55 Room Air 12/19/16 20:12 36.9 86 18 130/69 (89) 93 Room Air 12/19/16 19:06 84 20 96 Room Air 12/19/16 16:20 37.8 100 20 144/81 (102) 95 Room Air 12/19/16 16:00 Room Air 12/19/16 15:10 102 20 96 Room Air 12/19/16 12:36 36.8 89 22 122/65 (84) 98 Room Air Physical Exam General Appearance: WD/WN, no apparent distress ENT: pharynx normal Respiratory/Chest: chest non-tender, no respiratory distress, no accessory muscle use, + decreased breath sounds (decreased over left lung) Cardiovascular: regular rate, rhythm, no edema, no gallop, no JVD, no murmur Abdomen: normal bowel sounds, non tender, soft, no organomegaly, no pulsatile mass Neurologic/Psychiatric: alert, normal mood/affect, oriented x 3 Laboratory Results 12/20/16 03:14 Test 12/19/16 13:08 12/20/16 03:14 Procalcitonin 2.26 ng/ml (0-0.5) Red Blood Count 2.75 M/uL (4.7-6.1) Mean Corpuscular Volume 86.5 fL (80-100) Mean Corpuscular Hemoglobin 30.9 pg (25-34) Mean Corpuscular Hemoglobin Concent 35.7 g/dl (32-36) RDW Standard Deviation 40.5 fL (36.4-46.3) RDW Coefficient of Variation 12.6 % (11.5-14.5) Mean Platelet Volume 11.0 fL (7.4-10.4) Nucleated RBC Absolute Count (auto) 0.02 K/uL (0-0) Nucleated Red Blood Cells % 0.2 % Vancomycin Level Trough 13.6 mcg/ml (SEE COMMENT) Assessment and Plan 66 year old man with a hx of neuroendocrine tumor s/p lobectomy, recurrent basaloid squamous cell ca, BPH with urinary obstruction, dyslipidemia, asthma, PUD, GERD presented as a direct admission from Dr. Castillo due to confusion Neutropenic Sepsis/Pneumonia: - WCC increased to 7.20 from 3.25 - Pt still coughing, but denies hemoptysis. Chest sounds more clear today, no more rales - Pulm consulted - thank you for input - now on PO levaquin & azithromycin to cover atypicals - d/c Zosyn Pancytopenia - Hgb 8.5 and platelets increased to 75 from 46 - Outpatient f/u with Dr. Lazo - will decrease next dose of chemotherapy Sore throat - likely due to recent surgery & coughing - given dextromethorphan prn as needed to reduce coughing - CT scan today to assess stent placement - has not migrated & no airway debris Dyslipidemia - Continue Crestor 10 mg daily BPH - Continue Flomax 0.4 mg QAM GI prophylaxis - Protonix 40 mg daily DVT Prophylaxis: TEDs/SCDs Code Status: LEVEL I, FULL Disposition: still in ICU, waiting on bed in med/surg Resident Physician Supervision Note: I interviewed and examined the patient. Discussed with Dr. Estrada and agree with findings and plan as documented in the note. Any exceptions or clarifications are listed here: None Documented By: Edson Oconnell feeling better except cough still ongoing and larynx still hurts. no other new issues. all other ROS otherwise negative except for as above vitals noted nad breathing unlabored coughing fits appear less severe neutropenic fever/pneumonia/cough/laryngitis - slowly irmpoving. change to PO levaquin as rec'd by ID (will cover atypicals as well) otherwise as above Resident Tracking Resident Involvement: Resident Care Provided Care Provided: Adult Hospital Medicine
[2016-12-20] MEDS: ACETAMINOPHEN 325 MG TAB PO PRN (18:19)
[2016-12-20] MEDS: OXYCODONE/ACETAMINOPHEN 7.5-325 TAB PO PRN (19:49)
[2016-12-20] MEDS: DEXTROMETHORPHAN POLYMR COMPLX 30 MG/5 ML UDP PO PRN (20:03)
[2016-12-20] MEDS: ALBUTEROL HFA 8 GM INHALER INH PRN (20:10)
[2016-12-21] VITALS (14 sets, daily range): BP systolic 75–126; BP diastolic 46–75; PULSE 74–112; TEMP 36.6–37.5; O2SAT 90–100
[2016-12-21] MEDS: OXYCODONE/ACETAMINOPHEN 7.5-325 TAB PO PRN ×4 (00:16→21:01)
[2016-12-21] MEDS: ALBUT/IPRATROP 3MG/0.5MG NEB 3 ML VIAL INH SCH ×6 (02:40→23:15)
[2016-12-21] MEDS: ACETAMINOPHEN/CODEINE 300/30MG TAB PO PRN ×2 (04:10→08:27)
[2016-12-21] MEDS: DEXTROMETHORPHAN POLYMR COMPLX 30 MG/5 ML UDP PO PRN ×2 (04:34→15:13)
[2016-12-21] MEDS: LIDOCAINE HCL 2% VISC SOLN 20 ML UDC PO PRN ×3 (04:34→15:13)
[2016-12-21 08:24] LABS: BUN/CREATININE RATIO 13.9 (10-20); CREATININE 0.95 mg/dl (0.60-1.40); POTASSIUM 3.5 mmol/L (3.5-5.1)
[2016-12-21 08:26] LABS: ALB/GLOB RATIO 0.7 (0.9-2)
[2016-12-21] MEDS: BACLOFEN 10 MG TAB PO SCH ×2 (08:26→20:54)
[2016-12-21] MEDS: BENZONATATE 100MG CAP PO SCH ×3 (08:27→20:56)
[2016-12-21] MEDS: ROSUVASTATIN CALCIUM 10 MG TAB PO SCH (08:28)
[2016-12-21] MEDS: NYSTATIN SUSP 500,000 U/5 ML UDC PO SCH ×4 (08:28→20:55)
[2016-12-21] MEDS: DICLOFENAC SOD 1% GEL 100 GM TUBE EXT SCH ×4 (08:28→20:54)
[2016-12-21] MEDS: TAMSULOSIN HCL 0.4 MG CAP PO SCH ×2 (08:28→20:55)
[2016-12-21] MEDS: PANTOprazole SOD 40 MG TAB PO SCH (08:30)
[2016-12-21] MEDS: LACTOBACILLUS ACIDOPHILUS (FLORANEX) TAB PO SCH ×3 (08:31→16:27)
[2016-12-21] MEDS: BOOST PLUS VANILLA PO SCH ×8 (08:31→20:54)
[2016-12-21 08:55] LABS: HEMATOCRIT 23.8 % (42-52); MEAN CELL VOLUME 88.5 fL (80-100); MEAN CORPUSCULAR HEMOGLOBIN 30.5 pg (25-34); MEAN CORPUSCULAR HGB CONC 34.5 g/dl (32-36); MEAN PLATELET VOLUME 10.7 fL (7.4-10.4); PLATELET COUNT 126 K/uL (130-400); RED BLOOD COUNT 2.69 M/uL (4.7-6.1)
[2016-12-21] MEDS: LEVOFLOXACIN 750 MG TAB PO SCH (11:36)
--- NOTE | 2016-12-21 13:48 | Family Medicine Progress Note ---
Progress Note Date of Service Dec 21, 2016. Subjective Pt evaluation today including: conversation w/ patient, conversation w/ family , physical exam, chart review, lab review, review of inpatient medication list Pain: 9/10 laryngeal pain reported PO Intake: Tolerating PO intake Voiding: no voiding problems Mr. Schroeder is a 66 year old gentleman who still reports 9/10 laryngeal pain that is worse on coughing. He states that he is coughing less frequently, and bringing up a small amount of sputum. He denies hemoptysis. He states that he does not have much of an appetite but has been forcing himself to eat. Today, he was comfortable transferring to the chair and denies weakness or dizziness on standing. Constitutional: No fever, No chills, No weakness ENT: + sore throat, No trouble swallowing Respiratory: + cough, + sputum, No wheezing, No shortness of breath, No dyspnea on exertion Cardiovascular: No chest pain, No orthopnea, No PND, No edema Abdomen: No pain, No nausea, No vomiting, No diarrhea All Other Systems: Reviewed and Negative Medications Current Inpatient Medications Medications (Trade) Dose Ordered Sig/Aron Route Start Time Stop Time Status Last Admin Dose Admin Acetaminophen (Tylenol Tab) 650 mg Q4H PRN PO 12/16/16 17:00 01/15/17 16:59 12/20/16 18:19 650 MG Al Hydrox/Mg Hydrox/Simethicone (Maalox Max Susp) 15 ml Q4H PRN PO 12/16/16 17:00 01/15/17 16:59 12/19/16 14:22 15 ML Magnesium Hydroxide (Milk Of Magnesia Susp) 30 ml Q6H PRN PO 12/16/16 17:00 01/15/17 16:59 Polyethylene (Miralax Powder Packet) 17 gm DAILY PRN PO 12/16/16 17:15 01/15/17 17:14 Ondansetron HCl (Zofran Inj) 4 mg Q6H PRN IV 12/16/16 17:00 01/15/17 16:59 Baclofen (Lioresal Tab) 10 mg BID PO 12/16/16 20:00 01/15/17 19:59 12/21/16 08:26 10 MG Rosuvastatin Calcium (Crestor Tab) 10 mg QAM PO 12/17/16 08:00 01/16/17 07:59 12/21/16 08:28 10 MG Tamsulosin HCl (Flomax Cap) 0.4 mg QAM PO 12/17/16 08:00 01/16/17 07:59 12/21/16 08:28 0.4 MG Albuterol (Ventolin Hfa Inhaler) 1 puffs Q4H PRN INH 12/16/16 17:00 01/15/17 16:59 12/20/16 20:10 1 PUFFS Albuterol/ Ipratropium (Duoneb) 3 ml Q4R INH 12/16/16 20:00 01/15/17 19:59 12/21/16 11:17 3 ML Pantoprazole Sodium (Protonix Tab) 40 mg QAM PO 12/17/16 08:00 01/16/17 07:59 12/21/16 08:30 40 MG Lactobacillus Acidophilus (Floranex Tab) 4 tab TIDM PO 12/17/16 07:30 01/16/17 07:59 12/21/16 11:36 4 TAB Menthol (Nice Alix) 1 alix PRN PRN PO 12/16/16 22:00 01/15/17 21:59 Benzonatate (Tessalon Perles Cap) 100 mg TID PO 12/17/16 14:00 01/16/17 13:59 12/21/16 08:27 100 MG Nystatin (Mycostatin Susp) 5 ml QID PO 12/18/16 13:45 12/28/16 13:44 12/21/16 11:36 5 ML Lidocaine HCl (Viscous Lidocaine 2% Soln) 1 ml QID PRN PO 12/18/16 18:00 01/17/17 17:59 12/21/16 08:28 20 ML Dextromethorphan Polymer Complex (Delsym Susp) 30 mg Q8H PRN PO 12/19/16 18:00 01/18/17 17:59 12/21/16 04:34 30 MG Diclofenac Sodium (Voltaren 1% Top Gel) 1 appln QID EXT 12/20/16 13:00 01/19/17 12:59 12/21/16 11:37 1 APPLN Levofloxacin (Levaquin Tab) 750 mg DAILY@1300 PO 12/20/16 13:00 12/27/16 12:59 12/21/16 11:36 750 MG Oxycodone/ Acetaminophen (Percocet 7.5-325MG Tab) 1 tab Q4H PRN PO 12/20/16 18:30 01/03/17 18:29 12/21/16 10:37 1 TAB Acetaminophen/ Codeine Phosphate (Tylenol w/ Codeine #3 Tab) 1 tab Q4H PRN PO 12/20/16 18:30 01/19/17 18:29 12/21/16 08:27 1 TAB Miscellaneous Information (Order Awaiting Action) 1 ea QS N/A 12/21/16 00:00 01/20/17 00:00 Enteral Nutritional Formula (Boost Plus Vanilla) 1 can QID PO 12/21/16 12:00 01/20/17 11:59 Objective Vital Signs Date Time Temp Pulse Resp B/P (MAP) Pulse Ox O2 Delivery O2 Flow Rate FiO2 12/21/16 12:14 37.1 82 18 87/48 (61) 90 Room Air 75/46 (56) 12/21/16 11:17 93 20 93 Room Air 12/21/16 10:30 Room Air 12/21/16 07:21 84 20 95 Room Air 12/21/16 07:19 36.8 74 17 121/75 (90) 100 Room Air 12/21/16 03:41 36.6 82 16 110/70 (83) 94 Room Air 12/21/16 00:05 Room Air 12/20/16 23:46 82 20 94 Room Air 12/20/16 23:46 36.8 80 16 111/57 (75) 93 Room Air 12/20/16 20:05 Room Air 12/20/16 18:24 98 20 95 Room Air 12/20/16 18:23 36.9 100 22 119/72 (88) 96 12/20/16 17:51 37.2 96 18 92 12/20/16 16:00 Room Air 12/20/16 15:45 37.2 96 18 130/73 (92) 92 Room Air 12/20/16 15:00 74 20 94 Room Air Physical Exam General Appearance: WD/WN, no apparent distress ENT: pharynx normal Respiratory/Chest: chest non-tender, lungs clear, normal breath sounds, no respiratory distress, no accessory muscle use Cardiovascular: regular rate, rhythm, no edema, no gallop, no JVD, no murmur Abdomen: normal bowel sounds, non tender, soft, no organomegaly, no pulsatile mass Neurologic/Psychiatric: alert, normal mood/affect, oriented x 3 Laboratory Results 12/21/16 05:47 12/21/16 05:47 Test 12/21/16 05:47 Red Blood Count 2.69 M/uL (4.7-6.1) Mean Corpuscular Volume 88.5 fL (80-100) Mean Corpuscular Hemoglobin 30.5 pg (25-34) Mean Corpuscular Hemoglobin Concent 34.5 g/dl (32-36) RDW Standard Deviation 42.4 fL (36.4-46.3) RDW Coefficient of Variation 13.1 % (11.5-14.5) Mean Platelet Volume 10.7 fL (7.4-10.4) Nucleated RBC Absolute Count (auto) 0.02 K/uL (0-0) Nucleated Red Blood Cells % 0.2 % Anion Gap 7.0 mmol/L (3-11) Est Creatinine Clear Calc Drug Dose 74.0 ml/min Estimated GFR () 96.3 Estimated GFR (Non- 83.1 BUN/Creatinine Ratio 13.9 (10-20) Calcium Level 8.0 mg/dl (8.5-10.1) Total Bilirubin 0.3 mg/dl (0.2-1) Aspartate Amino Transf (AST/SGOT) 32 U/L (15-37) Alanine Aminotransferase (ALT/SGPT) 78 U/L (12-78) Alkaline Phosphatase 246 U/L (45-117) Total Protein 5.8 gm/dl (6.4-8.2) Albumin 2.3 gm/dl (3.4-5.0) Globulin 3.5 gm/dl (2.5-4.0) Albumin/Globulin Ratio 0.7 (0.9-2) 25-Hydroxy Vitamin D Total 12.6 ng/ml (30-100) Assessment and Plan 66 year old man with a hx of neuroendocrine tumor s/p lobectomy, recurrent basaloid squamous cell ca, BPH with urinary obstruction, dyslipidemia, asthma, PUD, GERD presented as a direct admission from Dr. Castillo due to confusion Neutropenic Sepsis (resolved)/Pneumonia: - WCC increased to 8.60 from 7.20 - Cough improving - no hemoptysis - prn nebs, tessalon, dextromethorphan and Robitussin-AC - Continue levaquin Pancytopenia - Hgb 8.5 and platelets increased to 126 from 75 - Outpatient f/u with Dr. Lazo - will decrease next dose of chemotherapy Sore throat - likely due to recent bronchoscopy and perpetuated by coughing - prn percocet and oxycodone for pain relief - added Toradol as patient was reaching the upper limit of acetaminophen in 24hrs - family requesting palliative consult for better control of pain - defer to Thursday's team as no palliative on the s Hypotension - patient was hypotensive upon moving from bed to chair - likely due to a combination of decreased fluid intake & narcotic induced hypotension - given 1L of fluid bolus - EKG normal Dyslipidemia - Continue Crestor 10 mg daily BPH - Continue Flomax 0.4 mg QAM GI prophylaxis - Protonix 40 mg daily DVT Prophylaxis: TEDs/SCDs Code Status: LEVEL I, FULL Disposition: remains on med/surg Resident Physician Supervision Note: I interviewed and examined the patient. Discussed with Dr. Estrada and agree with findings and plan as documented in the note. Any exceptions or clarifications are listed here: None Documented By: Edson Oconnell cough spacing out more, still hurts terribly during coughing fits but notes that fits are happening a little less often. no sob no fevers/chills extensive d/w pt and . sister in law left prior to my arrival, had to go back to [place], but asked that pulmonary call her - passed along message and # to dr sherman vitals noted nad breathing unlabored no r/r/w. coughing fits still appearing very painful but not as bad as before. neutropenic fever from pneumonia - improving laryngeal pain - symptomatic care, family asks for palliative consult on this. sister in law was also lobbying for more narcotics, although at this point the round the clock narcotics he's on are fairly significant dosing and likely also contributing some to hypotension making this not the safest option. d/w pt and extensively that there's known reason for laryngeal pain (rigid bronch, coughing, pneumonia) and that this will improve over time, and that seeing him objectively it does appear things are improving, it's just hard to tell that when you're the patient seeing such slow improvement. continue supportive care hypotension - likley hypovolemia/distributive from poor intake, deconditioning, reduced SVR from pain meds. pain meds balance of risks and benefits - continue at current but don't escalate further; deconditioning - increase activity; hypovolemia 1L NSS bolus, increase PO intake. otherwise as above Resident Tracking Resident Involvement: Resident Care Provided Care Provided: [facility]
[2016-12-21] MEDS ORDERED: SODIUM CHLORIDE 0.9% 1000ML 1,000 ML IV ONE (14:00)
--- NOTE | 2016-12-21 14:25 | Pulmonology Progress Note ---
Pulmonary Progress Note Date of Service Dec 21, 2016. Attending Dr. Laguna Subjective The patient notes continued sore throat especially associated with coughing. He does note an increase in his vocal cord strength and voice. Objective 66-year-old male admitted with neutropenic fever currently being treated with chemoradiation for recurrent neuroendocrine tumor the pulmonary service being consult that for debilitating cough with sore throat: Vital signs: Stable on room air Respiratory: Mild expiratory wheezing appreciated today Cardiac: S1-S2 regular rate and rhythm distant heart sounds Abdomen: Positive bowel sounds off months tender Extremities: No tissue breakdown no edema noted Medications #1 Percocet 7.5/325 every 4 when necessary pain #2 Tylenol with codeine No. 3 every 4 when necessary pain #3 levofloxacin 750 mg daily #4 dextromethorphan 30 mg every 8 when necessary cough #5 Tessalon Perles 100 mg 3 times a day #6 baclofen 10 mg by mouth twice a day #7 DuoNeb every 4 hours Assessment & Plan 66-year-old gentleman admitted with neutropenic fever (status post chemoradiation), recurrent neuroendocrine tumor and now debilitating cough: #1 Cough: Doesn't appear to be an anatomical etiology for the patient's cough at this time. ENT noted no significant findings via laryngoscopy and CT of the thorax also showed no signs of abnormality, 14 x 30 left mainstem stent notably with improper position. I do suggest and will speak to Dr. Torrez with [facility] that bronchoscopy is performed prior to discharge as cryoprobe debridement is noted to cause a great deal of swelling as well as possible mucosal sloughing after intervention which could be associated with her patient's current cough. I will add on Robitussin-AC at this time is that cough seems to be quitting sore throat and decrease her patient's quality of life. Did talk to the patient as well as his about the added narcotic and will have to monitor the patient's overall mental status. #2 Neutropenic Fever: The patient's neutropenic fever has resolved and his blood counts have responded well. Sign off: At this time the pulmonary team will sign off please reconsult if patient's condition changes. Data Medications: Current Inpatient Medications Medications (Trade) Dose Ordered Sig/Aron Route Start Time Stop Time Status Last Admin Dose Admin Acetaminophen (Tylenol Tab) 650 mg Q4H PRN PO 12/16/16 17:00 8/24/17 16:59 12/20/16 18:19 650 MG Al Hydrox/Mg Hydrox/Simethicone (Maalox Max Susp) 15 ml Q4H PRN PO 12/16/16 17:00 01/15/17 16:59 12/19/16 14:22 15 ML Magnesium Hydroxide (Milk Of Magnesia Susp) 30 ml Q6H PRN PO 12/16/16 17:00 01/15/17 16:59 Polyethylene (Miralax Powder Packet) 17 gm DAILY PRN PO 12/16/16 17:15 01/15/17 17:14 Ondansetron HCl (Zofran Inj) 4 mg Q6H PRN IV 12/16/16 17:00 01/15/17 16:59 Baclofen (Lioresal Tab) 10 mg BID PO 12/16/16 20:00 01/15/17 19:59 12/21/16 08:26 10 MG Rosuvastatin Calcium (Crestor Tab) 10 mg QAM PO 12/17/16 08:00 01/16/17 07:59 12/21/16 08:28 10 MG Tamsulosin HCl (Flomax Cap) 0.4 mg QAM PO 12/17/16 08:00 01/16/17 07:59 12/21/16 08:28 0.4 MG Albuterol (Ventolin Hfa Inhaler) 1 puffs Q4H PRN INH 12/16/16 17:00 01/15/17 16:59 12/20/16 20:10 1 PUFFS Albuterol/ Ipratropium (Duoneb) 3 ml Q4R INH 12/16/16 20:00 01/15/17 19:59 12/21/16 11:17 3 ML Pantoprazole Sodium (Protonix Tab) 40 mg QAM PO 12/17/16 08:00 01/16/17 07:59 12/21/16 08:30 40 MG Lactobacillus Acidophilus (Floranex Tab) 4 tab TIDM PO 12/17/16 07:30 01/16/17 07:59 12/21/16 11:36 4 TAB Menthol (Nice Alix) 1 alix PRN PRN PO 12/16/16 22:00 01/15/17 21:59 Benzonatate (Tessalon Perles Cap) 100 mg TID PO 12/17/16 14:00 01/16/17 13:59 12/21/16 08:27 100 MG Nystatin (Mycostatin Susp) 5 ml QID PO 12/18/16 13:45 12/28/16 13:44 12/21/16 11:36 5 ML Lidocaine HCl (Viscous Lidocaine 2% Soln) 1 ml QID PRN PO 12/18/16 18:00 01/17/17 17:59 12/21/16 08:28 20 ML Dextromethorphan Polymer Complex (Delsym Susp) 30 mg Q8H PRN PO 12/19/16 18:00 01/18/17 17:59 12/21/16 04:34 30 MG Diclofenac Sodium (Voltaren 1% Top Gel) 1 appln QID EXT 12/20/16 13:00 01/19/17 12:59 12/21/16 11:37 1 APPLN Levofloxacin (Levaquin Tab) 750 mg DAILY@1300 PO 12/20/16 13:00 12/27/16 12:59 12/21/16 11:36 750 MG Oxycodone/ Acetaminophen (Percocet 7.5-325MG Tab) 1 tab Q4H PRN PO 12/20/16 18:30 01/03/17 18:29 12/21/16 10:37 1 TAB Acetaminophen/ Codeine Phosphate (Tylenol w/ Codeine #3 Tab) 1 tab Q4H PRN PO 12/20/16 18:30 01/19/17 18:29 12/21/16 08:27 1 TAB Miscellaneous Information (Order Awaiting Action) 1 ea QS N/A 12/21/16 00:00 01/20/17 00:00 Enteral Nutritional Formula (Boost Plus Vanilla) 1 can QID PO 12/21/16 12:00 01/20/17 11:59 Sodium Chloride 1,000 ml @ 999 mls/hr Q1H1M ONCE IV 12/21/16 14:00 12/21/16 15:00 Vital Signs: Date Time Temp Pulse Resp B/P (MAP) Pulse Ox O2 Delivery O2 Flow Rate FiO2 12/21/16 12:14 37.1 82 18 87/48 (61) 90 Room Air 75/46 (56) 12/21/16 11:17 93 20 93 Room Air 12/21/16 10:30 Room Air 12/21/16 07:21 84 20 95 Room Air 12/21/16 07:19 36.8 74 17 121/75 (90) 100 Room Air 12/21/16 03:41 36.6 82 16 110/70 (83) 94 Room Air 12/21/16 00:05 Room Air 12/20/16 23:46 82 20 94 Room Air 12/20/16 23:46 36.8 80 16 111/57 (75) 93 Room Air 12/20/16 20:05 Room Air 12/20/16 18:24 98 20 95 Room Air 12/20/16 18:23 36.9 100 22 119/72 (88) 96 12/20/16 17:51 37.2 96 18 92 12/20/16 16:00 Room Air 12/20/16 15:45 37.2 96 18 130/73 (92) 92 Room Air 12/20/16 15:00 74 20 94 Room Air Laboratory Results: Last 24 Hours Test 12/21/16 05:47 White Blood Count 8.60 K/uL Red Blood Count 2.69 M/uL Hemoglobin 8.2 g/dL Hematocrit 23.8 % Mean Corpuscular Volume 88.5 fL Mean Corpuscular Hemoglobin 30.5 pg Mean Corpuscular Hemoglobin Concent 34.5 g/dl RDW Standard Deviation 42.4 fL RDW Coefficient of Variation 13.1 % Platelet Count 126 K/uL Mean Platelet Volume 10.7 fL Nucleated RBC Absolute Count (auto) 0.02 K/uL Nucleated Red Blood Cells % 0.2 % Sodium Level 140 mmol/L Potassium Level 3.5 mmol/L Chloride Level 104 mmol/L Carbon Dioxide Level 29 mmol/L Anion Gap 7.0 mmol/L Blood Urea Nitrogen 13 mg/dl Creatinine 0.95 mg/dl Est Creatinine Clear Calc Drug Dose 74.0 ml/min Estimated GFR () 96.3 Estimated GFR (Non- 83.1 BUN/Creatinine Ratio 13.9 Random Glucose 102 mg/dl Calcium Level 8.0 mg/dl Total Bilirubin 0.3 mg/dl Aspartate Amino Transf (AST/SGOT) 32 U/L Alanine Aminotransferase (ALT/SGPT) 78 U/L Alkaline Phosphatase 246 U/L Total Protein 5.8 gm/dl Albumin 2.3 gm/dl Globulin 3.5 gm/dl Albumin/Globulin Ratio 0.7 25-Hydroxy Vitamin D Total 12.6 ng/ml
[2016-12-21] MEDS ORDERED: KETOROLAC TROMETHAMINE 15 MG/ML VIAL IV. STA (15:08)
[2016-12-21] MEDS: GUAIFENESIN/CODEINE 100MG/10MG 5ML UDC PO PRN (19:15)
[2016-12-21] MEDS ORDERED: ZOLPIDEM TARTRATE 5 MG TAB PO ONE (23:30)
[2016-12-22] VITALS (12 sets, daily range): BP systolic 116–164; BP diastolic 66–81; PULSE 58–114; TEMP 36.8–37.5; O2SAT 93–97
[2016-12-22] MEDS: GUAIFENESIN/CODEINE 100MG/10MG 5ML UDC PO PRN ×2 (02:19→07:42)
[2016-12-22] MEDS: ALBUT/IPRATROP 3MG/0.5MG NEB 3 ML VIAL INH SCH ×6 (03:51→23:35)
[2016-12-22] MEDS: OXYCODONE/ACETAMINOPHEN 7.5-325 TAB PO PRN (03:55)
[2016-12-22] MEDS: DEXTROMETHORPHAN POLYMR COMPLX 30 MG/5 ML UDP PO PRN ×3 (06:33→21:13)
[2016-12-22] MEDS: NYSTATIN SUSP 500,000 U/5 ML UDC PO SCH ×4 (07:41→21:14)
[2016-12-22] MEDS: ROSUVASTATIN CALCIUM 10 MG TAB PO SCH (07:41)
[2016-12-22] MEDS: BACLOFEN 10 MG TAB PO SCH ×2 (07:41→19:33)
[2016-12-22] MEDS: PANTOprazole SOD 40 MG TAB PO SCH (07:41)
[2016-12-22] MEDS: BENZONATATE 100MG CAP PO SCH ×3 (07:41→19:33)
[2016-12-22] MEDS: BOOST PLUS VANILLA PO SCH ×6 (07:42→21:14)
[2016-12-22] MEDS: DICLOFENAC SOD 1% GEL 100 GM TUBE EXT SCH ×4 (07:42→21:14)
[2016-12-22] MEDS: LACTOBACILLUS ACIDOPHILUS (FLORANEX) TAB PO SCH ×3 (07:42→18:06)
[2016-12-22] MEDS: LIDOCAINE HCL 2% VISC SOLN 20 ML UDC PO PRN ×3 (07:52→19:33)
[2016-12-22] MEDS ORDERED: NURSING VERBAL MED ORDER ONE ×3 (08:45→14:15)
[2016-12-22] MEDS ORDERED: HYDROCODONE/HOMATROPINE SYRUP 5MG/1.5MG 5ML UDP PO SCH (08:45)
[2016-12-22] MEDS ORDERED: OXYCODONE HCL IR 5 MG TAB (IMMEDIATE RELEASE) PO PRN (08:45)
[2016-12-22] MEDS ORDERED: ALBUT/IPRATROP 3MG/0.5MG NEB 3 ML VIAL INH PRN (09:00)
--- NOTE | 2016-12-22 10:52 | Family Medicine Progress Note ---
Progress Note Date of Service Dec 22, 2016. Subjective Pt evaluation today including: conversation w/ patient, physical exam, chart review, lab review Pain: Throat pain with coughing Voiding: no voiding problems, no incontinence Constitutional: No fever, No chills, No sweats Eyes: No worsening of vision, No redness, No discharge ENT: + sore throat, No hearing loss, No nasal symptoms Respiratory: + cough, No sputum, No wheezing, No shortness of breath Cardiovascular: No chest pain Abdomen: No pain, No nausea, No vomiting, No diarrhea Musculoskeletal: No joint pain, No muscle pain Male : No dysuria, No urinary frequency, No incontinence Neurologic: No memory loss, No paralysis, No weakness, No numbness/tingling Skin: No rash, No new/changing skin lesions, No color change All Other Systems: Reviewed and Negative Medications Current Inpatient Medications Medications (Trade) Dose Ordered Sig/Aron Route Start Time Stop Time Status Last Admin Dose Admin Acetaminophen (Tylenol Tab) 650 mg Q4H PRN PO 12/16/16 17:00 01/15/17 16:59 12/20/16 18:19 650 MG Al Hydrox/Mg Hydrox/Simethicone (Maalox Max Susp) 15 ml Q4H PRN PO 12/16/16 17:00 01/15/17 16:59 12/19/16 14:22 15 ML Magnesium Hydroxide (Milk Of Magnesia Susp) 30 ml Q6H PRN PO 12/16/16 17:00 01/15/17 16:59 12/21/16 23:37 30 ML Polyethylene (Miralax Powder Packet) 17 gm DAILY PRN PO 12/16/16 17:15 01/15/17 17:14 Ondansetron HCl (Zofran Inj) 4 mg Q6H PRN IV 12/16/16 17:00 01/15/17 16:59 Baclofen (Lioresal Tab) 10 mg BID PO 12/16/16 20:00 01/15/17 19:59 12/22/16 07:41 10 MG Rosuvastatin Calcium (Crestor Tab) 10 mg QAM PO 12/17/16 08:00 01/16/17 07:59 12/22/16 07:41 10 MG Tamsulosin HCl (Flomax Cap) 0.4 mg QAM PO 12/17/16 08:00 01/16/17 07:59 12/21/16 20:55 0.4 MG Albuterol (Ventolin Hfa Inhaler) 1 puffs Q4H PRN INH 12/16/16 17:00 01/15/17 16:59 12/20/16 20:10 1 PUFFS Albuterol/ Ipratropium (Duoneb) 3 ml Q4R INH 12/16/16 20:00 01/15/17 19:59 12/22/16 07:09 3 ML Pantoprazole Sodium (Protonix Tab) 40 mg QAM PO 12/17/16 08:00 01/16/17 07:59 12/22/16 07:41 40 MG Lactobacillus Acidophilus (Floranex Tab) 4 tab TIDM PO 12/17/16 07:30 01/16/17 07:59 12/22/16 07:42 4 TAB Menthol (Nice Alix) 1 alix PRN PRN PO 12/16/16 22:00 01/15/17 21:59 Benzonatate (Tessalon Perles Cap) 100 mg TID PO 12/17/16 14:00 01/16/17 13:59 12/22/16 07:41 100 MG Nystatin (Mycostatin Susp) 5 ml QID PO 12/18/16 13:45 12/28/16 13:44 12/22/16 07:41 5 ML Lidocaine HCl (Viscous Lidocaine 2% Soln) 1 ml QID PRN PO 12/18/16 18:00 01/17/17 17:59 12/22/16 07:52 20 ML Dextromethorphan Polymer Complex (Delsym Susp) 30 mg Q8H PRN PO 12/19/16 18:00 01/18/17 17:59 12/22/16 06:33 30 MG Diclofenac Sodium (Voltaren 1% Top Gel) 1 appln QID EXT 12/20/16 13:00 01/19/17 12:59 12/22/16 07:42 1 APPLN Levofloxacin (Levaquin Tab) 750 mg DAILY@1300 PO 12/20/16 13:00 12/27/16 12:59 12/21/16 11:36 750 MG Miscellaneous Information (Order Awaiting Action) 1 ea QS N/A 12/21/16 00:00 01/20/17 00:00 Enteral Nutritional Formula (Boost Plus Vanilla) 1 can QID PO 12/21/16 12:00 01/20/17 11:59 12/22/16 07:42 1 CAN Codeine Phosphate/ Guaifenesin (Robitussin-AC Sugar Free Syrup) 5 ml Q6H PRN PO 12/21/16 14:30 01/20/17 14:29 12/22/16 07:42 5 ML Ketorolac Tromethamine (Toradol Inj) 15 mg Q6H PRN IV. 12/21/16 15:15 12/26/16 15:14 Oxycodone HCl (Roxicodone Immediate Rel Tab) 7.5 mg Q4H PRN PO 12/22/16 08:45 01/05/17 08:44 Albuterol/ Ipratropium (Duoneb) 3 ml Q2H PRN INH 12/22/16 09:00 01/21/17 08:59 Objective Vital Signs Date Time Temp Pulse Resp B/P (MAP) Pulse Ox O2 Delivery O2 Flow Rate FiO2 12/22/16 07:47 Room Air 12/22/16 07:10 81 16 96 Room Air 12/22/16 07:06 36.8 82 18 164/81 (108) 97 Room Air 12/22/16 04:04 36.9 91 20 157/66 (96) 93 Room Air 12/22/16 00:00 96 Room Air 12/21/16 23:26 36.8 96 18 126/69 (88) 96 Room Air 12/21/16 23:15 95 20 95 Room Air 12/21/16 20:00 96 Room Air 12/21/16 19:32 36.6 112 20 107/55 (72) 96 Room Air 12/21/16 18:57 107 20 95 Room Air 12/21/16 16:30 36.7 91 95/60 (72) 12/21/16 16:17 Room Air 12/21/16 15:55 82 20 93 Room Air 12/21/16 15:33 37.5 93 20 96/64 (75) 96 Room Air 12/21/16 14:00 80 112/70 (84) 12/21/16 12:14 37.1 82 18 87/48 (61) 90 Room Air 75/46 (56) 12/21/16 11:17 93 20 93 Room Air Physical Exam General Appearance: WD/WN, no apparent distress Eyes: normal inspection, EOMI ENT: hearing grossly normal, pharynx normal Neck: supple, no adenopathy, no JVD Respiratory/Chest: chest non-tender, no respiratory distress, + pertinent finding (reduced breath sounds at left base) Cardiovascular: regular rate, rhythm, no gallop, no murmur Abdomen: normal bowel sounds, non tender, soft Extremities: non-tender, no pedal edema Neurologic/Psychiatric: alert, normal mood/affect, oriented x 3 Skin: normal color, warm/dry, no rash Assessment and Plan 66 year old with metastatic mix lung tumor (neuroendocrine/small cell). Patient is s/p endobronchial stenting on 12/13. He was originally admitted on for neutropenic fevers. He was originally treated with Vanc/Zosyn. Had subsequent identification of evolving PNA on 12/18 and was stared on PO levaquin At this time, infection appears to be under control. He is afebrile without a WBC increase. His main complaint at this time his throat pain. Our plan for him is as follows. Post-Tussive Throat Pain - Percocet 5 mg q4h PRN pain - Oramorph SR 15 mg BID - Toradol 15 mg q6 hr PRN - Viscous Lidocaine Syrup - Multiple antitussive modalities have been attempted Robitussin with Codeine, Tessalone Perles Delsym Duoneb q4 h aron and 2h PRN Will start Hycodan syrup qHS PRN for pain - Will provide Mirtazapine at nighttime to help with sleep - Discussed case with Dr. Laguna who will repeat Bronchoscopy tomorrow to assess position of endobronchial stent Neutropenia - Resolved; WBC 8.0 today; stable Left Lobar PNA - Continue Levaquin PO - Diagnosed 12/18; would continue antibiotic at least 10 days from date of identification - Currently day 10/01 Metastatic Lung Cancer - Radiation oncology consulted, who plan to pursue radiation treatment on Thursday - Per oncology notes, has next treatment cycle on 12/29/2016 Hiccup - Baclofen helped in past. Not this time. follow Hyperlipidemia - Continue Rosuvastatin BPH - Continue Flomax DVT prophylaxis - Heparin 5000 ID Code Status - Level I Full Disposition - Med/Surg Awaiting Bronchoscopy tomorrow Reviewed: Pt Seen/Exam by Me History continues to complain of throat pain with coughing. none of the medications seems to be helping also having hiccups. in past baclofen had helped but not helping now. Constitutional: denies: fever Respiratory: negative: short of breath Cardiovascular: denies chest pain Gastrointestinal/Abdominal: negative: abdominal pain General Appearance: mild distress (from cough, hiccup and pain) Ears, Nose, Throat: other (tongue - coated) Respiratory: lungs clear, no respiratory distress Cardiovascular: regular rate, rhythm Gastrointestinal: soft Neurologic/Psychiatric: alert, oriented x 3 Skin Characteristics: warm/dry Assessment/Plan Resident Physician Supervision Note: I was present with Dr. Do in bedside. I verified the huang history and physical, reviewed labs and image studies, discussed the case with the resident and agree with the findings and care plan.
--- NOTE | 2016-12-22 11:04 | Pulmonology Progress Note ---
Pulmonary Progress Note Date of Service Dec 22, 2016. Attending Dr. Laguna Subjective Patient continues to have cough with no notable multiple medications which is overall decreasing his quality of life Objective 66-year-old male admitted with neutropenic fever currently being treated with chemoradiation for recurrent neuroendocrine tumor the pulmonary service being consult that for debilitating cough with sore throat: VS: I/Os: 24hr: +1.2L Total: +9.8L Temp: 36.9max SaO2: 93-97% FiO2: RA RR: 16-20 RESP: Inspiratory expiratory wheezes bilaterally left greater than right CARD: S1-S2 regular rate and rhythm distant heart sounds no murmurs rubs or gallops appreciated the ABD: Positive bowel sounds soft nontender NECK: Oral pharyngeal evaluation showed no signs of breakdown or trauma noted , no masses or tenderness to palpation Microbiology: No growth to date Medications: #1 DuoNeb: Every 2 hours when necessary shortness breath/every 4 hours scheduled #2 oxycodone 7.5 mg every 4 when necessary pain #3 the Toradol 50 mg every 6 hours when necessary pain #4 Robitussin-AC 5 mL every 6 when necessary cough #5 levofloxacin 750 mg by mouth daily #6 Tessalon Perle 100 mg by mouth 3 times a day Assessment & Plan 66-year-old gentleman admitted with neutropenic fever (status post chemoradiation), recurrent neuroendocrine tumor and now debilitating cough: #1 Cough: I spoken to the patient and at length we decided to move forward with bronchoscopy for debilitating cough. Data Medications: Current Inpatient Medications Medications (Trade) Dose Ordered Sig/Aron Route Start Time Stop Time Status Last Admin Dose Admin Acetaminophen (Tylenol Tab) 650 mg Q4H PRN PO 12/16/16 17:00 01/15/17 16:59 12/20/16 18:19 650 MG Al Hydrox/Mg Hydrox/Simethicone (Maalox Max Susp) 15 ml Q4H PRN PO 12/16/16 17:00 01/15/17 16:59 12/19/16 14:22 15 ML Magnesium Hydroxide (Milk Of Magnesia Susp) 30 ml Q6H PRN PO 12/16/16 17:00 01/15/17 16:59 12/21/16 23:37 30 ML Polyethylene (Miralax Powder Packet) 17 gm DAILY PRN PO 12/16/16 17:15 01/15/17 17:14 Ondansetron HCl (Zofran Inj) 4 mg Q6H PRN IV 12/16/16 17:00 01/15/17 16:59 Baclofen (Lioresal Tab) 10 mg BID PO 12/16/16 20:00 01/15/17 19:59 12/22/16 07:41 10 MG Rosuvastatin Calcium (Crestor Tab) 10 mg QAM PO 12/17/16 08:00 01/16/17 07:59 12/22/16 07:41 10 MG Tamsulosin HCl (Flomax Cap) 0.4 mg QAM PO 12/17/16 08:00 01/16/17 07:59 12/21/16 20:55 0.4 MG Albuterol (Ventolin Hfa Inhaler) 1 puffs Q4H PRN INH 12/16/16 17:00 01/15/17 16:59 12/20/16 20:10 1 PUFFS Albuterol/ Ipratropium (Duoneb) 3 ml Q4R INH 12/16/16 20:00 01/15/17 19:59 12/22/16 07:09 3 ML Pantoprazole Sodium (Protonix Tab) 40 mg QAM PO 12/17/16 08:00 01/16/17 07:59 12/22/16 07:41 40 MG Lactobacillus Acidophilus (Floranex Tab) 4 tab TIDM PO 12/17/16 07:30 01/16/17 07:59 12/22/16 07:42 4 TAB Menthol (Nice Alix) 1 alix PRN PRN PO 12/16/16 22:00 01/15/17 21:59 Benzonatate (Tessalon Perles Cap) 100 mg TID PO 12/17/16 14:00 01/16/17 13:59 12/22/16 07:41 100 MG Nystatin (Mycostatin Susp) 5 ml QID PO 12/18/16 13:45 12/28/16 13:44 12/22/16 07:41 5 ML Lidocaine HCl (Viscous Lidocaine 2% Soln) 1 ml QID PRN PO 12/18/16 18:00 01/17/17 17:59 12/22/16 07:52 20 ML Dextromethorphan Polymer Complex (Delsym Susp) 30 mg Q8H PRN PO 12/19/16 18:00 01/18/17 17:59 12/22/16 06:33 30 MG Diclofenac Sodium (Voltaren 1% Top Gel) 1 appln QID EXT 12/20/16 13:00 01/19/17 12:59 12/22/16 07:42 1 APPLN Levofloxacin (Levaquin Tab) 750 mg DAILY@1300 PO 12/20/16 13:00 12/27/16 12:59 12/21/16 11:36 750 MG Miscellaneous Information (Order Awaiting Action) 1 ea QS N/A 12/21/16 00:00 01/20/17 00:00 Enteral Nutritional Formula (Boost Plus Vanilla) 1 can QID PO 12/21/16 12:00 01/20/17 11:59 12/22/16 07:42 1 CAN Codeine Phosphate/ Guaifenesin (Robitussin-AC Sugar Free Syrup) 5 ml Q6H PRN PO 12/21/16 14:30 01/20/17 14:29 12/22/16 07:42 5 ML Ketorolac Tromethamine (Toradol Inj) 15 mg Q6H PRN IV. 12/21/16 15:15 12/26/16 15:14 Oxycodone HCl (Roxicodone Immediate Rel Tab) 7.5 mg Q4H PRN PO 12/22/16 08:45 01/05/17 08:44 Albuterol/ Ipratropium (Duoneb) 3 ml Q2H PRN INH 12/22/16 09:00 01/21/17 08:59 Vital Signs: Date Time Temp Pulse Resp B/P (MAP) Pulse Ox O2 Delivery O2 Flow Rate FiO2 12/22/16 07:47 Room Air 12/22/16 07:10 81 16 96 Room Air 12/22/16 07:06 36.8 82 18 164/81 (108) 97 Room Air 12/22/16 04:04 36.9 91 20 157/66 (96) 93 Room Air 12/22/16 00:00 96 Room Air 12/21/16 23:26 36.8 96 18 126/69 (88) 96 Room Air 12/21/16 23:15 95 20 95 Room Air 12/21/16 20:00 96 Room Air 12/21/16 19:32 36.6 112 20 107/55 (72) 96 Room Air 12/21/16 18:57 107 20 95 Room Air 12/21/16 16:30 36.7 91 95/60 (72) 12/21/16 16:17 Room Air 12/21/16 15:55 82 20 93 Room Air 12/21/16 15:33 37.5 93 20 96/64 (75) 96 Room Air 12/21/16 14:00 80 112/70 (84) 12/21/16 12:14 37.1 82 18 87/48 (61) 90 Room Air 75/46 (56) 12/21/16 11:17 93 20 93 Room Air
[2016-12-22] MEDS: LEVOFLOXACIN 750 MG TAB PO SCH (12:09)
--- NOTE | 2016-12-22 13:44 | Palliative Care Consultation ---
Consultation Date of Consultation: Dec 22, 2016. Requesting Physician: Dr. Oconnell Attending Physician: Dr. 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 Castillo's office with delirium. Mr. Schroeder was diagnosed with large cell neuroendocrine tumor in 2014 , underwent chemotherapy by Dr. Cota. In November 2015, underwent stent placement for bronchial stenosis by Dr. Castillo; stent was removed in Apr 2016. Recently, he underwent a repeat PET scan which noted hypermetabolic activity in the mediastinum; biopsy was noted to be malignant. He started XRT/ chemo treatment with Dr. Avalos and Dr. Cota last week. He received radiation therapy on day of admission. Apparently this patient was admitted to [facility] on for bronchoscopy and stent placement for bronchial stenosis, discharged next day to home. According to patient's family he was becoming increasingly confused and delirious-- talking to parents. Of note he had been on PO Valium 5mg TID for a short period of time, which family thought may have been contributing so it was discontinued on arrival to hospital. Patient with neutropenic fever on admission, has since resolved. CT of chest favored an infectious process- bronchiolitis vs. pneumonitis- on Levaquin at this time. Plan is for bronchoscopy tomorrow and to restart radiation treatments Thursday12/24/16. Patient's main concern at this time is this excruciating pain he has in his throat that is worsened by cough, and his persistent coughing. Patient's family requested a palliative care consult for the pain. I met with the patient, his , and his son in room 412. Patient is awake, alert and oriented x4. He does still have periods of forgetfulness, had to be told several times during conversation what day of the week it is. He was still very well able to participate in conversation and could recall his history. Trying to obtain details about the pain, however, was somewhat difficult. Family contributed as well. The cough started back when patient underwent the lobectomy in July 2014, it has been persistent. He has had some associated left rib pain with the coughing, had rib fractures. Given the persistent cough and discomfort, patient underwent bronchoscopy on 10/24/2016. Post procedure, patient developed subcutaneous air in neck and face. ENT was consulted at that time who scoped patient and saw no trauma to the throat. After that, patient had continued narrowing of airway, so he had another stent placed by Dr. Castillo. Since the most recent stent placement, patient now has this laryngeal pain. The patient describes the pain as excruciating; 10/10 constantly and worsens when he is coughing. He said to me, "This pain is worse than has ever been known to man." Of note, patient was resting in bed in no apparent distress, even when coughing. He did have several coughing fits, his voice is raspy. He had another laryngoscopy during this admission which showed no abnormality or trauma. Patient has been having sleepless nights, even despite being givene Ambien 2.5mg last night. He also has some anxiety, but patient feels it is a "normal" amount of anxiety related to the "unknown" of his situation. The patient's son feels that the anxiety could be playing a part in making the pain worse, but the patient said, "Well, we have different views on life." the agreed that patient has some anxiety, no one was overly concerned about it. No panic attacks. Past Medical/Surgical History Medical History: as above Social History Smoking Status: Former Smoker History of Alcohol Use: No Marital Status: Occupation Status: employed Review of Systems Constitutional: + problem reported (decreased appetite), No fever, No chills Respiratory: + cough, + sputum (white, thick, small amount), + wheezing ( occasional but not at this time), No shortness of breath Cardiac: No chest pain, No edema Abdomen: No pain, No nausea, No vomiting Neurologic: + problem reported (delirium) Psychiatric: + anxiety (mild), + insomnia ("sleepless nights") Allergies Coded Allergies: Pork (Verified Allergy, Severe, ANAPHYLAXIS, 12/11/16) NO KNOWN DRUG ALLERGIES (Verified Allergy, Unknown, ., 12/11/16) Uncoded Allergies: VENISON (Allergy, Unknown, RASH, 12/12/16) Medications Current Inpatient Medications Medications (Trade) Dose Ordered Sig/Aron Route Start Time Stop Time Status Last Admin Dose Admin Acetaminophen (Tylenol Tab) 650 mg Q4H PRN PO 12/16/16 17:00 01/15/17 16:59 12/20/16 18:19 650 MG Al Hydrox/Mg Hydrox/Simethicone (Maalox Max Susp) 15 ml Q4H PRN PO 12/16/16 17:00 01/15/17 16:59 12/19/16 14:22 15 ML Magnesium Hydroxide (Milk Of Magnesia Susp) 30 ml Q6H PRN PO 12/16/16 17:00 01/15/17 16:59 12/21/16 23:37 30 ML Polyethylene (Miralax Powder Packet) 17 gm DAILY PRN PO 12/16/16 17:15 01/15/17 17:14 Ondansetron HCl (Zofran Inj) 4 mg Q6H PRN IV 12/16/16 17:00 01/15/17 16:59 Baclofen (Lioresal Tab) 10 mg BID PO 12/16/16 20:00 01/15/17 19:59 12/22/16 07:41 10 MG Rosuvastatin Calcium (Crestor Tab) 10 mg QAM PO 12/17/16 08:00 01/16/17 07:59 12/22/16 07:41 10 MG Tamsulosin HCl (Flomax Cap) 0.4 mg QAM PO 12/17/16 08:00 01/16/17 07:59 12/21/16 20:55 0.4 MG Albuterol (Ventolin Hfa Inhaler) 1 puffs Q4H PRN INH 12/16/16 17:00 01/15/17 16:59 12/20/16 20:10 1 PUFFS Albuterol/ Ipratropium (Duoneb) 3 ml Q4R INH 12/16/16 20:00 01/15/17 19:59 12/22/16 11:29 3 ML Pantoprazole Sodium (Protonix Tab) 40 mg QAM PO 12/17/16 08:00 01/16/17 07:59 12/22/16 07:41 40 MG Lactobacillus Acidophilus (Floranex Tab) 4 tab TIDM PO 12/17/16 07:30 01/16/17 07:59 12/22/16 07:42 4 TAB Menthol (Nice Alix) 1 alix PRN PRN PO 12/16/16 22:00 01/15/17 21:59 Benzonatate (Tessalon Perles Cap) 100 mg TID PO 12/17/16 14:00 01/16/17 13:59 12/22/16 07:41 100 MG Nystatin (Mycostatin Susp) 5 ml QID PO 12/18/16 13:45 12/28/16 13:44 12/22/16 07:41 5 ML Lidocaine HCl (Viscous Lidocaine 2% Soln) 1 ml QID PRN PO 12/18/16 18:00 01/17/17 17:59 12/22/16 07:52 20 ML Dextromethorphan Polymer Complex (Delsym Susp) 30 mg Q8H PRN PO 12/19/16 18:00 01/18/17 17:59 12/22/16 06:33 30 MG Diclofenac Sodium (Voltaren 1% Top Gel) 1 appln QID EXT 12/20/16 13:00 01/19/17 12:59 12/22/16 07:42 1 APPLN Levofloxacin (Levaquin Tab) 750 mg DAILY@1300 PO 12/20/16 13:00 12/27/16 12:59 12/21/16 11:36 750 MG Miscellaneous Information (Order Awaiting Action) 1 ea QS N/A 12/21/16 00:00 01/20/17 00:00 Enteral Nutritional Formula (Boost Plus Vanilla) 1 can QID PO 12/21/16 12:00 01/20/17 11:59 12/22/16 07:42 1 CAN Ketorolac Tromethamine (Toradol Inj) 15 mg Q6H PRN IV. 12/21/16 15:15 12/26/16 15:14 Oxycodone HCl (Roxicodone Immediate Rel Tab) 7.5 mg Q4H PRN PO 12/22/16 08:45 01/05/17 08:44 Albuterol/ Ipratropium (Duoneb) 3 ml Q2H PRN INH 12/22/16 09:00 01/21/17 08:59 Miscellaneous Information (Nursing Verbal Med Order) 1 ea ONE ONCE N/A 12/22/16 12:00 12/22/16 12:01 UNV Physical Exam Date Time Temp Pulse Resp B/P (MAP) Pulse Ox O2 Delivery O2 Flow Rate FiO2 12/22/16 11:33 37.4 58 18 131/76 (94) 96 Room Air 12/22/16 11:29 85 16 96 Room Air 12/22/16 07:47 Room Air 12/22/16 07:10 81 16 96 Room Air 12/22/16 07:06 36.8 82 18 164/81 (108) 97 Room Air 12/22/16 04:04 36.9 91 20 157/66 (96) 93 Room Air 12/22/16 00:00 96 Room Air 12/21/16 23:26 36.8 96 18 126/69 (88) 96 Room Air 12/21/16 23:15 95 20 95 Room Air 12/21/16 20:00 96 Room Air 12/21/16 19:32 36.6 112 20 107/55 (72) 96 Room Air 12/21/16 18:57 107 20 95 Room Air 12/21/16 16:30 36.7 91 95/60 (72) 12/21/16 16:17 Room Air 12/21/16 15:55 82 20 93 Room Air 12/21/16 15:33 37.5 93 20 96/64 (75) 96 Room Air 12/21/16 14:00 80 112/70 (84) 12/21/16 12:14 37.1 82 18 87/48 (61) 90 Room Air 75/46 (56) General Appearance: no apparent distress ENT: hearing grossly normal Neck: supple, no JVD Respiratory: no respiratory distress, no accessory muscle use, + decreased breath sounds (especially NAWAF), + rhonchi (coarse in RUL which cleared with cough) Cardiovascular: regular rate, rhythm Abdomen: normal bowel sounds, non tender, soft Neurologic/Psychiatric: alert, normal mood/affect, oriented x 3 (forgetful) Assessment & Plan Problem list: Laryngeal pain Cough Decreased appetite Altered sleep pattern Large cell neuroendocrine carcinoma of lung Neutropenic sepsis- resolved Pancytopenia Palliative care recommendations: -Discontinue codeine as patient and family feel that it has been of no benefit. -Start MS Contin ER 15mg PO BID. Fentanyl patch was taken into consideration, but patient knows morphine has worked in the past and it may help his respiratory status. -Decrease Oxycodone IR to 5mg PO Q4h pain. -Start mirtazapine 15mg PO QHS. -Continue Tessalon Perles, viscous lidocaine. -Avoid Ambien. -Consider something else for anxiety as needed, patient declined at this time. He denies depression. -Will have bronchoscopy tomorrow and XRT on Thursday. Thank you kindly for this consult. I will continue to follow.
[2016-12-22] MEDS: OXYCODONE HCL IR 5 MG TAB (IMMEDIATE RELEASE) PO PRN ×3 (14:07→22:08)
[2016-12-22] MEDS: MoRPHine SULFATE CR 15 MG TAB (MS CONTIN) PO SCH ×2 (14:48→21:14)
[2016-12-22] MEDS: HEPARIN SOD 5000 UNIT/0.5 ML CARP SQ SCH ×2 (14:48→21:15)
--- NOTE | 2016-12-22 17:55 | SURGERY PROGRESS NOTE ---
DATE: 12/22/2016 SUBJECTIVE: Mr. Schroeder was seen. He still has a persistent cough with pain in his chest. This is undoubtably due to the stent. I reviewed the CT scan done 48 hours ago and I think the position of the stent is very good. His left lung is aerated. His white count and platelet counts have both rebounded. His lungs sound better. He still coughs quite a bit. He is also having with this. I discussed this with Dr. Laguna. Dr. Laguna and I had a long discussion today about the ultimate disposition with the stent. It is causing him a significant amount of pain; however, he had an obstructing cancer while I debulked it, he still has tumor here. I would feel better if he gets more radiation and also another cycle of chemotherapy. I probably would like to give him another 2 weeks or so before removing it. Hopefully, this small cell neuroendocrine tumor will respond to chemotherapy and radiation. It is my hope that his cough and his pain improves when we remove the stent. Dr. Laguna is going to bronchoscope him to evaluate this stent placement and the endobronchial abnormalities were seen that may be due to just mucus. [facility]
--- NOTE | 2016-12-22 18:09 | Infectious Disease Progress Nt ---
Progress Note Date of Service Dec 22, 2016. Subjective Pt evaluation today including: conversation w/ patient, physical exam, chart review, lab review, review of studies, conversation w/ fitness sales consultant, review of inpatient medication list Pulmonary and thoracic surgery follow-up noted. Patient remains afebrile, white count improved. Still with sore throat and substernal chest pain. No worsening hemoptysis. All Other Systems: Reviewed and Negative Medications Current Inpatient Medications Medications (Trade) Dose Ordered Sig/Aron Route Start Time Stop Time Status Last Admin Dose Admin Acetaminophen (Tylenol Tab) 650 mg Q4H PRN PO 12/16/16 17:00 01/15/17 16:59 12/20/16 18:19 650 MG Al Hydrox/Mg Hydrox/Simethicone (Maalox Max Susp) 15 ml Q4H PRN PO 12/16/16 17:00 01/15/17 16:59 12/19/16 14:22 15 ML Magnesium Hydroxide (Milk Of Magnesia Susp) 30 ml Q6H PRN PO 12/16/16 17:00 01/15/17 16:59 12/21/16 23:37 30 ML Polyethylene (Miralax Powder Packet) 17 gm DAILY PRN PO 12/16/16 17:15 01/15/17 17:14 Ondansetron HCl (Zofran Inj) 4 mg Q6H PRN IV 12/16/16 17:00 01/15/17 16:59 Baclofen (Lioresal Tab) 10 mg BID PO 12/16/16 20:00 01/15/17 19:59 12/22/16 07:41 10 MG Rosuvastatin Calcium (Crestor Tab) 10 mg QAM PO 12/17/16 08:00 01/16/17 07:59 12/22/16 07:41 10 MG Tamsulosin HCl (Flomax Cap) 0.4 mg QAM PO 12/17/16 08:00 01/16/17 07:59 12/21/16 20:55 0.4 MG Albuterol (Ventolin Hfa Inhaler) 1 puffs Q4H PRN INH 12/16/16 17:00 01/15/17 16:59 12/20/16 20:10 1 PUFFS Albuterol/ Ipratropium (Duoneb) 3 ml Q4R INH 12/16/16 20:00 01/15/17 19:59 12/22/16 14:31 3 ML Pantoprazole Sodium (Protonix Tab) 40 mg QAM PO 12/17/16 08:00 01/16/17 07:59 12/22/16 07:41 40 MG Lactobacillus Acidophilus (Floranex Tab) 4 tab TIDM PO 12/17/16 07:30 01/16/17 07:59 12/22/16 12:10 4 TAB Menthol (Nice Alix) 1 alix PRN PRN PO 12/16/16 22:00 01/15/17 21:59 Benzonatate (Tessalon Perles Cap) 100 mg TID PO 12/17/16 14:00 01/16/17 13:59 12/22/16 12:09 100 MG Nystatin (Mycostatin Susp) 5 ml QID PO 12/18/16 13:45 12/28/16 13:44 12/22/16 12:09 5 ML Lidocaine HCl (Viscous Lidocaine 2% Soln) 1 ml QID PRN PO 12/18/16 18:00 01/17/17 17:59 12/22/16 14:07 20 ML Dextromethorphan Polymer Complex (Delsym Susp) 30 mg Q8H PRN PO 12/19/16 18:00 01/18/17 17:59 12/22/16 14:07 30 MG Diclofenac Sodium (Voltaren 1% Top Gel) 1 appln QID EXT 12/20/16 13:00 01/19/17 12:59 12/22/16 12:10 1 APPLN Levofloxacin (Levaquin Tab) 750 mg DAILY@1300 PO 12/20/16 13:00 12/27/16 12:59 12/22/16 12:09 750 MG Miscellaneous Information (Order Awaiting Action) 1 ea QS N/A 12/21/16 00:00 01/20/17 00:00 Ketorolac Tromethamine (Toradol Inj) 15 mg Q6H PRN IV. 12/21/16 15:15 12/26/16 15:14 Albuterol/ Ipratropium (Duoneb) 3 ml Q2H PRN INH 12/22/16 09:00 01/21/17 08:59 12/22/16 16:43 3 ML Oxycodone HCl (Roxicodone Immediate Rel Tab) 5 mg Q4H PRN PO 12/22/16 12:15 01/05/17 12:14 12/22/16 14:07 5 MG Mirtazapine (Remeron Tab) 15 mg HS PO 12/22/16 21:00 01/21/17 20:59 Enteral Nutritional Formula (Boost Plus Vanilla) 1 can BID PO 12/22/16 20:00 01/21/17 19:59 Heparin Sodium (Porcine) (Heparin Sq 5000 Unit/0.5ml) 5,000 unit Q8 SQ 12/22/16 14:00 01/21/17 13:59 Future hold 12/22/16 14:48 5,000 UNIT Morphine Sulfate (Oramorph Sr Tab) 15 mg Q12 PO 12/22/16 14:15 01/05/17 14:14 12/22/16 14:48 15 MG Objective Vital Signs Date Time Temp Pulse Resp B/P (MAP) Pulse Ox O2 Delivery O2 Flow Rate FiO2 12/22/16 16:48 88 18 95 Room Air 12/22/16 16:02 93 Room Air 12/22/16 15:41 36.8 99 18 149/73 (98) 93 Room Air 12/22/16 14:32 59 22 93 Room Air 12/22/16 11:33 37.4 58 18 131/76 (94) 96 Room Air 12/22/16 11:29 85 16 96 Room Air 12/22/16 07:47 Room Air 12/22/16 07:10 81 16 96 Room Air 12/22/16 07:06 36.8 82 18 164/81 (108) 97 Room Air 12/22/16 04:04 36.9 91 20 157/66 (96) 93 Room Air 12/22/16 00:00 96 Room Air 12/21/16 23:26 36.8 96 18 126/69 (88) 96 Room Air 12/21/16 23:15 95 20 95 Room Air 12/21/16 20:00 96 Room Air 12/21/16 19:32 36.6 112 20 107/55 (72) 96 Room Air 12/21/16 18:57 107 20 95 Room Air Physical Exam General Appearance: WD/WN, no apparent distress Eyes: normal inspection, EOMI, sclerae normal ENT: normal ENT inspection, pharynx normal Neck: supple, no adenopathy, no carotid bruits Respiratory/Chest: chest non-tender, no respiratory distress, no accessory muscle use, + rhonchi Cardiovascular: regular rate, rhythm, no gallop, no murmur Abdomen: normal bowel sounds, non tender, soft, no organomegaly Extremities: non-tender, no calf tenderness Neurologic/Psychiatric: alert, oriented x 3 Skin: normal color, no rash Lymphatic: no adenopathy Laboratory Results RUN DATE: 12/22/16 [facility] PAGE 1 RUN TIME: 0655 Specimen Inquiry PATIENT: NOLBERTO TARANGO LOC: [facility] U # : [id number] AGE/SX: 66/M ROOM: E412 REG : 12/16/[address]: Nicolle Henley M.D. : 1950 BED: 1 DIS : STATUS: ADM IN TLOC: SPEC #: [id number] KENNETH: 12/16/16 STATUS: TERRELL REQ #: [id number] RECD: 12/16/16 [facility] DR: Miguel Curry MD SOURCE: BLOOD ENTR: 12/16/[address]: Sagar Mccray M.D. [facility]: Tatum Stark MD ORDERED: BLOOD CULTURE Procedure Result Verified Site BLD CULT Final 12/22/16-653 NO GROWTH Patient Name: NOLBERTO TARANGO Unit Number: [id number] Dictated: 12/20/161231 Transcribed: 12/20/161231 MURRAY Printed Date/Time: [~ rep prt dt]/[~ rep prt tm] [~ rep ct labl] - [~ rep ct ivnm] [place] [address] Dictated: 12/20/161231 Transcribed: 12/20/161231 MURRAY Printed Date/Time: [~ rep prt dt]/[~ rep prt tm] [~ rep ct labl] - [~ rep ct ivnm] CT OF THE CHEST WITHOUT IV CONTRAST CLINICAL HISTORY: Chronic cough. Possible bronchial stent migration. Lung cancer. COMPARISON STUDY: PET/CT November 10, 2016 and chest radiograph December 18, 2016. CT DOSE: 255.01 mGy.cm TECHNIQUE: Axial images of the chest were obtained without IV contrast. Images were reviewed in the axial, sagittal, and coronal planes. IV contrast was not administered for this examination. A dose lowering technique was utilized adhering to the principles of ALARA. FINDINGS: No pathologically enlarged thoracic lymph nodes are present. There are several prominent aortopulmonary window lymph nodes that measure up to 9 mm in short axis diameter. The size of the heart is normal. No pericardial effusion. A stent within the left mainstem bronchus is noted. The bronchial stent is patent. There is minimal material/debris within the posterior aspect of the stent. Note is made of a 9 mm soft tissue density along the anterior wall of the left mainstem bronchus just distal to the stent. The patient is status post left upper lobectomy. There is multifocal narrowing and irregularity of segmental bronchi to the left lung which is suboptimally assessed due to respiratory motion. Left perihilar opacity has developed since PET/CT of November 10, 2016. There are tree-in-bud nodules within the inferior aspect of the left hepatic lobe as well. Left hemithorax volume loss is expected. There is no pneumothorax. A healing bilateral rib fractures. A right renal cyst is partially imaged on this exam. Upper abdomen is otherwise unremarkable. There is a small hiatal hernia. IMPRESSION: 1. Patent, appropriately positioned within the left mainstem bronchus. Minimal material/debris within the posterior aspect of the stent. 9 mm soft tissue density along the anterior wall of the distal mainstem bronchus, just distal to the stent may reflect tumor with mild airway narrowing. 2. Multifocal narrowing/occlusion of segmental bronchi within the left lung which is difficult to assess due to respiratory motion. 3. Interval development of left perihilar opacity which may reflect postradiation pneumonitis or an infectious process. 4. Tree-in-bud nodules within the left lower lung which favor an infectious process such as bronchiolitis/bronchopneumonia. Electronically signed by: Girma Gonzáles M.D. 12/20/2016 12:50 PM Dictated Date/Time: 12/20/2016 12:32 PM The status of this report is Signed. Draft = Not yet reviewed or approved by Radiologist. Signed = Reviewed and approved by Radiologist. <AttendingPhy>Edson Oconnell D.O.</AttendingPhy> <FamilyPhy>Sagar Mccray M.D.</FamilyPhy> <PrimaryPhy>Sagar Mccray M.D.</PrimaryPhy> <UnitNumber> [id number]</UnitNumber> <VisitNumber>[id number]</VisitNumber> <PatientName> NOLBERTO TARANGO</PatientName> <DateOfBirth>1950</DateOfBirth> <Location>[facility] </Location> <ServiceDate></ServiceDate> <MNE>ESINDI</MNE> <OrderingPhy> Catrachito Laguna MD</OrderingPhy> <OrderingPhyMNE>f rep ord dr wheat</ OrderingPhyMNE> <DictatingPhyMNE>f rep dict dr wheat</DictatingPhyMNE> <CCListMNE> f rep ct mne</CCListMNE> <AdmittingPhyMNE>f pt admit dr wheat</AdmittingPhyMNE> < AttendingPhyMNE>f pt attend dr wheat</AttendingPhyMNE> <ConsultingPhyMNE>f pt consult dr wheat</ConsultingPhyMNE> <FamilyPhyMNE>f pt fam dr wheat</FamilyPhyMNE> <OtherPhyMNE>f pt other dr wheat</OtherPhyMNE> < PrimaryPhyMNE>f pt prim care dr wheat</PrimaryPhyMNE> <ReferringPhyMNE>f pt referring dr wheat</ReferringPhyMNE> Assessment and Plan 66-year-old male with recurrent neuroendocrine tumor of the lung on chemotherapy and radiation therapy, presented with fever with neutropenia and encephalopathy. Patient appears to be improving and WBC recovered. Would recommend completion of therapy with oral levofloxacin. Will discuss with all involved.
[2016-12-22] MEDS ORDERED: MoRPHine SULFATE CR 15 MG TAB (MS CONTIN) PO SCH (20:00)
[2016-12-22] MEDS: MIRTAZAPINE TAB 15 MG TAB PO SCH (21:12)
[2016-12-22] MEDS: ACETAMINOPHEN 325 MG TAB PO PRN (23:21)
[2016-12-23] VITALS (25 sets, daily range): BP systolic 90–189; BP diastolic 57–95; PULSE 80–122; TEMP 36.5–39.5; O2SAT 90–100
[2016-12-23] MEDS ORDERED: NURSING VERBAL MED ORDER ONE ×3 (00:30→15:30)
[2016-12-23] MEDS ORDERED: OXYCODONE HCL IR 5 MG TAB (IMMEDIATE RELEASE) PO ONE (00:30)
[2016-12-23] MEDS: OXYCODONE HCL IR 5 MG TAB (IMMEDIATE RELEASE) PO PRN ×2 (03:05→23:37)
[2016-12-23] MEDS: ALBUT/IPRATROP 3MG/0.5MG NEB 3 ML VIAL INH SCH ×6 (03:57→23:41)
--- NOTE | 2016-12-23 07:42 | Radiation Oncology Progress Nt ---
Radiation Oncology Progress Nt Date of Service Date of Service: 12/22/2016 Reason For Admission Pulmonary symptoms Requesting Physician Dr. 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 Laguna and Hospitalist) Radiation Therapy Has patient started Radiation: Yes Number of Treatments Received: 3 Number of Treatments Planned: 30 Current Chemotherapy: Yes Objective Vital Signs Date Time Temp Pulse Resp B/P (MAP) Pulse Ox O2 Delivery O2 Flow Rate FiO2 12/23/16 07:07 80 12 95 Room Air 12/23/16 03:26 36.7 92 20 114/75 (88) 92 Room Air 12/23/16 00:20 38.4 91 18 108/67 (81) 92 Room Air 12/23/16 00:00 Room Air 12/22/16 23:36 114 16 95 Room Air 12/22/16 19:19 37.5 101 20 116/72 (87) 94 Room Air 12/22/16 16:48 88 18 95 Room Air 12/22/16 16:02 93 Room Air 12/22/16 15:41 36.8 99 18 149/73 (98) 93 Room Air 12/22/16 14:32 59 22 93 Room Air 12/22/16 11:33 37.4 58 18 131/76 (94) 96 Room Air 12/22/16 11:29 85 16 96 Room Air 12/22/16 07:47 Room Air Physical Exam General Appearance: + mild distress Eyes: normal inspection ENT: normal ENT inspection Neck: supple, no adenopathy Respiratory/Chest: + respiratory distress, + decreased breath sounds Abdomen: normal bowel sounds, non tender, soft, no organomegaly Extremities: normal range of motion Neurologic/Psychiatric: ems educator II-XII nml as tested, alert, + disoriented Radiological Studies CT OF THE CHEST WITHOUT IV CONTRAST CLINICAL HISTORY: Chronic cough. Possible bronchial stent migration. Lung cancer. COMPARISON STUDY: PET/CT November 10, 2016 and chest radiograph December 18, 2016. CT DOSE: 255.01 mGy.cm TECHNIQUE: Axial images of the chest were obtained without IV contrast. Images were reviewed in the axial, sagittal, and coronal planes. IV contrast was not administered for this examination. A dose lowering technique was utilized adhering to the principles of ALARA. FINDINGS: No pathologically enlarged thoracic lymph nodes are present. There are several prominent aortopulmonary window lymph nodes that measure up to 9 mm in short axis diameter. The size of the heart is normal. No pericardial effusion. A stent within the left mainstem bronchus is noted. The bronchial stent is patent. There is minimal material/debris within the posterior aspect of the stent. Note is made of a 9 mm soft tissue density along the anterior wall of the left mainstem bronchus just distal to the stent. The patient is status post left upper lobectomy. There is multifocal narrowing and irregularity of segmental bronchi to the left lung which is suboptimally assessed due to respiratory motion. Left perihilar opacity has developed since PET/CT of November 10, 2016. There are tree-in-bud nodules within the inferior aspect of the left hepatic lobe as well. Left hemithorax volume loss is expected. There is no pneumothorax. A healing bilateral rib fractures. A right renal cyst is partially imaged on this exam. Upper abdomen is otherwise unremarkable. There is a small hiatal hernia. IMPRESSION: 1. Patent, appropriately positioned within the left mainstem bronchus. Minimal material/debris within the posterior aspect of the stent. 9 mm soft tissue density along the anterior wall of the distal mainstem bronchus, just distal to the stent may reflect tumor with mild airway narrowing. 2. Multifocal narrowing/occlusion of segmental bronchi within the left lung which is difficult to assess due to respiratory motion. 3. Interval development of left perihilar opacity which may reflect postradiation pneumonitis or an infectious process. 4. Tree-in-bud nodules within the left lower lung which favor an infectious process such as bronchiolitis/bronchopneumonia. Assessment and Plan We have discussed the patients care with the primary hospital service. The patients reason for admission is unrelated to radiation therapy but most likely related to pulmonary symptoms secondary to his cancer. The primary hospital service has recommended the patient continue with radiation therapy while in the inpatient setting. I have discussed the case with Dr. Laguna who plans to bring the patient to the OR tomorrow for a bronchoscopy and I have discussed the case with the family and patient. At this point, we will hold radiation therapy until Thursday after his procedure is completed at the request of Dr. Laguna and the patient. Please call us with any further questions or concerns or if the patients condition changes during her hospital admission.
[2016-12-23] MEDS: LACTOBACILLUS ACIDOPHILUS (FLORANEX) TAB PO SCH ×3 (08:00→17:35)
[2016-12-23] MEDS: BOOST PLUS VANILLA PO SCH ×4 (08:00→20:28)
[2016-12-23] MEDS: DICLOFENAC SOD 1% GEL 100 GM TUBE EXT SCH ×4 (08:00→20:28)
[2016-12-23] MEDS: NYSTATIN SUSP 500,000 U/5 ML UDC PO SCH ×4 (08:00→20:30)
--- NOTE | 2016-12-23 08:13 | Procedure Note ---
Pre-Mod Sedation Assessment General Date of Moderate Sedation: Dec 23, 2016. Vital Signs: Vital Signs Past 12 Hours Date Time Temp Pulse Resp B/P (MAP) Pulse Ox O2 Delivery O2 Flow Rate FiO2 12/23/16 07:58 36.8 88 18 121/69 (86) 91 Room Air 12/23/16 07:07 80 12 95 Room Air 12/23/16 03:26 36.7 92 20 114/75 (88) 92 Room Air 12/23/16 00:20 38.4 91 18 108/67 (81) 92 Room Air 12/23/16 00:00 Room Air 12/22/16 23:36 114 16 95 Room Air Review Cardiovascular: regular rate, rhythm, no edema, no gallop, no JVD, no murmur, normal peripheral pulses Abdomen: normal bowel sounds, non tender, soft, no organomegaly, no pulsatile mass Lungs: + pertinent finding (NAWAF rhonchi ) Pre-Sedation Airway Assessment Oral Cavity: WNL Able to Visualize Vocal Cords: Yes Short Thick Neck: No Hx of Sleep Apnea: No Smoking Status: Never Smoker ASA Classification: Class IV Procedure Planning Contraindications-for Mod Sed: None Yes Notes The planned sedation has been discussed with the patient and consent obtained. I have identified the patient, determined the appropriateness of sedation and have assessed the patient immediately prior to the procedure. All medicine(s) and interventions are by my order.
--- NOTE | 2016-12-23 09:00 | Procedure Note ---
Post-Moderate Sedation Plan General Date of Moderate Sedation Dec 23, 2016. Vital Signs: Vital Signs Past 12 Hours Date Time Temp Pulse Resp B/P (MAP) Pulse Ox O2 Delivery O2 Flow Rate FiO2 12/23/16 08:36 Room Air 12/23/16 07:58 36.8 88 18 121/69 (86) 91 Room Air 12/23/16 07:07 80 12 95 Room Air 12/23/16 03:26 36.7 92 20 114/75 (88) 92 Room Air 12/23/16 00:20 38.4 91 18 108/67 (81) 92 Room Air 12/23/16 00:00 Room Air 12/22/16 23:36 114 16 95 Room Air Review - Discharge Plan Post Moderate Sedation Plan: On clinical assessment, the patient appears to have tolerated the conscious sedation without complications. Patient is recovering as anticipated. Patient will continue to be monitored by nursing and may be discharged when conscious sedation discharge criteria are met.
--- NOTE | 2016-12-23 09:00 | Procedure Note ---
Pre-Mod Sedation Assessment General Date of Moderate Sedation: Dec 23, 2016. Vital Signs: Vital Signs Past 12 Hours Date Time Temp Pulse Resp B/P (MAP) Pulse Ox O2 Delivery O2 Flow Rate FiO2 12/23/16 08:36 Room Air 12/23/16 07:58 36.8 88 18 121/69 (86) 91 Room Air 12/23/16 07:07 80 12 95 Room Air 12/23/16 03:26 36.7 92 20 114/75 (88) 92 Room Air 12/23/16 00:20 38.4 91 18 108/67 (81) 92 Room Air 12/23/16 00:00 Room Air 12/22/16 23:36 114 16 95 Room Air Review Cardiovascular: regular rate, rhythm, no edema, no gallop, no JVD, no murmur, normal peripheral pulses Abdomen: normal bowel sounds, non tender, soft, no organomegaly, no pulsatile mass Lungs: + pertinent finding (NAWAF rhonchi ) Pre-Sedation Airway Assessment Oral Cavity: WNL Able to Visualize Vocal Cords: Yes Short Thick Neck: No Hx of Sleep Apnea: No Smoking Status: Never Smoker Notes The planned sedation has been discussed with the patient and consent obtained. I have identified the patient, determined the appropriateness of sedation and have assessed the patient immediately prior to the procedure. All medicine(s) and interventions are by my order.
--- NOTE | 2016-12-23 09:13 | Bronchoscopy Procedure Note ---
Bronchoscopy Procedure Note Procedure: Bronchoscopy, conscious sedation, Consent: Obtained through the patient placed into the chart Pre-procedural diagnosis: Neuroendocrine carcinoma with acute cough on chronic Post-procedural diagnosis: Neuroendocrine carcinoma with acute on chronic cough Start time: 819 End time: 835 Total time: minutes Analgesia: 2% liquid lidocaine: Via nebulizer 2% liquid lidocaine: Via bronchoscopy Sedation: Versed IV: 4mg Fentanyl IV: 100 g Procedure: The Olympus video bronchoscope was used for this procedure and passed down through the right naris Oral Cavity/Posterior naris/posterior oropharynx: Anatomically within normal limits Glottis: Anatomically within normal limits Vocal cords: Proper abduction and abduction, anatomically within normal limits Subglottis/trachea/Slim: Subglottic with right cricoid polyp approximately 7: 00 position. Alveolus 14 x 30 mm stent at the level of the left mainstem with some mucoid material no signs of acute granulation and/or ischemic changes localized around the stent itself. The second intruded into the trachea approximate 3 mm Right bronchial tree: Right mainstem bronchus: Anatomically within normal limits Right upper lobe: Anatomically within normal limits Bronchus intermedius: Anatomically within normal limits Right middle lobe: Anatomically within normal limits Right lower lobe: Anatomically within normal limits Findings: No significant findings noted Left bronchial tree: Left mainstem bronchus: Alveolus 14 x 30 mm stent starting at the takeoff to the left mainstem going down 3 cm was approximately 2.5 cm with the left mainstem uncovered. There is signs of granulation tissue possibly tumor as well as diffuse erythema. Left upper lobe: The secondary slim the left upper and left lower lobes was notably erythematous and splayed. The left upper lobe was closed suture line in place Left lower lobe: The takeoff to the left lower lobe was narrowed notably erythematous with signs of mucosal changes possibly suggestive of neuroendocrine carcinoma. I was able to introduce the scope into the left lower lobe and final subsegment's. There were all notably erythematous and with mild collapse no signs of severe external compression noted. Findings: Diffuse granulomatous, erythematous and possibly cancerous changes or even secondary to cryoprobe debridement. Bronchial alveolar lavage: Left lower lobe approximate 60 cc with 25-30 cc returned EBL: Complications: None Follow-up: In the [facility]
[2016-12-23] MEDS ORDERED: FENTANYL CITRATE INJ 50 MCG/1 ML 2 ML VIAL IV SCH (09:30)
[2016-12-23] MEDS ORDERED: MIDAZOLAM HCL 5 MG/ML 1 ML VIAL IV SCH (09:30)
--- NOTE | 2016-12-23 09:57 | SURGERY PROGRESS NOTE ---
DATE: 12/23/2016 Mr. Schroeder was seen with Dr. Laguna today in the bronch suite. He is to undergo a fiberoptic bronchoscopy today. I have discussed this case in detail with Dr. Laguna. The patient's cough was a bit better last night. He did not have the "intensity" that it's had in the past. One of the issues with DrGordo Schroeder is the fact that he spiked a temperature to 38.4. His white count from yesterday was 8600 and his platelet count was 126,000, today it is pending. We still have not grown anything out. Interestingly enough, Dr. Laguna noted that his turbinates appeared inflamed. He also saw inflammation in the lower lobe subsegmental airways. There really was not a whole lot of sputum, although there was some around the stent, particularly proximally near the slim. He did do a bronchial lavage which will be of interest to see. Dr. Laguna and I have discussed this patient's progress going forward. I believe that a repeat endoscopy in the near future and then determination about whether to remove the stent will be made.
[2016-12-23 10:14] LABS: BUN/CREATININE RATIO 10.4 (10-20); CALCIUM 8.6 mg/dl (8.5-10.1); CREATININE 1.1 mg/dl (0.60-1.40); POTASSIUM 3.7 mmol/L (3.5-5.1)
[2016-12-23 10:17] LABS: ALB/GLOB RATIO 0.7 (0.9-2)
[2016-12-23 10:18] LABS: HEMATOCRIT 26.1 % (42-52); MEAN CELL VOLUME 89.4 fL (80-100); MEAN CORPUSCULAR HEMOGLOBIN 29.1 pg (25-34); MEAN CORPUSCULAR HGB CONC 32.6 g/dl (32-36); MEAN PLATELET VOLUME 9.6 fL (7.4-10.4); PLATELET COUNT 292 K/uL (130-400); RED BLOOD COUNT 2.92 M/uL (4.7-6.1); WHITE BLOOD COUNT 8.56 K/uL (4.8-10.8)
[2016-12-23 10:24] LABS: BASO % 0.2 %; BASO ABS # 0.02 K/uL (0-0.2); COMPLETE YES; DOHLE BODIES 1+; EOS % 0.2 %; IG% 4.6 %; LYMPH % 12.1 %; LYMPH ABS # 1.04 K/uL (1.2-3.4); MONO % 15.2 %; NEUT % 67.7 %; TOXIC GRANULATION 2+
[2016-12-23 10:25] LABS: ELLIPTOCYTES 1+
[2016-12-23] MEDS: TAMSULOSIN HCL 0.4 MG CAP PO SCH (10:57)
[2016-12-23] MEDS: ROSUVASTATIN CALCIUM 10 MG TAB PO SCH (10:57)
[2016-12-23] MEDS: BENZONATATE 100MG CAP PO SCH ×3 (10:58→20:30)
[2016-12-23] MEDS: MoRPHine SULFATE CR 15 MG TAB (MS CONTIN) PO SCH (10:58)
[2016-12-23] MEDS: PANTOprazole SOD 40 MG TAB PO SCH (10:58)
[2016-12-23] MEDS: BACLOFEN 10 MG TAB PO SCH ×2 (10:58→20:29)
[2016-12-23 12:29] LABS: HEMATOCRIT 26.9 % (42-52); MEAN CELL VOLUME 90.3 fL (80-100); MEAN CORPUSCULAR HEMOGLOBIN 30.2 pg (25-34); MEAN CORPUSCULAR HGB CONC 33.5 g/dl (32-36); MEAN PLATELET VOLUME 9.8 fL (7.4-10.4); PLATELET COUNT 309 K/uL (130-400); RED BLOOD COUNT 2.98 M/uL (4.7-6.1); WHITE BLOOD COUNT 10.83 K/uL (4.8-10.8)
--- NOTE | 2016-12-23 12:44 | DIAGNOSTIC IMAGING REPORT ---
CHEST ONE VIEW PORTABLE CLINICAL HISTORY: fever, unclear etiology; history of neutropenia; follow PNA fever COMPARISON STUDY: 12/18/2016 FINDINGS: Moderately progressive left perihilar and left midlung infiltrate. Slightly progressive left pleural effusion. Right lung remains generally clear. There is mild bronchovascular prominence of the right hemithorax. IMPRESSION: Moderately progressive left perihilar and midlung infiltrate. Small slightly progressive left basilar pleural effusion The above report was generated using voice recognition software. It may contain grammatical, syntax or spelling errors. Electronically signed by: Ariel Torrez M.D. 12/23/2016 12:43 PM Dictated Date/Time: 12/23/2016 12:41 PM
[2016-12-23 12:56] LABS: BUN/CREATININE RATIO 11.5 (10-20); CALCIUM 8.9 mg/dl (8.5-10.1); CREATININE 1.1 mg/dl (0.60-1.40); POTASSIUM 4.1 mmol/L (3.5-5.1)
[2016-12-23 13:03] LABS: BASO % 0.2 %; BASO ABS # 0.02 K/uL (0-0.2); COMPLETE YES; EOS % 0.1 %; IG% 3.5 %; LYMPH % 8.5 %; LYMPH ABS # 0.92 K/uL (1.2-3.4); MONO % 9.2 %; NEUT % 78.5 %; OVALOCYTES 1+; TOXIC GRANULATION 1+
[2016-12-23] MEDS: LEVOFLOXACIN 750 MG TAB PO SCH (13:23)
[2016-12-23] MEDS: ACETAMINOPHEN 325 MG TAB PO PRN (14:33)
[2016-12-23] MEDS: HEPARIN SOD 5000 UNIT/0.5 ML CARP SQ SCH ×2 (14:34→21:36)
[2016-12-23] MEDS: KETOROLAC TROMETHAMINE 15 MG/ML VIAL IV. PRN (14:35)
--- NOTE | 2016-12-23 15:16 | Palliative Care Progress Note ---
Palliative Care Progress Note Date of Service Dec 23, 2016. Subjective Pt evaluation today including: conversation w/ patient, conversation w/ family , physical exam, chart review, conversation w/ organizational consultant, review of inpatient medication list Pain: "still bad" -Patient confused and groggy after bronchoscopy this morning. He still has laryngeal pain and severe cough. -Limited ROS due to above -Patient had bad night. Got his dose of MS Contin and Remeron. Became quite confused over night. -Is febrile at 39.3C. Hypertensive Review of Systems ENT: + sore throat, No trouble swallowing Respiratory: + cough Cardiac: No chest pain Abdomen: No nausea, No vomiting Objective Vital Signs Date Time Temp Pulse Resp B/P (MAP) Pulse Ox O2 Delivery O2 Flow Rate FiO2 12/23/16 14:26 39.5 122 24 124/80 (95) 93 Nasal Cannula 4.0 12/23/16 11:52 39.3 108 22 189/91 (123) 90 Room Air 12/23/16 11:26 108 30 90 Nasal Cannula 5.0 12/23/16 09:00 93 21 157/94 96 Nasal Cannula 4.0 12/23/16 08:55 96 21 154/95 96 Nasal Cannula 4.0 12/23/16 08:50 96 21 132/82 94 Nasal Cannula 4.0 12/23/16 08:45 97 20 134/78 97 Mask 8.0 12/23/16 08:40 95 15 147/80 98 Mask 8.0 12/23/16 08:36 Room Air 12/23/16 08:35 105 22 132/77 99 Mask 8.0 12/23/16 08:30 108 18 124/79 98 Mask 8.0 12/23/16 08:25 90 18 148/81 98 Mask 8.0 12/23/16 08:05 91 21 154/88 100 Mask 8.0 12/23/16 07:58 36.8 88 18 121/69 (86) 91 Room Air 12/23/16 07:07 80 12 95 Room Air 12/23/16 03:26 36.7 92 20 114/75 (88) 92 Room Air 12/23/16 00:20 38.4 91 18 108/67 (81) 92 Room Air 12/23/16 00:00 Room Air 12/22/16 23:36 114 16 95 Room Air 12/22/16 19:19 37.5 101 20 116/72 (87) 94 Room Air 12/22/16 16:48 88 18 95 Room Air 12/22/16 16:02 93 Room Air 12/22/16 15:41 36.8 99 18 149/73 (98) 93 Room Air Physical Exam General Appearance: + pertinent finding (no distress but appears uncomfortable in the bed from cough and confusion) ENT: hearing grossly normal Neck: supple, no JVD Respiratory/Chest: no respiratory distress, no accessory muscle use, + decreased breath sounds Cardiovascular: regular rate, rhythm, no edema Abdomen: non tender, soft Neurologic/Psychiatric: + disoriented Laboratory Results Last 24 Hours Test 12/23/16 09:25 12/23/16 11:49 12/23/16 12:09 White Blood Count 8.56 K/uL 10.83 K/uL Red Blood Count 2.92 M/uL 2.98 M/uL Hemoglobin 8.5 g/dL 9.0 g/dL Hematocrit 26.1 % 26.9 % Mean Corpuscular Volume 89.4 fL 90.3 fL Mean Corpuscular Hemoglobin 29.1 pg 30.2 pg Mean Corpuscular Hemoglobin Concent 32.6 g/dl 33.5 g/dl Platelet Count 292 K/uL 309 K/uL Mean Platelet Volume 9.6 fL 9.8 fL Neutrophils (%) (Auto) 67.7 % 78.5 % Lymphocytes (%) (Auto) 12.1 % 8.5 % Monocytes (%) (Auto) 15.2 % 9.2 % Eosinophils (%) (Auto) 0.2 % 0.1 % Basophils (%) (Auto) 0.2 % 0.2 % Neutrophils # (Auto) 5.79 K/uL 8.50 K/uL Lymphocytes # (Auto) 1.04 K/uL 0.92 K/uL Monocytes # (Auto) 1.30 K/uL 1.00 K/uL Eosinophils # (Auto) 0.02 K/uL 0.01 K/uL Basophils # (Auto) 0.02 K/uL 0.02 K/uL RDW Standard Deviation 44.0 fL 45.5 fL RDW Coefficient of Variation 13.6 % 13.8 % Immature Granulocyte % (Auto) 4.6 % 3.5 % Immature Granulocyte # (Auto) 0.39 K/uL 0.38 K/uL Toxic Granulation 2+ 1+ Dohle Bodies 1+ Echinocytes Elliptocytes 1+ Sodium Level 138 mmol/L 139 mmol/L Potassium Level 3.7 mmol/L 4.1 mmol/L Chloride Level 103 mmol/L 103 mmol/L Carbon Dioxide Level 27 mmol/L 28 mmol/L Anion Gap 8.0 mmol/L 8.0 mmol/L Blood Urea Nitrogen 11 mg/dl 13 mg/dl Creatinine 1.10 mg/dl 1.10 mg/dl Est Creatinine Clear Calc Drug Dose 63.9 ml/min 63.9 ml/min Estimated GFR () 80.6 80.6 Estimated GFR (Non- 69.6 69.6 BUN/Creatinine Ratio 10.4 11.5 Random Glucose 88 mg/dl 86 mg/dl Calcium Level 8.6 mg/dl 8.9 mg/dl Total Bilirubin 0.4 mg/dl Aspartate Amino Transf (AST/SGOT) 31 U/L Alanine Aminotransferase (ALT/SGPT) 78 U/L Alkaline Phosphatase 324 U/L Total Protein 6.6 gm/dl Albumin 2.6 gm/dl Globulin 4.0 gm/dl Albumin/Globulin Ratio 0.7 Ovalocytes 1+ Lactic Acid Level 1.1 mmol/L Procalcitonin 0.58 ng/ml Assessment and Plan Problem list: Laryngeal pain Cough Decreased appetite Altered sleep pattern Large cell neuroendocrine carcinoma of lung Neutropenic sepsis- resolved Pancytopenia Palliative care plan: discussed with patient's and Dr. Do. -MS Contin was discontinued. May add some prednisone as airways looked irritated on bronch per Dr. Do who spoke with Dr. Laguna. -If pain persists, may consider adding fentanyl patch for pain. This patient's situation is complicated and nothing seems to help. I think mostly because the cough is causing much of the pain and the cough cannot be cured due to the stent placement. At this point, a pain management consult may need to be placed. -Also concerned that patient will not tolerate radiation therapy as he is not able to lie flat without violently coughing every couple minutes. I expressed my concern to Dr. Do. He will talk to Dr. Dari Avalos. Also spoke about this with the , who agrees that patient would be unable to tolerate at this time. Aside from sedating patient, not sure how he will be able to withstand radiation treatment.
[2016-12-23] MEDS ORDERED: SODIUM CHLORIDE 0.9% 1000ML 1,000 ML IV ONE (15:30)
[2016-12-23] MEDS ORDERED: PIPERACILL/TAZOBAC IV 3.375 GM in DEXTROSE 5% 100ML 100 ML IV ONE (16:00)
--- NOTE | 2016-12-23 16:28 | Family Medicine Progress Note ---
Progress Note Date of Service Dec 23, 2016. Subjective Pt evaluation today including: conversation w/ patient, conversation w/ family (), physical exam, chart review, lab review Pain: Throat pain with coughing Patient seen this morning post-bronch; tolerated procedure Continues to have throat pain with coughing Noted some ambulatory difficulty at nighttime -- > suspects morning No relief from pain with addition of Morphine Per EMR; noted to have been febrile overnight Called at 11:50, notifying second fever --> labs drawn, see plan Notified again approxiamtel 14:30, patient remains febrile At beside patient AO x3 states patient seems more confused; was apparently holding a meeting in the room but noone else in the room Constitutional: + fever, No chills Eyes: No worsening of vision, No eye pain, No redness, No discharge ENT: + sore throat, No hearing loss, No nasal symptoms Respiratory: + cough, + shortness of breath, No sputum, No wheezing Cardiovascular: No chest pain, No orthopnea, No PND, No claudication, No palpitations Abdomen: No pain, No nausea, No vomiting, No diarrhea, No constipation Musculoskeletal: No joint pain, No muscle pain Male : No dysuria, No urinary frequency Heme: No abnormal bleeding/bruising, No clotting problems, No swollen lymph nodes Endo: No fatigue, No excessive thirst, No excessive urination Skin: No rash, No itch, No new/changing skin lesions Medications Current Inpatient Medications Medications (Trade) Dose Ordered Sig/Aron Route Start Time Stop Time Status Last Admin Dose Admin Acetaminophen (Tylenol Tab) 650 mg Q4H PRN PO 12/16/16 17:00 01/15/17 16:59 12/23/16 14:33 650 MG Al Hydrox/Mg Hydrox/Simethicone (Maalox Max Susp) 15 ml Q4H PRN PO 12/16/16 17:00 01/15/17 16:59 12/19/16 14:22 15 ML Magnesium Hydroxide (Milk Of Magnesia Susp) 30 ml Q6H PRN PO 12/16/16 17:00 01/15/17 16:59 12/21/16 23:37 30 ML Polyethylene (Miralax Powder Packet) 17 gm DAILY PRN PO 12/16/16 17:15 01/15/17 17:14 Ondansetron HCl (Zofran Inj) 4 mg Q6H PRN IV 12/16/16 17:00 01/15/17 16:59 Baclofen (Lioresal Tab) 10 mg BID PO 12/16/16 20:00 01/15/17 19:59 12/23/16 10:58 10 MG Rosuvastatin Calcium (Crestor Tab) 10 mg QAM PO 12/17/16 08:00 01/16/17 07:59 12/23/16 10:57 10 MG Tamsulosin HCl (Flomax Cap) 0.4 mg QAM PO 12/17/16 08:00 01/16/17 07:59 12/23/16 10:57 0.4 MG Albuterol (Ventolin Hfa Inhaler) 1 puffs Q4H PRN INH 12/16/16 17:00 01/15/17 16:59 12/20/16 20:10 1 PUFFS Albuterol/ Ipratropium (Duoneb) 3 ml Q4R INH 12/16/16 20:00 01/15/17 19:59 12/23/16 15:24 3 ML Pantoprazole Sodium (Protonix Tab) 40 mg QAM PO 12/17/16 08:00 01/16/17 07:59 12/23/16 10:58 40 MG Lactobacillus Acidophilus (Floranex Tab) 4 tab TIDM PO 12/17/16 07:30 01/16/17 07:59 12/23/16 10:57 4 TAB Menthol (Nice Alix) 1 alix PRN PRN PO 12/16/16 22:00 01/15/17 21:59 Benzonatate (Tessalon Perles Cap) 100 mg TID PO 12/17/16 14:00 01/16/17 13:59 12/23/16 13:23 100 MG Nystatin (Mycostatin Susp) 5 ml QID PO 12/18/16 13:45 12/28/16 13:44 12/23/16 10:57 5 ML Lidocaine HCl (Viscous Lidocaine 2% Soln) 1 ml QID PRN PO 12/18/16 18:00 01/17/17 17:59 12/22/16 19:33 1 ML Dextromethorphan Polymer Complex (Delsym Susp) 30 mg Q8H PRN PO 12/19/16 18:00 01/18/17 17:59 12/22/16 21:13 30 MG Diclofenac Sodium (Voltaren 1% Top Gel) 1 appln QID EXT 12/20/16 13:00 01/19/17 12:59 12/23/16 13:24 1 APPLN Levofloxacin (Levaquin Tab) 750 mg DAILY@1300 PO 12/20/16 13:00 12/27/16 12:59 Future Hold 12/23/16 13:23 750 MG Miscellaneous Information (Order Awaiting Action) 1 ea QS N/A 12/21/16 00:00 01/20/17 00:00 Ketorolac Tromethamine (Toradol Inj) 15 mg Q6H PRN IV. 12/21/16 15:15 12/26/16 15:14 12/23/16 14:35 15 MG Albuterol/ Ipratropium (Duoneb) 3 ml Q2H PRN INH 12/22/16 09:00 01/21/17 08:59 12/22/16 16:43 3 ML Oxycodone HCl (Roxicodone Immediate Rel Tab) 5 mg Q4H PRN PO 12/22/16 12:15 01/05/17 12:14 12/23/16 03:05 5 MG Mirtazapine (Remeron Tab) 15 mg HS PO 12/22/16 21:00 01/21/17 20:59 12/22/16 21:12 15 MG Enteral Nutritional Formula (Boost Plus Vanilla) 1 can BID PO 12/22/16 20:00 01/21/17 19:59 12/22/16 21:14 1 CAN Heparin Sodium (Porcine) (Heparin Sq 5000 Unit/0.5ml) 5,000 unit Q8 SQ 12/22/16 14:00 01/21/17 13:59 Future hold 12/23/16 14:34 5,000 UNIT Morphine Sulfate (Oramorph Sr Tab) 15 mg Q12 PO 12/22/16 14:15 01/05/17 14:14 Future Hold 12/23/16 10:58 15 MG Prednisone (PredniSONE TAB) 60 mg DAILY PO 12/24/16 08:00 12/29/16 07:59 Prednisone (PredniSONE TAB) 60 mg 1400 ONCE PO 12/24/16 14:00 12/24/16 14:01 Sodium Chloride 1,000 ml @ 999 mls/hr Q1H1M ONCE IV 12/23/16 15:30 12/23/16 16:30 12/23/16 15:40 999 MLS/HR Vancomycin HCl 1000 mg/Sodium Chloride 270 ml @ 125 mls/hr Q12 IV 12/23/16 21:00 12/30/16 20:59 UNV Piperacillin Sod/ Tazobactam Sod 3.375 gm/Dextrose 115 ml @ 28.75 mls/ hr Q8 IV 12/23/16 22:00 12/30/16 13:59 Vancomycin HCl 1700 mg/Sodium Chloride 534 ml @ 125 mls/hr 1630 ONCE IV 12/23/16 16:30 12/23/16 20:46 Piperacillin Sod/ Tazobactam Sod 3.375 gm/Dextrose 115 ml @ 230 mls/hr 1600 ONCE IV 12/23/16 16:00 12/23/16 16:29 Objective Vital Signs Date Time Temp Pulse Resp B/P (MAP) Pulse Ox O2 Delivery O2 Flow Rate FiO2 12/23/16 15:38 38.1 106 96 Nasal Cannula 3.0 12/23/16 15:24 96 16 95 Nasal Cannula 4.0 12/23/16 14:26 39.5 122 24 124/80 (95) 93 Nasal Cannula 4.0 12/23/16 11:52 39.3 108 22 189/91 (123) 90 Room Air 12/23/16 11:26 108 30 90 Nasal Cannula 5.0 12/23/16 09:00 93 21 157/94 96 Nasal Cannula 4.0 12/23/16 08:55 96 21 154/95 96 Nasal Cannula 4.0 12/23/16 08:50 96 21 132/82 94 Nasal Cannula 4.0 12/23/16 08:45 97 20 134/78 97 Mask 8.0 12/23/16 08:40 95 15 147/80 98 Mask 8.0 12/23/16 08:36 Room Air 12/23/16 08:35 105 22 132/77 99 Mask 8.0 12/23/16 08:30 108 18 124/79 98 Mask 8.0 12/23/16 08:25 90 18 148/81 98 Mask 8.0 12/23/16 08:05 91 21 154/88 100 Mask 8.0 12/23/16 07:58 36.8 88 18 121/69 (86) 91 Room Air 12/23/16 07:07 80 12 95 Room Air 12/23/16 03:26 36.7 92 20 114/75 (88) 92 Room Air 12/23/16 00:20 38.4 91 18 108/67 (81) 92 Room Air 12/23/16 00:00 Room Air 12/22/16 23:36 114 16 95 Room Air 12/22/16 19:19 37.5 101 20 116/72 (87) 94 Room Air 12/22/16 16:48 88 18 95 Room Air Physical Exam General Appearance: WD/WN, no apparent distress, + pertinent finding (appears diaphoretic) Eyes: normal inspection, EOMI ENT: hearing grossly normal, pharynx normal Neck: supple, no adenopathy, no JVD Respiratory/Chest: chest non-tender, + respiratory distress, + pertinent finding (diminisehd breath sounds on right, baseline finding) Cardiovascular: no gallop, no murmur, + tachycardia Abdomen: normal bowel sounds, non tender, soft Extremities: non-tender, no pedal edema Neurologic/Psychiatric: alert, oriented x 3, + pertinent finding (Difficulty sustaining attenting; CAM delirium screen positive) Skin: normal color, warm/dry, no rash Lymphatic: no adenopathy Laboratory Results Last 24 Hours Test 12/23/16 09:25 12/23/16 11:49 12/23/16 12:09 White Blood Count 8.56 K/uL 10.83 K/uL Red Blood Count 2.92 M/uL 2.98 M/uL Hemoglobin 8.5 g/dL 9.0 g/dL Hematocrit 26.1 % 26.9 % Mean Corpuscular Volume 89.4 fL 90.3 fL Mean Corpuscular Hemoglobin 29.1 pg 30.2 pg Mean Corpuscular Hemoglobin Concent 32.6 g/dl 33.5 g/dl Platelet Count 292 K/uL 309 K/uL Mean Platelet Volume 9.6 fL 9.8 fL Neutrophils (%) (Auto) 67.7 % 78.5 % Lymphocytes (%) (Auto) 12.1 % 8.5 % Monocytes (%) (Auto) 15.2 % 9.2 % Eosinophils (%) (Auto) 0.2 % 0.1 % Basophils (%) (Auto) 0.2 % 0.2 % Neutrophils # (Auto) 5.79 K/uL 8.50 K/uL Lymphocytes # (Auto) 1.04 K/uL 0.92 K/uL Monocytes # (Auto) 1.30 K/uL 1.00 K/uL Eosinophils # (Auto) 0.02 K/uL 0.01 K/uL Basophils # (Auto) 0.02 K/uL 0.02 K/uL RDW Standard Deviation 44.0 fL 45.5 fL RDW Coefficient of Variation 13.6 % 13.8 % Immature Granulocyte % (Auto) 4.6 % 3.5 % Immature Granulocyte # (Auto) 0.39 K/uL 0.38 K/uL Toxic Granulation 2+ 1+ Dohle Bodies 1+ Echinocytes Elliptocytes 1+ Sodium Level 138 mmol/L 139 mmol/L Potassium Level 3.7 mmol/L 4.1 mmol/L Chloride Level 103 mmol/L 103 mmol/L Carbon Dioxide Level 27 mmol/L 28 mmol/L Anion Gap 8.0 mmol/L 8.0 mmol/L Blood Urea Nitrogen 11 mg/dl 13 mg/dl Creatinine 1.10 mg/dl 1.10 mg/dl Est Creatinine Clear Calc Drug Dose 63.9 ml/min 63.9 ml/min Estimated GFR () 80.6 80.6 Estimated GFR (Non- 69.6 69.6 BUN/Creatinine Ratio 10.4 11.5 Random Glucose 88 mg/dl 86 mg/dl Calcium Level 8.6 mg/dl 8.9 mg/dl Total Bilirubin 0.4 mg/dl Aspartate Amino Transf (AST/SGOT) 31 U/L Alanine Aminotransferase (ALT/SGPT) 78 U/L Alkaline Phosphatase 324 U/L Total Protein 6.6 gm/dl Albumin 2.6 gm/dl Globulin 4.0 gm/dl Albumin/Globulin Ratio 0.7 Ovalocytes 1+ Lactic Acid Level 1.1 mmol/L Procalcitonin 0.58 ng/ml Assessment and Plan 66 year old with metastatic mix lung tumor (neuroendocrine/small cell). Patient is s/p endobronchial stenting on 12/13. He was originally admitted on for neutropenic fevers. He was originally treated with Vanc/Zosyn and downgraded to Levaquin on which he was doing well. Overnight started having fevers again. Today had 2 temperatures > 39 and acute mental status changes. Our plan for him is as follows. Sepsis Secondary to Left-Lobar Pneumonia - Meets Sepsis criteria with: Temp > 39; HR > 90 - CAM positive: acute mental status change with difficulty sustaining attention + hallucinations - Labs drawn approximately 12:00: CBC, BMP, Lactate and Pro-calcitonin + UA and CXR WBC increased to 10 Lactate Normal; Procalcitonin elevated at 0.5 but trending downward from previous measurements CXR shows interval progression of left-sided PNA - Blood cutlrues x 2 drawn - D/C Levaquin; Start Vancomycin and Zosyn IV - Repeat Lactate and Procalcitonin at 1700 - Patient does not meet criteria for severe sepsis (no hypotension, normal lactate, no acute fall in BP) Post-Tussive Throat Pain - Percocet 5 mg q4h PRN pain - Oramorph SR discontinued due to risk of falls - Toradol 15 mg q6 hr PRN - Viscous Lidocaine Syrup - Multiple antitussive modalities have been attempted Robitussin with Codeine, Tessalone Perles Delsym Duoneb q4 h aron and 2h PRN Will start Hycodan syrup qHS PRN for pain - Continue Mirtazipine - S/p bronchoscopy; discissed case with Dr. Laguna, some evidence of friable irritated airway mucosa Will empirically treat with 60 mg PO Prednisone to coverage of pneumonitis Bronchial stent in good position Neutropenia - Resolved; WBC 10.0 today; increasing Metastatic Lung Cancer - Radiation oncology consulted, who plan to pursue radiation treatment on Thursday - Per oncology notes, has next treatment cycle on 12/29/2016 - Scheduled for radiation tomorrow; may be a challenge given that patient continues to have violent coughing episodes and may not be able to hold still during radiation session Hiccup - Baclofen helped in past. Not this time. follow Hyperlipidemia - Continue Rosuvastatin BPH - Continue Flomax DVT prophylaxis - Heparin 5000 ID Code Status - Level I Full Disposition - Continue monitoring in Med/Surg. Will consider upgrading to telemetry if clinical status does improve over course of afternoon. Reviewed: Pt Seen/Exam by Me History continuing to have throat pain. no relief with any medication last night felt very tired and sedated while trying to go to the restroom Constitutional: denies: fever Respiratory: negative: short of breath Cardiovascular: denies chest pain General Appearance: mild distress (from constant cough) Respiratory: lungs clear, no respiratory distress Cardiovascular: regular rate, rhythm Neurologic/Psychiatric: alert, oriented x 3 Skin Characteristics: warm/dry Assessment/Plan Resident Physician Supervision Note: I was present with Dr. Do in bedside. I verified the huang history and physical, reviewed labs and image studies, discussed the case with the resident and agree with the findings and care plan.
[2016-12-23] MEDS ORDERED: VANCOMYCIN INJ 1,700 MG in SODIUM CHLORIDE 0.9% 500ML 500 ML IV ONE (16:30)
--- NOTE | 2016-12-23 16:43 | Pharmacy Progress Note ---
Pharmacy Abx Initial Consult Date of Service Dec 23, 2016. Pharmacy Dosing Scope Date of Consult: 12/23/16 Consultation requested by: Dr. Do Pharmacy is consulted to initiate Vancomycin/Zosyn IV dosing therapy, order appropriate labs and adjust drug dose/frequency. Subjective The patient is a 66 year old male admitted on Dec 16, 2016 at 17:04 with recurrent neuroendocrine tumor of the lung on chemotherapy and radiation therapy , presented with fever with neutropenia and encephalopathy. Objective Height (Feet): 5 Height (Inches): 8.00 Weight (Kilograms): 68.800 Vital Signs (Past 12Hrs) Vital Signs Past 12 Hours Date Time Temp Pulse Resp B/P (MAP) Pulse Ox O2 Delivery O2 Flow Rate FiO2 12/23/16 15:38 38.1 106 96 Nasal Cannula 3.0 12/23/16 15:24 96 16 95 Nasal Cannula 4.0 12/23/16 14:26 39.5 122 24 124/80 (95) 93 Nasal Cannula 4.0 12/23/16 11:52 39.3 108 22 189/91 (123) 90 Room Air 12/23/16 11:26 108 30 90 Nasal Cannula 5.0 12/23/16 09:00 93 21 157/94 96 Nasal Cannula 4.0 12/23/16 08:55 96 21 154/95 96 Nasal Cannula 4.0 12/23/16 08:50 96 21 132/82 94 Nasal Cannula 4.0 12/23/16 08:45 97 20 134/78 97 Mask 8.0 12/23/16 08:40 95 15 147/80 98 Mask 8.0 12/23/16 08:36 Room Air 12/23/16 08:35 105 22 132/77 99 Mask 8.0 12/23/16 08:30 108 18 124/79 98 Mask 8.0 12/23/16 08:25 90 18 148/81 98 Mask 8.0 12/23/16 08:05 91 21 154/88 100 Mask 8.0 12/23/16 07:58 36.8 88 18 121/69 (86) 91 Room Air 12/23/16 07:07 80 12 95 Room Air Lab Results (24Hrs) Laboratory Tests (24 Hours) Test 12/23/16 12:09 Lactic Acid Level 1.1 mmol/L (0.4-2.0) White Blood Count 10.83 K/uL (4.8-10.8) H Red Blood Count 2.98 M/uL (4.7-6.1) L Hemoglobin 9.0 g/dL (14.0-18.0) L Hematocrit 26.9 % (42-52) L Mean Corpuscular Volume 90.3 fL (80-100) Mean Corpuscular Hemoglobin 30.2 pg (25-34) Mean Corpuscular Hemoglobin Concent 33.5 g/dl (32-36) Platelet Count 309 K/uL (130-400) Mean Platelet Volume 9.8 fL (7.4-10.4) Neutrophils (%) (Auto) 78.5 % Lymphocytes (%) (Auto) 8.5 % Monocytes (%) (Auto) 9.2 % Eosinophils (%) (Auto) 0.1 % Basophils (%) (Auto) 0.2 % Neutrophils # (Auto) 8.50 K/uL (1.4-6.5) H Lymphocytes # (Auto) 0.92 K/uL (1.2-3.4) L Monocytes # (Auto) 1.00 K/uL (0.11-0.59) H Eosinophils # (Auto) 0.01 K/uL (0-0.5) Basophils # (Auto) 0.02 K/uL (0-0.2) Procalcitonin 0.58 ng/ml (0-0.5) H Micro Results Date/Time Source Procedure Growth Status 12/23/16 15:45 Blood Blood Culture Pending Received 12/23/16 15:45 Blood Blood Culture Pending Received 12/16/16 20:13 Blood Blood Culture - Final NO GROWTH Complete 12/16/16 20:07 Blood Blood Culture - Final NO GROWTH Complete 12/16/16 00:00 Nasal MRSA DNA Surveillance Screen - Final Specimen Negative for MRSA by DNA Probe Complete 12/23/16 00:00 Bronchial Washings Left Lower Lobe Acid Fast Stain Pending Received 12/23/16 00:00 Bronchial Washings Left Lower Lobe Mycobacterial Culture Pending Received 12/23/16 00:00 Bronchial Washings Left Lower Lobe Fungal Smear Pending Received 12/23/16 00:00 Bronchial Washings Left Lower Lobe Fungal Culture Pending Received 12/23/16 00:00 Bronchial Washings Left Lower Lobe Gram Stain Pending Received 12/23/16 00:00 Bronchial Washings Left Lower Lobe Bronchoalveolar Lavage Culture Pending Received Risk Factors for Resistance * Current hospitalization > 5 days Assessment & Plan Assessment 66 year old male had been receiving IV Vancomycin/Zosyn during this admission for pulmonary process until 12/20/16 when regimen was deescalated to oral Levofloxacin. Patient now febrile and will restart IV Vancomycin/Zosyn. Patient had been receiving Vancomycin 1000mg q10 hours at time of discontinuation with trough of 13.6 mg/dL. Based on those results, will increase dose ~ 20% to achieve trough in desired range for pulmonary indication Plan Zosyn/Vancomycin for Pulmonary process Vancomycin IV * Loading dose: 1700 mg (25 mg/kg) * Maintenance dose: 1200 mg IV (17.4 mg/kg) every 10 hours * Goal trough level for Pulmonary process: 15 to 20 mcg/mL * Trough/Random level ordered for 12/25/16 Piperacillin/tazobactam * 3.375 g bolus administered over 30 minutes, then 3.375 g IV extended infusion every 8 hours for CrCl greater than 20 mL/min OR every 12 hours for CrCl 20 mL/ min or less and dialysis. * Pharmacy will continue to follow and will adjust dose/frequency as necessary. Thank you.
[2016-12-23 17:40] LABS: URINE APPEARANCE CLEAR (CLEAR); URINE BILIRUBIN NEG (NEG); URINE COLOR YELLOW; URINE NITRITE NEG (NEG); URINE PH 5.5 (4.5-7.5); URINE SPECIFIC GRAVITY 1.015 (1.000-1.030); UROBILINOGEN NEG (NEG)
[2016-12-23] MEDS ORDERED: PIPERACILL/TAZOBAC CONSULT ACTIVE PRN (17:45)
[2016-12-23] MEDS ORDERED: VANCOMYCIN CONSULT ACTIVE PRN (17:45)
[2016-12-23 17:54] LABS: MANUAL MICROSCOPIC REQUIRED? NO; REVIEW REQ? NO
[2016-12-23] MEDS: MIRTAZAPINE TAB 15 MG TAB PO SCH (20:30)
[2016-12-23] MEDS: PIPERACILL/TAZOBAC IV 3.375 GM in DEXTROSE 5% 100ML 100 ML IV SCH (21:31)
[2016-12-23] MEDS: DEXTROMETHORPHAN POLYMR COMPLX 30 MG/5 ML UDP PO PRN (22:49)
[2016-12-23] MEDS: LIDOCAINE HCL 2% VISC SOLN 20 ML UDC PO PRN (23:37)
[2016-12-24] VITALS (12 sets, daily range): BP systolic 116–147; BP diastolic 62–89; PULSE 77–90; TEMP 36.3–37.4; O2SAT 90–99
[2016-12-24] MEDS: ACETAMINOPHEN 325 MG TAB PO PRN (00:56)
[2016-12-24] MEDS: KETOROLAC TROMETHAMINE 15 MG/ML VIAL IV. PRN ×2 (01:01→11:41)
[2016-12-24] MEDS ORDERED: BACLOFEN 10 MG TAB PO ONE (01:15)
[2016-12-24] MEDS: ALBUT/IPRATROP 3MG/0.5MG NEB 3 ML VIAL INH SCH ×5 (02:00→19:35)
[2016-12-24] MEDS: VANCOMYCIN INJ 1,200 MG in SODIUM CHLORIDE 0.9% 250ML 250 ML IV SCH ×2 (04:31→14:29)
[2016-12-24] MEDS: LIDOCAINE HCL 2% VISC SOLN 20 ML UDC PO PRN (06:36)
[2016-12-24] MEDS: DEXTROMETHORPHAN POLYMR COMPLX 30 MG/5 ML UDP PO PRN (06:36)
[2016-12-24] MEDS: PIPERACILL/TAZOBAC IV 3.375 GM in DEXTROSE 5% 100ML 100 ML IV SCH ×3 (06:36→21:44)
[2016-12-24] MEDS: OXYCODONE HCL IR 5 MG TAB (IMMEDIATE RELEASE) PO PRN ×3 (06:42→20:30)
[2016-12-24] MEDS: HEPARIN SOD 5000 UNIT/0.5 ML CARP SQ SCH ×3 (06:47→21:44)
[2016-12-24] MEDS: ROSUVASTATIN CALCIUM 10 MG TAB PO SCH (08:04)
[2016-12-24] MEDS: DICLOFENAC SOD 1% GEL 100 GM TUBE EXT SCH ×4 (08:04→21:00)
[2016-12-24] MEDS: NYSTATIN SUSP 500,000 U/5 ML UDC PO SCH ×4 (08:04→21:00)
[2016-12-24] MEDS: PANTOprazole SOD 40 MG TAB PO SCH (08:05)
[2016-12-24] MEDS: BACLOFEN 10 MG TAB PO SCH ×2 (08:05→21:00)
[2016-12-24] MEDS: TAMSULOSIN HCL 0.4 MG CAP PO SCH (08:05)
[2016-12-24] MEDS: LACTOBACILLUS ACIDOPHILUS (FLORANEX) TAB PO SCH ×3 (08:05→17:38)
[2016-12-24] MEDS: BENZONATATE 100MG CAP PO SCH ×3 (08:05→21:02)
[2016-12-24] MEDS: BOOST PLUS VANILLA PO SCH ×4 (08:19→20:00)
--- NOTE | 2016-12-24 08:30 | Family Medicine Progress Note ---
Progress Note Date of Service Dec 24, 2016. Subjective Pt evaluation today including: conversation w/ patient, physical exam, chart review, lab review Pain: Throat pain with cough PO Intake: Good Voiding: no voiding problems, no incontinence Doing better at this time; notes mental clouding is improved Still has throat pain with cough only minimally elevated when not coughing No acute issues overnight Eating and voiding without difficulty Constitutional: No fever, No chills, No sweats Eyes: No eye pain, No redness, No discharge ENT: + sore throat (with cough), No unusual epistaxis, No nasal symptoms Respiratory: + cough, No sputum, No wheezing, No hemoptysis Cardiovascular: No chest pain, No claudication, No palpitations Abdomen: No nausea, No vomiting, No diarrhea, No constipation Musculoskeletal: No joint pain, No muscle pain Male : No dysuria, No urinary frequency Neurologic: No memory loss, No paralysis, No weakness, No numbness/tingling Psychiatric: No depression symptoms Heme: No clotting problems, No swollen lymph nodes Endo: No fatigue, No excessive thirst Skin: No rash, No itch, No new/changing skin lesions All Other Systems: Reviewed and Negative Medications Current Inpatient Medications Medications (Trade) Dose Ordered Sig/Aron Route Start Time Stop Time Status Last Admin Dose Admin Acetaminophen (Tylenol Tab) 650 mg Q4H PRN PO 12/16/16 17:00 01/15/17 16:59 12/24/16 00:56 650 MG Al Hydrox/Mg Hydrox/Simethicone (Maalox Max Susp) 15 ml Q4H PRN PO 12/16/16 17:00 01/15/17 16:59 12/19/16 14:22 15 ML Magnesium Hydroxide (Milk Of Magnesia Susp) 30 ml Q6H PRN PO 12/16/16 17:00 01/15/17 16:59 12/21/16 23:37 30 ML Polyethylene (Miralax Powder Packet) 17 gm DAILY PRN PO 12/16/16 17:15 01/15/17 17:14 Ondansetron HCl (Zofran Inj) 4 mg Q6H PRN IV 12/16/16 17:00 01/15/17 16:59 Baclofen (Lioresal Tab) 10 mg BID PO 12/16/16 20:00 01/15/17 19:59 12/24/16 08:05 10 MG Rosuvastatin Calcium (Crestor Tab) 10 mg QAM PO 12/17/16 08:00 01/16/17 07:59 12/24/16 08:04 10 MG Tamsulosin HCl (Flomax Cap) 0.4 mg QAM PO 12/17/16 08:00 01/16/17 07:59 12/24/16 08:05 0.4 MG Albuterol (Ventolin Hfa Inhaler) 1 puffs Q4H PRN INH 12/16/16 17:00 01/15/17 16:59 12/20/16 20:10 1 PUFFS Albuterol/ Ipratropium (Duoneb) 3 ml Q4R INH 12/16/16 20:00 01/15/17 19:59 12/24/16 07:06 3 ML Pantoprazole Sodium (Protonix Tab) 40 mg QAM PO 12/17/16 08:00 01/16/17 07:59 12/24/16 08:05 40 MG Lactobacillus Acidophilus (Floranex Tab) 4 tab TIDM PO 12/17/16 07:30 01/16/17 07:59 12/24/16 08:05 4 TAB Menthol (Nice Alix) 1 alix PRN PRN PO 12/16/16 22:00 01/15/17 21:59 12/24/16 00:56 1 ALIX Benzonatate (Tessalon Perles Cap) 100 mg TID PO 12/17/16 14:00 01/16/17 13:59 12/24/16 08:05 100 MG Nystatin (Mycostatin Susp) 5 ml QID PO 12/18/16 13:45 12/28/16 13:44 12/24/16 08:04 5 ML Lidocaine HCl (Viscous Lidocaine 2% Soln) 1 ml QID PRN PO 12/18/16 18:00 01/17/17 17:59 12/24/16 06:36 1 ML Dextromethorphan Polymer Complex (Delsym Susp) 30 mg Q8H PRN PO 12/19/16 18:00 01/18/17 17:59 12/24/16 06:36 30 MG Diclofenac Sodium (Voltaren 1% Top Gel) 1 appln QID EXT 12/20/16 13:00 01/19/17 12:59 12/24/16 08:04 1 APPLN Levofloxacin (Levaquin Tab) 750 mg DAILY@1300 PO 12/20/16 13:00 12/27/16 12:59 Future Hold 12/23/16 13:23 750 MG Miscellaneous Information (Order Awaiting Action) 1 ea QS N/A 12/21/16 00:00 01/20/17 00:00 Ketorolac Tromethamine (Toradol Inj) 15 mg Q6H PRN IV. 12/21/16 15:15 12/26/16 15:14 12/24/16 01:01 15 MG Albuterol/ Ipratropium (Duoneb) 3 ml Q2H PRN INH 12/22/16 09:00 01/21/17 08:59 12/22/16 16:43 3 ML Oxycodone HCl (Roxicodone Immediate Rel Tab) 5 mg Q4H PRN PO 12/22/16 12:15 01/05/17 12:14 12/24/16 06:42 5 MG Mirtazapine (Remeron Tab) 15 mg HS PO 12/22/16 21:00 01/21/17 20:59 12/23/16 20:30 15 MG Enteral Nutritional Formula (Boost Plus Vanilla) 1 can BID PO 12/22/16 20:00 01/21/17 19:59 12/23/16 20:28 1 CAN Heparin Sodium (Porcine) (Heparin Sq 5000 Unit/0.5ml) 5,000 unit Q8 SQ 12/22/16 14:00 01/21/17 13:59 Future hold 12/24/16 06:47 5,000 UNIT Morphine Sulfate (Oramorph Sr Tab) 15 mg Q12 PO 12/22/16 14:15 01/05/17 14:14 Future Hold 12/23/16 10:58 15 MG Prednisone (PredniSONE TAB) 60 mg DAILY PO 12/24/16 08:00 12/29/16 07:59 12/24/16 08:05 60 MG Prednisone (PredniSONE TAB) 60 mg 1400 ONCE PO 12/24/16 14:00 12/24/16 14:01 Vancomycin HCl 1200 mg/Sodium Chloride 274 ml @ 125 mls/hr Q10H IV 12/24/16 04:00 12/30/16 17:29 12/24/16 04:31 125 MLS/HR Piperacillin Sod/ Tazobactam Sod 3.375 gm/Dextrose 115 ml @ 28.75 mls/ hr Q8 IV 12/23/16 22:00 12/30/16 13:59 12/24/16 06:36 28.75 MLS/HR Vancomycin HCl (Consult) 1 ea UD PRN N/A 12/23/16 17:45 01/22/17 17:44 Piperacillin Sod/ Tazobactam Sod (Consult) 1 ea UD PRN N/A 12/23/16 17:45 01/02/17 17:44 Objective Vital Signs Date Time Temp Pulse Resp B/P (MAP) Pulse Ox O2 Delivery O2 Flow Rate FiO2 12/24/16 07:40 36.6 81 20 132/82 (99) 99 12/24/16 07:06 83 16 94 Room Air 12/24/16 06:41 36.6 90 20 128/73 (91) 97 Room Air 12/24/16 01:30 Room Air 12/24/16 00:50 37.4 12/24/16 00:11 36.3 82 18 116/73 (87) 93 Room Air 12/23/16 23:41 84 16 97 Nasal Cannula 3.0 12/23/16 21:30 86 107/69 (82) 12/23/16 20:30 36.5 80 100/65 (77) 98 Nasal Cannula 3.0 12/23/16 19:44 95/61 (72) 12/23/16 19:33 36.7 81 18 90/57 (68) 95 Nasal Cannula 3.0 12/23/16 19:08 92 16 94 Nasal Cannula 3.0 12/23/16 16:43 37.2 12/23/16 15:40 Nasal Cannula 3.0 12/23/16 15:38 38.1 106 96 Nasal Cannula 3.0 12/23/16 15:24 96 16 95 Nasal Cannula 4.0 12/23/16 14:26 39.5 122 24 124/80 (95) 93 Nasal Cannula 4.0 12/23/16 11:52 39.3 108 22 189/91 (123) 90 Room Air 12/23/16 11:26 108 30 90 Nasal Cannula 5.0 12/23/16 09:00 93 21 157/94 96 Nasal Cannula 4.0 12/23/16 08:55 96 21 154/95 96 Nasal Cannula 4.0 12/23/16 08:50 96 21 132/82 94 Nasal Cannula 4.0 12/23/16 08:45 97 20 134/78 97 Mask 8.0 12/23/16 08:40 95 15 147/80 98 Mask 8.0 12/23/16 08:36 Room Air 12/23/16 08:35 105 22 132/77 99 Mask 8.0 12/23/16 08:30 108 18 124/79 98 Mask 8.0 12/23/16 08:25 90 18 148/81 98 Mask 8.0 Physical Exam General Appearance: WD/WN, no apparent distress Eyes: normal inspection, EOMI ENT: hearing grossly normal, pharynx normal Neck: supple, no adenopathy, no JVD Respiratory/Chest: chest non-tender, + pertinent finding (diminished breath sounds on left per baseline) Cardiovascular: regular rate, rhythm, no gallop, no murmur Abdomen: normal bowel sounds, non tender, soft Extremities: non-tender, no pedal edema Neurologic/Psychiatric: alert, normal mood/affect, oriented x 3, + pertinent finding (good attention; CAM score negative) Skin: normal color, warm/dry, no rash Lymphatic: no adenopathy Laboratory Results Last 24 Hours Test 12/23/16 09:25 12/23/16 12:09 12/23/16 16:54 12/23/16 17:07 White Blood Count 8.56 K/uL 10.83 K/uL Red Blood Count 2.92 M/uL 2.98 M/uL Hemoglobin 8.5 g/dL 9.0 g/dL Hematocrit 26.1 % 26.9 % Mean Corpuscular Volume 89.4 fL 90.3 fL Mean Corpuscular Hemoglobin 29.1 pg 30.2 pg Mean Corpuscular Hemoglobin Concent 32.6 g/dl 33.5 g/dl Platelet Count 292 K/uL 309 K/uL Mean Platelet Volume 9.6 fL 9.8 fL Neutrophils (%) (Auto) 67.7 % 78.5 % Lymphocytes (%) (Auto) 12.1 % 8.5 % Monocytes (%) (Auto) 15.2 % 9.2 % Eosinophils (%) (Auto) 0.2 % 0.1 % Basophils (%) (Auto) 0.2 % 0.2 % Neutrophils # (Auto) 5.79 K/uL 8.50 K/uL Lymphocytes # (Auto) 1.04 K/uL 0.92 K/uL Monocytes # (Auto) 1.30 K/uL 1.00 K/uL Eosinophils # (Auto) 0.02 K/uL 0.01 K/uL Basophils # (Auto) 0.02 K/uL 0.02 K/uL RDW Standard Deviation 44.0 fL 45.5 fL RDW Coefficient of Variation 13.6 % 13.8 % Immature Granulocyte % (Auto) 4.6 % 3.5 % Immature Granulocyte # (Auto) 0.39 K/uL 0.38 K/uL Toxic Granulation 2+ 1+ Dohle Bodies 1+ Echinocytes Elliptocytes 1+ Sodium Level 138 mmol/L 139 mmol/L Potassium Level 3.7 mmol/L 4.1 mmol/L Chloride Level 103 mmol/L 103 mmol/L Carbon Dioxide Level 27 mmol/L 28 mmol/L Anion Gap 8.0 mmol/L 8.0 mmol/L Blood Urea Nitrogen 11 mg/dl 13 mg/dl Creatinine 1.10 mg/dl 1.10 mg/dl Est Creatinine Clear Calc Drug Dose 63.9 ml/min 63.9 ml/min Estimated GFR () 80.6 80.6 Estimated GFR (Non- 69.6 69.6 BUN/Creatinine Ratio 10.4 11.5 Random Glucose 88 mg/dl 86 mg/dl Calcium Level 8.6 mg/dl 8.9 mg/dl Total Bilirubin 0.4 mg/dl Aspartate Amino Transf (AST/SGOT) 31 U/L Alanine Aminotransferase (ALT/SGPT) 78 U/L Alkaline Phosphatase 324 U/L Total Protein 6.6 gm/dl Albumin 2.6 gm/dl Globulin 4.0 gm/dl Albumin/Globulin Ratio 0.7 Ovalocytes 1+ Lactic Acid Level 1.1 mmol/L 1.1 mmol/L Procalcitonin 0.58 ng/ml 6.33 ng/ml Urine Color YELLOW Urine Appearance CLEAR Urine pH 5.5 Urine Specific [place] 1.015 Urine Protein NEG Urine Glucose (UA) NEG Urine Ketones 1+ Urine Occult Blood NEG Urine Nitrite NEG Urine Bilirubin NEG Urine Urobilinogen NEG Urine Leukocyte Esterase NEG Test 12/24/16 04:44 Assessment and Plan 66 year old with metastatic mix lung tumor (neuroendocrine/small cell). Patient is s/p endobronchial stenting on 12/13. He was originally admitted on for neutropenic fevers. He was originally treated with Vanc/Zosyn and downgraded to Levaquin on which he was doing well until yesterday when he became septic again from worsening of his left-sided pneumonia. Patient has been afebrile overnight and mental status changes have resolved at this time. Our plan for him is as follows. Sepsis Secondary to Left-Lobar Pneumonia - Worsening CXR from 12/23; - Elevated Procalcitonin 6 but negative lactate - Meets Sepsis criteria with: Temp > 39; HR > 90 BP stable and afebrile overnight; lactate negative - CAM negative today; has good attention, alert/oriented x 3 and no acute changes overnight - Blood cultures x 2 drawn and pending - Continue broad-spectrum antibiotics - cough better today Post-Tussive Throat Pain - Continue - Percocet 5 mg q4h PRN pain; Toradol 15 mg q6 hr PRN; Viscous Lidocaine Syrup - Antitussive modalities: Robitussin with Codeine; Tessalone Perles Delsym; Hycodan Duoneb q4 h aron and 2h PRN - Continue Mirtazapine - Prednisone 60 mg day 07/08 today; needs slow taper after course completed Neutropenia - Resolved; WBC 10.0 today; increasing Metastatic Lung Cancer - Radiation oncology consulted, who plan to pursue radiation treatment on Thursday - Per oncology notes, has next treatment cycle on 12/29/2016 - Radiation was scheduled for today; case will be discussed with Dr. Avalos and may require delay due to current treatment for sepsis Hiccup - Baclofen Hyperlipidemia - Continue Rosuvastatin BPH - Continue Flomax DVT prophylaxis - Heparin 5000 ID Code Status - Level I Full Disposition - Patient has remained stable in med/surg - OT/PT orders Continued [facility] stay due to: fever, abnormal vital signs, multiple IV medications needed Discharge planning: uncertain Reviewed: Pt Seen/Exam by Me History cough better today. throat pain still present with cough Constitutional: denies: fever Respiratory: negative: short of breath Cardiovascular: denies chest pain General Appearance: no apparent distress Respiratory: lungs clear, no respiratory distress Cardiovascular: regular rate, rhythm Neurologic/Psychiatric: alert, oriented x 3 Skin Characteristics: warm/dry Assessment/Plan Resident Physician Supervision Note: I was present with Dr. Do in bedside. I verified the huang history and physical, reviewed labs and image studies, discussed the case with the resident and agree with the findings and care plan.
[2016-12-24 09:27] LABS: MEAN CELL VOLUME 90.2 fL (80-100); MEAN CORPUSCULAR HEMOGLOBIN 30.5 pg (25-34); MEAN CORPUSCULAR HGB CONC 33.8 g/dl (32-36); MEAN PLATELET VOLUME 9.3 fL (7.4-10.4); PLATELET COUNT 310 K/uL (130-400); RED BLOOD COUNT 2.66 M/uL (4.7-6.1); WHITE BLOOD COUNT 11.16 K/uL (4.8-10.8)
[2016-12-24 10:01] LABS: BUN/CREATININE RATIO 12.4 (10-20); CALCIUM 8.1 mg/dl (8.5-10.1); CREATININE 1.2 mg/dl (0.60-1.40); POTASSIUM 3.1 mmol/L (3.5-5.1)
[2016-12-24 10:03] LABS: ALB/GLOB RATIO 0.6 (0.9-2)
[2016-12-24 10:09] LABS: COMPLETE YES; LYMPH ABS # 0.39 K/uL (1.2-3.4); LYMPHOCYTE % 3.5 %; MYELOCYTE % 0.9 %; NEUTROPHILS % 94.7 %; OVALOCYTES 1+; TOXIC GRANULATION 1+
--- NOTE | 2016-12-24 15:39 | SURGICAL CONSULTATION ---
DATE OF CONSULTATION: 12/24/2016 DATE OF CONSULTATION: 12/24/2016 Clarence Schroeder tolerated his bronchoscopy fine yesterday. Not really growing anything out. It appears to be just normal naty. Unfortunately, he spiked again. His T-max last night was 39.5. Cultures have remained with no growth. There are no organisms noted on AFB fungal or any other smear. Throat pain is a bit better. At this point, he is on room air. He may be discharged at the primary care's discretion. I discussed this with Dr. Laguna and I think that the stent should probably come out in the next 2 weeks or so. We will talk about this in more detail.
[2016-12-24] MEDS: MIRTAZAPINE TAB 15 MG TAB PO SCH (21:01)
[2016-12-25] VITALS (12 sets, daily range): BP systolic 125–161; BP diastolic 78–95; PULSE 86–104; TEMP 36.3–36.4; O2SAT 94–97
[2016-12-25] MEDS: VANCOMYCIN INJ 1,200 MG in SODIUM CHLORIDE 0.9% 250ML 250 ML IV SCH ×2 (00:15→10:25)
[2016-12-25] MEDS: ALBUT/IPRATROP 3MG/0.5MG NEB 3 ML VIAL INH SCH ×5 (00:40→19:24)
[2016-12-25] MEDS: DEXTROMETHORPHAN POLYMR COMPLX 30 MG/5 ML UDP PO PRN (00:49)
[2016-12-25] MEDS: LIDOCAINE HCL 2% VISC SOLN 20 ML UDC PO PRN (01:07)
[2016-12-25] MEDS: OXYCODONE HCL IR 5 MG TAB (IMMEDIATE RELEASE) PO PRN ×4 (01:08→21:35)
[2016-12-25] MEDS: PIPERACILL/TAZOBAC IV 3.375 GM in DEXTROSE 5% 100ML 100 ML IV SCH ×3 (05:56→22:29)
[2016-12-25] MEDS: HEPARIN SOD 5000 UNIT/0.5 ML CARP SQ SCH ×3 (06:03→22:30)
[2016-12-25] MEDS: NYSTATIN SUSP 500,000 U/5 ML UDC PO SCH ×4 (07:19→20:39)
[2016-12-25] MEDS: PANTOprazole SOD 40 MG TAB PO SCH (07:19)
[2016-12-25] MEDS: BENZONATATE 100MG CAP PO SCH ×3 (07:19→20:41)
[2016-12-25] MEDS: ROSUVASTATIN CALCIUM 10 MG TAB PO SCH (07:20)
[2016-12-25] MEDS: DICLOFENAC SOD 1% GEL 100 GM TUBE EXT SCH ×4 (07:20→20:38)
[2016-12-25] MEDS: BACLOFEN 10 MG TAB PO SCH ×3 (07:20→20:40)
[2016-12-25] MEDS: TAMSULOSIN HCL 0.4 MG CAP PO SCH (07:20)
[2016-12-25] MEDS: LACTOBACILLUS ACIDOPHILUS (FLORANEX) TAB PO SCH ×3 (07:20→17:16)
[2016-12-25] MEDS: BOOST PLUS VANILLA PO SCH ×4 (07:21→20:00)
[2016-12-25] MEDS ORDERED: VANCOMYCIN TROUGH SCH (09:30)
[2016-12-25 10:31] LABS: HEMATOCRIT 25.7 % (42-52); MEAN CELL VOLUME 89.5 fL (80-100); MEAN CORPUSCULAR HEMOGLOBIN 29.6 pg (25-34); MEAN CORPUSCULAR HGB CONC 33.1 g/dl (32-36); MEAN PLATELET VOLUME 9.8 fL (7.4-10.4); PLATELET COUNT 447 K/uL (130-400); RED BLOOD COUNT 2.87 M/uL (4.7-6.1); WHITE BLOOD COUNT 14.22 K/uL (4.8-10.8)
--- NOTE | 2016-12-25 11:04 | Family Medicine Progress Note ---
Progress Note Date of Service Dec 25, 2016. Subjective Pt evaluation today including: conversation w/ patient, physical exam, chart review, lab review Pain: Throat pain Voiding: no voiding problems Feeling better today but throat pain persists Thinks may be related to GI, and possible reflux or silent aspiration, notes being evaluated 1 year ago with normal swallow study No other acute issues at this time Eating well and voiding without difficulties Constitutional: No fever, No chills, No sweats Eyes: No worsening of vision, No eye pain, No redness, No discharge ENT: + sore throat, No nasal symptoms, No tinnitus Respiratory: No cough, No sputum, No wheezing, No shortness of breath Cardiovascular: No chest pain, No claudication, No palpitations Abdomen: No pain, No nausea, No vomiting, No diarrhea Musculoskeletal: No joint pain, No muscle pain Male : No dysuria, No urinary frequency, No incontinence Neurologic: No weakness, No numbness/tingling, No vertigo Psychiatric: No anxiety, No insomnia Heme: No abnormal bleeding/bruising, No clotting problems, No swollen lymph nodes Skin: No rash, No new/changing skin lesions, No color change Objective Vital Signs Date Time Temp Pulse Resp B/P (MAP) Pulse Ox O2 Delivery O2 Flow Rate FiO2 12/25/16 08:45 Room Air 12/25/16 07:38 86 16 96 Room Air 12/25/16 07:31 36.4 86 20 161/95 (117) 96 Room Air 12/25/16 00:44 104 18 96 Room Air 12/25/16 00:04 36.4 89 20 132/79 (96) 94 Room Air 12/25/16 00:00 95 Room Air 12/24/16 20:00 95 Room Air 12/24/16 19:43 36.4 80 18 147/89 (108) 95 Room Air 12/24/16 19:36 83 18 90 Room Air 12/24/16 16:00 Room Air 12/24/16 15:47 86 16 91 Room Air 12/24/16 15:22 36.3 77 20 118/62 (80) 94 Room Air 12/24/16 11:50 36.3 83 20 131/79 (96) 96 12/24/16 11:30 83 16 96 Room Air Physical Exam General Appearance: WD/WN, no apparent distress Eyes: normal inspection, EOMI ENT: hearing grossly normal, pharynx normal Neck: supple, no adenopathy, no JVD Respiratory/Chest: lungs clear, + pertinent finding (diminished breath sounds on left -side per baseline) Cardiovascular: regular rate, rhythm, no gallop, no murmur Abdomen: normal bowel sounds, non tender, soft Extremities: non-tender, no pedal edema Neurologic/Psychiatric: alert, normal mood/affect, oriented x 3 Skin: normal color, warm/dry, no rash Lymphatic: no adenopathy Laboratory Results Last 24 Hours Test 12/25/16 09:52 White Blood Count 14.22 K/uL Red Blood Count 2.87 M/uL Hemoglobin 8.5 g/dL Hematocrit 25.7 % Mean Corpuscular Volume 89.5 fL Mean Corpuscular Hemoglobin 29.6 pg Mean Corpuscular Hemoglobin Concent 33.1 g/dl Platelet Count 447 K/uL Mean Platelet Volume 9.8 fL RDW Standard Deviation 43.9 fL RDW Coefficient of Variation 13.7 % Nucleated RBC Absolute Count (auto) 0.04 K/uL Nucleated Red Blood Cells % 0.3 % Sodium Level 141 mmol/L Potassium Level 3.6 mmol/L Chloride Level 107 mmol/L Carbon Dioxide Level 25 mmol/L Anion Gap 9.0 mmol/L Blood Urea Nitrogen 16 mg/dl Creatinine 1.20 mg/dl Est Creatinine Clear Calc Drug Dose 58.6 ml/min Estimated GFR () 72.6 Estimated GFR (Non- 62.6 BUN/Creatinine Ratio 13.2 Random Glucose 200 mg/dl Calcium Level 9.0 mg/dl Total Bilirubin 0.3 mg/dl Aspartate Amino Transf (AST/SGOT) 76 U/L Alanine Aminotransferase (ALT/SGPT) 106 U/L Alkaline Phosphatase 320 U/L Total Protein 6.7 gm/dl Albumin 2.4 gm/dl Globulin 4.3 gm/dl Albumin/Globulin Ratio 0.6 Assessment and Plan 66 year old with metastatic mix lung tumor (neuroendocrine/small cell). Patient is s/p endobronchial stenting on 12/13. He was originally admitted on for neutropenic fevers. He was originally treated with Vanc/Zosyn and downgraded to Levaquin on which he was doing well. However 2 days ago became septic again and had CXR showing worsening PNA on left side. He is doing well at this time. Our plan for him is as follows: Sepsis Secondary to Left-Lobar Pneumonia - Improving clinically - Worsening CXR from 12/23 - Bl Cx negative preliminary - Originally met sepsis criteria with: Temp > 39; HR > 90; not currently septic BP stable and afebrile overnight; lactate negative - Continue Vancomycin and Zosyn at this time - Steroids likely helping as well. Post-Tussive Throat Pain - Continue - Percocet 5 mg q4h PRN pain; Toradol 15 mg q6 hr PRN; Viscous Lidocaine Syrup - Antitussive modalities: Robitussin with Codeine; Tessalone Perles Delsym; Hycodan Duoneb q4 h jordi and 2h PRN - Continue Mirtazapine - Prednisone 60 mg day 08/05 today; needs slow taper after course completed - WBC 14 today; possible combined effect of infection with systemic steroids Metastatic Lung Cancer - Radiation oncology consulted, who plan to pursue radiation treatment on Thursday - Per oncology notes, has next treatment cycle on 12/29/2016 - Tolerated radiation today and tomorrow - Needs F/U with Dr. Castillo in the office to determine next steps for endobronchial stent Hiccup - Baclofen increased to TID Hyperlipidemia - Continue Rosuvastatin BPH - Continue Flomax DVT prophylaxis - Heparin 5000 ID Code Status - Level I Full Disposition - Patient has remained stable in med/surg - SLT evaluation to rule-out silent aspiration - OT/PT orders Continued [facility] stay due to: inadequate po fluid intake Discharge planning: home Reviewed: Pt Seen/Exam by Me History cough much improved walked in the hallway Constitutional: denies: fever Respiratory: negative: short of breath Cardiovascular: denies chest pain General Appearance: no apparent distress Respiratory: no respiratory distress, rhonchi, wheezing Cardiovascular: regular rate, rhythm Gastrointestinal: normal bowel sounds, non tender, soft Neurologic/Psychiatric: alert, oriented x 3 Skin Characteristics: warm/dry Assessment/Plan Resident Physician Supervision Note: I was present with Dr. Do in bedside. I verified the huang history and physical, reviewed labs and image studies, discussed the case with the resident and agree with the findings and care plan.
[2016-12-25 11:09] LABS: ALB/GLOB RATIO 0.6 (0.9-2); BUN/CREATININE RATIO 13.2 (10-20); CREATININE 1.2 mg/dl (0.60-1.40); POTASSIUM 3.6 mmol/L (3.5-5.1)
[2016-12-25 11:56] LABS: BASO % 0.1 %; BASO ABS # 0.01 K/uL (0-0.2); COMPLETE YES; ECHINOCYTES 2+; IG% 3.8 %; LYMPH % 3.3 %; LYMPH ABS # 0.47 K/uL (1.2-3.4); MONO % 4.8 %; OVALOCYTES 2+; TOXIC GRANULATION 1+
[2016-12-25] MEDS: KETOROLAC TROMETHAMINE 15 MG/ML VIAL IV. PRN (13:57)
--- NOTE | 2016-12-25 14:25 | Pharmacy Progress Note ---
Pharmacy Abx Dose Progress Nt Date of Service Dec 25, 2016. Pharmacy Dosing Scope The patient is currently receiving the following antimicrobial agents per Pharmacy consult: * Vancomycin 1200mg IV every 10 hours and * Zosyn 3.375 mg IV every 8 hours Objective Height (Feet): 5 Height (Inches): 8.00 Weight (Kilograms): 71.100 Vital Signs (Past 12Hrs) Vital Signs Past 12 Hours Date Time Temp Pulse Resp B/P (MAP) Pulse Ox O2 Delivery O2 Flow Rate FiO2 12/25/16 11:55 36.4 95 18 125/78 (94) 96 Room Air 12/25/16 11:14 89 16 94 Room Air 12/25/16 08:45 Room Air 12/25/16 07:38 86 16 96 Room Air 12/25/16 07:31 36.4 86 20 161/95 (117) 96 Room Air Lab Results (24Hrs) Laboratory Tests (24 Hours) Test 12/25/16 09:52 White Blood Count 14.22 K/uL (4.8-10.8) H Red Blood Count 2.87 M/uL (4.7-6.1) L Hemoglobin 8.5 g/dL (14.0-18.0) L Hematocrit 25.7 % (42-52) L Mean Corpuscular Volume 89.5 fL (80-100) Mean Corpuscular Hemoglobin 29.6 pg (25-34) Mean Corpuscular Hemoglobin Concent 33.1 g/dl (32-36) Platelet Count 447 K/uL (130-400) H Mean Platelet Volume 9.8 fL (7.4-10.4) Neutrophils (%) (Auto) 88.0 % Lymphocytes (%) (Auto) 3.3 % Monocytes (%) (Auto) 4.8 % Eosinophils (%) (Auto) 0.0 % Basophils (%) (Auto) 0.1 % Neutrophils # (Auto) 12.52 K/uL (1.4-6.5) H Lymphocytes # (Auto) 0.47 K/uL (1.2-3.4) L Monocytes # (Auto) 0.68 K/uL (0.11-0.59) H Eosinophils # (Auto) 0.00 K/uL (0-0.5) Basophils # (Auto) 0.01 K/uL (0-0.2) Procalcitonin 5.22 ng/ml (0-0.5) H Item Value Date Time Vancomycin Level Trough 8.1 mcg/ml 12/18/16 1400 Vancomycin Level Trough 13.6 mcg/ml 12/20/16 0314 Vancomycin Level Trough 19.6 mcg/ml 12/25/16 0952 Micro Results Date/Time Source Procedure Growth Status 12/23/16 15:45 Blood Blood Culture - Preliminary NO GROWTH TO DATE. Resulted 12/23/16 15:45 Blood Blood Culture - Preliminary NO GROWTH TO DATE. Resulted 12/16/16 20:13 Blood Blood Culture - Final NO GROWTH Complete 12/16/16 20:07 Blood Blood Culture - Final NO GROWTH Complete 12/16/16 00:00 Nasal MRSA DNA Surveillance Screen - Final Specimen Negative for MRSA by DNA Probe Complete 12/23/16 00:00 Bronchial Washings Left Lower Lobe Acid Fast Stain - Final Resulted 12/23/16 00:00 Bronchial Washings Left Lower Lobe Mycobacterial Culture Pending Resulted 12/23/16 00:00 Bronchial Washings Left Lower Lobe Fungal Smear - Final Resulted 12/23/16 00:00 Bronchial Washings Left Lower Lobe Fungal Culture Pending Resulted 12/23/16 00:00 Bronchial Washings Left Lower Lobe Gram Stain - Final Complete 12/23/16 00:00 Bronchial Washings Left Lower Lobe Bronchoalveolar Lavage Culture - Final MODERATE NORMAL DAKOTAH. Complete Risk Factors for Resistance * Hospitalization for 48 hours or more within the past 90 days * Current hospitalization > 5 days * Immunocompromised Assessment & Plan Assessment The patient is a 66 year old male admitted on Dec 16, 2016 at 17:04 with recurrent neuroendocrine tumor of the lung on chemotherapy and radiation therapy , presented with fever with neutropenia and encephalopathy. 66 year old male had been receiving IV Vancomycin/Zosyn during this admission for pulmonary process until 12/20/16 when regimen was deescalated to oral Levofloxacin. Patient became febrile IV Vancomycin/Zosyn was restarted for treatment of sepsis and left sided pneumonia. Day # 3/7 of antimicrobial therapy Plan Vancomycin IV * Trough level of 19.6 mcg/mL is therapeutic at the very top of therapeutic range, thus will do slight dose decrease. * Change to Vancomycin 1050 mg IV every 10 hours * Goal trough level for pneumonia/sepsis: 15 to 20 mcg/mL * Repeat trough level ordered for: 12/27/2016 prior to the noon dose Piperacillin/tazobactam * Continue 3.375 g IV extended infusion every 8 hours for CrCl greater than 20 mL/min OR every 12 hours for CrCl 20 mL/min or less. Pharmacy will continue to follow and will adjust dose/frequency as necessary. Thank you.
[2016-12-25] MEDS: VANCOMYCIN INJ 1,050 MG in SODIUM CHLORIDE 0.9% 250ML 250 ML IV SCH (20:00)
[2016-12-25] MEDS ORDERED: MIRTAZAPINE TAB 15 MG TAB PO SCH (22:00)
[2016-12-26 00:17] VITALS: PULSE 77; O2SAT 97
[2016-12-26] MEDS: ALBUT/IPRATROP 3MG/0.5MG NEB 3 ML VIAL INH SCH ×3 (04:00→11:22)
[2016-12-26] MEDS: LIDOCAINE HCL 2% VISC SOLN 20 ML UDC PO PRN (04:05)
[2016-12-26] MEDS: DEXTROMETHORPHAN POLYMR COMPLX 30 MG/5 ML UDP PO PRN (04:05)
[2016-12-26] MEDS: OXYCODONE HCL IR 5 MG TAB (IMMEDIATE RELEASE) PO PRN (04:10)
[2016-12-26] MEDS: BENZONATATE 100MG CAP PO SCH (04:10)
[2016-12-26 04:21] VITALS: BP 161/89; PULSE 77; TEMP 36.5; O2SAT 97
[2016-12-26] MEDS: PIPERACILL/TAZOBAC IV 3.375 GM in DEXTROSE 5% 100ML 100 ML IV SCH (06:29)
[2016-12-26] MEDS: VANCOMYCIN INJ 1,050 MG in SODIUM CHLORIDE 0.9% 250ML 250 ML IV SCH (06:29)
[2016-12-26] MEDS: HEPARIN SOD 5000 UNIT/0.5 ML CARP SQ SCH (06:33)
[2016-12-26] MEDS: DICLOFENAC SOD 1% GEL 100 GM TUBE EXT SCH ×2 (06:33→12:12)
[2016-12-26] MEDS: NYSTATIN SUSP 500,000 U/5 ML UDC PO SCH ×2 (07:29→12:12)
[2016-12-26] MEDS: TAMSULOSIN HCL 0.4 MG CAP PO SCH (07:30)
[2016-12-26] MEDS: ROSUVASTATIN CALCIUM 10 MG TAB PO SCH (07:30)
[2016-12-26] MEDS: PANTOprazole SOD 40 MG TAB PO SCH (07:30)
[2016-12-26] MEDS: BACLOFEN 10 MG TAB PO SCH (07:30)
[2016-12-26] MEDS: LACTOBACILLUS ACIDOPHILUS (FLORANEX) TAB PO SCH ×2 (07:30→12:12)
[2016-12-26] MEDS: BOOST PLUS VANILLA PO SCH ×2 (07:31)
[2016-12-26 07:43] VITALS: BP 150/87; PULSE 99; TEMP 36.6; O2SAT 97
[2016-12-26 07:53] LABS: MEAN CELL VOLUME 90.6 fL (80-100); MEAN CORPUSCULAR HEMOGLOBIN 29.2 pg (25-34); MEAN CORPUSCULAR HGB CONC 32.2 g/dl (32-36); MEAN PLATELET VOLUME 9.5 fL (7.4-10.4); PLATELET COUNT 511 K/uL (130-400); RED BLOOD COUNT 2.98 M/uL (4.7-6.1); WHITE BLOOD COUNT 15.78 K/uL (4.8-10.8)
[2016-12-26 08:22] LABS: BUN/CREATININE RATIO 16.2 (10-20); CREATININE 1.1 mg/dl (0.60-1.40); POTASSIUM 3.4 mmol/L (3.5-5.1)
[2016-12-26 11:22] VITALS: PULSE 77; PULSE 82; O2SAT 96
[2016-12-26 11:47] VITALS: BP 172/81; PULSE 82; TEMP 36.5; O2SAT 92
[2016-12-26] MEDS ORDERED: PRD20 PO (12:07)
[2016-12-26] MEDS ORDERED: CPC PO (12:07)
[2016-12-26] MEDS ORDERED: RMR15 PO (12:07)
[2016-12-26] MEDS ORDERED: MGCCMP100 PO (12:07)
[2016-12-26] MEDS ORDERED: BENZ100C7 PO (12:07)
[2016-12-26] MEDS ORDERED: CEFD300C2 PO (12:07)
--- NOTE | 2016-12-26 12:11 | Discharge Instructions ---
Discharge Instructions Date of Service Dec 26, 2016. Admission Reason for Admission: Lung Cancer/Ams Discharge Discharge Diagnosis / Problem: Pneumonia and neutropenic fever Discharge Goals Goal(s): Improve function, Improve disease control Activity Recommendations Activity Limitations: per Instructions/Follow-up section . Instructions / Follow-Up Instructions / Follow-Up You were admitted because of altered mental status. The cause of this was severely low blood counts stemming from chemotherapy. We treated your infection which eventually started improving along with your blood counts. You have a left -sided pneumonia. You will be discharged with oral antibiotics to complete the course. You also complained of severe throat pain since having a endobronchial stent placed. Our yard associate and cardiothoracic surgeons could not identify the specific cause of the pain. We have started you on a course of steroids. Once you complete your course, your primary care provider should taper the steroids gradually. Unfortunately it may be an effect of the lung cancer irritating your airways. Please attend your follow-up with oncology and cardiothoracic surgery. If your symptoms worsen, you have fevers that do not improve with Tylenol/Motrin or you are unable to take food and medicines by mouth, you should consult your primary care provider or go the nearest emergency department. If everything remains stable, please aim to see your primary care provider within one week of discharge for follow-up. It wa a pleasure being involved in your care and wish you the best. Current Hospital Diet Patient's current hospital diet: Regular Diet Discharge Diet Recommended Diet: Regular Diet Pending Studies Studies pending at discharge: no Medical Emergencies . Who to Call and When: Medical Emergencies: If at any time you feel your situation is an emergency, please call 911 immediately. . Non-Emergent Contact Non-Emergency issues call your: Primary Care Provider, Oncologist . . "Provider Documentation" section prepared by Luis Boyd. . VTE Core Measure Inpt VTE Proph given/why not?: Rodolfo Gaffney, [facility]
[2016-12-26] MEDS ORDERED: RXC5 PO (12:36)
[2016-12-26 12:38] VITALS: BP 172/81; PULSE 82; TEMP 36.5; O2SAT 92
--- NOTE | 2016-12-26 13:18 | SURGERY PROGRESS NOTE ---
DATE: 12/26/2016 Dr. Schroeder and I had a very long discussion with the patient about his situation. His was also present. He continues to cough, continues to have pain but he is improved. He has now had a stent in place for about 2 weeks. He came in with mental status changes on 12/16/2016 and is better now. He has improved and is being discharged today. I will follow him back in the office in about [address] Laguna will also be following him. We are going to make a decision bout when to remove the stent which I think will help his pain. Currently I am a bit reluctant to do this. I would like for him to continue his radiation and perhaps get another course of chemotherapy.
--- NOTE | 2016-12-26 19:27 | Discharge Summary ---
Discharge Summary Date of Service Dec 26, 2016. (Luis Boyd MD) Discharge Summary Admission Date: Dec 16, 2016 at 17:04 Discharge Date: Dec 26, 2016 Discharge Disposition: Home Principal Diagnosis: Pneumonia and neutropenic fever Immunizations: Have You Had Influenza Vaccine: Unknown History of Tetanus Vaccine?: UTD History of Pneumococcal: No History of Hepatitis B Vaccine: No Procedures: Bronchoscopy Consultations: Infectious disease Haem Onc Surgery Pulmonology (Luis Boyd MD) Medication Reconciliation New Medications: Cefdinir (Omnicef) 300 Mg Cap 1 CAP PO BID for 8 Days, #16 CAP Benzonatate (Benzonatate) 100 Mg Cap 100 MG PO TID for 30 Days, #90 CAP Maalox/Diphen/Visc. Peter/Glyc (Lidocaine Viscous) 100 Ml Btl 20 ML PO QID PRN for SORE THROAT for 30 Days, #10 BTL Menthol (Ricola) 24 Alix/1 Box Lozg 1 ALIX PO PRN PRN for SORE THROAT for 30 Days Mirtazapine (Mirtazapine) 15 Mg Tab 30 MG PO HS for 30 Days, #60 TAB Oxycodone HCl (Oxycodone HCl) 5 Mg Tab 5 MG PO Q4H PRN for Pain for 7 Days, #28 TAB Prednisone (Prednisone) 20 Mg Tab 60 MG PO DAILY for 6 Days, #12 TAB Take 3 tabs on days 1-2 Take 2 tabs on days 3-4 Take 1 tab on days 5-6 Continued Medications: Albuterol Sulfate (Proair Respiclick) 108 Mcg/Act Aer 1 INHA INH Q4H PRN for Shortness of Breath Baclofen (Lioresal) 10 Mg Tab 10 MG PO BID, TAB Diazepam (Valium) 5 Mg Tab 5 MG PO TID, TAB Ondansetron Hcl (Zofran) 8 Mg Tab 8 MG PO DIRECTED PRN for Nausea, TAB as instructed for chemo Rosuvastatin Calcium (Crestor) 10 Mg Tab 10 MG PO QAM, TAB Tamsulosin Hcl (Flomax) 0.4 Mg Cap 0.4 MG PO QAM, CAP [Budesonide] () 1 MG INH DAILY Discontinued Medications: Amoxicillin & Pot Clavulanate (Augmentin 500MG) 1 Tab Tab 1 TAB PO TID for 7 Days, #21 TAB Oxycodone/Acetaminophen 5MG/325MG (Percocet 5MG/325MG) Tab 1 TABLETS PO Q4H PRN for Pain, TAB PAIN Prednisone (Prednisone) 20 Mg Tab 60 MG PO DIRECTED, TAB to takes as instructed for chemo Discharge Exam Throat pain 02/01 but improving Still with dry cough Noticed some swelling of his feet Eating well, drinking well, peeing well and having regular bowel movements Review of Systems: Constitutional: No fever, No chills, No sweats ENT: + sore throat, No nasal symptoms, No trouble swallowing Respiratory: + cough, No sputum, No shortness of breath, No dyspnea on exertion Cardiovascular: No chest pain, No edema, No palpitations Abdomen: No pain, No nausea, No vomiting, No diarrhea Physical Exam: General Appearance: WD/WN, no apparent distress ENT: hearing grossly normal, pharynx normal Neck: supple, no JVD Respiratory/Chest: lungs clear, no respiratory distress, no accessory muscle use Cardiovascular: regular rate, rhythm, no murmur, normal peripheral pulses Abdomen / GI: normal bowel sounds, non tender, soft Extremities: no pedal edema, non-tender Skin: normal color, warm/dry, no rash (Luis Boyd MD) throat pain still present with cough. cough better whenever sleeping. narcotics help with sleeping. Review of Systems: Respiratory: + cough, No shortness of breath Cardiovascular: No chest pain Physical Exam: General Appearance: no apparent distress Respiratory/Chest: lungs clear, no respiratory distress Cardiovascular: regular rate, rhythm Abdomen / GI: normal bowel sounds, non tender, soft Neurologic/Psychiatric: alert, oriented x 3 Skin: warm/dry (Nicolle Henley M.D.) Hospital Course 66 year old with metastatic mix lung tumor (neuroendocrine/small cell). Patient is s/p endobronchial stenting on 12/13. He was originally admitted on for neutropenic fevers. He was originally treated with Vanc/Zosyn and downgraded to Levaquin and was eventually discharged on cefdinir with a tapering dose of steroids for his throat pain. His blood cultures and sputum cultures in the hospital were negative. Patient was discharged on 12/26/2016 Sepsis Secondary to Left-Lobar Pneumonia - Originally met sepsis criteria with: Temp > 39; HR > 90 - discharged on cefdinir for 8 days Post-Tussive Throat Pain - Continue - Percocet 5 mg q4h PRN pain; Viscous Lidocaine Syrup - Antitussive modalities; Tessalone Perles Delsym - will be following up with Jonathan in 10 days to discuss removing stent - Prednisone 60 mg 6 day taper upon discharge Metastatic Lung Cancer - Radiation oncology consulted, and continued treatments while patient was in hospital - Per oncology notes, has next treatment cycle on 12/29/2016 Hiccup - Baclofen increased to TID Hyperlipidemia - Continue Rosuvastatin BPH - Continue Flomax Total Time Spent: Less than 30 minutes This includes examination of the patient, discharge planning, medication reconciliation, and communication with other providers. (Luis Boyd MD) Resident Physician Supervision Note: I was present with Dr. Boyd in bedside. I verified the huang history and physical, reviewed labs and image studies, discussed the case with the resident and agree with the findings and care plan. Had moments of confusion noted by family. Discussed recent MRI from october - normal. No sign of new infection. On oxycodone. last dose 4am. discussed with Dr. Avtar Avalos - likely combination of his illness, medication. ok to reimage brain. Discussed plan with patient- declined any further testing and would like to go home. If symptoms reoccurred - will then pursue further evaluation. Total Time Spent: Greater than 30 minutes (40) (Nicolle Henley M.D.) Discharge Instructions Please refer to the electronic Patient Visit Report (Discharge Instructions) for additional information. (Luis Boyd MD) Additional Copies To Bradford Cota D.O.; Sagar Mccray M.D.; Prem Red M.D.; Shan Castillo MD
[2016-12-27] MEDS ORDERED: VANCOMYCIN TROUGH SCH (11:30)
[2016-12-29] MEDS ORDERED: BACL10TA PO (08:51)
[2016-12-29] MEDS ORDERED: PROC1TAB5 PO (08:51)
[2016-12-29] MEDS ORDERED: BUDE1SUS6 INH (08:51)
[2016-12-29] MEDS ORDERED: MULT-506 PO (08:51)
[2017-01-13] MEDS ORDERED: SUCR5SUS PO (08:48)
[2017-01-13] MEDS ORDERED: PRED20TA2 PO (15:39)
== END 2016-12-26 14:35 | disposition home health service (06) | DRG 853 ==
LOC: C.4E 15:28 → UNDOADMIN 15:28 → C.4E 15:57 → ENRESERV 22:06 → C.4E 22:31 → C.2E 22:31 → ENRESERV 12-20 17:42 → C.4E 12-20 18:11
PROVIDERS: ADMIT Internal Medicine; ATTEND Family Medicine
PROC: 0B9J8ZX Drainage of Left Lower Lung Lobe, Via Natural or Artificial Opening Endoscopic, Diagnostic (ICD-10-PCS; principal; 2016-12-23)
DX: A41.9 Sepsis, unspecified organism (principal); J18.1 Lobar pneumonia, unspecified organism; C34.12 Malignant neoplasm of upper lobe, left bronchus or lung; G93.40 Encephalopathy, unspecified; D70.1 Agranulocytosis secondary to cancer chemotherapy; Z92.3 Personal history of irradiation; N40.1 Benign prostatic hyperplasia with lower urinary tract symptoms; E78.5 Hyperlipidemia, unspecified; I95.89 Other hypotension; K21.9 Gastro-esophageal reflux disease without esophagitis; J44.9 Chronic obstructive pulmonary disease, unspecified; F17.200 Nicotine dependence, unspecified, uncomplicated; R07.0 Pain in throat; R06.6 Hiccough; M79.604 Pain in right leg; M79.605 Pain in left leg; Z85.118 Personal history of other malignant neoplasm of bronchus and lung

== ENCOUNTER 2017-01-15 09:36 | Day surgery (SDC) | payer BC ==
[2017-01-13 15:20] VITALS: BMI 22.0
[2017-01-15] VITALS (7 sets, daily range): BP systolic 122–158; BP diastolic 70–81; PULSE 84–112; TEMP 36.8–37.1; O2SAT 94–97; Ht 172.7 cm; Wt 66.8 kg
[~2017-01-15] VITALS: Ht 172.7 cm; Wt 66.8 kg
[~2017-01-15 09:36] MED LIST changes: -AMOX500T PO; +ATROPINE SULFATE 0.1 MG/ML 5ML SYR IV PRN; -BUDESONIDE INH; +CPC PO; -CRS/10 PO; +DEXAMETHASONE SOD INJ 4 MG/ML VIAL ONE; -DIAZ-165 PO; +EpHEDrine SULFATE INJ 50 MG/ML AMP IV PRN; -FENTANYL CITRATE 100 MCG 2 ML CARP IV ONE; +FENTANYL CITRATE INJ 50 MCG/1 ML 2 ML VIAL IV PRN; +FENTANYL CITRATE INJ 50 MCG/1 ML 2 ML VIAL ONE; +GLYCOPYRROLATE INJ 0.2 MG/ML VIAL ONE; +LACTATED RINGER'S 1000ML 1,000 ML IV SCH; +LIDOCAINE HCL 2% 2 ML VIAL (20MG/ML) ONE; -LIDOCAINE HCL 2% LOCAL 50ML VIAL INFIL ONE; +MGCCMP100 PO; +MIDAZOLAM HCL 1 MG/ML 2ML VIAL ONE; -MIDAZOLAM HCL 5 MG/ML 1 ML VIAL IV ONE; +MULT-506 PO; +NEOSTIGMINE METHYLSULFATE 5 MG/5 ML SYR ONE; +ONDANSETRON INJ 2 MG/ML 2 ML VIAL IV PRN; +ONDANSETRON INJ 2 MG/ML 2 ML VIAL ONE; -OXYC-57 PO; -PRED20TA PO; +PRED20TA2 PO; +PROC1TAB5 PO; +PROPOFOL IV EMULSION 10 MG/ML 20 ML VIAL IV ONE; +RMR15 PO; +ROCURONIUM BROMIDE 10 MG/ML 5 ML VIAL IV ONE; +RXC5 PO
[2017-01-15] MEDS ORDERED: BENZ1CAP90 PO (10:16)
[2017-01-15 10:41] LABS: HEMATOCRIT 24.5 % (42-52); MEAN CELL VOLUME 91.1 fL (80-100); MEAN CORPUSCULAR HEMOGLOBIN 29.4 pg (25-34); RED BLOOD COUNT 2.69 M/uL (4.7-6.1)
[2017-01-15 11:01] LABS: MEAN CORPUSCULAR HGB CONC 32.2 g/dl (32-36); MEAN PLATELET VOLUME 10.1 fL (7.4-10.4); PLATELET COUNT 52 K/uL (130-400)
--- NOTE | 2017-01-15 12:02 | DIAGNOSTIC IMAGING REPORT ---
CHEST ONE VIEW PORTABLE CLINICAL HISTORY: Stent removal. Lung cancer. COMPARISON STUDY: Chest CT December 20, 2016 and chest radiograph December 23, 2016. FINDINGS: Left hemithorax volume loss is unchanged. Left lung airspace opacity has improved since exam of December 23, 2016. The left mainstem stent has been removed. A trace left pleural effusion has slightly diminished. There is no pneumothorax or evidence of pulmonary edema. IMPRESSION: 1. Interval removal of the left mainstem bronchial stent. No pneumothorax. 2. Interval improvement in left lung airspace opacity since exam of December 23, 2016. Trace left pleural effusion, slightly decreased in size. Electronically signed by: Girma Gonzáles M.D. 01/15/2017 12:01 PM Dictated Date/Time: 01/15/2017 11:57 AM
[2017-01-15] MEDS ORDERED: AMOX875T PO (12:10)
--- NOTE | 2017-01-15 12:13 | Discharge Instructions ---
Discharge Instructions Date of Service Jan 15, 2017. Visit Reason for Visit: Bronchial Stents, Neoplasm of Left Lung Main Bronc Discharge Discharge Diagnosis / Problem: Bronchial Stents, Neoplasm of Left Lung Main Bronc Discharge Goals Goal(s): Decrease discomfort, Improve function Activity Recommendations Activity Limitations: resume your previous activity (in 24 hours) Anesthesia . Post Anesthesia Instructions: If you have had General Anesthesia or IV Sedation: * Do not drive today. * Resume driving when surgeon permits. * Do not make important decisions or sign legal documents today. * Call surgeon for: 1. Temperature elevations greater than 101 degrees F. 2. Uncontrollable pain. 3. Excessive bleeding. 4. Persistent nausea and vomiting. 5. Medication intolerance (nausea, vomiting or rash). * For nausea and vomiting use only clear liquids such as: tea, soda, bouillon until nausea subsides, then gradually increase diet as tolerated. * If you have any concerns or questions, call your surgeon's office. If physician is unavailable and it is an emergency, call 911 or go to the nearest emergency room. . Instructions / Follow-Up Instructions / Follow-Up 1. Office appointment with Dr. Castillo in 1 week. Office will call you with date and time of appointment. Go to hospital 1 hour before appointment for a chest x-ray. Diet Recommendations Recommended Home Diet: no limitations, resume previous diet Procedures Procedures Performed: Fiberoptic Bronchoscopy with Removal of Bronchial Stent Pending Studies Studies pending at discharge: no Medical Emergencies . Who to Call and When: Medical Emergencies: If at any time you feel your situation is an emergency, please call 911 immediately. . Non-Emergent Contact Non-Emergency issues call your: Surgeon Call Non-Emergent contact if: you have a fever, your pain is not controlled . . "Provider Documentation" section prepared by Flaco Abrams. .
[2017-01-15] MEDS ORDERED: PHENYLEPHRINE 100MCG/ML 5ML SYR ONE (12:18)
[2017-01-15] MEDS: PHENYLEPHRINE 100MCG/ML 5ML SYR IV PRN ×3 (12:34→13:01)
[2017-01-15] MEDS ORDERED: LIDOCAINE HCL 2% 2 ML VIAL (20MG/ML) INH ONE (12:40)
[2017-01-15] MEDS ORDERED: NURSING VERBAL MED ORDER ONE ×2 (13:00→15:00)
[2017-01-15] MEDS ORDERED: ALBUMIN HUMAN 5% 12.5 GM/250 ML VIAL IV ONE ×2 (13:09→13:15)
[2017-01-15 13:23] LABS: MEAN CELL VOLUME 91.3 fL (80-100); MEAN CORPUSCULAR HEMOGLOBIN 31.1 pg (25-34); RED BLOOD COUNT 2.41 M/uL (4.7-6.1); WHITE BLOOD COUNT 1.33 K/uL (4.8-10.8)
[2017-01-15 13:31] LABS: MEAN CORPUSCULAR HGB CONC 34.1 g/dl (32-36); MEAN PLATELET VOLUME 10.5 fL (7.4-10.4); PLATELET COUNT 52 K/uL (130-400)
--- NOTE | 2017-01-15 14:11 | OPERATIVE REPORT ---
DATE OF OPERATION: 01/15/2017 PREOPERATIVE DIAGNOSES: 1. Indwelling left mainstem bronchial covered stent. 2. 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 POSTOPERATIVE DIAGNOSIS: Same. PROCEDURE: 1. Fiberoptic bronchoscopy with removal of stent. 2. Bronchial washings. SURGEON: Dr. Castillo. THREAD INSPECTOR: Prem Fortune, respiratory therapy. ANESTHESIA: General anesthesia with endotracheal intubation. 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 He has now been found to have recurrent disease. I placed an endobronchial stent in his left mainstem bronchus back on 12/12/2016. He has been receiving chemotherapy and I think his CAT scan looks better. These had to be reviewed down in radiation therapy where they did planning on the CT. Given this I felt that a removal of this stent was indicated. He was having a productive cough. He also had pain with the stent, although it was debatable whether this was causing it. OPERATION AND FINDINGS: On 01/15/2017 the patient was brought to the operating room and underwent an uncomplicated fiberoptic bronchoscopy under general anesthesia. His right airway looked quite good. His stent looked very good in position; however, there was some what appeared to be edema at the takeoff of the lower lobe bronchus and the bronchus to the superior segment. The stent was removed without difficulty and I irrigated out this area. I did suck out some sputum from the superior segment of the lower lobe. The area where the stent was looked quite good. More proximally there appeared to be a treatment effect of the tumor, but there was no evidence of obstruction. He tolerated it quite well. PROCEDURE: The patient brought to operating room and laid in supine position. General anesthesia induced and endotracheal intubation was performed. After appropriate timeout had been called and clindamycin been administered fiberoptic bronchoscope was placed. I saw very little in the way of any sputum and closely inspected the right bronchial tree. The basilar segments to the superior segment lower lobe, right middle lobe and right upper lobe bronchi all looked quite good. There was no sputum here. Going down through the stent, I could see the takeoff of the superior segment of lower lobe as well as the basilar segments. The stent appeared to be in good position. A biopsy forceps were placed and used to remove this stent. We had to extubate the patient to do this and then reintubated him without difficulty. Upon going back down he really had no active bleeding. There was treatment effect more proximally of the right proximal medial airway; however, I did not see anything more distally. More distally, there was mucosal edema which appeared to be heaped up around the origin of the superior segment of the lower lobe. I was able to get through this with the scope and suctioned out some yellow sputum and sent this for culture. I saw no further bleeding and no other evidence of mucus. He tolerated it quite well with no blood loss. The bronchoscope was slowly removed and then he was extubated in the room without difficulty and transferred to the postanesthesia care unit in stable condition. I attest to the content of the Intraoperative Record and any orders documented therein. Any exception s are noted below.
--- NOTE | 2017-01-15 14:23 | Anesthesiology Progress Note ---
Anesthesia Post Op Note Date & Time Jan 15, 2017 at 14:21 Vital Signs Pain Intensity: 0 Vital Signs Past 12 Hours Date Time Temp Pulse Resp B/P (MAP) Pulse Ox O2 Delivery O2 Flow Rate FiO2 01/15/17 13:40 112/61 01/15/17 13:39 81 26 01/15/17 13:39 80 26 95 01/15/17 13:35 116/62 01/15/17 13:34 84 27 95 01/15/17 13:34 83 27 01/15/17 13:30 107/59 01/15/17 13:29 91 29 01/15/17 13:29 93 29 94 01/15/17 13:26 93/54 01/15/17 13:24 107 16 01/15/17 13:24 106 16 97 01/15/17 13:20 104/59 01/15/17 13:19 86 25 93 01/15/17 13:19 86 25 01/15/17 13:15 100/52 01/15/17 13:14 91 27 92 01/15/17 13:14 90 27 01/15/17 13:09 92 28 01/15/17 13:09 90 28 93 01/15/17 13:06 80/47 01/15/17 13:04 110 21 96 01/15/17 13:04 111 21 01/15/17 13:01 77/51 01/15/17 12:59 90 25 90 01/15/17 12:59 91 25 01/15/17 12:55 93/52 01/15/17 12:54 88 31 91 01/15/17 12:54 89 31 01/15/17 12:50 83/48 01/15/17 12:49 109 15 01/15/17 12:49 110 15 93 01/15/17 12:46 88/51 01/15/17 12:44 113 23 01/15/17 12:44 111 23 95 01/15/17 12:41 102/57 01/15/17 12:39 110 28 01/15/17 12:39 113 28 100 01/15/17 12:35 110/56 01/15/17 12:34 112 22 86/53 100 01/15/17 12:34 114 22 01/15/17 12:31 83/51 01/15/17 12:29 113 22 01/15/17 12:29 112 22 100 01/15/17 12:27 112 22 94 Room Air 01/15/17 12:26 92/54 01/15/17 12:24 111 21 99 01/15/17 12:24 112 21 01/15/17 12:21 91/53 01/15/17 12:19 113 20 94 01/15/17 12:19 114 20 01/15/17 12:16 89/55 01/15/17 12:14 116 24 01/15/17 12:14 118 24 98/46 96 01/15/17 12:11 81/50 01/15/17 12:09 120 24 95 01/15/17 12:09 119 24 01/15/17 12:08 86/41 01/15/17 12:06 85/49 01/15/17 12:04 120 19 01/15/17 12:04 121 19 90/60 96 01/15/17 12:02 87/56 01/15/17 12:01 78/68 01/15/17 11:59 122 24 99 01/15/17 11:59 121 24 01/15/17 11:57 107/60 01/15/17 11:54 122 27 01/15/17 11:54 120 27 100 01/15/17 11:52 148/79 01/15/17 11:49 117 26 100 01/15/17 11:49 116 26 01/15/17 11:45 121/70 01/15/17 11:45 113/89 01/15/17 11:44 112 19 01/15/17 11:44 36.6 114 16 113/89 99 Mask 10 01/15/17 11:44 112 19 99 01/15/17 10:17 85 18 122/71 (88) 96 Room Air Notes Mental Status: alert / awake / arousable, participated in evaluation Pt Amnestic to Procedure: Yes Nausea / Vomiting: adequately controlled Pain: adequately controlled Airway Patency, RR, SpO2: stable & adequate BP & HR: stable & adequate Hydration State: stable & adequate Anesthetic Complications: no major complications apparent Anesthetic Complications: patient was hypotensive in PACU - not responding to crystalloid. HandH checked and stable. Given 250 cc of 5% albumin with good response. Hemodynamically stable with appropriate MAPS after albumin administration.
[2017-01-15] MEDS ORDERED: OXYCODONE HCL IR 5 MG TAB (IMMEDIATE RELEASE) PO SCH (15:00)
[2017-01-15] MEDS ORDERED: ALBUTEROL 0.083% NEBU SOLN 3 ML VIAL INH ONE (15:30)
== END 2017-01-15 16:50 | disposition home or self-care (01) ==
LOC: C.ACU 09:36
PROVIDERS: ATTEND Surgery
DX: C34.02 Malignant neoplasm of left main bronchus (principal); J44.9 Chronic obstructive pulmonary disease, unspecified; Z85.118 Personal history of other malignant neoplasm of bronchus and lung; Z87.01 Personal history of pneumonia (recurrent); Z80.0 Family history of malignant neoplasm of digestive organs; Z80.42 Family history of malignant neoplasm of prostate; Z87.891 Personal history of nicotine dependence; K44.9 Diaphragmatic hernia without obstruction or gangrene; K21.9 Gastro-esophageal reflux disease without esophagitis

== ENCOUNTER → 2017-01-22 | Outpatient (CLI) | payer BC ==
[~2017-01-22] MED LIST changes: +AMOX875T PO; -ATROPINE SULFATE 0.1 MG/ML 5ML SYR IV PRN; +BENZ1CAP90 PO; -DEXAMETHASONE SOD INJ 4 MG/ML VIAL ONE; -EpHEDrine SULFATE INJ 50 MG/ML AMP IV PRN; -FENTANYL CITRATE INJ 50 MCG/1 ML 2 ML VIAL IV PRN; -FENTANYL CITRATE INJ 50 MCG/1 ML 2 ML VIAL ONE; -GLYCOPYRROLATE INJ 0.2 MG/ML VIAL ONE; -LACTATED RINGER'S 1000ML 1,000 ML IV SCH; -LIDOCAINE HCL 2% 2 ML VIAL (20MG/ML) ONE; -MIDAZOLAM HCL 1 MG/ML 2ML VIAL ONE; -NEOSTIGMINE METHYLSULFATE 5 MG/5 ML SYR ONE; -ONDANSETRON INJ 2 MG/ML 2 ML VIAL IV PRN; -ONDANSETRON INJ 2 MG/ML 2 ML VIAL ONE; -PROPOFOL IV EMULSION 10 MG/ML 20 ML VIAL IV ONE; -ROCURONIUM BROMIDE 10 MG/ML 5 ML VIAL IV ONE
--- NOTE | 2017-01-22 08:25 | DIAGNOSTIC IMAGING REPORT ---
CHEST 2 VIEWS ROUTINE CLINICAL HISTORY: J18.9 [id number] Large cell neuroendocrine [id number] COMPARISON STUDY: January 15, 2017 FINDINGS: The cardiac and mediastinal contours remain stable. There is stable blunting and elevation of the left hemidiaphragm. There is no focal pulmonary consolidation.[ A density within the right midlung zone laterally is felt to represent a summation. There is no failure. IMPRESSION: No acute findings. Stable blunting and elevation of the left hemidiaphragm. Electronically signed by: Avinash Buchanan M.D. 01/22/2017 8:23 AM Dictated Date/Time: 01/22/2017 8:21 AM
== END | disposition home or self-care (01) ==
LOC: C.RAD 08:02
PROVIDERS: ATTEND Surgery
DX: J18.9 Pneumonia, unspecified organism (principal); C7A.8 Other malignant neuroendocrine tumors; R91.8 Other nonspecific abnormal finding of lung field

== ENCOUNTER → 2017-02-02 | Outpatient (CLI) | payer BC ==
[~2017-02-02] MED LIST changes: -AMOX875T PO
--- NOTE | 2017-02-02 11:15 | DIAGNOSTIC IMAGING REPORT ---
CHEST 2 VIEWS ROUTINE CLINICAL HISTORY: Malignant neoplasm of left main bronchus. COMPARISON STUDY: Chest radiograph January 22, 2017. FINDINGS: Left hemithorax volume loss is unchanged with elevation of the left hemidiaphragm. There is a trace left pleural effusion. This is unchanged. There is no pneumothorax. Cardiomediastinal silhouette is stable. The appearance of the chest is unchanged. IMPRESSION: No acute findings. No change in appearance of the chest with left hemithorax volume loss and a trace left pleural effusion. Electronically signed by: Girma Gonzáles M.D. 02/02/2017 11:13 AM Dictated Date/Time: 02/02/2017 10:50 AM
== END | disposition home or self-care (01) ==
LOC: C.RAD 10:22
PROVIDERS: ATTEND Surgery
DX: C34.02 Malignant neoplasm of left main bronchus (principal)

== ENCOUNTER → 2017-03-09 | Outpatient (CLI) | payer BC ==
[~2017-03-09] MED LIST changes: +CHOL2000 PO; +ESOM20CA PO; +MISCCAP80 PO; +iron PO
--- NOTE | 2017-03-09 11:12 | DIAGNOSTIC IMAGING REPORT ---
PET/CT HISTORY: NON SMALL LUNG CANCER TECHNIQUE: PET/CT was performed from the base of the skull through the pelvis following the intravenous administration of 14.2 mCi of F18-FDG. Non-contrast CT imaging was performed over the same range without breath-hold for attenuation correction of PET images and anatomic correlation, but not for primary interpretation as it is not of standard diagnostic quality. CT DOSE: 302.40 mGycm COMPARISON: Chest CT 12/20/2016. PET CT 11/10/2016. FINDINGS: HEAD AND NECK: There is no FDG-avid disease or significant lymphadenopathy in the imaged portions of the head and the neck. CHEST: Left bronchial stent has been removed. The FDG avid soft tissue lesion anterior to the left mainstem bronchus and the left hilar FDG uptake seen on the prior PET/CT has resolved in the interval. Decrease in size within a right peritracheal lymph node which currently measures 10 x 8 mm, previous measuring 17 x 12 mm. This demonstrates minimal FDG uptake with an SUV max of 1. There is also decrease in size within the dominant AP window lymph node which measures 5 mm, previous measuring 9 mm. This also demonstrates minimal FDG uptake with an SUV max of 1.6. Improvement in the left suprahilar groundglass opacity suggestive of resolving radiation pneumonitis. Postoperative changes within the left hemithorax are again noted. Stable left pleural thickening. ABDOMEN/PELVIS: Below the diaphragm, tracer is distributed physiologically in the gastrointestinal and genitourinary tracts. There is no significant lymphadenopathy and no FDG-avid disease. MUSCULOSKELETAL: There is no FDG-avid or destructive bone lesion. There are healing right-sided rib fractures. IMPRESSION: 1. Interval improvement in the FDG avid disease with resolution of the FDG avid soft tissue nodule anterior to the left mainstem bronchus and the left hilar FDG uptake. 2. Decrease in size in the mediastinal lymph nodes as described above which demonstrate minimal FDG uptake at this time. Electronically signed by: Isaac Chandler M.D. 03/09/2017 11:11 AM Dictated Date/Time: 03/09/2017 10:57 AM
== END | disposition home or self-care (01) ==
LOC: C.PET 08:33
PROVIDERS: ATTEND Internal Medicine Hematology & Oncology
DX: C34.12 Malignant neoplasm of upper lobe, left bronchus or lung (principal)

== ENCOUNTER → 2017-03-10 | Outpatient (CLI) | payer BC ==
[2017-03-10 13:46] VITALS: BP 124/74; PULSE 120; TEMP 36.8; O2SAT 98
--- NOTE | 2017-03-10 16:40 | Radiation Oncology Follow-Up ---
Radiation Oncology Follow-Up Date of Visit Mar 10, 2017. 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 Radiation completed 01/30/2017. 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 The patient subsequently underwent further evaluation which included a CT of the thorax on 07/21/2014 which revealed mild focal narrowing seen at the takeoff of the anterior segment of the left upper lobe concerning for potential malignancy. The patient underwent a PET/CT scan on 08/02/2014 which revealed wall thickening and irregularity suggested in the left upper lobe bronchus that is not FDG avid otherwise no evidence of disease. The patient was seen by Dr. Prem Simms from pulmonary medicine who did take the patient for a bronchoscopy with multiple biopsies on 07/28/2014 which confirmed poorly differentiated carcinoma involving the left upper lobe; station L4 and station 7 were both negative for metastatic disease. The patient underwent a left upper lobectomy at [facility] in July 2014 which revealed stage I large cell neuroendocrine carcinoma. The patient was subsequently treated with 4 cycles of adjuvant cisplatin and etoposide chemotherapy underneath the supervision of Dr. Bradford Cota. More recently, the patient is been followed by Dr. Shan Castillo from thoracic surgery for continuous follow-up and surveillance. The patient has been complaining of persistent cough and Dr. Rodríguez did perform several procedures including the placement of a stent which was subsequently removed. The patient did have a PET/CT scan completed in July 2016 which revealed hypermetabolic activity in the left hilum (imaging report unavailable). The patient subsequently underwent a repeat PET/CT scan on 11/10/2016 which revealed: "IMPRESSION: 1. Interval development of a 1.8 cm area of soft tissue thickening within the left hilum with intense FDG uptake. There is also a new 8 mm FDG avid soft tissue nodule along the anterior aspect of the left mainstem bronchus. These are consistent with recurrent/metastatic disease. Bronchoscopy can be used for further evaluation. 2. Mild FDG uptake associate with the left lateral third rib healing fracture." The patient underwent a bronchoscopy on 10/24/[address] Shan Castillo and multiple biopsies were completed: 1. Station 7 lymph node -rare cluster of atypical cells suspicious for metastatic carcinoma. 2. Station R4 lymph node - no evidence of malignancy. 3. Left mainstem bronchus - consistent with basaloid squamous cell carcinoma The patient underwent a bronchoscopy on 11/12/[address] Shan Castillo and multiple biopsies were completed: 1. R2 Lymph Node - very rare atypical cells present, cannot exclude metastatic carcinoma. 2. R4 Lymph Node - no malignant cells seen. 3. R10 Lymph - no malignant cells seen. 4. R11 Lymph - no malignant cells seen. 5. Station 7 Lymph node ("Right Side Aracelis") - metastatic carcinoma. The patient was seen and reevaluation by Dr. Feli Mcginnis from [facility]. The recommendation was for concurrent chemotherapy and radiation therapy. The patient was seen and reevaluation by Dr. Bradford Cota for medical oncology who agreed with the recommendation for concurrent chemotherapy and radiation therapy utilizing carboplatin and Taxol. The patient does plan to seek out a third opinion consultation at [facility] to confirm the current plan. The patient also did have a MRI of the brain completed on 11/21/2016 which was negative for metastatic disease. We are now seeing the patient in consultation discuss the role of radiation therapy. He completed combined radiation and chemotherapy. Radiation completed on 2016. He received 6000 cGy. Interim History He is been doing well over the past month. She has noticed improvement in his cough. He does continue to have intermittent wheezing. He has been used inhalers and nebulizer in the past which did not help with the wheezing. His chemotherapy was completed 02/12/2017. He is continue follow-up with Dr. Cota and recently completed a PET/CT 03/09/2017. He previously had discomfort in the chest and chest wall area. He denies any pain today. His cough is dry. He has gained 14 pounds since the completion of treatment. Allergies Coded Allergies: Pork (Verified Allergy, Severe, ANAPHYLAXIS, 01/16/17) NO KNOWN DRUG ALLERGIES (Verified Allergy, Unknown, ., 01/16/17) Uncoded Allergies: VENISON (Allergy, Unknown, RASH, 12/12/16) Home Medications Scheduled Baclofen (Lioresal), 10 MG PO TID Cholecalciferol (Vitamin D3), 1 CAP PO DAILY Esomeprazole Magnesium (Nexium), 1 CAP PO DAILY Mirtazapine (Mirtazapine), 30 MG PO HS Multivitamin (Multivitamin), 1 TAB PO DAILY Probiotic Product (Probiotic), 1 CAP PO DAILY Tamsulosin Hcl (Flomax), 0.4 MG PO QAM [iron], 1 CAP PO DAILY Scheduled PRN Albuterol Sulfate (Proair Respiclick), 1 INHA INH Q4H PRN for Shortness of Breath Menthol (Ricola), 1 ALOK PO PRN PRN for SORE THROAT Ondansetron Hcl (Zofran), 8 MG PO DIRECTED PRN for Nausea Oxycodone HCl (Oxycodone HCl), 5 MG PO Q4H PRN for Pain Prochlorperazine Maleate (Compazine), 10 MG PO Q6H PRN for Nausea or Vomiting Review of Systems Gastrointestinal: Symptoms: WNL Oral: Symptoms: No Problems Respiratory: Symptoms: Dry Cough, SOB With Exertion, Productive Cough Respiratory Comments: Does admit to more wheezing feeling over past month; Sputum Character: Clear sputum when productive; Other Respiratory: SOB w/certain activities; Urinary: Symptoms: WNL Skin: Symptoms: No Problems Physical Exam Vital Signs Date Time Temp Pulse Resp B/P (MAP) Pulse Ox O2 Delivery O2 Flow Rate FiO2 03/10/17 13:46 36.8 120 20 124/74 98 Fatigue: None General Appearance: no apparent distress Eyes: normal inspection, PERRL ENT: normal ENT inspection, hearing grossly normal Respiratory/Chest: no respiratory distress, no accessory muscle use, + wheezing (mild wheezing bilaterally) Cardiovascular: regular rate, rhythm, no gallop, no murmur Extremities: no pedal edema Neurologic/Psychiatric: no motor/sensory deficits, alert, normal mood/affect Skin: warm/dry Laboratory Studies Test 12/16/16 00:00 12/16/16 18:10 12/16/16 20:13 12/17/16 06:00 Urine Color DK YELLOW Urine Appearance CLEAR (CLEAR) Urine pH 6.5 (4.5-7.5) Urine Specific [place] 1.028 (1.000-1.030) Urine Protein TRACE (NEG) Urine Glucose (UA) NEG (NEG) Urine Ketones TRACE (NEG) Urine Occult Blood NEG (NEG) Urine Nitrite NEG (NEG) Urine Bilirubin NEG (NEG) Urine Urobilinogen NEG (NEG) Urine Leukocyte Esterase NEG (NEG) Urine WBC (Auto) 1-5 /hpf (0-5) Urine RBC (Auto) 0-4 /hpf (0-4) Urine Hyaline Casts (Auto) 1-5 /lpf (0-5) Urine Epithelial Cells (Auto) 20-30 /lpf (0-5) Urine Bacteria (Auto) NEG (NEG) Neutrophils % (Manual) 25.9 % Lymphocytes % (Manual) 37.7 % Variant Lymphocytes % (manual) 11.9 % Monocytes % (Manual) 15.4 % Eosinophils % (Manual) 5.6 % Basophils % (Manual) 3.5 % (0-2) Neutrophils # (Manual) 0.17 K/uL (1.4-6.5) Total Absolute Neutrophils 0.17 K/uL (1.4-6.5) Lymphocytes # (Manual) 0.25 K/uL (1.2-3.4) Absolute Variant Lymphocytes 0.08 K/uL Total Absolute Lymphocytes 0.33 K/uL (1.2-3.4) Monocytes # (Manual) 0.10 K/uL (0.11-0.59) Eosinophils # (Manual) 0.04 K/uL (0-0.5) Basophils # (Manual) 0.02 K/uL (0-0.2) Platelet Estimate DECREASED Large Platelets 1+ Prothrombin Time 11.4 SECONDS (9.0-12.0) Prothrombin Time INR 1.1 (0.9-1.1) PTT 31.7 SECONDS (21.0-31.0) Partial Thromboplastin Ratio 1.2 Direct Bilirubin 0.3 mg/dl (0-0.2) Giant Platelets 2+ Phosphorus Level 2.0 mg/dl (2.5-4.9) Magnesium Level 1.9 mg/dl (1.8-2.4) Hepatitis C Antibody Screen NEG (NEG) Test 12/18/16 06:53 12/18/16 09:40 12/19/16 05:06 12/20/16 03:14 Dohle Bodies 2+ Direct Bilirubin 0.2 mg/dl (0-0.2) Toxic Vacuolation 1+ C-Reactive Protein 15.40 mg/dl (0-0.29) Vancomycin Level Trough 13.6 mcg/ml (SEE COMMENT) Test 12/21/16 05:47 12/23/16 09:25 12/23/16 16:54 12/23/16 17:07 25-Hydroxy Vitamin D Total 12.6 ng/ml (30-100) Dohle Bodies 1+ Echinocytes Elliptocytes 1+ Urine Color YELLOW Urine Appearance CLEAR (CLEAR) Urine pH 5.5 (4.5-7.5) Urine Specific [place] 1.015 (1.000-1.030) Urine Protein NEG (NEG) Urine Glucose (UA) NEG (NEG) Urine Ketones 1+ (NEG) Urine Occult Blood NEG (NEG) Urine Nitrite NEG (NEG) Urine Bilirubin NEG (NEG) Urine Urobilinogen NEG (NEG) Urine Leukocyte Esterase NEG (NEG) Lactic Acid Level 1.1 mmol/L (0.4-2.0) Test 12/24/16 09:14 12/25/16 09:52 12/26/16 07:15 01/14/17 08:19 Neutrophils % (Manual) 94.7 % Lymphocytes % (Manual) 3.5 % Monocytes % (Manual) 0.9 % Myelocytes % 0.9 % Neutrophils # (Manual) 10.57 K/uL (1.4-6.5) Total Absolute Neutrophils 10.57 K/uL (1.4-6.5) Lymphocytes # (Manual) 0.39 K/uL (1.2-3.4) Total Absolute Lymphocytes 0.39 K/uL (1.2-3.4) Monocytes # (Manual) 0.10 K/uL (0.11-0.59) Myelocytes # 0.10 K/uL (0-0) Toxic Granulation 1+ 1+ Lactic Acid Level 1.7 mmol/L (0.4-2.0) Procalcitonin 8.14 ng/ml (0-0.5) 5.22 ng/ml (0-0.5) Nucleated RBC Absolute Count (auto) 0.04 K/uL (0-0) 0.07 K/uL (0-0) Nucleated Red Blood Cells % 0.3 % 0.4 % Ovalocytes 2+ 1+ Echinocytes 2+ Vancomycin Level Trough 19.6 mcg/ml (SEE COMMENT) Platelet Estimate DECREASED Test 01/19/17 13:32 01/28/17 08:09 02/11/17 13:22 Est Creatinine Clear Calc Drug Dose 63.9 ml/min 72.5 ml/min Lactate Dehydrogenase 217 U/L (87-241) 263 U/L (87-241) White Blood Count 3.05 K/uL (4.8-10.8) 6.67 K/uL (4.8-10.8) Red Blood Count 3.59 M/uL (4.7-6.1) 3.31 M/uL (4.7-6.1) Hemoglobin 11.1 g/dL (14.0-18.0) 10.4 g/dL (14.0-18.0) Hematocrit 32.6 % (42-52) 29.6 % (42-52) Mean Corpuscular Volume 90.8 fL (80-100) 89.4 fL (80-100) Mean Corpuscular Hemoglobin 30.9 pg (25-34) 31.4 pg (25-34) Mean Corpuscular Hemoglobin Concent 34.0 g/dl (32-36) 35.1 g/dl (32-36) Platelet Count 218 K/uL (130-400) 221 K/uL (130-400) Mean Platelet Volume 9.4 fL (7.4-10.4) 9.3 fL (7.4-10.4) Neutrophils (%) (Auto) 90.2 % 94.9 % Lymphocytes (%) (Auto) 6.2 % 3.1 % Monocytes (%) (Auto) 2.6 % 1.9 % Eosinophils (%) (Auto) 0.0 % 0.0 % Basophils (%) (Auto) 0.3 % 0.0 % Neutrophils # (Auto) 2.75 K/uL (1.4-6.5) 6.32 K/uL (1.4-6.5) Lymphocytes # (Auto) 0.19 K/uL (1.2-3.4) 0.21 K/uL (1.2-3.4) Monocytes # (Auto) 0.08 K/uL (0.11-0.59) 0.13 K/uL (0.11-0.59) Eosinophils # (Auto) 0.00 K/uL (0-0.5) 0.00 K/uL (0-0.5) Basophils # (Auto) 0.01 K/uL (0-0.2) 0.00 K/uL (0-0.2) RDW Standard Deviation 56.5 fL (36.4-46.3) 57.1 fL (36.4-46.3) RDW Coefficient of Variation 16.9 % (11.5-14.5) 18.0 % (11.5-14.5) Immature Granulocyte % (Auto) 0.7 % 0.1 % Immature Granulocyte # (Auto) 0.02 K/uL (0.00-0.02) 0.01 K/uL (0.00-0.02) Sodium Level 140 mmol/L (136-145) 136 mmol/L (136-145) Potassium Level 3.8 mmol/L (3.5-5.1) 4.2 mmol/L (3.5-5.1) Chloride Level 105 mmol/L (98-107) 103 mmol/L (98-107) Carbon Dioxide Level 27 mmol/L (21-32) 25 mmol/L (21-32) Anion Gap 8.0 mmol/L (3-11) 8.0 mmol/L (3-11) Blood Urea Nitrogen 15 mg/dl (7-18) 20 mg/dl (7-18) Creatinine 1.00 mg/dl (0.60-1.40) 0.97 mg/dl (0.60-1.40) Estimated GFR () 90.5 93.9 Estimated GFR (Non- 78.1 81.0 BUN/Creatinine Ratio 15.3 (10-20) 20.6 (10-20) Random Glucose 173 mg/dl (70-99) 187 mg/dl (70-99) Calcium Level 8.8 mg/dl (8.5-10.1) 9.3 mg/dl (8.5-10.1) Total Bilirubin 0.5 mg/dl (0.2-1) 0.3 mg/dl (0.2-1) Aspartate Amino Transferase (AST) 24 U/L (15-37) 14 U/L (15-37) Alanine Aminotransferase (ALT) 63 U/L (12-78) 24 U/L (12-78) Alkaline Phosphatase 83 U/L (45-117) 78 U/L (45-117) Total Protein 6.5 gm/dl (6.4-8.2) 7.2 gm/dl (6.4-8.2) Albumin 3.4 gm/dl (3.4-5.0) 3.6 gm/dl (3.4-5.0) Globulin 3.1 gm/dl (2.5-4.0) 3.6 gm/dl (2.5-4.0) Albumin/Globulin Ratio 1.1 (0.9-2) 1.0 (0.9-2) Magnesium Level 1.9 mg/dl (1.8-2.4) Additional Studies Patient: NOLBERTO TARANGO Address1: [address] [facility] Rec: [id number] Address2: Acct ID: [id number] [facility] Zip: [place] [address] Date: 1950 Sex: M Room/Bed: Ref Phy: SC: ArelyPET Att Phy: Bradford Cota DCony Report #: [id number] Kelsea Phy: Sagar Mccray M.D. Test: PETCTST Admit Phy: Diving Supervisor: JOELLE Interpreting Phy: Isaac Chandler MD Diagnosis: C34.12 MALIGNANT NEOPLASM , UPPER LOBE,LT LOBE LUNG Ordering Phy: Bradford Cota D.O. Service Date: 03/09/17 Admit Date: 03/09/17 MNE: [id number] CONF: DICTATED BY: Isaac Chandler M.D.]] CC: Bradford Cota D.O. Flanagan, Michael, M.D. [facility]: [~ rep ct add3]] PET/CT HISTORY: NON SMALL LUNG CANCER TECHNIQUE: PET/CT was performed from the base of the skull through the pelvis following the intravenous administration of 14.2 mCi of F18-FDG. Non-contrast CT imaging was performed over the same range without breath-hold for attenuation correction of PET images and anatomic correlation, but not for primary interpretation as it is not of standard diagnostic quality. CT DOSE: 302.40 mGycm COMPARISON: Chest CT 12/20/2016. PET CT 11/10/2016. FINDINGS: HEAD AND NECK: There is no FDG-avid disease or significant lymphadenopathy in the imaged portions of the head and the neck. CHEST: Left bronchial stent has been removed. The FDG avid soft tissue lesion anterior to the left mainstem bronchus and the left hilar FDG uptake seen on the prior PET/CT has resolved in the interval. Decrease in size within a right peritracheal lymph node which currently measures 10 x 8 mm, previous measuring 17 x 12 mm. This demonstrates minimal FDG uptake with an SUV max of 1. There is also decrease in size within the dominant AP window lymph node which measures 5 mm, previous measuring 9 mm. This also demonstrates minimal FDG uptake with an SUV max of 1.6. Improvement in the left suprahilar groundglass opacity suggestive of resolving radiation pneumonitis. Postoperative changes within the left hemithorax are again noted. Stable left pleural thickening. ABDOMEN/PELVIS: Below the diaphragm, tracer is distributed physiologically in the gastrointestinal and genitourinary tracts. There is no significant lymphadenopathy and no FDG-avid disease. MUSCULOSKELETAL: There is no FDG-avid or destructive bone lesion. There are healing right-sided rib fractures. IMPRESSION: 1. Interval improvement in the FDG avid disease with resolution of the FDG avid soft tissue nodule anterior to the left mainstem bronchus and the left hilar FDG uptake. 2. Decrease in size in the mediastinal lymph nodes as described above which demonstrate minimal FDG uptake at this time. Electronically signed by: Isaac Chandler M.D. 03/09/2017 11:11 AM Dictated Date/Time: 03/09/2017 10:57 AM Assessment & Plan Plan: The results of the PET/CT were reviewed by Dr. Avalos with the patient. He 'll continue close follow-up with Dr. Cota. We asked him to return to our office in 6 months. He may call if he has any questions or concerns in the interim. Assessment & Plan (Attending) ADDENDUM: I agree with note created by Joellen Jean PA-C. I reviewed the patient's chart and information with her. I have examined and evaluated the patient. I reviewed relevant clinical information and answered the patient's and /or family's questions. 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 I spent 15 minutes reviewing information in completing this note. Total Time (Attending) In Follow-Up I spent 15 minutes examining and counseling the patient. FURNACE UTILITY OPERATOR Copy To Bradford Cota D.O.; Sagar Mccray M.D.; Shan Castillo MD
== END | disposition home or self-care (01) ==
LOC: C.ONC 13:44
PROVIDERS: ATTEND Physician Assistant Medical
DX: Z08 Encounter for follow-up examination after completed treatment for malignant neoplasm (principal); Z92.3 Personal history of irradiation; Z85.118 Personal history of other malignant neoplasm of bronchus and lung

== ENCOUNTER → 2017-04-03 | Outpatient (CLI) | payer BC ==
[~2017-04-03] MED LIST changes: -BENZ1CAP90 PO; -MGCCMP100 PO; -PRED20TA2 PO
--- NOTE | 2017-04-03 14:30 | DIAGNOSTIC IMAGING REPORT ---
TWO VIEW CHEST CLINICAL HISTORY: Lung cancer. Dyspnea. FINDINGS: PA and lateral chest radiographs are compared to study dated 02/02/2017 and correlated with chest CT dated 12/20/2016. The cardiomediastinal silhouette is unremarkable. There is atherosclerotic calcification of the thoracic aorta. Emphysema and chronic interstitial thickening are similar to previous. There are postoperative changes from left-sided pulmonary resection. Pleural fluid is seen at the left lung base. The left upper lung and the right lung appear clear. There is no pneumothorax. The skeletal structures are osteopenic. The bony thorax appears intact. IMPRESSION: 1. Emphysema and postoperative change from left sided pulmonary resection. 2. Pleural fluid is seen at the left lung base. 3. The right lung appears clear. Electronically signed by: Dillon Salinas M.D. 04/03/2017 2:29 PM Dictated Date/Time: 04/03/2017 2:26 PM
== END | disposition home or self-care (01) ==
LOC: C.RAD 14:11
PROVIDERS: ATTEND Nurse Practitioner Family
DX: C34.12 Malignant neoplasm of upper lobe, left bronchus or lung (principal); J43.9 Emphysema, unspecified; J90 Pleural effusion, not elsewhere classified

== ENCOUNTER 2017-04-13 17:58 | Inpatient (IN) | payer BC, OTHER ==
[~2017-04-13] VITALS: Ht 172.7 cm; Wt 69.4 kg
[~2017-04-13 17:58] MED LIST changes: -FERROUS SULFATE PO; -LORA-741 PO; -LVQ750 PO; -MAGIC1 MT; -MELA3TAB7 PO; -MIRT15TA2 PO; -MONT1TAB3 PO; -PRD20 PO; -PRED20TA PO
[2017-04-13] MEDS ORDERED: LEVAQUIN 750MG / 150ML D5W IV STA (18:13)
[2017-04-13] MEDS ORDERED: ALBUT/IPRATROP 3MG/0.5MG NEB 3 ML VIAL INH STA (18:13)
[2017-04-13] MEDS ORDERED: HYDROCODONE/HOMATROPINE SYRUP 5MG/1.5MG 5ML UDP PO STA (18:13)
[2017-04-13] MEDS ORDERED: OPTIRAY 320 IV PRN (18:45)
[2017-04-13] MEDS ORDERED: LORA-741 PO (19:01)
[2017-04-13] MEDS ORDERED: TAMS0.4C38 PO (19:03)
[2017-04-13 19:05] LABS: BASO % 0.3 %; BASO ABS # 0.02 K/uL (0-0.2); COMPLETE YES; EOS % 9.2 %; HEMATOCRIT 30.5 % (42-52); IG% 0.3 %; LYMPH % 8.3 %; LYMPH ABS # 0.64 K/uL (1.2-3.4); MEAN CELL VOLUME 91.9 fL (80-100); MEAN CORPUSCULAR HEMOGLOBIN 31.3 pg (25-34); MEAN CORPUSCULAR HGB CONC 34.1 g/dl (32-36); MEAN PLATELET VOLUME 8.9 fL (7.4-10.4); NEUT % 71.9 %; PLATELET COUNT 306 K/uL (130-400); RED BLOOD COUNT 3.32 M/uL (4.7-6.1); WHITE BLOOD COUNT 7.73 K/uL (4.8-10.8)
[2017-04-13] MEDS ORDERED: MAGIC1 MT (19:06)
[2017-04-13] MEDS ORDERED: MONT1TAB3 PO (19:07)
[2017-04-13] MEDS ORDERED: FERROUS SULFATE PO (19:14)
[2017-04-13 19:15] LABS: PARTIAL THROMBOPLASTIN RATIO 1.4; PROTHROMBIN TIME (PATIENT) 10.4 SECONDS (9.0-12.0)
[2017-04-13] MEDS ORDERED: MELA3TAB7 PO (19:19)
[2017-04-13] MEDS ORDERED: MIRT15TA2 PO (19:21)
[2017-04-13] MEDS ORDERED: PRED20TA PO (19:24)
[2017-04-13 19:49] LABS: ALT/SGPT 40 U/L (12-78); BLOOD UREA NITROGEN 19 mg/dl (7-18); CARBON DIOXIDE 26 mmol/L (21-32); CHLORIDE 102 mmol/L (98-107); CREATININE 1.11 mg/dl (0.60-1.40); GLUCOSE 113 mg/dl (70-99); SODIUM 137 mmol/L (136-145)
[2017-04-13 19:53] LABS: ALB/GLOB RATIO 0.8 (0.9-2); ALKALINE PHOSPHATASE 103 U/L (45-117); AST/SGOT 21 U/L (15-37); CKMB/CK RATIO 1.1 (0-3.0)
--- NOTE | 2017-04-13 20:20 | DIAGNOSTIC IMAGING REPORT ---
(CHEST FOR PE) ANGIO WITH CT DOSE: HISTORY: Chest pain lung carcinoma TECHNIQUE: Multiaxial CT images of the chest were performed following the intravenous administration of contrast to evaluate the pulmonary arteries. Maximal intensity projection images were also obtained. A dose lowering technique was utilized adhering to the principles of ALARA. COMPARISON STUDY: 12/20/2016 FINDINGS: The thoracic aorta is normal in course and caliber. Mild/moderate atherosclerotic changes present. Pulmonary vasculature enhances appropriately. There are perihilar interstitial and/or interstitial edematous changes bilaterally. This presumably is inflammatory and is considerably increased in prominence the left hemithorax as compared to the right. Patient has developed several parenchymal nodules measuring 3 to 5 mm in the right mid to lower lung region. Possibility of metastatic disease is a consideration. Osseous structures show no well-defined lytic or blastic process. IMPRESSION: 1. No evidence for pulmonary embolus. 2. Stable posttherapeutic changes left hemithorax. 3. Interval development of left and to a lesser extent right perihilar infiltrative and or pulmonary edematous changes. 4. Developing right mid to lower lung pulmonary nodularity raising the distinct possibility of pulmonary metastatic disease. These should be closely monitored. The above report was generated using voice recognition software. It may contain grammatical, syntax or spelling errors. Electronically signed by: Ariel Torrez M.D. 04/13/2017 8:19 PM Dictated Date/Time: 04/13/2017 8:13 PM
--- NOTE | 2017-04-13 20:24 | DIAGNOSTIC IMAGING REPORT ---
ABD/PELVIS IV CONTRAST ONLY CT DOSE: 529.00 mGy.cm HISTORY: Pain. Distention. abd distension, bloating. Prior Lung CA TECHNIQUE: Multiaxial CT images of the abdomen and pelvis were performed following the use of intravenous contrast. A dose lowering technique was utilized adhering to the principles of ALARA. COMPARISON STUDY: None. FINDINGS: Left lung base again confirms a left perihilar parenchymal infiltrate versus pulmonary edematous change. Right basilar nodularity is noted raising the distinct possibility of metastatic lung disease. Liver is uniform. Gallbladder is negative for distention. Pancreas is unremarkable. Kidneys are considered negative for hydronephrosis. There is a 3.2 cm right renal peripelvic cyst. Bowel pattern overall is considered nonobstructive. There is no significant abdominal pelvic or inguinal kenna pathology. IMPRESSION: 1. No acute abnormality of the abdomen or pelvis. 2. Left and to lesser extent right perihilar interstitial and/or edematous changes has been described previously. 3. Right pulmonary nodularity raising the possibility of pulmonary metastatic disease. The above report was generated using voice recognition software. It may contain grammatical, syntax or spelling errors. Electronically signed by: Ariel Torrez M.D. 04/13/2017 8:23 PM Dictated Date/Time: 04/13/2017 8:21 PM
[2017-04-13] MEDS ORDERED: ONDANSETRON INJ 2 MG/ML 2 ML VIAL IV PRN (20:30)
[2017-04-13] MEDS ORDERED: POLYETHYLENE (MIRALAX) 17 GM PACK PO PRN (20:30)
[2017-04-13] MEDS ORDERED: MAGNESIUM HYDROXIDE SUSP 30 ML UDC PO PRN (20:30)
[2017-04-13] MEDS ORDERED: ALUMINUM/MAGNESIUM/SIMETH (MAALOX MAX) 30 ML UDC PO PRN (20:30)
[2017-04-13] MEDS ORDERED: ACETAMINOPHEN 325 MG TAB PO PRN (20:30)
[2017-04-13] MEDS ORDERED: PROCHLORPERAZINE MALEATE 10 MG TAB PO PRN (20:30)
[2017-04-13] MEDS ORDERED: LORAZEPAM 0.5 MG TAB PO PRN (20:30)
[2017-04-13] MEDS ORDERED: ALBUTEROL 0.083% NEBU SOLN 3 ML VIAL INH PRN (20:30)
[2017-04-13] MEDS ORDERED: MELATONIN 1 MG PO PRN (20:30)
--- NOTE | 2017-04-13 20:38 | EMERGENCY ROOM VISIT NOTE ---
History Report prepared by Dequan: Divya Garcia Under the Supervision of: Dr. Prem Willams M.D. First contact with patient: 18:08 Chief Complaint: RESPIRATORY PROBLEMS Stated Complaint: PNEUMONIA, LUNG CANCER Nursing Triage Summary: Pt states sent to be admitted for pnx. Pt has lung cancer, going thru immunotherapy treatment. Prod cough of pale yellow or white. Sx x 1 week. Nasal congestion. History of Present Illness The patient is a 66 year old male who presents to the Emergency Room with complaints of worsening respiratory problems beginning today. The patient states that Dr. Cota referred him because he thought the patient had pneumonia. The patient states that he has also had worsening shortness of breath , especially when ambulating. The patient reports feeling weak and states that he has had a constant cough. He reports that has had this cough over the last several years, but states that it is worsening and that he begins to sweat when he coughs. He reports that he coughs up mucous that is usually white, but occasionally has spots of blood in it. He states that he is not on chemotherapy , but is now on immunotherapy. The patient denies being around anyone sick. Pt denies LOC, headache, chills, visual changes, neck pain, nausea, vomiting, abdominal pain, back pain, melena, hematochezia, urinary symptoms, numbness, lymphadenopathy, rash, or other complaints. The patient was placed on Opdivo. The patient was on chemotherapy for lung cancer and had a fever up to 102. Source of History: patient Onset: today Position: other (global) Quality: other (respiratory problems ) Timing: worsening Associated Symptoms: + cough, + SOB, + weakness, No headache Review of Systems See HPI for pertinent positives and negatives. A total of ten systems were reviewed and were otherwise negative. Past Medical & Surgical Medical Problems: (1) Bronchial stenosis, left (2) Delirium (3) GERD (gastroesophageal reflux disease) (4) Local recurrence of left lung cancer (5) Multifocal pneumonia Family History Cancer Hypertension Social History Smoking Status: Former Smoker Marital Status: Housing Status: lives with family Occupation Status: employed Current/Historical Medications Scheduled Baclofen (Lioresal), 10 MG PO TID Cholecalciferol (Vitamin D3), 2,000 UNITS PO DAILY Diphenhy/Alum/Mag/Sucralfa (Magic Swizzle - Diphenhy/Alum/Mag/Sucralfa), 15 ML MT 5XD Esomeprazole Magnesium (Nexium), 1 CAP PO DAILY Mirtazapine Soltab (Remeron Soltab), 30 MG PO HS Montelukast Sodium (Singulair), 10 MG PO QPM Multivitamin (Multivitamin), 1 TAB PO DAILY Prednisone (Prednisone), 20 MG PO DAILY/UD Probiotic Product (Probiotic), 1 CAP PO DAILY Tamsulosin Hcl (Flomax), 0.4 MG PO QAM [Ferrous Sulfate], 160 MG PO DAILY Scheduled PRN Albuterol Sulfate (Proair Respiclick), 1 INHA INH QID PRN for SOB/Wheezing Lorazepam (Ativan), 0.5 MG PO PRN/UD PRN for ANXIETY Ondansetron Hcl (Zofran), 8 MG PO DIRECTED PRN for Nausea Prochlorperazine Maleate (Compazine), 10 MG PO Q6H PRN for Nausea or Vomiting [Melatonin], 1 MG PO HS PRN for Insomnia Allergies Coded Allergies: Pork (Verified Allergy, Severe, ANAPHYLAXIS, 01/16/17) NO KNOWN DRUG ALLERGIES (Verified Allergy, Unknown, ., 01/16/17) Uncoded Allergies: VENISON (Allergy, Unknown, RASH, 12/12/16) Physical Exam Vital Signs Date Time Temp Pulse Resp B/P (MAP) Pulse Ox O2 Delivery O2 Flow Rate FiO2 04/13/17 20:24 90 24 122/76 96 Room Air 04/13/17 19:10 99 04/13/17 18:30 98 Nasal Cannula 2.0 04/13/17 18:28 98 Nasal Cannula 2.0 04/13/17 18:04 37.1 108 20 126/76 95 Room Air Physical Exam GENERAL: Awake, alert, uncomfortable-appearing, dyspneic in no distress HENT: Normocephalic, atraumatic. Oropharynx unremarkable. EYES: Normal conjunctiva. Sclera non-icteric. NECK: Supple. No nuchal rigidity. FROM. No JVD. RESPIRATORY: Wheezing and rhonchi in left base. Cough noted. CARDIAC: Tachycardic, normal rhythm. Extremities warm and well perfused. Pulses equal. ABDOMEN: Soft, non-distended. No tenderness to palpation. No rebound or guarding. No masses. RECTAL: Deferred. MUSCULOSKELETAL: Chest examination reveals no tenderness. The back is symmetrical on inspection without obvious abnormality. There is no CVA tenderness to palpation. No joint edema. LOWER EXTREMITIES: Calves are equal size bilaterally and non-tender. No edema. No discoloration. NEURO: Normal sensorium. No sensory or motor deficits noted. SKIN: No rash or jaundice noted. Medical Decision & Procedures ER Provider Diagnostic Interpretation: (CHEST FOR PE) ANGIO WITH CT DOSE: HISTORY: Chest pain lung carcinoma TECHNIQUE: Multiaxial CT images of the chest were performed following the intravenous administration of contrast to evaluate the pulmonary arteries. Maximal intensity projection images were also obtained. A dose lowering technique was utilized adhering to the principles of ALARA. COMPARISON STUDY: 12/20/2016 FINDINGS: The thoracic aorta is normal in course and caliber. Mild/moderate atherosclerotic changes present. Pulmonary vasculature enhances appropriately. There are perihilar interstitial and/or interstitial edematous changes bilaterally. This presumably is inflammatory and is considerably increased in prominence the left hemithorax as compared to the right. Patient has developed several parenchymal nodules measuring 3 to 5 mm in the right mid to lower lung region. Possibility of metastatic disease is a consideration. Osseous structures show no well-defined lytic or blastic process. IMPRESSION: 1. No evidence for pulmonary embolus. 2. Stable posttherapeutic changes left hemithorax. 3. Interval development of left and to a lesser extent right perihilar infiltrative and or pulmonary edematous changes. 4. Developing right mid to lower lung pulmonary nodularity raising the distinct possibility of pulmonary metastatic disease. These should be closely monitored. ABD/PELVIS IV CONTRAST ONLY CT DOSE: 529.00 mGy.cm HISTORY: Pain. Distention. abd distension, bloating. Prior Lung CA TECHNIQUE: Multiaxial CT images of the abdomen and pelvis were performed following the use of intravenous contrast. A dose lowering technique was utilized adhering to the principles of ALARA. COMPARISON STUDY: None. FINDINGS: Left lung base again confirms a left perihilar parenchymal infiltrate versus pulmonary edematous change. Right basilar nodularity is noted raising the distinct possibility of metastatic lung disease. Liver is uniform. Gallbladder is negative for distention. Pancreas is unremarkable. Kidneys are considered negative for hydronephrosis. There is a 3.2 cm right renal peripelvic cyst. Bowel pattern overall is considered nonobstructive. There is no significant abdominal pelvic or inguinal kenna pathology. IMPRESSION: 1. No acute abnormality of the abdomen or pelvis. 2. Left and to lesser extent right perihilar interstitial and/or edematous changes has been described previously. 3. Right pulmonary nodularity raising the possibility of pulmonary metastatic disease. The above report was generated using voice recognition software. It may contain grammatical, syntax or spelling errors. Electronically signed by: Ariel Torrez M.D. 04/13/2017 8:23 PM Dictated Date/Time: 04/13/2017 8:21 PM Laboratory Results 04/13/17 18:40 Red Blood Count 3.32, Mean Corpuscular Volume 91.9, Mean Corpuscular Hemoglobin 31.3, Mean Corpuscular Hemoglobin Concent 34.1, Mean Platelet Volume 8.9, Neutrophils (%) (Auto) 71.9, Lymphocytes (%) (Auto) 8.3, Monocytes (%) (Auto) 10.0, Eosinophils (%) (Auto) 9.2, Basophils (%) (Auto) 0.3, Neutrophils # (Auto ) 5.57, Lymphocytes # (Auto) 0.64, Monocytes # (Auto) 0.77, Eosinophils # (Auto ) 0.71, Basophils # (Auto) 0.02 04/13/17 18:40 Test 04/13/17 18:40 04/13/17 18:53 White Blood Count 7.73 K/uL (4.8-10.8) Red Blood Count 3.32 M/uL (4.7-6.1) Hemoglobin 10.4 g/dL (14.0-18.0) Hematocrit 30.5 % (42-52) Mean Corpuscular Volume 91.9 fL (80-100) Mean Corpuscular Hemoglobin 31.3 pg (25-34) Mean Corpuscular Hemoglobin Concent 34.1 g/dl (32-36) Platelet Count 306 K/uL (130-400) Mean Platelet Volume 8.9 fL (7.4-10.4) Neutrophils (%) (Auto) 71.9 % Lymphocytes (%) (Auto) 8.3 % Monocytes (%) (Auto) 10.0 % Eosinophils (%) (Auto) 9.2 % Basophils (%) (Auto) 0.3 % Neutrophils # (Auto) 5.57 K/uL (1.4-6.5) Lymphocytes # (Auto) 0.64 K/uL (1.2-3.4) Monocytes # (Auto) 0.77 K/uL (0.11-0.59) Eosinophils # (Auto) 0.71 K/uL (0-0.5) Basophils # (Auto) 0.02 K/uL (0-0.2) RDW Standard Deviation 43.7 fL (36.4-46.3) RDW Coefficient of Variation 13.0 % (11.5-14.5) Immature Granulocyte % (Auto) 0.3 % Immature Granulocyte # (Auto) 0.02 K/uL (0.00-0.02) Prothrombin Time 10.4 SECONDS (9.0-12.0) Prothromb Time International Ratio 1.0 (0.9-1.1) Activated Partial Thromboplast Time 37.1 SECONDS (21.0-31.0) Partial Thromboplastin Ratio 1.4 Anion Gap 9.0 mmol/L (3-11) Est Creatinine Clear Calc Drug Dose 63.3 ml/min Estimated GFR () 79.8 Estimated GFR (Non- 68.8 BUN/Creatinine Ratio 17.0 (10-20) Calcium Level 9.0 mg/dl (8.5-10.1) Total Bilirubin 0.3 mg/dl (0.2-1) Aspartate Amino Transf (AST/SGOT) 21 U/L (15-37) Alanine Aminotransferase (ALT/SGPT) 40 U/L (12-78) Alkaline Phosphatase 103 U/L (45-117) Total Creatine Kinase 65 U/L (39-308) Creatine Kinase MB 0.7 ng/ml (0.5-3.6) Creatine Kinase MB Ratio 1.1 (0-3.0) Troponin I < 0.015 ng/ml (0-0.045) Total Protein 7.3 gm/dl (6.4-8.2) Albumin 3.3 gm/dl (3.4-5.0) Globulin 4.0 gm/dl (2.5-4.0) Albumin/Globulin Ratio 0.8 (0.9-2) Bedside Lactic Acid Venous 1.16 mmol/L (0.90-1.70) Laboratory results reviewed by me Medications Administered Medications (Trade) Dose Ordered Sig/Aron Route Start Time Stop Time Status Last Admin Dose Admin Albuterol/ Ipratropium (Duoneb) 3 ml NOW STAT INH 04/13/17 18:13 04/13/17 18:17 DC 04/13/17 18:23 3 ML Levofloxacin (Levaquin / D5W) 750 mg NOW STAT IV 04/13/17 18:13 04/13/17 18:17 DC 04/13/17 18:53 750 MG Hydrocodone Bit/ Homatropine Methylb (Hycodan Syrup) 5 ml NOW STAT PO 04/13/17 18:13 04/13/17 18:17 DC 04/13/17 18:23 5 ML ECG Indication: SOB/dyspnea Rate (beats per minute): 103 Rhythm: sinus tachycardia Findings: no acute ischemic change, no ectopy ED Course 1809: The patient was evaluated in room B3B. A complete history and physical exam was performed. 1812: Ordered Hycodan Syrup 5 ml PO, Levofloxacin 750 mg IV, Duoneb 3 ml INH. Medical Decision Triage Nursing notes reviewed. The patient's presentation and history were concerning for shortness breath, cough, and probable pneumonia with current immunotherapy for lung cancer. Etiologies such as pneumonia, COPD, reactive airway disease, CHF, cardiac ischemia, pulmonary embolism, pneumothorax, musculoskeletal, infections, gastrointestinal, as well as others were entertained. The patient was evaluated. His coughing significantly. I did apply supplemental oxygen. He was given Hycodan and a nebulizer treatment. He was feeling better with this. Culture was ordered. Blood work was obtained. He did not have any significant findings on his blood work or chemistries. The patient was given IV Levaquin. He was sent to CT imaging. Findings as above. He was informed. Consultation was made with [facility] internal medicine. The patient was admitted by Dr. Collins for further treatment. Medication Reconcilliation Current Medication List: was personally reviewed by me Blood Pressure Screening Patient's blood pressure: Normal blood pressure Impression Primary Impression: Multifocal pneumonia Scribe Attestation The scribe's documentation has been prepared under my direction and personally reviewed by me in its entirety. I confirm that the note above accurately reflects all work, treatment, procedures, and medical decision making performed by me. Departure Information Dispostion Being Evaluated By Hospitalist Referrals Sagar Mccray M.D. (PCP) Patient Instructions My [facility]
[2017-04-13] MEDS ORDERED: BACLOFEN 10 MG TAB PO SCH (21:00)
--- NOTE | 2017-04-13 21:17 | History and Physical ---
History & Physical Date & Time of Service: Apr 13, 2017 at 20:50 Chief Complaint: Pneumonia, Lung Cancer Primary Care Physician: Sagar Mccray M.D. 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 Pt had undergone chemotherapy until 01/08 and has had 2 infusions of Nivolumab over the past 3 wks. Pt presents with a productive cough and progressive SOB over the past 1-2 days. He denies CP or a fever. It is not unusual for him to have a small amount of hemoptysis with a cough. A CT of the chest is consistent with a developing perihilar pneumonia. 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 Radiation completed 01/30/2017. He received 6000 cGy Currently on Nivolumab 3) COPD 4) BPH with obstruction 5) Bronchial stenosis with stent placement 2015, 2016 6) Anemia of chronic disease - Hb 9-11 Family History Cancer Hypertension Mother - esophageal CA Father - prostate CA Social History Smoking Status: Former Smoker Marital Status: Occupational Status: employed Immunizations History of Influenza Vaccine: Unknown History of Tetanus Vaccine?: UTD History of Pneumococcal: No History of Hepatitis B Vaccine: No Multi-Drug Resistant Organisms History of MDRO: No Allergies Coded Allergies: Pork (Verified Allergy, Severe, ANAPHYLAXIS, 01/16/17) NO KNOWN DRUG ALLERGIES (Verified Allergy, Unknown, ., 01/16/17) Uncoded Allergies: VENISON (Allergy, Unknown, RASH, 12/12/16) Home Medications Scheduled Baclofen (Lioresal), 10 MG PO TID Cholecalciferol (Vitamin D3), 2,000 UNITS PO DAILY Diphenhy/Alum/Mag/Sucralfa (Magic Swizzle - Diphenhy/Alum/Mag/Sucralfa), 15 ML MT 5XD Esomeprazole Magnesium (Nexium), 1 CAP PO DAILY Mirtazapine Soltab (Remeron Soltab), 30 MG PO HS Montelukast Sodium (Singulair), 10 MG PO QPM Multivitamin (Multivitamin), 1 TAB PO DAILY Prednisone (Prednisone), 20 MG PO DAILY/UD Probiotic Product (Probiotic), 1 CAP PO DAILY Tamsulosin Hcl (Flomax), 0.4 MG PO QAM [Ferrous Sulfate], 160 MG PO DAILY Scheduled PRN Albuterol Sulfate (Proair Respiclick), 1 INHA INH QID PRN for SOB/Wheezing Lorazepam (Ativan), 0.5 MG PO PRN/UD PRN for ANXIETY Ondansetron Hcl (Zofran), 8 MG PO DIRECTED PRN for Nausea Prochlorperazine Maleate (Compazine), 10 MG PO Q6H PRN for Nausea or Vomiting [Melatonin], 1 MG PO HS PRN for Insomnia Review of Systems Constitutional: No fever, No chills, No sweats Eyes: No worsening of vision ENT: No hearing loss, No unusual epistaxis, No nasal symptoms Respiratory: + cough, + sputum, + wheezing, + shortness of breath, + dyspnea on exertion, + dyspnea at rest Cardiovascular: No chest pain, No orthopnea, No PND Abdomen: No pain, No nausea, No vomiting Musculoskeletal: No joint pain Genitourinary - Male: No hematuria, No dysuria, No urinary frequency, No urinary urgency Neurologic: No memory loss, No paralysis, No weakness Psychiatric: No depression symptoms Endocrine: No fatigue Hematologic / Lymphatic: No abnormal bleeding/bruising Integumentary: No rash Allergic / Immunologic: No environmental allergies Physical Exam Vital Signs Date Time Temp Pulse Resp B/P (MAP) Pulse Ox O2 Delivery O2 Flow Rate FiO2 04/13/17 20:24 90 24 122/76 96 Room Air 04/13/17 19:10 99 04/13/17 18:30 98 Nasal Cannula 2.0 04/13/17 18:28 98 Nasal Cannula 2.0 04/13/17 18:04 37.1 108 20 126/76 95 Room Air General Appearance: WD/WN, no apparent distress Head: normocephalic Eyes: normal inspection ENT: normal ENT inspection, hearing grossly normal, TMs normal, pharynx normal Neck: supple, no JVD Respiratory/Chest: chest non-tender, + decreased breath sounds, + pertinent finding (Crackles and wheezing noted on L - wheezing on R - poor b/l air movement - pt could not inhale deeply without coughing) Cardiovascular: regular rate, rhythm, no edema, no gallop, no JVD, no murmur, normal peripheral pulses Abdomen/GI: normal bowel sounds, non tender, soft Back: normal inspection, no CVA tenderness Extremities/Musculoskelatal: normal inspection, no calf tenderness, normal capillary refill Neurologic/Psych: checker cashier II-XII nml as tested, no motor/sensory deficits, alert, normal mood/affect, normal reflexes, oriented x 3 Skin: normal color, warm/dry, no rash Diagnostics Laboratory Results Results Past 24 Hours Test 04/13/17 18:40 04/13/17 18:53 Range/Units White Blood Count 7.73 4.8-10.8 K/uL Red Blood Count 3.32 4.7-6.1 M/uL Hemoglobin 10.4 14.0-18.0 g/dL Hematocrit 30.5 42-52 % Mean Corpuscular Volume 91.9 80-100 fL Mean Corpuscular Hemoglobin 31.3 25-34 pg Mean Corpuscular Hemoglobin Concent 34.1 32-36 g/dl Platelet Count 306 130-400 K/uL Mean Platelet Volume 8.9 7.4-10.4 fL Neutrophils (%) (Auto) 71.9 % Lymphocytes (%) (Auto) 8.3 % Monocytes (%) (Auto) 10.0 % Eosinophils (%) (Auto) 9.2 % Basophils (%) (Auto) 0.3 % Neutrophils # (Auto) 5.57 1.4-6.5 K/uL Lymphocytes # (Auto) 0.64 1.2-3.4 K/uL Monocytes # (Auto) 0.77 0.11-0.59 K/uL Eosinophils # (Auto) 0.71 0-0.5 K/uL Basophils # (Auto) 0.02 0-0.2 K/uL RDW Standard Deviation 43.7 36.4-46.3 fL RDW Coefficient of Variation 13.0 11.5-14.5 % Immature Granulocyte % (Auto) 0.3 % Immature Granulocyte # (Auto) 0.02 0.00-0.02 K/uL Prothrombin Time 10.4 9.0-12.0 SECONDS Prothromb Time International Ratio 1.0 0.9-1.1 Activated Partial Thromboplast Time 37.1 21.0-31.0 SECONDS Partial Thromboplastin Ratio 1.4 Sodium Level 137 136-145 mmol/L Potassium Level 4.0 3.5-5.1 mmol/L Chloride Level 102 98-107 mmol/L Carbon Dioxide Level 26 21-32 mmol/L Anion Gap 9.0 3-11 mmol/L Blood Urea Nitrogen 19 7-18 mg/dl Creatinine 1.11 0.60-1.40 mg/dl Est Creatinine Clear Calc Drug Dose 63.3 ml/min Estimated GFR () 79.8 Estimated GFR (Non- 68.8 BUN/Creatinine Ratio 17.0 10-20 Random Glucose 113 70-99 mg/dl Calcium Level 9.0 8.5-10.1 mg/dl Total Bilirubin 0.3 0.2-1 mg/dl Aspartate Amino Transf (AST/SGOT) 21 15-37 U/L Alanine Aminotransferase (ALT/SGPT) 40 12-78 U/L Alkaline Phosphatase 103 45-117 U/L Total Creatine Kinase 65 39-308 U/L Creatine Kinase MB 0.7 0.5-3.6 ng/ml Creatine Kinase MB Ratio 1.1 0-3.0 Troponin I < 0.015 0-0.045 ng/ml Total Protein 7.3 6.4-8.2 gm/dl Albumin 3.3 3.4-5.0 gm/dl Globulin 4.0 2.5-4.0 gm/dl Albumin/Globulin Ratio 0.8 0.9-2 Bedside Lactic Acid Venous 1.16 0.90-1.70 mmol/L Microbiology Results 04/13/17 Blood Culture, Received Pending 04/13/17 Blood Culture, Received Pending Diagnostic Radiology CT chest 1. No evidence for pulmonary embolus. 2. Stable post-therapeutic changes left hemithorax. 3. Interval development of left and to a lesser extent right perihilar infiltrative and or pulmonary edematous changes. 4. Developing right mid to lower lung pulmonary nodularity raising the distinct possibility of pulmonary metastatic disease. These should be closely monitored. 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 Pt had undergone chemotherapy until 01/08 and has had 2 infusions of Nivolumab over the past 3 wks. Pt presents with a productive cough and progressive SOB over the past 1-2 days. He denies CP or a fever. It is not unusual for him to have a small amount of hemoptysis with a cough. A CT chest is consistent with a developing perihilar pneumonia. 1) Cough, SOB, probable PNM - pt placed on Levaquin, duonebs, albuterol and a cough suppressant. There is widespread wheezing and he is normally on 20mg prednisone daily so that we will start IV Solumedrol. 2) COPD - no additional treatment aside from pnm modalities, continuation of Singulair and IV steroids as mentioned. 3) CA - there is concern for R lung mets on current CT - this can be evaluated by his oncologist in the outpt setting and is unlikely to change his current management - due to Opdivo use, would not hesitate to expand coverage if there is any clinical worsening. 4) BPH - cont Flomax 5) GERD - cont PPi 6) Chronic anemia - Hb is stable - will recheck CBC AM Full code SCDs due to Hemoptysis - consider line mover to Heparin - would ask his hospital nurse reg bleed risk Total time for this admit including review of labs, meds, imaging, records - discussion with pt and ER attending - 38 min Level of Care Med/Surg Resuscitation Status FULL RESUSCITATION VTE Prophylaxis VTE Risk Assessment Done? Y/N: Yes Risk Level: Moderate Given or contraindicated: SCD's
[2017-04-13] MEDS: GUAIFENESIN/CODEINE 100MG/10MG 5ML UDC PO PRN (21:57)
[2017-04-13 22:07] VITALS: O2SAT 93; Ht 172.7 cm; Wt 69.4 kg
[2017-04-13 22:41] VITALS: BP 148/88; PULSE 83; TEMP 37.5; O2SAT 98
[2017-04-13] MEDS ORDERED: NURSING VERBAL MED ORDER ONE (22:45)
[2017-04-13] MEDS: DIAZEPAM 5MG TAB PO SCH (22:49)
[2017-04-13] MEDS: MONTELUKAST SOD 10 MG TAB PO SCH (22:49)
[2017-04-13] MEDS: TAMSULOSIN HCL 0.4 MG CAP PO SCH (22:50)
[2017-04-13] MEDS: MIRTAZAPINE SOLTAB 15 MG PO SCH (22:53)
[2017-04-13 23:50] VITALS: O2SAT 96
[2017-04-14] VITALS (12 sets, daily range): BP systolic 109–144; BP diastolic 70–84; PULSE 81–100; TEMP 36.4–37.6; O2SAT 93–98
[2017-04-14] MEDS: ALBUT/IPRATROP 3MG/0.5MG NEB 3 ML VIAL INH SCH ×4 (01:45→18:58)
[2017-04-14 02:32] LABS: MANUAL MICROSCOPIC REQUIRED? NO; URINE APPEARANCE CLEAR (CLEAR); URINE BILIRUBIN NEG (NEG); URINE COLOR YELLOW; URINE NITRITE NEG (NEG); URINE SPECIFIC GRAVITY <= 1.005 (1.000-1.030); UROBILINOGEN NEG (NEG)
[2017-04-14 02:40] LABS: REVIEW REQ? NO
[2017-04-14] MEDS ORDERED: METHYLPREDNISOLONE IV 60 MG in SYRINGE 0 ML IV SCH (06:00)
[2017-04-14 06:55] LABS: HEMATOCRIT 28.5 % (42-52); MEAN CELL VOLUME 93.4 fL (80-100); MEAN CORPUSCULAR HEMOGLOBIN 30.8 pg (25-34); MEAN PLATELET VOLUME 9.1 fL (7.4-10.4); PLATELET COUNT 271 K/uL (130-400); RED BLOOD COUNT 3.05 M/uL (4.7-6.1); WHITE BLOOD COUNT 6.56 K/uL (4.8-10.8)
[2017-04-14 07:35] LABS: BUN/CREATININE RATIO 16.5 (10-20); CALCIUM 8.8 mg/dl (8.5-10.1); CREATININE 1.04 mg/dl (0.60-1.40); POTASSIUM 3.8 mmol/L (3.5-5.1)
[2017-04-14] MEDS ORDERED: TAMSULOSIN HCL 0.4 MG CAP PO SCH (08:00)
[2017-04-14] MEDS: FERROUS SULFATE 325 MG TAB PO SCH (08:04)
[2017-04-14] MEDS: LACTOBACILLUS ACIDOPHILUS (FLORANEX) TAB PO SCH (08:05)
[2017-04-14] MEDS: PANTOprazole SOD 40 MG TAB PO SCH (08:05)
--- NOTE | 2017-04-14 09:17 | Clinical Documentation Query ---
SUZY Gonzalez : CLINICAL DOCUMENTATION QUERY Patient is a 66 year old male admitted for evaluation and treatment of probable pneumonia. He is being treated with Levaquin, nebs, IV solumedrol. Blood and sputum cultures pending. Consider explicit documentation of the specific pathogen class in which you are treating as this affects severity of illness and associated risk of mortality. In your clinical opinion is this patient being managed for: ( x) Possible Gram-negative pneumonia ( ) Not Agree ( ) Other explanation of clinical findings (Please Explain) ( ) Unable to determine (Please Define) ( ) Need to Discuss The medical record reflects the following clinical findings, treatment, and risk factors. Clinical Indicators: As above Treatment: He is being treated with Levaquin, nebs, IV solumedrol. Blood and sputum cultures pending. Risk Factors: Cancer, immunocompromised Please clarify and document your clinical opinion in the progress notes and discharge summary. Terms such as "probable", "suspected", "likely", "questionable", "possible", or "still to be ruled out" are acceptable. IF IN AGREEMENT, YOU MUST DOCUMENT ABOVE DIAGNOSTIC STATEMENT IN DAILY PROGRESS NOTES AND DISCHARGE SUMMARY. This document is not part of the patient's record. Thank You, Jacobo Pinto, RN [phone]
--- NOTE | 2017-04-14 10:02 | Progress Note ---
Subjective Date of Service: Apr 14, 2017. 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 w/ treasury consultant, review of inpatient medication list Voiding: no voiding problems Still cough with white sputum, no more blood in the sputum, no more fever, reports generalized weakness, otherwise eating drinking are good Review of Systems Constitutional: + fatigue, No fever, No chills, No sweats, No weight loss, No weakness, No problem reported Eyes: No worsening of vision, No eye pain, No redness, No discharge, No diplopia ENT: No hearing loss, No unusual epistaxis, No nasal symptoms, No sore throat, No tinnitus, No dental problems, No trouble swallowing Respiratory: + cough, + sputum, No wheezing, No shortness of breath, No dyspnea on exertion, No dyspnea at rest, No hemoptysis Cardiac: No chest pain, No orthopnea, No PND, No edema, No claudication, No palpitations Abdomen: No pain, No nausea, No vomiting, No diarrhea, No constipation Musculoskeletal: No joint pain, No muscle pain, No swelling, No calf pain Male : No dysuria, No urinary frequency, No incontinence, No nocturia more than once/night, No slowing stream, No hematuria Neurologic: No memory loss, No paralysis, No weakness, No numbness/tingling, No vertigo, No balance problems Psychiatric: No depression symptoms, No anhedonism, No anxiety, No insomnia, No substance abuse Heme: No abnormal bleeding/bruising, No clotting problems, No swollen lymph nodes, No night sweats Endo: No fatigue, No excessive thirst, No excessive urination Skin: No rash, No itch, No new/changing skin lesions, No color change, No bleeding Objective Vital Signs Date Time Temp Pulse Resp B/P (MAP) Pulse Ox O2 Delivery O2 Flow Rate FiO2 04/14/17 08:00 94 Room Air 04/14/17 07:05 37.1 92 18 144/81 (102) 94 04/14/17 07:01 98 15 94 Room Air 04/14/17 05:20 Room Air 04/14/17 04:35 37.2 96 18 142/84 (103) 96 Room Air 04/14/17 01:46 98 16 93 Room Air 04/14/17 00:23 37.6 89 18 143/80 (101) 93 2.0 04/13/17 23:50 96 Room Air 04/13/17 23:50 96 Room Air 04/13/17 22:41 37.5 83 20 148/88 (108) 98 Nasal Cannula 2.0 04/13/17 22:07 93 Nasal Cannula 2.0 04/13/17 20:24 90 24 122/76 96 Room Air 04/13/17 19:10 99 04/13/17 18:30 98 Nasal Cannula 2.0 04/13/17 18:28 98 Nasal Cannula 2.0 04/13/17 18:04 37.1 108 20 126/76 95 Room Air Physical Exam General Appearance: WD/WN, no apparent distress, + pertinent finding (looks tired) Eyes: normal inspection, PERRL, EOMI, sclerae normal ENT: normal ENT inspection, hearing grossly normal, pharynx normal Neck: supple, no adenopathy, thyroid normal, no JVD, no carotid bruits, trachea midline Respiratory/Chest: chest non-tender, normal breath sounds, no respiratory distress, no accessory muscle use, + decreased breath sounds, + rales (left lower lung) Cardiovascular: regular rate, rhythm, no edema, no gallop, no JVD, no murmur Abdomen: normal bowel sounds, non tender, soft, no organomegaly, no pulsatile mass Extremities: normal range of motion, non-tender, normal inspection, no pedal edema, no calf tenderness, normal capillary refill, pelvis stable 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 as tested, no motor/sensory deficits, alert, normal mood/affect, oriented x 3 Skin: normal color, warm/dry, no rash Lymphatic: no adenopathy Laboratory Results Last 24 Hours Test 04/13/17 18:40 04/13/17 18:53 04/14/17 00:50 04/14/17 05:40 White Blood Count 7.73 K/uL 6.56 K/uL Red Blood Count 3.32 M/uL 3.05 M/uL Hemoglobin 10.4 g/dL 9.4 g/dL Hematocrit 30.5 % 28.5 % Mean Corpuscular Volume 91.9 fL 93.4 fL Mean Corpuscular Hemoglobin 31.3 pg 30.8 pg Mean Corpuscular Hemoglobin Concent 34.1 g/dl 33.0 g/dl Platelet Count 306 K/uL 271 K/uL Mean Platelet Volume 8.9 fL 9.1 fL Neutrophils (%) (Auto) 71.9 % Lymphocytes (%) (Auto) 8.3 % Monocytes (%) (Auto) 10.0 % Eosinophils (%) (Auto) 9.2 % Basophils (%) (Auto) 0.3 % Neutrophils # (Auto) 5.57 K/uL Lymphocytes # (Auto) 0.64 K/uL Monocytes # (Auto) 0.77 K/uL Eosinophils # (Auto) 0.71 K/uL Basophils # (Auto) 0.02 K/uL RDW Standard Deviation 43.7 fL 44.9 fL RDW Coefficient of Variation 13.0 % 13.2 % Immature Granulocyte % (Auto) 0.3 % Immature Granulocyte # (Auto) 0.02 K/uL Prothrombin Time 10.4 SECONDS Prothromb Time International Ratio 1.0 Activated Partial Thromboplast Time 37.1 SECONDS Partial Thromboplastin Ratio 1.4 Sodium Level 137 mmol/L 137 mmol/L Potassium Level 4.0 mmol/L 3.8 mmol/L Chloride Level 102 mmol/L 101 mmol/L Carbon Dioxide Level 26 mmol/L 28 mmol/L Anion Gap 9.0 mmol/L 8.0 mmol/L Blood Urea Nitrogen 19 mg/dl 17 mg/dl Creatinine 1.11 mg/dl 1.04 mg/dl Est Creatinine Clear Calc Drug Dose 63.3 ml/min 67.6 ml/min Estimated GFR () 79.8 86.3 Estimated GFR (Non- 68.8 74.5 BUN/Creatinine Ratio 17.0 16.5 Random Glucose 113 mg/dl 100 mg/dl Calcium Level 9.0 mg/dl 8.8 mg/dl Total Bilirubin 0.3 mg/dl Aspartate Amino Transf (AST/SGOT) 21 U/L Alanine Aminotransferase (ALT/SGPT) 40 U/L Alkaline Phosphatase 103 U/L Total Creatine Kinase 65 U/L Creatine Kinase MB 0.7 ng/ml Creatine Kinase MB Ratio 1.1 Troponin I < 0.015 ng/ml Total Protein 7.3 gm/dl Albumin 3.3 gm/dl Globulin 4.0 gm/dl Albumin/Globulin Ratio 0.8 Bedside Lactic Acid Venous 1.16 mmol/L Urine Color YELLOW Urine Appearance CLEAR Urine pH 7.0 Urine Specific [place] <= 1.005 Urine Protein NEG Urine Glucose (UA) NEG Urine Ketones NEG Urine Occult Blood NEG Urine Nitrite NEG Urine Bilirubin NEG Urine Urobilinogen NEG Urine Leukocyte Esterase NEG Magnesium Level 2.0 mg/dl Assessment and Plan 66 y/o M Hx COPD, anemia, 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 Cota PET scan [address] studies, there is concern for R lung mets on current, patient request oncology to see, has requested consultation Multiple lobar pneumonia with productive cough and progressive SOB , CT support developing perihilar pneumonia, history of smoking continue Levaquin, duonebs, albuterol and a cough suppressant, will have broad- spectrum antibiotic coverage if condition getting worse Solu-Medrol was given upon admission because of widespread wheezing and he is normally on 20mg prednisone daily I will discontinue Solu-Medrol because he is on immunotherapy, not sure will benefit for the cancer condition Will restart home dose prednisone by mouth daily COPD, continuation of Singulair and IV steroids as mentioned. BPH - cont Flomax GERD - cont PPi Chronic anemia Stable condition is stable continue current care Full code SCDs due to Hemoptysis , start Heparin subcutaneous for DVT prophylaxis Because OF conditions the benefit of DVT prophylaxis will be overweight and the risk of hemoptysis Discussed patient and family, answered all questions Continued [facility] stay due to: multiple IV medications needed Discharge planning: home
--- NOTE | 2017-04-14 12:23 | Oncology Consultation ---
Oncology/Heme Consultation Date of Consultation: Apr 14, 2017. Attending Physician: Ken Collins M.D. 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 On biopsy this was turned to be a non-small cell lung carcinoma predominantly predominantly large cell component with some neuroendocrine features. The patient did go on to have a resection. He received after that adjuvant therapy for the small cell component namely NAILHEAD SETTER-16 and carboplatin. He did well but recently was noted to have a recurrence that was paramediastinal relocated and proven on biopsy. No other disease was noted. He then went on to receive combined modality therapy for recurrent disease made up of chemotherapy and radiation therapy. This was all completed within the past few months. Since then he has been on "maintenance" therapy namely immunotherapy. He has been receiving off Depo. He called yesterday with shortness of breath as well as a cough. A chest x-ray done earlier this month was really unremarkable however yesterday's x-ray showed changes consistent with pneumonitis in an area that had also been recently irradiated. In our phone conversation he also described to me a significant fever and a cough productive of what soundd like purulent sputum. He has subsequently been admitted for therapy for presumed radiation pneumonitis plus a presumed purulent pneumonia. Past Medical/Surgical History Pneumonia Pneumonitis History of non-small cell lung carcinoma Family History Cancer Hypertension Social History Smoking Status: Unknown if Ever Smoked Marital Status: Housing Status: lives with family Occupation Status: employed Allergies Coded Allergies: Pork (Verified Allergy, Severe, ANAPHYLAXIS, 01/16/17) NO KNOWN DRUG ALLERGIES (Verified Allergy, Unknown, ., 01/16/17) Uncoded Allergies: VENISON (Allergy, Unknown, RASH, 12/12/16) Home Medications Scheduled Baclofen (Lioresal), 10 MG PO TID Cholecalciferol (Vitamin D3), 2,000 UNITS PO DAILY Diphenhy/Alum/Mag/Sucralfa (Magic Swizzle - Diphenhy/Alum/Mag/Sucralfa), 15 ML MT 5XD Esomeprazole Magnesium (Nexium), 1 CAP PO DAILY Mirtazapine Soltab (Remeron Soltab), 30 MG PO HS Montelukast Sodium (Singulair), 10 MG PO QPM Multivitamin (Multivitamin), 1 TAB PO DAILY Prednisone (Prednisone), 20 MG PO DAILY/UD Probiotic Product (Probiotic), 1 CAP PO DAILY Tamsulosin Hcl (Flomax), 0.4 MG PO QAM [Ferrous Sulfate], 160 MG PO DAILY Scheduled PRN Albuterol Sulfate (Proair Respiclick), 1 INHA INH QID PRN for SOB/Wheezing Lorazepam (Ativan), 0.5 MG PO PRN/UD PRN for ANXIETY Ondansetron Hcl (Zofran), 8 MG PO DIRECTED PRN for Nausea Prochlorperazine Maleate (Compazine), 10 MG PO Q6H PRN for Nausea or Vomiting [Melatonin], 1 MG PO HS PRN for Insomnia Current Inpatient Medications Current Inpatient Medications Medications (Trade) Dose Ordered Sig/Aron Route Start Time Stop Time Status Last Admin Dose Admin Ioversol (Optiray 320) 100 ml UD PRN IV 04/13/17 18:45 04/17/17 18:44 Acetaminophen (Tylenol Tab) 650 mg Q4H PRN PO 04/13/17 20:30 05/13/17 20:29 Al Hydrox/Mg Hydrox/Simethicone (Maalox Max Susp) 15 ml Q4H PRN PO 04/13/17 20:30 05/13/17 20:29 Magnesium Hydroxide (Milk Of Magnesia Susp) 30 ml Q6H PRN PO 04/13/17 20:30 05/13/17 20:29 Polyethylene (Miralax Powder Packet) 17 gm DAILY PRN PO 04/13/17 20:30 05/13/17 20:29 Ondansetron HCl (Zofran Inj) 4 mg Q6H PRN IV 04/13/17 20:30 05/13/17 20:29 Lorazepam (Ativan Tab) 0.5 mg Q8H PRN PO 04/13/17 20:30 05/13/17 20:29 Montelukast Sodium (Singulair Tab) 10 mg QPM PO 04/13/17 21:00 05/13/17 20:59 04/13/17 22:49 10 MG Prochlorperazine Maleate (Compazine Tab) 10 mg Q6H PRN PO 04/13/17 20:30 05/13/17 20:29 Pantoprazole Sodium (Protonix Tab) 40 mg DAILY PO 04/14/17 08:00 05/14/17 08:59 04/14/17 08:05 40 MG Mirtazapine (Remeron Solutab) 30 mg HS PO 04/13/17 21:00 05/13/17 20:59 04/13/17 22:53 30 MG Lactobacillus Acidophilus (Floranex Tab) 1 tab DAILY PO 04/14/17 08:00 05/14/17 08:59 04/14/17 08:05 1 TAB Ferrous Sulfate (Feosol Tab) 325 mg DAILY PO 04/14/17 08:00 05/14/17 08:59 04/14/17 08:04 325 MG Levofloxacin 750 mg/Prmx 150 ml @ 100 mls/hr Q24H IV 04/14/17 16:00 04/20/17 15:59 Codeine Phosphate/ Guaifenesin (Robitussin-AC Sugar Free Syrup) 5 ml Q6H PRN PO 04/13/17 20:30 05/13/17 20:29 04/13/17 21:57 5 ML Albuterol Sulfate (Ventolin 0.083% 2.5MG/3ML Neb) 2.5 mg Q4H PRN INH 04/13/17 20:30 05/13/17 20:29 Albuterol/ Ipratropium (Duoneb) 3 ml Q6R INH 04/13/17 21:00 05/13/17 20:59 04/14/17 07:00 3 ML Diazepam (Valium Tab) 5 mg HS PO 04/13/17 22:45 05/13/17 22:44 04/13/17 22:49 5 MG Tamsulosin HCl (Flomax Cap) 0.4 mg HS PO 04/13/17 23:00 05/13/17 22:59 04/13/17 22:50 0.4 MG Heparin Sodium (Porcine) (Heparin Sq 5000 Unit/0.5ml) 5,000 unit Q12 SQ 04/14/17 21:00 05/14/17 20:59 Methylprednisolone Sodium Succinate 60 mg/Syringe 0.96 ml @ 1.5 mls/min Q8H IV 04/14/17 14:00 12/21/17 13:59 Review of Systems Constitutional: Negative for night sweats, or fever Eyes: Negative for event change of vision ENT: Negative for epistaxis, nasal discharge, sore throat, or deafness Cardiovascular: Negative for chest pain, palpitations, dizziness, diaphoresis Respiratory: Positive for new shortness of breath over the past few weeks along with now a productive cough. Gastrointestinal: Negative for diarrhea, hematemesis, melena, nausea, vomiting , or dyspepsia Integumentary (skin): Negative for rash or jaundice discoloration Genitourinary: Negative for urinary frequency, hematuria, or dysuria Neurological: Negative for weakness, seizure activity, headache, or dizziness Lymphatic/Hematologic: Negative for petechiae, bleeding or new adenopathy Musculoskeletal: Negative for new joint or back pain. He states that he occasionally has parasternal musculoskeletal "cramping" Allergic/Immunologic: Negative for unusual rash or pruritis. Physical Exam Date Time Temp Pulse Resp B/P (MAP) Pulse Ox O2 Delivery O2 Flow Rate FiO2 04/14/17 11:18 36.5 81 18 109/70 (83) 95 Room Air 04/14/17 08:00 94 Room Air 04/14/17 07:05 37.1 92 18 144/81 (102) 94 04/14/17 07:01 98 15 94 Room Air 04/14/17 05:20 Room Air 04/14/17 04:35 37.2 96 18 142/84 (103) 96 Room Air 04/14/17 01:46 98 16 93 Room Air 04/14/17 00:23 37.6 89 18 143/80 (101) 93 2.0 04/13/17 23:50 96 Room Air 04/13/17 23:50 96 Room Air 04/13/17 22:41 37.5 83 20 148/88 (108) 98 Nasal Cannula 2.0 04/13/17 22:07 93 Nasal Cannula 2.0 04/13/17 20:24 90 24 122/76 96 Room Air 04/13/17 19:10 99 04/13/17 18:30 98 Nasal Cannula 2.0 04/13/17 18:28 98 Nasal Cannula 2.0 04/13/17 18:04 37.1 108 20 126/76 95 Room Air Constitutional: vitals are stable. Eyes: Eyes are OTILIA EOMI without conjuctival erythema or icterus. ENT: External examination was negative for masses. Neck: Negative for masses or palpable thyromegaly Respiratory: Lung sounds were generally clear bilaterally with an occasional rale heard Cardiovascular: Heart was RRR without significant murmur, gallops aoe rubs Gastrointestinal: No palpable hepatic or splenomegaly. The abdomen was soft with normal bowel sounds. Lymphatic system: there was no palpable peripheral lymphadenopathy Musculoskeletal System: The musculoskeletal system seemed concordant with age. Skin: The skin was negative for jaundice. Neurologic exam: The exam was negative for any focal findings. Deep tendon reflexes were equal and symmetrical. Psychiatric exam: Was essentially negative with normal mood and effect. Extremities: Negative for edema erythema Laboratory Results Last 24 Hours Test 04/13/17 18:40 04/13/17 18:53 04/14/17 00:50 04/14/17 05:40 White Blood Count 7.73 K/uL 6.56 K/uL Red Blood Count 3.32 M/uL 3.05 M/uL Hemoglobin 10.4 g/dL 9.4 g/dL Hematocrit 30.5 % 28.5 % Mean Corpuscular Volume 91.9 fL 93.4 fL Mean Corpuscular Hemoglobin 31.3 pg 30.8 pg Mean Corpuscular Hemoglobin Concent 34.1 g/dl 33.0 g/dl Platelet Count 306 K/uL 271 K/uL Mean Platelet Volume 8.9 fL 9.1 fL Neutrophils (%) (Auto) 71.9 % Lymphocytes (%) (Auto) 8.3 % Monocytes (%) (Auto) 10.0 % Eosinophils (%) (Auto) 9.2 % Basophils (%) (Auto) 0.3 % Neutrophils # (Auto) 5.57 K/uL Lymphocytes # (Auto) 0.64 K/uL Monocytes # (Auto) 0.77 K/uL Eosinophils # (Auto) 0.71 K/uL Basophils # (Auto) 0.02 K/uL RDW Standard Deviation 43.7 fL 44.9 fL RDW Coefficient of Variation 13.0 % 13.2 % Immature Granulocyte % (Auto) 0.3 % Immature Granulocyte # (Auto) 0.02 K/uL Prothrombin Time 10.4 SECONDS Prothromb Time International Ratio 1.0 Activated Partial Thromboplast Time 37.1 SECONDS Partial Thromboplastin Ratio 1.4 Sodium Level 137 mmol/L 137 mmol/L Potassium Level 4.0 mmol/L 3.8 mmol/L Chloride Level 102 mmol/L 101 mmol/L Carbon Dioxide Level 26 mmol/L 28 mmol/L Anion Gap 9.0 mmol/L 8.0 mmol/L Blood Urea Nitrogen 19 mg/dl 17 mg/dl Creatinine 1.11 mg/dl 1.04 mg/dl Est Creatinine Clear Calc Drug Dose 63.3 ml/min 67.6 ml/min Estimated GFR () 79.8 86.3 Estimated GFR (Non- 68.8 74.5 BUN/Creatinine Ratio 17.0 16.5 Random Glucose 113 mg/dl 100 mg/dl Calcium Level 9.0 mg/dl 8.8 mg/dl Total Bilirubin 0.3 mg/dl Aspartate Amino Transf (AST/SGOT) 21 U/L Alanine Aminotransferase (ALT/SGPT) 40 U/L Alkaline Phosphatase 103 U/L Total Creatine Kinase 65 U/L Creatine Kinase MB 0.7 ng/ml Creatine Kinase MB Ratio 1.1 Troponin I < 0.015 ng/ml Total Protein 7.3 gm/dl Albumin 3.3 gm/dl Globulin 4.0 gm/dl Albumin/Globulin Ratio 0.8 Bedside Lactic Acid Venous 1.16 mmol/L Urine Color YELLOW Urine Appearance CLEAR Urine pH 7.0 Urine Specific [place] <= 1.005 Urine Protein NEG Urine Glucose (UA) NEG Urine Ketones NEG Urine Occult Blood NEG Urine Nitrite NEG Urine Bilirubin NEG Urine Urobilinogen NEG Urine Leukocyte Esterase NEG Magnesium Level 2.0 mg/dl Pro-B-Type Natriuretic Peptide 38 pg/ml Assessment & Plan History non-small cell lung carcinoma status post chemoradiotherapy and now on immunotherapy that presents with radiographic signs consistent with pneumonitis as well as shortness of breath and productive cough. Reviewing his x-rays I suspect that this represented radiation pneumonitis but with a fever and purulent cough I suspect we should also treat him with antibiotics. I would for now use Solu-Medrol. A total dose of 60-80 mg a day would be adequate. Provided that fever is controlled then he can perhaps be discharged the very near future with an oral antibiotics along with an equivalent dose of prednisone 60-80 mg a day. We will taper this in the clinic. I believe that this pneumonitis seen on chest x-ray is more radiation related and not related to immunotherapy. This was reviewed with the patient today. I also reviewed this with today.
--- NOTE | 2017-04-14 13:00 | ECHOCARDIOGRAM REPORT ---
*NOTICE TO RECEIVING [employer] This information is strictly Confidential and protected under [place] law. [place] law prohibits you from making any further disclosure of this information unless further disclosure is expressly permitted by the written consent of the person to whom it pertains or is authorized by law. A general authorization for the release of medical or other information is not sufficient for this purpose. Hospital accepts no responsibility if the information is made available to any other person, INCLUDING THE PATIENT. Interpretation Summary * Name: NOLBERTO TARANGO Study Date: 04/14/2017 11:17 AM BP: 109/70 mmHg * Patient Location: .4E\S\E405\S\1 HR: 81 * : 1950 (M/d/yyyy) Gender: Male Height: 68 in * Age: 66 yrs Ethnicity: CA Weight: 156 lb * Ordering Physician: Luis Corley * Referring Physician: Bradford Cota D.O. * Performed By: Annita Munguia RDCS * * Reason For Study: LEFT ATRIAL ENLARGEMENT, ELEVATED HR * BSA: 1.8 m2 * -- Conclusions -- * There is mild concentric left ventricular hypertrophy. * Left ventricular systolic function is normal. * Grade I diastolic dysfunction, (abnormal relaxation pattern). * Cannot exclude small PFO Procedure Details * A complete two-dimensional transthoracic echocardiogram was performed (2D, M-mode, Doppler and color flow Doppler). Left Ventricle * The left ventricle is normal in size. * There is mild concentric left ventricular hypertrophy. * Ejection Fraction = >70 %. * Left ventricular systolic function is normal. * Grade I diastolic dysfunction, (abnormal relaxation pattern). * The left ventricular wall motion is normal. Right Ventricle * The right ventricle is normal in size and function. Atria * The left atrial size is normal. * Right atrial size is normal. * Cannot exclude small PFO Mitral Valve * The mitral valve anatomy is normal. * Significant mitral regurgitation is absent. Tricuspid Valve * The tricuspid valve anatomy is normal. * There is trace tricuspid regurgitation. Aortic Valve * The aortic valve is normal in structure and function. * The aortic valve is trileaflet. * No hemodynamically significant valvular aortic stenosis. * There is no significant aortic regurgitation. Great Vessels * The aortic root is normal size. Pericardium/Pleural * There is no pericardial effusion. MMode 2D Measurements and Calculations IVSd 1.5 cm IVSs 2.0 cm LVIDd 4.2 cm LVIDs 2.2 cm LVPWd 1.3 cm LVPWs 2.0 cm IVS/LVPW 1.1 FS 47.2 % EDV(Teich) 77.8 ml ESV(Teich) 16.3 ml EF(Teich) 79.0 % EDV(cubed) 73.2 ml ESV(cubed) 10.7 ml EF(cubed) 85.3 % % IVS thick 34.5 % % LVPW thick 56.2 % LV mass(C)d 221.4 grams LV mass(C)dI 120.4 grams/m\S\2 LV mass(C)s 193.7 grams LV mass(C)sI 105.3 grams/m\S\2 SV(Teich) 61.5 ml SI(Teich) 33.4 ml/m\S\2 SV(cubed) 62.4 ml SI(cubed) 33.9 ml/m\S\2 Ao root diam 3.3 cm Ao root area 8.5 cm\S\2 LA dimension 3.6 cm LA/Ao 1.1 LVAd ap4 22.9 cm\S\2 LVLd ap4 7.6 cm EDV(MOD-sp4) 58.7 ml EDV(sp4-el) 58.4 ml LVAs ap4 11.9 cm\S\2 LVLs ap4 6.7 cm ESV(MOD-sp4) 21.0 ml ESV(sp4-el) 17.8 ml EF(MOD-sp4) 64.2 % EF(sp4-el) 69.5 % LVAd ap2 24.5 cm\S\2 LVLd ap2 7.5 cm EDV(MOD-sp2) 67.2 ml EDV(sp2-el) 68.4 ml LVAs ap2 11.5 cm\S\2 LVLs ap2 6.5 cm ESV(MOD-sp2) 18.8 ml ESV(sp2-el) 17.3 ml EF(MOD-sp2) 72.0 % EF(sp2-el) 74.7 % LVLd %diff -2.01 % EDV(MOD-bp) 63.6 ml LVLs %diff -3.40 % ESV(MOD-bp) 20.2 ml EF(MOD-bp) 68.2 % SV(MOD-sp4) 37.7 ml SI(MOD-sp4) 20.5 ml/m\S\2 SV(MOD-sp2) 48.4 ml SI(MOD-sp2) 26.3 ml/m\S\2 SV(MOD-bp) 43.4 ml SI(MOD-bp) 23.6 ml/m\S\2 SV(sp4-el) 40.6 ml SI(sp4-el) 22.1 ml/m\S\2 SV(sp2-el) 51.1 ml SI(sp2-el) 27.8 ml/m\S\2 Doppler Measurements and Calculations MV E max joe 72.3 cm/sec MV A max joe 98.1 cm/sec MV E/A 0.74 MV dec time 0.27 sec Ao V2 max 144.5 cm/sec Ao max PG 8.4 mmHg Ao max PG (full) 4.2 mmHg AI max joe 314.0 cm/sec AI max PG 39.5 mmHg AI dec slope 107.6 cm/sec\S\2 AI P1/2t 855.2 msec LV V1 max PG 4.1 mmHg LV V1 max 101.4 cm/sec
[2017-04-14] MEDS: METHYLPREDNISOLONE IV 60 MG in SYRINGE 0 ML IV SCH ×2 (14:08→21:55)
[2017-04-14] MEDS: GUAIFENESIN/CODEINE 100MG/10MG 5ML UDC PO PRN (15:45)
[2017-04-14] MEDS ORDERED: LEVOFLOXACIN / D5W 750 MG in PREMIXED IN D5W 150 ML IV SCH (16:00)
[2017-04-14] MEDS: DIAZEPAM 5MG TAB PO SCH (21:48)
[2017-04-14] MEDS: MONTELUKAST SOD 10 MG TAB PO SCH (21:50)
[2017-04-14] MEDS: TAMSULOSIN HCL 0.4 MG CAP PO SCH (21:51)
[2017-04-14] MEDS: MIRTAZAPINE SOLTAB 15 MG PO SCH (21:52)
[2017-04-14] MEDS: HEPARIN SOD 5000 UNIT/0.5 ML CARP SQ SCH (21:55)
[2017-04-15] VITALS (9 sets, daily range): BP systolic 106–149; BP diastolic 55–87; PULSE 76–94; TEMP 36.3–36.6; O2SAT 93–98
[2017-04-15] MEDS: ALBUT/IPRATROP 3MG/0.5MG NEB 3 ML VIAL INH SCH ×5 (01:45→18:59)
[2017-04-15] MEDS: METHYLPREDNISOLONE IV 60 MG in SYRINGE 0 ML IV SCH (05:45)
[2017-04-15 05:51] LABS: COMPLETE YES; HEMATOCRIT 30.1 % (42-52); IG% 0.2 %; LYMPH % 2.6 %; LYMPH ABS # 0.27 K/uL (1.2-3.4); MEAN CELL VOLUME 91.8 fL (80-100); MEAN CORPUSCULAR HEMOGLOBIN 30.8 pg (25-34); MEAN CORPUSCULAR HGB CONC 33.6 g/dl (32-36); MEAN PLATELET VOLUME 9.1 fL (7.4-10.4); MONO % 2.1 %; NEUT % 95.1 %; PLATELET COUNT 304 K/uL (130-400); RED BLOOD COUNT 3.28 M/uL (4.7-6.1); WHITE BLOOD COUNT 10.38 K/uL (4.8-10.8)
[2017-04-15 06:46] LABS: CALCIUM 9.5 mg/dl (8.5-10.1); CREATININE 1.04 mg/dl (0.60-1.40); MAGNESIUM 2.1 mg/dl (1.8-2.4); POTASSIUM 4.7 mmol/L (3.5-5.1)
[2017-04-15] MEDS: PANTOprazole SOD 40 MG TAB PO SCH (08:59)
[2017-04-15] MEDS: LACTOBACILLUS ACIDOPHILUS (FLORANEX) TAB PO SCH (08:59)
[2017-04-15] MEDS: FERROUS SULFATE 325 MG TAB PO SCH (08:59)
[2017-04-15] MEDS: HEPARIN SOD 5000 UNIT/0.5 ML CARP SQ SCH ×2 (09:02→19:59)
--- NOTE | 2017-04-15 09:52 | Progress Note ---
Subjective Date of Service: Apr 15, 2017. 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 w/ pension consultant, review of inpatient medication list Feeling much better, smiling, , less cough, less white sputum, no yellow sputum , no hemoptysis, no fever and chill, Review of Systems Constitutional: No fever, No chills, No sweats, No weight loss, No weakness, No fatigue, No problem reported Eyes: No worsening of vision, No eye pain, No redness, No discharge, No diplopia ENT: No hearing loss, No unusual epistaxis, No nasal symptoms, No sore throat, No tinnitus, No dental problems, No trouble swallowing Respiratory: + see HPI, + cough, No sputum, No wheezing, No shortness of breath , No dyspnea on exertion, No dyspnea at rest, No hemoptysis Cardiac: No chest pain, No orthopnea, No PND, No edema, No claudication, No palpitations Abdomen: No pain, No nausea, No vomiting, No diarrhea, No constipation Musculoskeletal: No joint pain, No muscle pain, No swelling, No calf pain Male : No dysuria, No urinary frequency, No incontinence, No nocturia more than once/night, No slowing stream, No hematuria Neurologic: No memory loss, No paralysis, No weakness, No numbness/tingling, No vertigo, No balance problems Psychiatric: No depression symptoms, No anhedonism, No anxiety, No insomnia, No substance abuse Heme: No abnormal bleeding/bruising, No clotting problems, No swollen lymph nodes, No night sweats Endo: No fatigue, No excessive thirst, No excessive urination Skin: No rash, No itch, No new/changing skin lesions, No color change, No bleeding Objective Vital Signs Date Time Temp Pulse Resp B/P (MAP) Pulse Ox O2 Delivery O2 Flow Rate FiO2 04/15/17 08:22 Room Air 04/15/17 07:44 36.5 76 16 106/55 (72) 97 Room Air 04/15/17 07:03 89 18 96 Room Air 04/15/17 04:30 36.4 82 20 149/87 (107) 98 Room Air 04/15/17 00:55 Room Air 04/14/17 23:55 36.4 87 18 130/81 (97) 93 Room Air 04/14/17 19:26 36.5 100 20 135/72 (93) 98 Room Air 04/14/17 19:00 84 20 93 Room Air 04/14/17 16:00 Room Air 04/14/17 14:47 36.5 94 18 121/75 (90) 96 Room Air 04/14/17 14:17 89 16 95 Room Air 04/14/17 11:18 36.5 81 18 109/70 (83) 95 Room Air Physical Exam General Appearance: WD/WN, no apparent distress, + pertinent finding (pleasant) Eyes: normal inspection, PERRL, EOMI, sclerae normal ENT: normal ENT inspection, hearing grossly normal, pharynx normal Neck: supple, no adenopathy, thyroid normal, no JVD, no carotid bruits, trachea midline Respiratory/Chest: chest non-tender, normal breath sounds, no respiratory distress, no accessory muscle use, + decreased breath sounds Cardiovascular: regular rate, rhythm, no edema, no gallop, no JVD, no murmur Abdomen: normal bowel sounds, non tender, soft, no organomegaly, no pulsatile mass Extremities: normal range of motion, non-tender, normal inspection, no pedal edema, no calf tenderness, normal capillary refill, pelvis stable Neurologic/Psychiatric: skid adzer II-XII nml as tested, no motor/sensory deficits, alert, normal mood/affect, oriented x 3 Skin: normal color, warm/dry, no rash Lymphatic: no adenopathy Laboratory Results Last 24 Hours Test 04/15/17 05:30 White Blood Count 10.38 K/uL Red Blood Count 3.28 M/uL Hemoglobin 10.1 g/dL Hematocrit 30.1 % Mean Corpuscular Volume 91.8 fL Mean Corpuscular Hemoglobin 30.8 pg Mean Corpuscular Hemoglobin Concent 33.6 g/dl Platelet Count 304 K/uL Mean Platelet Volume 9.1 fL Neutrophils (%) (Auto) 95.1 % Lymphocytes (%) (Auto) 2.6 % Monocytes (%) (Auto) 2.1 % Eosinophils (%) (Auto) 0.0 % Basophils (%) (Auto) 0.0 % Neutrophils # (Auto) 9.87 K/uL Lymphocytes # (Auto) 0.27 K/uL Monocytes # (Auto) 0.22 K/uL Eosinophils # (Auto) 0.00 K/uL Basophils # (Auto) 0.00 K/uL RDW Standard Deviation 42.4 fL RDW Coefficient of Variation 12.6 % Immature Granulocyte % (Auto) 0.2 % Immature Granulocyte # (Auto) 0.02 K/uL Sodium Level 138 mmol/L Potassium Level 4.7 mmol/L Chloride Level 104 mmol/L Carbon Dioxide Level 26 mmol/L Anion Gap 8.0 mmol/L Blood Urea Nitrogen 24 mg/dl Creatinine 1.04 mg/dl Est Creatinine Clear Calc Drug Dose 67.6 ml/min Estimated GFR () 86.3 Estimated GFR (Non- 74.5 BUN/Creatinine Ratio 23.0 Random Glucose 169 mg/dl Calcium Level 9.5 mg/dl Magnesium Level 2.1 mg/dl Assessment and Plan 66 y/o M Hx COPD, anemia, 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 Cota PET scan [address] studies, there is concern for R lung mets on current, oncology on the case Possible Multiple lobar pneumonia with productive cough and progressive SOB , or : Radiation pneumonitis CT support developing perihilar pneumonia, history of smoking Significant improving, Has been on Levaquin, duonebs, albuterol and a cough suppressant, Solu-Medrol was given upon admission and is possible radiation pneumonitis associated with widespread wheezing and he is normally on 20mg prednisone daily Taper Solu-Medrol , and we will discharge home with oral prednisone COPD, continuation of Singulair and IV steroids as mentioned. BPH - cont Flomax GERD - cont PPi Chronic anemia Stable condition is stable continue current care Mild tachycardia upon admission and possible left atrial enlargement EKG, however per echo report, The left atrial size is normal. Possible mild diastolic dysfunction per echo report, discuss more details of echo results and advised patient to follow-up the abnormalities with PCP, referral to cardiology if needed Full code SCDs due to Hemoptysis , start Heparin subcutaneous for DVT prophylaxis Increase activity switch IV medication to oral, planning to discharge home tomorrow Discussed patient and family, answered all questions Continued [facility] stay due to: multiple IV medications needed Discharge planning: home
[2017-04-15] MEDS ORDERED: NURSING VERBAL MED ORDER ONE (12:00)
[2017-04-15] MEDS ORDERED: COUGH DROP (SUGAR FREE) LOZ 24 LOZ/1 BOX PO PRN (12:00)
[2017-04-15] MEDS: LEVOFLOXACIN 750 MG TAB PO SCH (13:33)
[2017-04-15] MEDS: METHYLPREDNISOLONE IV 30 MG in SYRINGE 0 ML IV SCH ×2 (13:34→22:20)
--- NOTE | 2017-04-15 15:38 | Hematology/Oncology Prog Note ---
Hematology/Onc Progress Note Date of Service Apr 15, 2017. Diagnoses History of recurrent non-small cell lung carcinoma now presents with pneumonitis /pneumonia Medications Medications Administered Medications (Trade) Dose Ordered Sig/Aron Route Start Time Stop Time Status Last Admin Dose Admin Albuterol/ Ipratropium (Duoneb) 3 ml NOW STAT INH 04/13/17 18:13 04/13/17 18:17 DC 04/13/17 18:23 3 ML Levofloxacin (Levaquin / D5W) 750 mg NOW STAT IV 04/13/17 18:13 04/13/17 18:17 DC 04/13/17 18:53 750 MG Hydrocodone Bit/ Homatropine Methylb (Hycodan Syrup) 5 ml NOW STAT PO 04/13/17 18:13 04/13/17 18:17 DC 04/13/17 18:23 5 ML Montelukast Sodium (Singulair Tab) 10 mg QPM PO 04/13/17 21:00 05/13/17 20:59 04/14/17 21:50 10 MG Pantoprazole Sodium (Protonix Tab) 40 mg DAILY PO 04/14/17 08:00 05/14/17 08:59 04/15/17 08:59 40 MG Mirtazapine (Remeron Solutab) 30 mg HS PO 04/13/17 21:00 05/13/17 20:59 04/14/17 21:52 30 MG Lactobacillus Acidophilus (Floranex Tab) 1 tab DAILY PO 04/14/17 08:00 05/14/17 08:59 04/15/17 08:59 1 TAB Ferrous Sulfate (Feosol Tab) 325 mg DAILY PO 04/14/17 08:00 05/14/17 08:59 04/15/17 08:59 325 MG Levofloxacin 750 mg/Prmx 150 ml @ 100 mls/hr Q24H IV 04/14/17 16:00 04/15/17 11:07 DC 04/14/17 15:43 100 MLS/HR Codeine Phosphate/ Guaifenesin (Robitussin-AC Sugar Free Syrup) 5 ml Q6H PRN PO 04/13/17 20:30 05/13/17 20:29 04/14/17 15:45 5 ML Albuterol/ Ipratropium (Duoneb) 3 ml Q6R INH 04/13/17 21:00 05/13/17 20:59 04/15/17 14:19 3 ML Diazepam (Valium Tab) 5 mg HS PO 04/13/17 22:45 05/13/17 22:44 04/14/17 21:48 5 MG Tamsulosin HCl (Flomax Cap) 0.4 mg HS PO 04/13/17 23:00 05/13/17 22:59 04/14/17 21:51 0.4 MG Methylprednisolone Sodium Succinate 60 mg/Syringe 0.96 ml @ 1.5 mls/min Q6H IV 04/14/17 06:00 04/14/17 09:51 DC 04/14/17 05:59 1.5 MLS/MIN Heparin Sodium (Porcine) (Heparin Sq 5000 Unit/0.5ml) 5,000 unit Q12 SQ 04/14/17 21:00 05/14/17 20:59 04/15/17 09:02 5,000 UNIT Methylprednisolone Sodium Succinate 60 mg/Syringe 0.96 ml @ 1.5 mls/min Q8H IV 04/14/17 14:00 04/15/17 07:21 DC 04/15/17 05:45 1.5 MLS/MIN Methylprednisolone Sodium Succinate 30 mg/Syringe 0.48 ml @ 1.5 mls/min Q8 IV 04/15/17 14:00 05/15/17 13:59 04/15/17 13:34 1.5 MLS/MIN Levofloxacin (Levaquin Tab) 750 mg DAILY@11 PO 04/15/17 14:00 04/20/17 13:59 04/15/17 13:33 750 MG Menthol (Nice Alix) 1 alix PRN PRN PO 04/15/17 12:00 05/15/17 11:59 04/15/17 12:12 1 ALIX Subjective States that he feels better. He feels that his breathing better. The cough is not as prominent. He has been afebrile. Review of Systems: Constitutional: Negative for night sweats, or fever Eyes: Negative for event change of vision ENT: Negative for epistaxis, nasal discharge, sore throat, or deafness Cardiovascular: Negative for chest pain, palpitations, dizziness, diaphoresis Respiratory: Negative for worsening shortness of breath or cough Gastrointestinal: Negative for diarrhea, hematemesis, melena, nausea, vomiting , or dyspepsia Integumentary (skin): Negative for rash or jaundice discoloration Genitourinary: Negative for urinary frequency, hematuria, or dysuria Neurological: Negative for weakness, seizure activity, headache, or dizziness Lymphatic/Hematologic: Negative for petechiae, bleeding or new adenopathy Musculoskeletal: Negative for new joint or back pain Allergic/Immunologic: Negative for unusual rash or pruritis. Vital Signs Vital Signs Past 12 Hours Date Time Temp Pulse Resp B/P (MAP) Pulse Ox O2 Delivery O2 Flow Rate FiO2 04/15/17 14:19 84 20 93 Room Air 04/15/17 11:59 36.5 79 18 120/73 (89) 95 Room Air 04/15/17 08:22 Room Air 04/15/17 07:44 36.5 76 16 106/55 (72) 97 Room Air 04/15/17 07:03 89 18 96 Room Air 04/15/17 04:30 36.4 82 20 149/87 (107) 98 Room Air Physical Exam Constitutional: vitals are stable. Eyes: Eyes are OTILIA EOMI without conjuctival erythema or icterus. ENT: External examination was negative for masses. Neck: Negative for masses or palpable thyromegaly Respiratory: Lung sounds were generally clear bilaterally Cardiovascular: Heart was RRR without significant murmur, gallops aoe rubs Gastrointestinal: No palpable hepatic or splenomegaly. The abdomen was soft with normal bowel sounds. Lymphatic system: there was no palpable peripheral lymphadenopathy Musculoskeletal System: The musculoskeletal system seemed concordant with age. Skin: The skin was negative for jaundice. Neurologic exam: The exam was negative for any focal findings. Deep tendon reflexes were equal and symmetrical. Psychiatric exam: Was essentially negative with normal mood and effect. Extremities: Negative for edema erythema Laboratory Last 24 Hours Test 04/15/17 05:30 White Blood Count 10.38 K/uL Red Blood Count 3.28 M/uL Hemoglobin 10.1 g/dL Hematocrit 30.1 % Mean Corpuscular Volume 91.8 fL Mean Corpuscular Hemoglobin 30.8 pg Mean Corpuscular Hemoglobin Concent 33.6 g/dl Platelet Count 304 K/uL Mean Platelet Volume 9.1 fL Neutrophils (%) (Auto) 95.1 % Lymphocytes (%) (Auto) 2.6 % Monocytes (%) (Auto) 2.1 % Eosinophils (%) (Auto) 0.0 % Basophils (%) (Auto) 0.0 % Neutrophils # (Auto) 9.87 K/uL Lymphocytes # (Auto) 0.27 K/uL Monocytes # (Auto) 0.22 K/uL Eosinophils # (Auto) 0.00 K/uL Basophils # (Auto) 0.00 K/uL RDW Standard Deviation 42.4 fL RDW Coefficient of Variation 12.6 % Immature Granulocyte % (Auto) 0.2 % Immature Granulocyte # (Auto) 0.02 K/uL Sodium Level 138 mmol/L Potassium Level 4.7 mmol/L Chloride Level 104 mmol/L Carbon Dioxide Level 26 mmol/L Anion Gap 8.0 mmol/L Blood Urea Nitrogen 24 mg/dl Creatinine 1.04 mg/dl Est Creatinine Clear Calc Drug Dose 67.6 ml/min Estimated GFR () 86.3 Estimated GFR (Non- 74.5 BUN/Creatinine Ratio 23.0 Random Glucose 169 mg/dl Calcium Level 9.5 mg/dl Magnesium Level 2.1 mg/dl Assessment & Plan Patient is being treated with both antibiotics as well as steroids for pneumonitis/pneumonia. Cultures are pending. If blood cultures are negative and the patient remains clinically stable then perhaps he can be discharged on oral antibiotics and prednisone. I would ask that prednisone be dosed at 60 mg a day at discharge. Will arrange for follow-up in our clinic to occur in about 1 week where tapering of the prednisone will take place.
[2017-04-15] MEDS: MONTELUKAST SOD 10 MG TAB PO SCH (19:59)
[2017-04-15] MEDS: TAMSULOSIN HCL 0.4 MG CAP PO SCH (19:59)
[2017-04-15] MEDS: DIAZEPAM 5MG TAB PO SCH (19:59)
[2017-04-15] MEDS: MIRTAZAPINE SOLTAB 15 MG PO SCH (19:59)
[2017-04-16] VITALS: O2SAT 95
[2017-04-16 00:32] VITALS: BP 156/80; PULSE 81; TEMP 36.4; O2SAT 95
[2017-04-16 04:13] VITALS: BP 108/70; PULSE 84; TEMP 36.4; O2SAT 96
[2017-04-16] MEDS: METHYLPREDNISOLONE IV 30 MG in SYRINGE 0 ML IV SCH (06:03)
[2017-04-16 07:05] VITALS: PULSE 83; O2SAT 97
[2017-04-16] MEDS: ALBUT/IPRATROP 3MG/0.5MG NEB 3 ML VIAL INH SCH (07:05)
[2017-04-16 07:23] VITALS: BP 155/90; PULSE 79; TEMP 36.4; O2SAT 97
[2017-04-16] MEDS: PANTOprazole SOD 40 MG TAB PO SCH (07:54)
[2017-04-16] MEDS: FERROUS SULFATE 325 MG TAB PO SCH (07:54)
[2017-04-16] MEDS: LACTOBACILLUS ACIDOPHILUS (FLORANEX) TAB PO SCH (07:54)
[2017-04-16] MEDS: LEVOFLOXACIN 750 MG TAB PO SCH (07:54)
[2017-04-16] MEDS: HEPARIN SOD 5000 UNIT/0.5 ML CARP SQ SCH (08:14)
[2017-04-16 08:16] VITALS: BP 155/90; PULSE 79; TEMP 36.4; O2SAT 97
[2017-04-16] MEDS ORDERED: LVQ750 PO (09:33)
[2017-04-16] MEDS ORDERED: PRD20 PO (09:33)
--- NOTE | 2017-04-16 09:39 | Discharge Instructions ---
Discharge Instructions Date of Service Apr 16, 2017. Admission Reason for Admission: Multifocal Pneumonia Discharge Discharge Diagnosis / Problem: Multifocal pneumonia, radiation pneumonitis Discharge Goals Goal(s): Improve disease control Activity Recommendations Activity Limitations: resume your previous activity Exercise/Sports Limitations: gradually increase as tolerated . Instructions / Follow-Up Instructions / Follow-Up Please follow up with your primary care provider and Dr. Cota's office within a week. I have provided 8 days worth of your prednisone but it will need to be tapered down per Dr. Cota's instructions. Please do not stop this medication abruptly. If you are unable to see Dr. Cota within the week for some reason, please be sure to obtain a steroid taper from his office. Current Hospital Diet Patient's current hospital diet: Regular Diet Discharge Diet Recommended Diet: Regular Diet Procedures Procedures Performed: Abdomen pelvis CT Chest CT Pending Studies Studies pending at discharge: no Medical Emergencies . Who to Call and When: Medical Emergencies: If at any time you feel your situation is an emergency, please call 911 immediately. . Non-Emergent Contact Non-Emergency issues call your: Primary Care Provider, Oncologist Call Non-Emergent contact if: you have a fever, you have any medication questions . Past History Medical & Surgical History: (1) Multifocal pneumonia (2) Radiation pneumonitis . "Provider Documentation" section prepared by Kristen Duron. . VTE Core Measure Inpt VTE Proph given/why not?: SCD's
[2017-04-16] MEDS ORDERED: LEVOFLOXACIN 750 MG TAB PO ONE (09:45)
--- NOTE | 2017-04-16 14:13 | Discharge Summary ---
Discharge Summary Date of Service Apr 16, 2017. (Kristen Duron CRNP) Discharge Summary Admission Date: Apr 13, 2017 at 20:29 Discharge Date: Apr 16, 2017 Discharge Disposition: Home Principal Diagnosis: pneumonia, radiation pneumonitis Problems/Secondary Diagnoses: COPD, anemia, L lung large cell neuroendocrine tumor - post lobectomy with recurrence, L bronchial stenting Immunizations: Have You Had Influenza Vaccine: Unknown History of Tetanus Vaccine?: UTD History of Pneumococcal: No History of Hepatitis B Vaccine: No Procedures: Abd/Pelvis CT IMPRESSION: 1. No acute abnormality of the abdomen or pelvis. 2. Left and to lesser extent right perihilar interstitial and/or edematous changes has been described previously. 3. Right pulmonary nodularity raising the possibility of pulmonary metastatic disease. Chest CT Impression: 1. No evidence for pulmonary embolus. 2. Stable posttherapeutic changes left hemithorax. 3. Interval development of left and to a lesser extent right perihilar infiltrative and or pulmonary edematous changes. 4. Developing right mid to lower lung pulmonary nodularity raising the distinct possibility of pulmonary metastatic disease. These should be closely monitored. (Kristen Duron CRNP) Problems/Secondary Diagnoses: BPH GERD Chronic anemia Vitamin D deficiency Insomnia (Mireya Molina MD) Medication Reconciliation New Medications: Prednisone (Prednisone) 20 Mg Tab 60 MG PO DAILY for 8 Days, #24 TAB Levofloxacin (Levofloxacin) 750 Mg Tab 750 MG PO DAILY@11 for 3 Days, #3 TAB start 04/17 Continued Medications: Albuterol Sulfate (Proair Respiclick) 108 Mcg/Act Aer 1 INHA INH QID PRN for SOB/Wheezing Baclofen (Lioresal) 10 Mg Tab 10 MG PO TID, TAB Cholecalciferol (Vitamin D3) 2,000 Unit Cap 2000 UNITS PO DAILY Diphenhy/Alum/Mag/Sucralfa (Magic Swizzle - Diphenhy/Alum/Mag/Sucralfa) Susp 15 ML MT 5XD 30ML DIPHENHYDRAMINE SLN 12.5/5ML 60ML MAALOX 4GM CARAFATE SWISH AND SPIT Esomeprazole Magnesium (Nexium) 20 Mg Cap 1 CAP PO DAILY, CAP Lorazepam (Ativan) 0.5 Mg Tab 0.5 MG PO PRN/UD PRN for ANXIETY, TAB TAKE ONE TABLET, BY MOUTH, APPROXIMATELY ONE HOUR PRIOR TO CHEMO TREATMENT, NEEDED. Mirtazapine Soltab (Remeron Soltab) 15 Mg Soltab 30 MG PO HS, TAB Montelukast Sodium (Singulair) 10 Mg Tab 10 MG PO QPM, TAB Multivitamin (Multivitamin) Tab 1 TAB PO DAILY, TAB Ondansetron Hcl (Zofran) 8 Mg Tab 8 MG PO DIRECTED PRN for Nausea, TAB as instructed for chemo Probiotic Product (Probiotic) 1 Cap Cap 1 CAP PO DAILY Prochlorperazine Maleate (Compazine) 10 Mg Tab 10 MG PO Q6H PRN for Nausea or Vomiting, TAB Tamsulosin Hcl (Flomax) 0.4 Mg Cap 0.4 MG PO QAM, CAP [Ferrous Sulfate] () 160 MG PO DAILY [Melatonin] () 1 MG PO HS PRN for Insomnia Discontinued Medications: Prednisone (Prednisone) 20 Mg Tab 20 MG PO DAILY/UD, TAB BEGIN 04/13/17 : TAKE 60MG X 2 DAYS, TAKE 40MG X 2 DAYS, TAKE 20MG X 2 DAYS, TAKE 10MG X 2 DAYS. Discharge Exam ROS Constitutional: no chills, aches, sweats or fever Respiratory: no sob,cough, sputum, or wheezing Cardiac: no chest pain, palpitations, edema, orthopnea or lightheadedness GI: no abdominal pain, nausea, vomiting, diarrhea or constipation : no dysuria or hesitancy Extremities: no joint pain or weakness Skin: no rash Exam General: no distress Eyes: normal inspection, PERLL Respiratory: chest non tender, clear to auscultation, normal breath sounds, no respiratory distress, no accessory muscle use Cardiac: regular rate and rhythm, no rub or gallop, no murmur, no edema, no jvd GI/: active bowel sounds, no abd pain or tenderness, soft, non distended Extremities: normal range of motion, normal strength, non tender Neuro/Psych: alert and oriented x 3, normal mood and affect Skin: normal color, dry (Kristen Duron, LISA) Hospital Course 66 y/o M Hx COPD, anemia, L lung large cell neuroendocrine tumor - post lobectomy with recurrence, L bronchial stenting. Pt had undergone chemotherapy until 01/08 and has had 2 infusions of Nivolumab over the past 3 wks. Pt presented with a productive cough and progressive SOB over [address] chest was consistent with a developing perihilar pneumonia. PNA/radiation pneumonitis, hx COPD - Patient presented with purulent sputum and fever giving concern to pneumonia, however there was no growth in his blood cultures so may have been more radiation pneumonitis. - given solumedrol IV, levaquin, duonebs and cough suppressant during admission - home with 60 mg po prednisone daily until oncology appt when they will begin to taper per Dr. Cota's recommendation Hx of Lung CA - Chest CT - . "Developing right mid to lower lung pulmonary nodularity raising the distinct possibility of pulmonary metastatic disease. These should be closely monitored. " - Per report , had undergone chemotherapy until 01/08 and has had 2 infusions of Nivolumab over the past 3 wks - managed by Dr. Cota - follow up outpatient BPH - continued Flomax GERD - contued PPi Chronic anemia - Hb remained stable Total Time Spent: Less than 30 minutes This includes examination of the patient, discharge planning, medication reconciliation, and communication with other providers. (Kristen Duron CRNP) Total Time Spent: Greater than 30 minutes (Mireya Molina MD) Discharge Instructions Please refer to the electronic Patient Visit Report (Discharge Instructions) for additional information. (Kristen Duron CRNP) Follow-Up To follow with pcp and oncology in about a week (Kristen Duron CRNP) Additional Copies To Bradford Cota D.O.; Sagar Mccray M.D. Reviewed: Pt Seen/Exam by Me (Mireya Molina MD) History [employer] Supervision Note: I interviewed and examined the patient. Discussed with LISA Duron and agree with findings and plan as documented in the note. Any exceptions or clarifications are listed here: Pt feeling better, still with some cough, no hemoptysis. Afebrile, vitals stable , ready for discharge. [place] po. Vitals reviewed NAD, pleasant, AAOx3 RRR 2/6 LYNNE at [facility] Lungs with crackles at right base, otherwise fairly clear Abd +BS sof [place] ND Ext no edema, no calf tenderness 66 yo male with recurrent lung CA, here with PNA vs radiation pneumonitis. COntinue on steroids until tapered by Dr. Cota in office next week. Finish out course of Levaquin. Otherwise stable Documented By: Mireya Molina (Mireya Molina MD)
== END 2017-04-16 11:55 | disposition home or self-care (01) | DRG 178 ==
LOC: C.EDB 17:59 → C.4E 20:29 → ENRESERV 20:59
PROVIDERS: ADMIT Internal Medicine; ATTEND Family Medicine
DX: J15.6 Pneumonia due to other Gram-negative bacteria (principal); C34.92 Malignant neoplasm of unspecified part of left bronchus or lung; J44.9 Chronic obstructive pulmonary disease, unspecified; J70.0 Acute pulmonary manifestations due to radiation; K21.9 Gastro-esophageal reflux disease without esophagitis; N40.0 Benign prostatic hyperplasia without lower urinary tract symptoms; D63.8 Anemia in other chronic diseases classified elsewhere; Z79.52 Long term (current) use of systemic steroids; Z79.899 Other long term (current) drug therapy; Z80.0 Family history of malignant neoplasm of digestive organs; Z80.42 Family history of malignant neoplasm of prostate; Z87.891 Personal history of nicotine dependence; Z92.3 Personal history of irradiation

== ENCOUNTER → 2017-04-13 | Outpatient (CLI) | payer BC ==
[~2017-04-13] MED LIST changes: +FERROUS SULFATE PO; +LORA-741 PO; +LVQ750 PO; +MAGIC1 MT; +MELA3TAB7 PO; +MIRT15TA2 PO; +MONT1TAB3 PO; +PRD20 PO; +PRED20TA PO
--- NOTE | 2017-04-13 14:56 | DIAGNOSTIC IMAGING REPORT ---
CHEST 2 VIEWS ROUTINE CLINICAL HISTORY: PRIMARY CANCER OF LUNG C34.12 COMPARISON STUDY: 04/03/2017 FINDINGS: There is left-sided volume loss. The heart is normal in size. The right lung is clear. There is a stable 8 mm nodule as visualized in the lateral view in the retroxiphoid portion of the chest. Since the prior study, the patient developed left basal airspace opacities possibly representing a pneumonia. There is a small left pleural effusion. Clinical and radiographic follow-up is recommended.[ IMPRESSION: Interval development of left basilar airspace opacities, possibly representing a pneumonia. Small left pleural effusion. Clinical and radiographic follow-up is recommended. Electronically signed by: Avinash Buchanan M.D. 04/13/2017 2:54 PM Dictated Date/Time: 04/13/2017 2:52 PM
== END | disposition home or self-care (01) ==
LOC: C.RAD 14:01
PROVIDERS: ATTEND Internal Medicine Hematology & Oncology
DX: C34.12 Malignant neoplasm of upper lobe, left bronchus or lung (principal)

== ENCOUNTER → 2017-04-24 | Outpatient (CLI) | payer BC, OTHER ==
[~2017-04-24] MED LIST changes: -CPC PO; +FERROUS SULFATE PO; +LORA-741 PO; +LVQ750 PO; +MAGIC1 MT; +MELA3TAB7 PO; +MIRT15TA2 PO; +MONT1TAB3 PO; +PRD20 PO; -RMR15 PO; -RXC5 PO; -iron PO
--- NOTE | 2017-04-24 15:01 | DIAGNOSTIC IMAGING REPORT ---
CHEST 2 VIEWS ROUTINE CLINICAL HISTORY: 66 years-old Male presenting with PRIMARY CANCER OF LUNG. TECHNIQUE: PA and lateral views of the chest were obtained. COMPARISON: 04/13/2017. FINDINGS: Atherosclerosis of aortic arch. The left heart border is largely obscured secondary to left basilar opacity and elevation of the left hemidiaphragm. Moderate left pleural effusion persists. No pneumothorax. Right lung and pleural space clear. Osseous structures normal. Upper abdomen normal. IMPRESSION: 1. Unchanged findings of left basilar opacity, consistent with consolidation. This could represent the primary lung cancer reported in the given history. Associated left pleural effusion unchanged. Electronically signed by: Genaor Montez M.D. 04/24/2017 2:59 PM Dictated Date/Time: 04/24/2017 2:58 PM
== END | disposition home or self-care (01) ==
LOC: C.RAD 14:42
PROVIDERS: ATTEND Internal Medicine Hematology & Oncology
DX: C34.12 Malignant neoplasm of upper lobe, left bronchus or lung (principal)

== ENCOUNTER → 2017-05-04 | Outpatient (CLI) | payer BC ==
--- NOTE | 2017-05-04 14:35 | DIAGNOSTIC IMAGING REPORT ---
CHEST 2 VIEWS ROUTINE CLINICAL HISTORY: Lung carcinoma COMPARISON STUDY: 04/24/2017 FINDINGS: There is persistent left-sided volume loss. There is stable left pleural fluid/thickening. There is a stable left lower lung zone opacity. There is stable right upper lobe nodularity. IMPRESSION: 1. Stable left basilar airspace opacities with associated left pleural fluid/thickening. 2. Stable subcentimeter right upper lobe nodularity. Electronically signed by: Avinash Buchanan M.D. 05/04/2017 2:34 PM Dictated Date/Time: 05/04/2017 2:30 PM
== END | disposition home or self-care (01) ==
LOC: C.RAD 14:05
PROVIDERS: ATTEND Internal Medicine Hematology & Oncology
DX: C34.12 Malignant neoplasm of upper lobe, left bronchus or lung (principal); R91.8 Other nonspecific abnormal finding of lung field

== ENCOUNTER → 2017-05-11 | Outpatient (CLI) | payer BC ==
--- NOTE | 2017-05-11 13:33 | DIAGNOSTIC IMAGING REPORT ---
CHEST 2 VIEWS ROUTINE CLINICAL HISTORY: PRIMARY CANCER OF LUNG COMPARISON STUDY: 05/04/2017 FINDINGS: The cardiac and mediastinal contours remain stable. There is persistent elevation left hemidiaphragm. There is a small amount of left pleural fluid/thickening. There is a stable 7 cm left lower lung zone opacity. There is persistent nonspecific right lung nodularity, possibly mildly progressive.[ IMPRESSION: 1. Slightly progressive right lung nodularity, a finding raising the possibility of right lung metastatic disease 2. Stable 7 cm left lower lung zone opacity. Electronically signed by: Avinash Buchanan M.D. 05/11/2017 1:31 PM Dictated Date/Time: 05/11/2017 1:29 PM
== END | disposition home or self-care (01) ==
LOC: C.RAD 13:04
PROVIDERS: ATTEND Internal Medicine Hematology & Oncology
DX: C34.12 Malignant neoplasm of upper lobe, left bronchus or lung (principal)

== ENCOUNTER → 2017-05-26 | Outpatient (CLI) | payer OTHER ==
[~2017-05-26] MED LIST changes: +ONDA-170 PO; -ONDA8TAB6 PO; +PROC10TA PO; -PROC1TAB5 PO
--- NOTE | 2017-05-26 12:45 | DIAGNOSTIC IMAGING REPORT ---
CHEST 2 VIEWS ROUTINE CLINICAL HISTORY: Lung cancer. COMPARISON STUDY: Chest CT April 13, 2016 and chest radiograph May 11, 2017. FINDINGS: Left hemithorax following loss with left perihilar/left basilar airspace opacity is unchanged since exam of May 11, 2017. Blunting of the left costophrenic angle is likely due to epicardial fat pad as shown on prior CT. Cardiomediastinal silhouette is stable. There is no pneumothorax or pleural effusion. Size and number of numerous right lung lesions has increased exam of May 11, 2017. These measure up to 9 mm. IMPRESSION: 1. Moderate increase in size and number of numerous right lung nodules consistent with pulmonary metastases. 2. No change in appearance of the left lung with left lung volume loss and left perihilar/infrahilar opacity which could reflect postradiation change. Electronically signed by: Girma Gonzáles M.D. 05/26/2017 12:44 PM Dictated Date/Time: 05/26/2017 12:40 PM
== END | disposition home or self-care (01) ==
LOC: C.RAD 12:25
PROVIDERS: ATTEND Internal Medicine Hematology & Oncology
DX: C34.12 Malignant neoplasm of upper lobe, left bronchus or lung (principal)

== ENCOUNTER → 2017-06-10 | Outpatient (CLI) | payer OTHER ==
[~2017-06-10] MED LIST changes: -ONDA-170 PO; +ONDA8TAB6 PO; -PROC10TA PO; +PROC1TAB5 PO
--- NOTE | 2017-06-10 13:59 | DIAGNOSTIC IMAGING REPORT ---
PET/CT SKULL-THIGH CLINICAL HISTORY: 66 years-old Male with LUNG CANCER. Follow-up study in a patient with history of lung cancer. Subsequent treatment strategy. History of non-small cell lung cancer. COMPARISON: CTA of the chest 04/13/2017, chest radiographs 05/26/2017, PET CT 03/09/2017 TECHNIQUE: The patient was injected with 11.02 mCi of F-18 fluorodeoxyglucose (FDG) and an emission scan was performed from the skull vertex to the toes. Noncontrast CT was performed for attenuation correction and anatomic localization. The blood glucose level was 104 mg/dl. FINDINGS: HEAD AND NECK: There is a physiologic distribution of activity, with no hypermetabolic foci. CHEST: The previously noted 10 x 8 mm mildly hypermetabolic right paratracheal lymph node is again seen measuring 11 x 6 mm on image 62 series 2 without significant hypermetabolic activity. Previously noted 5 mm slightly hypermetabolic lymph node adjacent to the proximal aspect of the left mainstem bronchus appears unchanged in size without hypermetabolic activity. No pathologically enlarged or hypermetabolic lymph nodes of the chest definitively seen. There are multiple hypermetabolic pulmonary nodules present throughout the right lung which are randomly distributed throughout all lobes, largest measuring 1.3 x 0.9 cm with SUV max of 6.9 compatible with progressive metastatic disease. Additionally, there is hypermetabolic consolidation throughout the left lung which was previously predominantly groundglass attenuating on study dated 04/13/2017. The consolidation demonstrates increased metabolic activity with SUV max of 4.6. Additionally, there are multiple scattered noncalcified nodules throughout the left lung measuring up to 6 mm as noted on image 93 series 2 with SUV max measuring up to 3.2. These are also new from comparison study 04/13/2017. There is a trace left pleural effusion which has slightly increased in size from comparison and demonstrates minimally increased metabolic activity with SUV max measured at 2.0. ABDOMEN AND PELVIS: There is a physiologic distribution of activity within the liver, spleen, adrenal glands, gastrointestinal and urinary tracts, with no hypermetabolic foci. MUSCULOSKELETAL SYSTEM AND EXTREMITIES: There is a physiologic distribution of activity within the bone marrow, with no hypermetabolic foci. ADDITIONAL CT FINDINGS: Healed posterior right 11th rib fracture. Prior left upper lobectomy. Mild cardiomegaly. Probable right renal cyst, 4.0 cm. Normal appendix. Soft tissues appear unremarkable. IMPRESSION: 1. Findings compatible with progressive metastatic disease manifested by multiple hypermetabolic randomly distributed nodules throughout the right greater than left lungs. 2. Progressive hypermetabolic consolidation throughout the left lung suggests post treatment pneumonitis or superimposed infectious pneumonia with metastatic disease also in the differential. 3. Minimally hypermetabolic trace left pleural effusion. 4. No pathologically enlarged or hypermetabolic adenopathy identified. 5. No bony metastasis or evidence of metastatic disease within the abdomen or pelvis. The above report was generated using voice recognition software. It may contain grammatical, syntax or spelling errors. Electronically signed by: Damir Solis M.D. 06/10/2017 1:58 PM Dictated Date/Time: 06/10/2017 1:33 PM
== END | disposition home or self-care (01) ==
LOC: C.PET 10:17
PROVIDERS: ATTEND Internal Medicine Hematology & Oncology
DX: C34.12 Malignant neoplasm of upper lobe, left bronchus or lung (principal); J90 Pleural effusion, not elsewhere classified

== ENCOUNTER → 2017-06-16 | Outpatient (CLI) | payer OTHER ==
--- NOTE | 2017-06-16 16:01 | DIAGNOSTIC IMAGING REPORT ---
CHEST 2 VIEWS ROUTINE HISTORY: PRIMARY CANCER OF LUNG C34.12 COMPARISON: PET CT 06/10/2017. FINDINGS: Multiple bilateral pulmonary nodules are again noted. No pneumothorax. A left pleural effusion persists. Left basilar consolidation remains unchanged. No new areas of consolidation identified. The heart is stable in size. Stable volume loss within the left hemithorax. IMPRESSION: 1. No significant change compared to the prior study. 2. Multiple pulmonary nodules consistent with metastatic disease are again noted. 3. Small left pleural effusion and left basilar consolidation persists. Electronically signed by: Isaac Chandler M.D. 06/16/2017 3:59 PM Dictated Date/Time: 06/16/2017 3:56 PM
== END | disposition home or self-care (01) ==
LOC: C.RAD 15:39
PROVIDERS: ATTEND Internal Medicine Hematology & Oncology
DX: C34.12 Malignant neoplasm of upper lobe, left bronchus or lung (principal); R91.8 Other nonspecific abnormal finding of lung field; J90 Pleural effusion, not elsewhere classified

== ENCOUNTER → 2017-07-02 | Outpatient (CLI) | payer OTHER ==
--- NOTE | 2017-07-02 17:27 | DIAGNOSTIC IMAGING REPORT ---
TWO VIEW CHEST CLINICAL HISTORY: Lung cancer. FINDINGS: PA and lateral chest radiographs are compared to study dated 06/16/2017 and correlated with chest CT dated 04/13/2017. The cardiomediastinal silhouette is unremarkable. Atherosclerotic calcification is noted in the thoracic aorta. Emphysema and chronic interstitial thickening are similar to previous. There is volume loss in the left lung suggesting a history of surgical resection. Pleural fluid is again seen at the left lung base with associated left basilar consolidation. Numerous right-sided pulmonary nodules are similar in appearance to previous. There is no pneumothorax. The skeletal structures are osteopenic. The bony thorax appears intact. IMPRESSION: 1. Emphysema and postoperative changes from left-sided pulmonary resection as above. Findings have not significantly changed from 06/16/2017. 2. Pleural fluid and consolidative change is again seen at the left lung base. 3. Numerous right-sided pulmonary nodules are similar to previous. Electronically signed by: Dillon Salinas M.D. 07/02/2017 5:25 PM Dictated Date/Time: 07/02/2017 5:24 PM
== END | disposition home or self-care (01) ==
LOC: C.RAD 16:09
PROVIDERS: ATTEND Internal Medicine Hematology & Oncology
DX: J43.9 Emphysema, unspecified (principal); R91.8 Other nonspecific abnormal finding of lung field; Z90.2 Acquired absence of lung [part of]; C34.12 Malignant neoplasm of upper lobe, left bronchus or lung

== ENCOUNTER → 2017-08-07 | Outpatient (CLI) | payer OTHER ==
[~2017-08-07] MED LIST changes: +ONDA-170 PO; -ONDA8TAB6 PO; +OPTIRAY 320 IV PRN
--- NOTE | 2017-08-07 14:45 | DIAGNOSTIC IMAGING REPORT ---
ADDENDUM Addendum: Left pleural/extrapleural nodularity suggests this represents a small malignant effusion. Electronically signed by: Girma Gonzáles M.D. 08/07/2017 2:48 PM Dictated Date/Time: 08/07/2017 2:[address] OF THE CHEST WITH IV CONTRAST CLINICAL HISTORY: Lung cancer. COMPARISON STUDY: Chest CT April 13, 2017 and PET/CT June 10, 2017. TECHNIQUE: Following IV administration of 94 mL of Optiray-320, helical axial images of the chest were obtained. Sagittal and coronal reconstructions were viewed as well as maximal intensity projections on an independent 3-D workstation. A dose lowering technique was utilized adhering to the principles of ALARA. CT DOSE: 510.93 mGy.cm FINDINGS: No enlarged axillary, mediastinal or hilar lymph nodes are present. Doppler findings with the left hemithorax are noted. Left lower lung consolidation is similar to exam of June 10, 2017 and likely reflects postradiation change. There is associated volume loss with bronchiectasis. There is no pneumothorax. A small left pleural effusion is unchanged since prior exam. There is no right pleural effusion. The heart is mildly enlarged. There is no pericardial effusion. Numerous pulmonary nodules are noted. The majority of these have increased in size since exam of June 10, 2017. An index right lower lobe nodule shown image 44 measures 1.4 cm. It previously measured 0.[address] of June 10, 2017. An index left lower lobe nodule shown image 33 measures 0.9 cm. It previously measured 0.6 cm. An index right upper lobe nodule shown image 14 measures 1.3 cm. It previously measured 0.9 cm. No suspicious osseous lesions are present. Upper abdomen is unremarkable. The abdomen and pelvis will be reported separately. IMPRESSION: 1. Moderate increase in size of multiple pulmonary metastases since chest CT of June 10, 2017. 2. No change in left lower lung consolidation which likely reflect postradiation change. Stable small left pleural effusion. Electronically signed by: Girma Gonzáles M.D. 08/07/2017 2:43 PM Dictated Date/Time: 08/07/2017 2:32 PM
--- NOTE | 2017-08-07 14:51 | DIAGNOSTIC IMAGING REPORT ---
ABDOMEN AND PELVIS CT WITH IV AND ORAL CONTRAST HISTORY: Follow-up study in a patient with history of lung cancer C34.12 TECHNIQUE: Multiaxial CT images of the abdomen and pelvis were performed following the use of intravenous and oral contrast. A dose lowering technique was utilized adhering to the principles of ALARA. COMPARISON STUDY: CT chest of same day, PET CT 06/10/2017, CT abdomen and pelvis 04/13/2017. FINDINGS: Multiple nodules of the bilateral lung bases are redemonstrated measuring up to 2.2 cm on the right, image 40 series 7. These conglomerate nodules measuring up to 1.4 cm on prior PET/CT. Additionally, there is a 1.4 cm nodule of the posterior basal segment right lower lobe, image 53 series 7 which previously measured 8 mm. Largest nodule on the left lung base previously measured 6 mm, now nodules in the left lung base measure up to 11 mm. Trace left pleural effusion. Subpleural nodules of the left lung base are seen measuring up to 7 x 5 mm, image 30 series 7. Partially imaged consolidation of the basal left lower lobe. There is no pneumatosis or pneumoperitoneum identified. Imaged inferior cardiac chambers appear mildly enlarged. Trace pericardial effusion. The liver demonstrates no suspicious mass lesions or intrahepatic biliary ductal dilation. The spleen, pancreas and adrenal glands are within normal limits. Gallbladder is contracted. 3.4 cm cyst of the interpolar right kidney. No renal calculi or obstructive uropathy. Low attenuating 4 mm lesion of the inferior pole left kidney is too small to characterize. Minimal nonspecific bilateral perinephric stranding. Ureters and urinary bladder are within normal limits. Prostate appears mildly prominent in size. Mild atherosclerosis of the aorta without aneurysm. No bulky adenopathy. There is mild wall thickening of the distal esophagus. Nondistention of the rectum and sigmoid. The majority of the colon is decompressed. There are a few scattered noninflamed colonic diverticula. Normal appendix. Soft tissues are unremarkable. Chronic appearing nondisplaced fracture of the posterior right 11th rib. No suspicious lytic or blastic bony lesions are identified. IMPRESSION: 1. Progression of pulmonary metastasis with malignant left pleural effusion and left basilar consolidation, further described on CT chest of same day. 2. No evidence of metastatic disease or pathologic adenopathy within the abdomen or pelvis. 3. No evidence of bony metastasis. 4. Colonic diverticulosis without diverticulitis. 5. Nonspecific mild wall thickening of the distal esophagus may reflect esophagitis. Electronically signed by: Damir Solis M.D. 08/07/2017 2:50 PM Dictated Date/Time: 08/07/2017 2:39 PM
== END | disposition home or self-care (01) ==
LOC: C.CTS 13:37
PROVIDERS: ATTEND Internal Medicine Hematology & Oncology
DX: C34.12 Malignant neoplasm of upper lobe, left bronchus or lung (principal); J91.0 Malignant pleural effusion

== ENCOUNTER → 2017-09-10 | Outpatient (CLI) | payer OTHER ==
[~2017-09-10] MED LIST changes: -OPTIRAY 320 IV PRN
--- NOTE | 2017-09-10 09:42 | DIAGNOSTIC IMAGING REPORT ---
ASCITES-ABDOMEN LIMITED CLINICAL HISTORY: PRE DIABETES,HYPOXIA,LUNG CA,ASCITES ascites TECHNIQUE: Survey abdominal ultrasound COMPARISON STUDY: CT abdomen and pelvis 08/07/2017 FINDINGS: No significant ascites within the abdomen or visualized components of the upper pelvis IMPRESSION: No significant ascites. The above report was generated using voice recognition software. It may contain grammatical, syntax or spelling errors. Electronically signed by: Ariel Torrez M.D. 09/10/2017 9:41 AM Dictated Date/Time: 09/10/2017 9:40 AM
== END | disposition home or self-care (01) ==
LOC: C.ULTR 09:08
PROVIDERS: ATTEND Family Medicine
DX: C34.90 Malignant neoplasm of unspecified part of unspecified bronchus or lung (principal); R18.8 Other ascites; R09.02 Hypoxemia; R73.03 Prediabetes

== ENCOUNTER → 2017-10-05 | Outpatient (CLI) | payer OTHER ==
[~2017-10-05] MED LIST changes: +PROC10TA PO; -PROC1TAB5 PO
--- NOTE | 2017-10-05 16:13 | DIAGNOSTIC IMAGING REPORT ---
CHEST 2 VIEWS ROUTINE HISTORY: Lung cancer. COMPARISON: Chest 07/02/2017. FINDINGS: Multiple bilateral pulmonary nodules are again noted. Left basilar consolidation and a small left pleural effusion persists. Stable left mediastinal shift. No pneumothorax. Emphysema. IMPRESSION: 1. No significant change compared to the prior study. 2. Multiple pulmonary nodules consistent with metastatic disease. 3. Left basilar consolidation and a small left pleural effusion are again noted. Electronically signed by: Isaac Chandler M.D. 10/05/2017 4:11 PM Dictated Date/Time: 10/05/2017 4:10 PM
== END | disposition home or self-care (01) ==
LOC: C.RAD1850 15:45
PROVIDERS: ATTEND Family Medicine
DX: C34.90 Malignant neoplasm of unspecified part of unspecified bronchus or lung (principal); J18.9 Pneumonia, unspecified organism

== ENCOUNTER → 2018-01-05 | Outpatient (CLI) | payer OTHER ==
[~2018-01-05] MED LIST changes: +OPTIRAY 320 IV PRN
--- NOTE | 2018-01-05 16:55 | DIAGNOSTIC IMAGING REPORT ---
CHEST, ABDOMEN AND PELVIS CT WITH IV AND ORAL CONTRAST CT DOSE: 964.20 mGycm HISTORY: Lung cancer. Restage. TECHNIQUE: Multiaxial CT images of the chest, abdomen and pelvis were performed following the use of intravenous and oral contrast. A dose lowering technique was utilized adhering to the principles of ALARA. COMPARISON STUDY: Chest abdomen pelvis CT 08/07/2017. FINDINGS: Interval increase in size and number the multiple bilateral pulmonary nodules. Dominant nodule within the right lower lobe measures 2.9 cm, previously measuring 2.1 cm. Trace left pleural effusion and small pericardial effusion remain unchanged. Progressive soft tissue nodularity within the left posterior pleura which is also consistent with metastatic disease. Stable consolidation within the left midlung zone consistent with post radiation change. Stable focal narrowing within the left lower lobe bronchus. Subcentimeter anterior mediastinal lymph nodes remain stable. Old, healed right posterior 11th rib fracture. No suspicious lytic or blastic osseous lesions. Normal caliber thoracic aorta. The central pulmonary arteries are patent. No pneumothorax. Interval development of a 3.7 cm hypodense mass within the right hepatic lobe. This is consistent with a metastatic lesion. The spleen, adrenal glands, pancreas, and left kidney are unremarkable. Normal gallbladder. Stable right renal cyst. No retroperitoneal lymphadenopathy. No suspicious lytic or blastic osseous lesions. No pelvic lymphadenopathy. Normal bladder. A few colonic diverticula. Normal appendix. No bowel wall thickening or obstruction. IMPRESSION: 1. Interval progression of the metastatic disease within the chest as described above. 2. There is a new 3.7 cm mass within the right hepatic lobe. This is also consistent with a metastatic lesion. Electronically signed by: Isaac Chandler M.D. 01/05/2018 4:54 PM Dictated Date/Time: 01/05/2018 4:50 PM
== END | disposition home or self-care (01) ==
LOC: C.CTS 15:29
PROVIDERS: ATTEND Internal Medicine Hematology & Oncology
DX: C34.12 Malignant neoplasm of upper lobe, left bronchus or lung (principal); R16.0 Hepatomegaly, not elsewhere classified